=== PATIENT | female | born 1935 | race Caucasian/White ===

== ENCOUNTER → 2017-05-02 | Outpatient (CLI) | payer OTHER ==
[~2017-05-02] MED LIST: ASPCH81X PO; ATEN-175 PO; CALCTAB5 PO; FSMD/70 PO; LISI40TA PO; SIMV10TA2 PO
--- NOTE | 2017-05-03 07:41 | MAMMOGRAPHY REPORT ---
BILATERAL DIGITAL SCREENING MAMMOGRAM WITH CAD: 05/02/2017 CLINICAL HISTORY: Routine screening. Patient has no complaints. TECHNIQUE: Bilateral CC and MLO views were obtained. Current study was also evaluated with a Compute r Aided Detection (CAD) system. COMPARISON: Comparison is made to exams dated: 04/28/2016 mammogram, 04/25/2015 mammogram, 04/24/2014 ma mmogram, 04/18/2013 mammogram, 04/13/2012 mammogram, and 04/08/2011 mammogram - [facility]. BREAST COMPOSITION: There are scattered areas of fibroglandular density in both breasts. FINDINGS: There are minimal vascular calcifications in the breasts. No suspicious mass, architectura l distortion or cluster of microcalcifications is seen. IMPRESSION: ACR BI-RADS CATEGORY 1: NEGATIVE There is no mammographic evidence of malignancy. A 1 year screening mammogram is recommended. The pa tient will receive written notification of the results. Approximately 10% of breast cancers are not detected with mammography. A negative mammographic report should not delay biopsy if a clinically suggestive mass is present. Jenelle Hebert M.D. ay/:05/02/2017 16:10:36 Tool And Die Designer: Erma ARIAS(Maia)(Andrew)(BD), letter sent: Normal 1/2 BI-RADS Code: ACR BI-RADS Category 1: Negative
== END | disposition home or self-care (01) ==
LOC: C.MAMM 07:30
PROVIDERS: ATTEND Family Medicine
DX: Z12.31 Encounter for screening mammogram for malignant neoplasm of breast (principal)

== ENCOUNTER → 2018-05-04 | Outpatient (CLI) | payer OTHER ==
--- NOTE | 2018-05-04 16:06 | MAMMOGRAPHY REPORT ---
BILATERAL DIGITAL SCREENING MAMMOGRAM TOMOSYNTHESIS WITH CAD: 05/04/2018 CLINICAL HISTORY: Routine screening. Patient has no complaints. TECHNIQUE: The study was acquired using full field digital technology and interpreted from soft copy. Breast tomosynthesis in addition to standard 2D mammography was performed. Current study was also ev aluated with a Computer Aided Detection (CAD) system. COMPARISON: Comparison is made to exams dated: 05/02/2017 mammogram, 04/28/2016 mammogram, 04/25/2015 m ammogram, 04/24/2014 mammogram, 04/18/2013 mammogram, and 04/08/2011 mammogram - [facility]. BREAST COMPOSITION: There are scattered areas of fibroglandular density in both breasts. FINDINGS: No suspicious masses, calcifications, or areas of architectural distortion are noted in either breast . There has been no significant interval change compared to prior exams. A linear scar marker denote s a scar on the left upper outer breast. IMPRESSION: There is no mammographic evidence of malignancy. A 1 year screening mammogram is recommended.( 019) The patient will receive written notification of the results. Some breast cancers are not detected with mammography. A negative mammographic report should not ricci y biopsy if a clinically suggestive mass is present. Geni Carrion M.D. ah/:05/04/2018 07:43:50 Residential Sales Representative: Anna Marie Skinner, [facility] letter sent: Normal 1/2 BI-RADS Code: ACR BI-RADS Category 2: Benign
== END | disposition home or self-care (01) ==
LOC: C.MAMM 07:25
PROVIDERS: ATTEND Family Medicine
DX: Z12.31 Encounter for screening mammogram for malignant neoplasm of breast (principal)

== ENCOUNTER 2024-07-10 23:04 | Inpatient (IN) ==
--- NOTE | 2024-07-10 23:38 | Emergency Department Note ---
Impression & Plan Chest pain, Hypertension, Elevated troponin, Anemia ED Provider Note ED Provider Note NAME: DERRICK ANGEL AGE:88 SEX: Female : 1935 ARRIVES VIA: Private vehicle INFORMANT: Patient ED PROVIDER(s): Bianca Vo DO CHIEF COMPLAINT: Chest pain HPI: This is an 88-year-old female who presents emergency department due to concern for intermittent episodes of chest pain over the last 2 weeks. Patient states she also noticed some mild intermittent reflux symptoms and was taking Prilosec daily as well as intermittent Tums. She states occasionally it seemed to help but other times it did not. She states the chest pressure does not always seem to occur at that time she has reflux low. States chest pressure is central and otherwise nonradiating. No change with position or exertion. She denies any accompanying dizziness, nausea or vomiting, or abdominal pain. She states intermittently it does feel slightly harder to breathe. Patient states she does take medication for high blood pressure. She also takes low-dose aspirin daily. PAST MEDICAL HISTORY:See Below PAST SURGICAL HISTORY:See Below FAMILY HISTORY:See Below SOCIAL HISTORY:See Below HOME MEDICATIONS:See Below ALLERGIES:See Below VITALS:See Below PHYSICAL EXAMINATION: GENERAL: alert, well appearing, well nourished, no distress, non-toxic EYE EXAM: normal conjunctiva, PERRL and EOM's grossly intact OROPHARYNX: no exudate, no erythema, lips, buccal mucosa, and tongue normal and mucous membranes are moist NECK: supple, no nuchal rigidity, no adenopathy, non-tender LUNGS: Clear to auscultation. Normal chest wall mechanics, no w/r/r HEART: no murmurs, S1 normal and S2 normal, mild discomfort with palpation over the sternum centrally ABDOMEN: abdomen soft, non-tender, normo-active bowel sounds, no masses, no rebound or guarding. SKIN: no rashes, petechiae, orbruising UPPER EXTREMITIES: upper extremities are grossly normal. FROM, nml pulses b/l. LOWER EXTREMITIES: No pitting edema. FROM, nml pulses b/l. NEURO EXAM: Normal sensorium, cranial nerves II-XII grossly intact, normal speech, no facial droop,nogross weakness of arms, no gross weakness of legs. Gross sensation intact. No ataxia. Vital Signs: reviewed and remarkable Differential Diagnosis: acute coronary syndrome, pericarditis, pulmonary embolus, aortic dissection, pneumonia, pneumothorax, musculoskeletal pain, shingles, GERD, GI bleed, as well as others were considered MEDICAL DECISION MAKING: This is a well-appearing 88-year-old female who presents due to intermittent chest pain over the last 2 weeks. She was afebrile and hemodynamically stable although noted to have significant hypertension. Patient's blood pressure did improve without additional intervention I suspect some of it is related to her concern for her condition and being in the emergency department. Labs drawn and sent, IV established, EKG and CXR performed and interpreted at bedside, and patient placed on telemetry. Patient noted to have an elevated troponin. BNP was added as was nasal swab for bio fire. No recent URI symptoms, no hypoxia or increased work of breathing. Patient initially given Pepcid for her intermittent chest discomfort due to her suspicion for GERD and recent accompanying eructation. She was then given Maalox additionally. Due to concern for symptoms, no prior cardiac evaluation, elevated troponin despite reassuring EKG, case discussed with the hospitalist team for additional evaluation and management. Patient was noted to have mild anemia compared to prior however blood work was from 2 years ago in our EMR. Consultation(s): 0219: Discussed with Dr. Brody, [facility] hospitalist team, for additional evaluation and management. ER Treatment Provided: See below 0140: Patient updated on results so far. Diagnostics Interpreted By Me: -ECG: Normal sinus at 80 with first-degree AV block, normal axis, normal intervals, no acute ST/T wave changes -Cardiac Monitoring: An order was placed for continuous cardiac monitoring. The monitor shows a rate of 88 with normal sinus rhythm. -Laboratory studies: As stated above and show below. -Imaging studies: cxr: A single view study of the chest was reviewed and was negative for cardiomegaly, effusion, pulmonary edema, or wide mediastinum. Increased interstitial markings noted RLL. Triage Nursing Note Reviewed Prior/Outside Records Reviewed Past Med/Surg History Problem List (Updated 07/11/24 @ 03:40 by Bianca Vo DO) Anemia (Acute) Elevated troponin (Acute) Chest pain (Acute) Encounter for pre-operative examination Hypertension (Acute) HTN (hypertension) (Chronic) Hypertension (Acute) Encounter for pre-operative examination Medical History History of COVID-19 06/2020 [facility]; reports only symptom was fatigue; resolved HLD (hyperlipidemia) HTN (hypertension) Hypothyroidism Osteoarthritis Surgical History History of appendectomy History of cataract surgery left History of colonoscopy History of lumbar surgery History of lumpectomy of left breast benign History of tooth extraction History of total abdominal hysterectomy and bilateral salpingo-oophorectomy Family History Other No family history of adverse response to anesthesia Social History Smoking Status: Never smoker Cigarettes Per Day: 1970; Second Hand Exposure: No; Do You Dip or Chew Tobacco: No; Hx Alcohol Use: Yes Alcohol type: wine Hx Substance Use: No Preferred Language: Slovak Communication Ability: Effective Finger Waver Required: No Beliefs That Will Affect Care: None Current Living Situation: Spouse Feels Safe at Home: Yes Assistive Devices: Glasses Allergies Allergies Allergy/AdvReac Type Severity Reaction Status Date / Time No Known Allergies Allergy Unverified 07/11/24 01:02 Home Meds Home Medications Medication Instructions Recorded Confirmed amlodipine 5 mg tablet 5 mg PO QPM 01/05/21 07/11/24 aspirin 81 mg tablet,delayed 81 mg PO QPM 01/05/21 07/11/24 release cholecalciferol (vitamin D3) 25 50 mcg PO QPM 01/05/21 07/11/24 mcg (1,000 unit) capsule (Vitamin D3) levothyroxine 50 mcg tablet 50 mcg PO QAM 01/05/21 07/11/24 lisinopril 40 mg tablet 40 mg PO QAM 01/05/21 07/11/24 simvastatin 10 mg tablet 10 mg PO HS 01/05/21 07/11/24 ascorbic acid (vitamin C) 500 mg 500 mg PO QPM 07/11/24 07/11/24 tablet (Vitamin C) atenolol 50 mg tablet 50 mg PO QAM 07/11/24 07/11/24 cyanocobalamin (vitamin B-12) 1,000 mcg PO QPM 07/11/24 07/11/24 1,000 mcg tablet (Vitamin B-12) Results & Data (ED) Vital Signs Vital Signs - 24 hr 07/10/24 23:06 07/10/24 23:20 07/10/24 23:31 Temperature 36.8 C Temperature Source Temporal Artery Scan Pulse Rate 95 H 85 Respiratory Rate 18 Respiratory Effort / Characteristics Non-Labored Spontaneous Respiratory Depth Normal Respiratory Pattern Regular Blood Pressure 223/97 H Blood Pressure Mean 139 Pulse Oximetry 93 98 Oxygen Delivery Method Room Air Room Air Sepsis Recent Fever Within 48 Hours No Sepsis New/Unexplained Change in Mental Status N/A Sepsis Action Taken by Nursing No Action Required 07/10/24 23:39 07/11/24 00:13 07/11/24 00:31 Temperature Temperature Source Pulse Rate 73 67 64 Respiratory Rate 16 16 18 Respiratory Effort / Characteristics Respiratory Depth Respiratory Pattern Blood Pressure 188/111 H 159/63 H 169/59 H Blood Pressure Mean 136 95 81 Pulse Oximetry 95 95 96 Oxygen Delivery Method Room Air Sepsis Recent Fever Within 48 Hours Sepsis New/Unexplained Change in Mental Status Sepsis Action Taken by Nursing 07/11/24 01:30 07/11/24 02:04 07/11/24 03:00 Temperature Temperature Source Pulse Rate 74 81 75 Respiratory Rate 18 16 24 Respiratory Effort / Characteristics Respiratory Depth Respiratory Pattern Blood Pressure 181/66 H 143/81 H 152/71 H Blood Pressure Mean 81 101 124 Pulse Oximetry 96 92 95 Oxygen Delivery Method Room Air Sepsis Recent Fever Within 48 Hours Sepsis New/Unexplained Change in Mental Status Sepsis Action Taken by Nursing 07/11/24 03:15 Temperature Temperature Source Pulse Rate 76 Respiratory Rate 20 Respiratory Effort / Characteristics Respiratory Depth Respiratory Pattern Blood Pressure 170/77 H Blood Pressure Mean 96 Pulse Oximetry 96 Oxygen Delivery Method Sepsis Recent Fever Within 48 Hours Sepsis New/Unexplained Change in Mental Status Sepsis Action Taken by Nursing Laboratory Data 07/10/24 23:26 07/10/24 23:26 Lab Results 07/10/24 07/11/24 Range/Units 23:26 00:56 WBC 4.00 L (4.8-10.8) K/ul RBC 3.68 L (4.20-5.40) M/uL Hgb 10.6 L (12.0-16.0) g/dl Hct 32.8 L (37.0-47.0) % MCV 89.1 (80.0-100.0) fL MCH 28.8 (25.0-34.0) pg MCHC 32.3 (32.0-36.0) g/dL RDW Std Deviation 55.7 H (36.4-46.3) fL RDW Coeff of Cesar 17.7 H (11.5-14.5) % Plt Count 119 L (130-400) K/uL Immature Gran % (Auto) 0.5 % Neut % (Auto) 32.7 % Lymph % (Auto) 54.3 % [place] % (Auto) 12.5 % Eos % (Auto) 0.0 % Baso % (Auto) 0.0 % Neut # (Auto) 1.31 L (1.40-6.50) K/uL Lymph # (Auto) 2.17 (1.20-3.40) K/uL Treg[place] # (Auto) 0.50 (0.11-0.59) K/uL Eos # (Auto) 0.00 (0.00-0.50) K/uL Baso # (Auto) 0.00 (0.00-0.20) K/uL Immature Gran # (Auto) 0.02 (0.01-0.20) K/uL PT 10.6 (9.0-12.0) Seconds INR 1.0 (0.9-1.1) D-Dimer 730 H* (0-500) ug/L FEU Sodium 139 (136-145) mmol/L Potassium 3.8 (3.5-5.1) mmol/L Chloride 108 H (98-107) mmol/L Carbon Dioxide 22 (21-32) mmol/L Anion Gap 9 (3-11) BUN 28 H (6-23) mg/dl Creatinine 1.26 H (0.6-1.2) mg/dl Est Cr Clr Drug Dosing 26.3 ml/min Est GFR ( Amer) 44.1 ml/min Est GFR (Non-Af Amer) 38.0 ml/min BUN/Creatinine Ratio 22.2 H (10-20) Glucose 118 H (70-99(Fasting)) mg/dl Calcium 9.5 (8.6-10.3) mg/dl Magnesium 2.1 (1.7-2.4) mg/dl Total Bilirubin 0.7 (0.2-1.0) mg/dl AST 15 (13-39) U/L ALT 11 (7-52) U/L Alkaline Phosphatase 46 (34-104) U/L Troponin I High Sens 90.5 H* (0-14) pg/ml B-Natriuretic Peptide 201 H (0-100) pg/ml Total Protein 7.4 (6.0-8.3) gm/dl Albumin 4.5 (3.4-5.0) gm/dl Globulin 2.9 (2.5-4.0) gm/dl Albumin/Globulin Ratio 1.6 (0.9-2) Lipase 38 (11-82) U/L TSH 2.361 (0.300-4.500) uIu/ml Adenovirus (PCR) Not Detected (NotDetected) B. pertussis DNA (PCR) Not Detected (NotDetected) B.parapertussis DNA PCR Not Detected (NotDetected) C. pneumoniae DNA (PCR) Not Detected (NotDetected) Coronavirus OC43 (PCR) Not Detected (NotDetected) Coronavirus HKU1 (PCR) Not Detected (NotDetected) Coronavirus 229E (PCR) Not Detected (NotDetected) SARS-CoV-2 (PCR) Not Detected (NotDetected) Coronavirus NL63 (PCR) Not Detected (NotDetected) Human Metapneumovir PCR Not Detected (NotDetected) Influenza Type A (PCR) Not Detected (NotDetected) Influenza Type B (PCR) Not Detected (NotDetected) M. pneumoniae (PCR) Not Detected (NotDetected) Parainfluenza 1 (PCR) Not Detected (NotDetected) Parainfluenza 2 (PCR) Not Detected (NotDetected) Parainfluenza 3 (PCR) Not Detected (NotDetected) Parainfluenza 4 (PCR) Not Detected (NotDetected) RSV (PCR) Not Detected (NotDetected) Entero/Rhino (PCR) Not Detected (NotDetected) Administered Medications Sodium Chloride (Nss) 1,000 mls @ 60 mls/hr IV .[id number] ONE Stop: 07/11/24 19:03 Last Admin: 07/11/24 02:47 Dose: 60 mls/hr Documented By: GERALDINE Nitroglycerin (Nitroglycerin Sl 0.4 Mg/Tab Tab) 0.4 mg SL Q5M PRN PRN Reason: Chest Pain Stop: 08/10/24 02:31 Last Admin: 07/11/24 02:47 Dose: 0.4 mg Documented By: GERALDINE Discontinued Medications Al Hydrox/Mg Hydrox/Simethicone (Aluminum/Magnesium Susp 30 Ml Udc) 15 ml PO NOW STA Stop: 07/11/24 01:42 Last Admin: 07/11/24 01:48 Dose: 15 ml Documented By: GERALDINE Aspirin (Aspirin 325 Mg Ectab) 325 mg PO NOW STA Stop: 07/11/24 02:33 Last Admin: 07/11/24 03:08 Dose: 325 mg Documented By: MICHELE Sodium Chloride (Nss) 1,000 mls @ 125 mls/hr IV .Q8H [facility] Stop: 08/09/24 23:44 Last Infusion: 07/11/24 02:29 Dose: Infused Documented By: Admin: 07/10/24 23:46 Dose: 125 mls/hr Documented By: GERALDINE Famotidine (Pepcid 20mg Iv Push) 20 mg in 5 mls @ 2.5 mls/min IV NOW STA Stop: 07/10/24 23:36 Last Admin: 07/10/24 23:45 Dose: 2.5 mls/min Documented By: GERALDINE Nitroglycerin (Nitroglycerin Sl 0.4 Mg/Tab Tab) Confirm Administered Dose 0.4 mg .ROUTE .STK-MED ONE Stop: 07/11/24 02:44 Last Admin: 07/11/24 02:47 Dose: Not Given Documented By: GERALDINE Discharge Plan Visit Data Chief Complaint: Shortness of Breath/Dyspnea Stated Complaint: SOB, CHEST [PAIN ED Provider: Bianca Vo Discharge Problem: Chest pain, Hypertension, Elevated troponin, Anemia Forms Stand Alone Forms: My [facility] [place] [employer] Prescriptions Prescriptions: No Action simvastatin 10 mg Tablet 10 mg PO HS amlodipine 5 mg Tablet 5 mg PO QPM aspirin 81 mg Tablet,Delayed Release (Dr/Ec) 81 mg PO QPM levothyroxine 50 mcg Tablet 50 mcg PO QAM lisinopril 40 mg Tablet 40 mg PO QAM cholecalciferol (vitamin D3) [Vitamin D3] 25 mcg (1,000 unit) Capsule 50 mcg PO QPM cyanocobalamin (vitamin B-12) [Vitamin B-12] 1,000 mcg Tablet 1,000 mcg PO QPM ascorbic acid (vitamin C) [Vitamin C] 500 mg Tablet 500 mg PO QPM atenolol 50 mg tablet 50 mg PO QAM Referrals Referrals: Rafat Josue MD [Primary Care Provider] -
[2024-07-10] MEDS: FAMOTIDINE 20MG IV PUSH 20 MG/5 ML SYR IV STA (23:45)
[2024-07-10] MEDS: SODIUM CHLORIDE 0.9% 1,000 ML IV SCH (23:46)
[2024-07-11 00:24] LABS: Albumin Globulin Ratio 1.6 (0.9-2); Albumin Level 4.5 gm/dl (3.4-5.0); BUN Creatinine Ratio 22.2 (10-20); Bilirubin,Total 0.7 mg/dl (0.2-1.0); Calcium 9.5 mg/dl (8.6-10.3); Creatinine Clr Calc Pharmacy 26.3 ml/min; Est GFR (African American) 44.1 ml/min; Globulin 2.9 gm/dl (2.5-4.0); Magnesium 2.1 mg/dl (1.7-2.4); Potassium 3.8 mmol/L (3.5-5.1); Total Protein 7.4 gm/dl (6.0-8.3)
[2024-07-11 00:34] LABS: Troponin I High Sensitivity 90.5 pg/ml (0-14)
[2024-07-11 00:39] LABS: Thyroid Stimulating Hormone 2.361 uIu/ml (0.300-4.500)
[2024-07-11 00:45] LABS: Prothrombin Time 10.6 Seconds (9.0-12.0)
[2024-07-11 01:28] LABS: D Dimer 730 ug/L FEU (0-500)
[2024-07-11 01:39] LABS: Hematocrit (blood only) 32.8 % (37.0-47.0); Hemoglobin 10.6 g/dl (12.0-16.0); Mean Corpuscular Hemoglobin 28.8 pg (25.0-34.0); Mean Corpuscular Hgb Conc 32.3 g/dL (32.0-36.0); Mean Corpuscular Volume 89.1 fL (80.0-100.0); Platelet Count 119 K/uL (130-400); RDW Coefficient of Variation 17.7 % (11.5-14.5); RDW Standard Deviation 55.7 fL (36.4-46.3); Red Blood Count 3.68 M/uL (4.20-5.40)
[2024-07-11] MEDS: ALUMINUM/MAGNESIUM SUSP 30 ML UDC PO STA (01:48)
[2024-07-11 02:25] LABS: Adenovirus PCR Not Detected (NotDetected); Bordetella parapertussis PCR Not Detected (NotDetected); Bordetella pertussis PCR Not Detected (NotDetected); Chlamydia pneumoniae PCR Not Detected (NotDetected); Coronavirus 229E PCR Not Detected (NotDetected); Coronavirus CoV-2 (COVID19)PCR Not Detected (NotDetected); Coronavirus HKU1 PCR Not Detected (NotDetected); Coronavirus NL63 PCR Not Detected (NotDetected); Coronavirus OC43PCR Not Detected (NotDetected); Human Metapneumovirus PCR Not Detected (NotDetected); Influenza A PCR Not Detected (NotDetected); Influenza B PCR Not Detected (NotDetected); Mycoplasma pneumoniae PCR Not Detected (NotDetected); Parainfluenza Virus 1 PCR Not Detected (NotDetected); Parainfluenza Virus 2 PCR Not Detected (NotDetected); Parainfluenza Virus 3 PCR Not Detected (NotDetected); Parainfluenza Virus 4 PCR Not Detected (NotDetected); Respiratory Syncytial VirusPCR Not Detected (NotDetected); Rhinovirus/Enterovirus PCR Not Detected (NotDetected)
[2024-07-11 02:29] LABS: Immature Granulocytes # (auto) 0.02 K/uL (0.01-0.20); Immature Granulocytes % (auto) 0.5 %; Lymphocytes # (auto) 2.17 K/uL (1.20-3.40); Lymphocytes % (auto) 54.3 %; Monocytes % (auto) 12.5 %; Neutrophils # (auto) 1.31 K/uL (1.40-6.50); Neutrophils % (auto) 32.7 %
[2024-07-11] MEDS: SODIUM CHLORIDE 0.9% 1,000 ML IV ONE (02:47)
[2024-07-11] MEDS: NITROGLYCERIN SL 0.4 MG/TAB TAB SL PRN (02:47)
[2024-07-11] MEDS: NITROGLYCERIN SL 0.4 MG/TAB TAB ONE (02:47)
--- NOTE | 2024-07-11 03:00 | History & Physical Report ---
Date of Service July 11, 2024 Assessment & Plan (1) Hypertensive crisis: Plan: Hypertensive crisis NSTEMI CAD/CVA as per records valvular heart disease (mild MR/TR, TTE 2021) hyperlipidemia, on statin Rx Left upper lobe lung nodule, possible malignancy, risky biopsy due to location as per recent [facility] pulmonology note, serial CT monitoring recommended for now hypothyroidism, euthyroid as of today's TSH CRI, at baseline Pancytopenia (anemia and thrombocytopenia noted on recent outpatient blood work from April 2024 Hyperglycemia ro DM past tobacco abuse Admit to PCU Titrate home BP meds Follow troponin Aspirin, beta-ashish, statin Rx, IV heparin for NSTEMI TTE, Cardiology consult (Dr. Roberson on [facility] as per patient request) Re: NSTEMI, hypertensive crisis N.p.o. in anticipation of ischemic workup Anemia workup, peripheral blood smear for pancytopenia Check hemoglobin A1c DVT prophylaxis. Heparin Full code Patient requests for daughter to be given update regarding care. Ms. Trudi Cooper, contact #[phone]. Total critical care time was 45 minutes. Text document was generated using [employer] voice recognition software. It may contain grammatical or spelling errors. Kindly contact undersigned for clarification of any documentation item in question. History of Present Illness Chief Complaint: Chest pain Primary Care Provider: Rafat Josue MD History obtained from patient and records. Medical history significant for CAD/CVA as per records, valvular heart disease (mild MR/TR, TTE 2021), hypertension, hyperlipidemia, lung nodule, GERD, hypothyroidism, CRI (baseline creatinine 1.3), chronic anemia (baseline hemoglobin 10-1), past tobacco abuse. 2 weeks history of intermittent substernal heaviness associated with palpitations occurring both at rest and during exertion. Incomplete response to antacid Rx at home. Some SOB, no cough symptoms. Patient denies headache symptoms. Does not check blood pressure at home. Compliant with home medications. Denies frequent OTC NSAID intake or dietary discretion. Some stress from family asking patient to consider relocation after demise few months ago. Outpatient cardiology referral requested by patient's family from PCP. Patient brought to ER for worsening symptoms. Initial SBP 220s. Chest pain relieved by nitroglycerin administered at the ER. 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 Allergies Allergy/AdvReac Type Severity Reaction Status Date / Time No Known Allergies Allergy Unverified 07/11/24 01:02 Home Medications Medication Instructions Recorded Confirmed Type amlodipine 5 mg tablet 5 mg PO QPM 01/05/21 07/11/24 History aspirin 81 mg tablet,delayed 81 mg PO QPM 01/05/21 07/11/24 History release cholecalciferol (vitamin D3) 25 50 mcg PO QPM 01/05/21 07/11/24 History mcg (1,000 unit) capsule (Vitamin D3) levothyroxine 50 mcg tablet 50 mcg PO QAM 01/05/21 07/11/24 History lisinopril 40 mg tablet 40 mg PO QAM 01/05/21 07/11/24 History simvastatin 10 mg tablet 10 mg PO HS 01/05/21 07/11/24 History ascorbic acid (vitamin C) 500 mg 500 mg PO QPM 07/11/24 07/11/24 History tablet (Vitamin C) atenolol 50 mg tablet 50 mg PO QAM 07/11/24 07/11/24 History cyanocobalamin (vitamin B-12) 1,000 mcg PO QPM 07/11/24 07/11/24 History 1,000 mcg tablet (Vitamin B-12) Past Med/Surg History Problem List (Updated 07/11/24 @ 03:50 by Skyler Aguilera MD) Hypertensive crisis Anemia (Acute) Elevated troponin (Acute) Chest pain (Acute) Encounter for pre-operative examination Hypertension (Acute) HTN (hypertension) (Chronic) Hypertension (Acute) Encounter for pre-operative examination Medical History History of COVID-19 06/2020 [facility]; reports only symptom was fatigue; resolved HLD (hyperlipidemia) HTN (hypertension) Hypothyroidism Osteoarthritis Surgical History History of appendectomy History of cataract surgery left History of colonoscopy History of lumbar surgery History of lumpectomy of left breast benign History of tooth extraction History of total abdominal hysterectomy and bilateral salpingo-oophorectomy Family History Other No family history of adverse response to anesthesia Social History Smoking Status: Never smoker Cigarettes Per Day: 1970; Second Hand Exposure: No; Do You Dip or Chew Tobacco: No; Hx Alcohol Use: Yes Alcohol type: wine Hx Substance Use: No Preferred Language: Telugu Communication Ability: Effective Exercise Science Instructor Required: No Beliefs That Will Affect Care: None Current Living Situation: Spouse Feels Safe at Home: Yes Assistive Devices: Glasses Review of Systems Review of Systems: As per HPI, all other systems reviewed and negative Physical Exam Physical Exam: GENERAL: Comfortable, pleasant, slightly anxious, no respiratory distress SKIN: Pallor, warm HEENT: Bespectacled, pale palpebral conjunctivae, no ptosis, moist buccal mucosa NECK : Supple, no tenderness CHEST : CTA, no tenderness HEART : RRR, no obvious murmurs ABDOMEN: Some distention, nontender EXTREMITIES : No LE swelling/tenderness, no other conspicuous deformities noted NEUROLOGIC : Coherent, no facial asymmetry, no other gross focality Results & Data Results & Data Vital Signs (Past 12 Hours) Vital Signs Temp Pulse Resp BP Pulse Ox O2 Del Method 07/11/24 02:04 81 16 143/81 H 92 Room Air 07/11/24 01:30 74 18 181/66 H 96 07/11/24 00:31 64 18 169/59 H 96 07/11/24 00:13 67 16 159/63 H 95 07/10/24 23:39 73 16 188/111 H 95 Room Air 07/10/24 23:31 85 07/10/24 23:20 98 Room Air 07/10/24 23:06 36.8 C 95 H 18 223/97 H 93 Room Air Laboratory Results Laboratory Results WBC 4.00 K/ul (4.8-10.8) L 07/10/24 23:26 RBC 3.68 M/uL (4.20-5.40) L 07/10/24 23:26 Hgb 10.6 g/dl (12.0-16.0) L 07/10/24 23:26 Hct 32.8 % (37.0-47.0) L 07/10/24 23:26 MCV 89.1 fL (80.0-100.0) 07/10/24 23: MCH 28.8 pg (25.0-34.0) 07/10/24 23: MCHC 32.3 g/dL (32.0-36.0) 07/10/24: RDW Std Deviation 55.7 fL (36.4-46.3) H 07/10/24: RDW Coeff of Cesar 17.7 % (11.5-14.5) H 07/10/24: Plt Count 119 K/uL (130-400) L 07/10/24 23: Immature Gran % (Auto) 0.5 % 07/10/24 23: Neut % (Auto) 32.7 % 07/10/24 23: Lymph % (Auto) 54.3 % 07/10/24 23: Brewster % (Auto) 12.5 % 07/10/24: Eos % (Auto) 0.0 % 07/10/24: Baso % (Auto) 0.0 % 07/10/24: Neut # (Auto) 1.31 K/uL (1.40-6.50) L 07/10/24 23: Lymph # (Auto) 2.17 K/uL (1.20-3.40) 07/10/24: Brewster # (Auto) 0.50 K/uL (0.11-0.59) 07/10/24: Eos # (Auto) 0.00 K/uL (0.00-0.50) 07/10/24 23: Baso # (Auto) 0.00 K/uL (0.00-0.20) 07/10/24 23: Immature Gran # (Auto) 0.02 K/uL (0.01-0.20) 07/10/24: PT 10.6 Seconds (9.0-12.0) 07/10/24: INR 1.0 (0.9-1.1) 07/10/24: D-Dimer 730 ug/L FEU (0-500) H* 07/10/24 23: Sodium 139 mmol/L (136-145) 07/10/24: Potassium 3.8 mmol/L (3.5-5.1) 07/10/24 23:26 Chloride 108 mmol/L (98-107) H 07/10/24 23:26 Carbon Dioxide 22 mmol/L (21-32) 07/10/24 23:26 Anion Gap 9 (3-11) 07/10/24 23:26 BUN 28 mg/dl (6-23) H 07/10/24 23:26 Creatinine 1.26 mg/dl (0.6-1.2) H 07/10/24 23:26 Est Cr Clr Drug Dosing 26.3 ml/min 07/10/24 23:26 Est GFR ( Amer) 44.1 ml/min 07/10/24 23: Est GFR (Non-Af Amer) 38.0 ml/min 07/10/24 23: BUN/Creatinine Ratio 22.2 (10-20) H 07/10/24 23:26 Glucose 118 mg/dl (70-99(Fasting)) H 07/10/24 23: Calcium 9.5 mg/dl (8.6-10.3) 07/10/24 23: Magnesium 2.1 mg/dl (1.7-2.4) 07/10/24 23: Total Bilirubin 0.7 mg/dl (0.2-1.0) 07/10/24 23: AST 15 U/L (13-39) 07/10/24 23: ALT 11 U/L (7-52) 07/10/24 23: Alkaline Phosphatase 46 U/L (34-104) 07/10/24 23: Troponin I High Sens 90.5 pg/ml (0-14) H* 07/10/24 23: Total Protein 7.4 gm/dl (6.0-8.3) 07/10/24 23: Albumin 4.5 gm/dl (3.4-5.0) 07/10/24 23: Globulin 2.9 gm/dl (2.5-4.0) 07/10/24 23: Albumin/Globulin Ratio 1.6 (0.9-2) 07/10/24 23: Lipase 38 U/L (11-82) 07/10/24 23:26 TSH 2.361 uIu/ml (0.300-4.500) 07/10/24 23:26 Adenovirus (PCR) Not Detected (NotDetected) 07/11/24 00:56 B. pertussis DNA (PCR) Not Detected (NotDetected) 07/11/24 00:56 B.parapertussis DNA PCR Not Detected (NotDetected) 07/11/24 00:56 C. pneumoniae DNA (PCR) Not Detected (NotDetected) 07/11/24 00:56 Coronavirus OC43 (PCR) Not Detected (NotDetected) 07/11/24 00:56 Coronavirus HKU1 (PCR) Not Detected (NotDetected) 07/11/24 00:56 Coronavirus 229E (PCR) Not Detected (NotDetected) 07/11/24 00:56 SARS-CoV-2 (PCR) Not Detected (NotDetected) 07/11/24 00:56 Coronavirus NL63 (PCR) Not Detected (NotDetected) 07/11/24 00:56 Human Metapneumovir PCR Not Detected (NotDetected) 07/11/24 00:56 Influenza Type A (PCR) Not Detected (NotDetected) 07/11/24 00:56 Influenza Type B (PCR) Not Detected (NotDetected) 07/11/24 00:56 M. pneumoniae (PCR) Not Detected (NotDetected) 07/11/24 00:56 Parainfluenza 1 (PCR) Not Detected (NotDetected) 07/11/24 00:56 Parainfluenza 2 (PCR) Not Detected (NotDetected) 07/11/24 00:56 Parainfluenza 3 (PCR) Not Detected (NotDetected) 07/11/24 00:56 Parainfluenza 4 (PCR) Not Detected (NotDetected) 07/11/24 00:56 RSV (PCR) Not Detected (NotDetected) 07/11/24 00:56 Entero/Rhino (PCR) Not Detected (NotDetected) 07/11/24 00:56 Diagnostic Findings Chest x-ray as per my interpretation atelectasis, cardiomegaly EKG as per my interpretation : Rate 80, NSR, normal axis, 1 AVB, no ischemia
[2024-07-11] MEDS ORDERED: LORazepam 0.5 MG TAB PO PRN (03:08)
[2024-07-11] MEDS ORDERED: PROMETHAZINE 6.25 MG/50.25 ML BAG IV PRN (03:08)
[2024-07-11] MEDS ORDERED: oxyCODONE HCL IR 5 MG TAB (IMMEDIATE RELEASE) PO PRN (03:08)
[2024-07-11] MEDS: ASPIRIN 325 MG ECTAB PO STA (03:08)
[2024-07-11] MEDS ORDERED: HYDROmorphone INJ 0.5 MG/0.5 ML SYR IV PRN (03:08)
[2024-07-11 03:36] LABS: Basophils # (auto) 0.01 K/uL (0.00-0.20); Basophils % (auto) 0.3 %; Hematocrit (blood only) 30.5 % (37.0-47.0); Hemoglobin 9.8 g/dl (12.0-16.0); Immature Granulocytes # (auto) 0.02 K/uL (0.01-0.20); Immature Granulocytes % (auto) 0.5 %; Lymphocytes # (auto) 1.91 K/uL (1.20-3.40); Lymphocytes % (auto) 48.6 %; Mean Corpuscular Hemoglobin 28.6 pg (25.0-34.0); Mean Corpuscular Hgb Conc 32.1 g/dL (32.0-36.0); Mean Corpuscular Volume 88.9 fL (80.0-100.0); Mean Platelet Volume 11.8 fL (9.4-12.4); Monocytes # (auto) 0.39 K/uL (0.11-0.59); Monocytes % (auto) 9.9 %; Neutrophils % (auto) 40.7 %; Platelet Count 106 K/uL (130-400); RDW Coefficient of Variation 17.6 % (11.5-14.5); RDW Standard Deviation 55.7 fL (36.4-46.3); Red Blood Count 3.43 M/uL (4.20-5.40); Reticulocyte % 2.43 % (0.50-2.00); White Blood Count 3.93 K/ul (4.8-10.8)
[2024-07-11 03:54] LABS: BUN Creatinine Ratio 20.8 (10-20); Calcium 9.1 mg/dl (8.6-10.3); Chol HDL Ratio 3.5 (0-5); Creatinine Clr Calc Pharmacy 27.6 ml/min; Est GFR (African American) 46.7 ml/min; Est GFR (Non-African American) 40.3 ml/min; Potassium 4.1 mmol/L (3.5-5.1)
[2024-07-11 04:01] LABS: Troponin I High Sensitivity 678.9 pg/ml (0-14)
[2024-07-11] MEDS: METOPROLOL SUCC 25MG EXT REL TAB PO STA (04:08)
[2024-07-11] MEDS: HEPARIN SODIUM/DEXTROSE 25,000 UNITS/500 ML BAG IV SCH (04:44)
[2024-07-11] MEDS: Heparin IV Adult Wt-Based Low-Dose *NO* INITIAL Bolus Protocol IV SCH (05:47)
[2024-07-11] MEDS: LEVOTHYROXINE SODIUM 50 MCG TABLET PO SCH (06:15)
[2024-07-11 06:26] LABS: Folate (Folic Acid),Ser orPlas 14.4 ng/ml (>5.38)
[2024-07-11 07:32] LABS: Estimated Average Glucose 126 mg/dl
--- NOTE | 2024-07-11 07:47 | XRay Report ---
SINGLE VIEW CHEST CLINICAL HISTORY: Atypical chest pain FINDINGS: An AP, portable, upright chest radiograph is compared to study dated 06/23/2014 and correlate d with chest CT dated 07/09/2022. The heart is enlarged noting atherosclerotic calcification of the th oracic aorta. Emphysema and chronic interstitial thickening is similar to previous. Scarring/atelecta sis is noted at both lung bases. No airspace consolidation or large pleural effusion is identified. A 1.5 cm indeterminate nodular opacity projects over the left apex. No pneumothorax is seen. The skele tiana structures are osteopenic. The bony thorax is grossly intact. IMPRESSION: 1. Cardiomegaly and emphysema with no acute cardiopulmonary abnormality identified. 2. A 1.5 cm indeterminate nodular opacity projects over the left apex. Correlation with a chest CT is recommended for reassessment an exclude underlying pulmonary lesion. ACT 112: Positive. There are findings on this exam that require communication between the performing entity and the patient following Patient Test Result Information Act ([place] Act 112) guidelines. Electronically signed by: Byron Ascencio M.D. 07/11/2024 7:45 AM
--- NOTE | 2024-07-11 08:39 | Cardiology Consultation ---
Date of Consultation July 11, 2024 Assessment & Plan (1) Elevated troponin: (2) Chest pain: (3) NSTEMI (non-ST elevated myocardial infarction): (4) Uncontrolled hypertension: (5) Dyslipidemia, goal LDL below 70: (6) Atherosclerosis of coronary artery: (7) Lung nodule seen on imaging study: (8) Chronic kidney disease: Plan 88 year old female admitted with waxing and waning chest pressure associated with dyspnea and eructation. - EKG with anterolateral ST-T abnormality. - High sensitivity troponin elevated. - Echo with mild reduction in systolic function along with a moderate sized apical wall motion abnormality. - Patient unstable, with ongoing intermittent upper chest pressure/heaviness partially relieved with sublingual nitroglycerin, NSTEMI. Additional sublingual nitroglycerin now 1/2" nitro paste to the chest wall Continue IV heparin Continue ASA Continue beta-ashish with metoprolol succinate Discontinue simvastatin Start atorvastatin 40 mg/day Continue GINA inhibition with Lisinopril. NPO for cardiac catheterization this AM Supervising Physician Co-Signing Physician Notes I have personally performed a history and physical examination on the patient. I have reviewed the advance practitioner's documentation, and I agree with, and take responsibility for the plan of care. 88-year-old female seen and examined at the bedside in the emergency department. Currently describing 7/10 chest discomfort and heaviness. Mild improvement with sublingual nitroglycerin. IV heparin infusing. Repeat ECG with anterior T wave abnormality suggestive of ischemia. Echocardiogram with apical wall motion abnormality and mildly reduced LV function. Findings suggest acute coronary syndrome, NSTEMI. Recommend urgent cardiac catheterization due to ongoing symptoms. Case discussed with tube room cashier. Patient will proceed to the cardiac catheterization lab. Further recommendations pending result of coronary angiography. I spent a total of 40 minutes on the date of service in preparation, delivery, and documentation of the care provided to this patient, excluding any time spent in the performance of separately billed services. Mk Rudd DO, [facility] History of Present Illness Reason for Consultation: GINA, Hypertensive crisis Requesting Physician: Dr. Aguilera Attending Physician: Dr. Mcfadden History of Present Illness Mrs. Shiloh Ryan is a very pleasant 88-year-old female who began to experience nonradiating upper chest pressure approximately 2 weeks ago. Pressure/heaviness associated with shortness of breath and "lots of burping." Approximately 1 week ago patient purchased a box of Prilosec and has been taking it daily in the morning with possible improvement until last night. She notes taking Tums without benefit and having her [id number] drive her to the ER last night for further evaluation. Blood pressure was as high as 223/97 in the ER. EKG with anterolateral STT wave abnormality. High-sensitivity troponin elevated at 90.5 -> 678.9 -> 1687.6 pg/mL. Resting echocardiography obtained on July 11, 2024 revealed mild reduction in LV systolic function, EF 40 to 45%, with a moderate size apical wall motion abnormality. Mild mitral and tricuspid regurgitation observed. Estimated pulmonary artery systolic pressure elevated at 46 mmHg. Creatinine 1.2. Patient has received aspirin, chronic beta- ashish therapy, statin and IV heparin was initiated on admission. At the time of my evaluation patient was experiencing recurrent upper chest pressure/heaviness. EKG obtained with findings similar to EKG on presentation, anterolateral ST-T wave abnormality. Sublingual nitroglycerin administered with improvement but not resolution. Additional sublingual nitroglycerin to be administered along with Nitropaste Past Medical and Surgical History Hypertension Dyslipidemia Coronary artery calcification Left upper lobe pulmonary nodule concerning for adenocarcinoma Hypothyroidism Chronic anemia Chronic kidney disease. GERD Breast biopsy Carpal tunnel Appendectomy Lumbar laminectomy Total hysterectomy Cataract extraction Family History: Father was killed in a gas explosion at the age of 42. Mother had CAD, passing at the age of 72 with an ME. Patient has 3 siblings, 3 younger brothers. 1 with metastatic esophageal cancer. The 2 other brothers both had coronary artery disease status post surgical intervention (details unknown) Social History: Former smoker having quit in the year 1969 after smoking up to 1 pack/day x 12 years. No significant alcohol consumption. No illegal/illicit drug use. , Landon, January 25, 2024. 2 children both in [place]. Lives alone. Allergies Allergy/AdvReac Type Severity Reaction Status Date / Time No Known Allergies Allergy Unverified 07/11/24 01:02 Home Medications Medication Instructions Recorded Confirmed Type amlodipine 5 mg tablet 5 mg PO QPM 01/05/21 07/11/24 History aspirin 81 mg tablet,delayed 81 mg PO QPM 01/05/21 07/11/24 History release cholecalciferol (vitamin D3) 25 50 mcg PO QPM 01/05/21 07/11/24 History mcg (1,000 unit) capsule (Vitamin D3) levothyroxine 50 mcg tablet 50 mcg PO QAM 01/05/21 07/11/24 History lisinopril 40 mg tablet 40 mg PO QAM 01/05/21 07/11/24 History simvastatin 10 mg tablet 10 mg PO HS 01/05/21 07/11/24 History ascorbic acid (vitamin C) 500 mg 500 mg PO QPM 07/11/24 07/11/24 History tablet (Vitamin C) atenolol 50 mg tablet 50 mg PO QAM 07/11/24 07/11/24 History cyanocobalamin (vitamin B-12) 1,000 mcg PO QPM 07/11/24 07/11/24 History 1,000 mcg tablet (Vitamin B-12) Patient History Medical History History of COVID-19 06/2020 [facility]; reports only symptom was fatigue; resolved Osteoarthritis Hypothyroidism HLD (hyperlipidemia) HTN (hypertension) Surgical History History of cataract surgery left History of lumpectomy of left breast benign History of tooth extraction History of total abdominal hysterectomy and bilateral salpingo-oophorectomy History of lumbar surgery History of colonoscopy History of appendectomy Family History Other No family history of adverse response to anesthesia Social History Smoking Status: Former smoker Cigarettes Per Day: 1970; Second Hand Exposure: No; Do You Dip or Chew Tobacco: No; Hx Alcohol Use: No Hx Substance Use: No Preferred Language: Irish Communication Ability: Effective Rn Cardiac Cath Required: Voice Beliefs That Will Affect Care: None Current Living Situation: Spouse Feels Safe at Home: Yes Assistive Devices: Glasses Review of Systems Review of Systems: Complete Review of Systems: Constitutional: No fevers, chills, or night sweats. HEENT: Status post cataract extraction. No macular degeneration. No glaucoma. No amaurosis fugax. 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 No history of COPD, asthma, or sleep apnea. No history of PE. Cardiac: Denies prior cardiac history. GI/Abd: GERD. No melena or hematochezia. Chronic kidney disease. No liver problems. No history of pancreatic issues. Vascular: Prior imaging with severe coronary artery calcifications and significant aortic atherosclerosis Hematologic: Anemia. Denies abnormal bleeding. Musculoskeletal: Chronic back pain. Arthritis. Leg cramps. Skin: No rash. Neurologic: Prior imaging with CVA. No history of seizure disorder. Female : Hysterectomy. Endocrine: Hypothyroidism. Denies history of diabetes mellitus. Complete Review of Systems is as stated above, negative, or noncontributory Physical Exam Physical Exam: General: A&Ox3. Somewhat uncomfortable. HENT: Normocephalic. Atraumatic. Eyes: PER. Conjunctiva pink, sclera clear. Neck: Carotid bruits. No JVD. No HJR. Heart: Regular at 86 bpm with occasional ectopy. No significant murmur. No rub. Lungs: Clear to auscultation. Abdomen: +BS. Soft. Nontender. No masses or organomegaly. Extremities: No clubbing, cyanosis, or edema. Limited neurological examination is without focal deficits. Pulses: radial=2/4, posterior tibial=2/4. Results & Data Vital Signs (Past 12 Hours) Vital Signs Temp Pulse Pulse Resp BP BP Pulse Ox 07/11/24 06:00 67 16 158/76 H 95 07/11/24 05:00 67 16 152/63 H 95 07/11/24 04:04 68 07/11/24 04:03 07/11/24 03:15 76 20 170/77 H 96 07/11/24 03:00 75 24 152/71 H 95 07/11/24 02:04 81 16 143/81 H 92 07/11/24 01:30 74 18 181/66 H 96 07/11/24 00:31 64 18 169/59 H 96 07/11/24 00:13 67 16 159/63 H 95 07/10/24 23:39 73 16 188/111 H 95 07/10/24 23:31 85 07/10/24 23:20 98 07/10/24 23:06 36.8 C 95 H 18 223/97 H 93 Pulse Ox O2 Del Method O2 Del Method 07/11/24 06:00 Room Air 07/11/24 05:00 Room Air 07/11/24 04:04 07/11/24 04:03 95 Room Air 07/11/24 03:15 07/11/24 03:00 07/11/24 02:04 Room Air 07/11/24 01:30 07/11/24 00:31 07/11/24 00:13 07/10/24 23:39 Room Air 07/10/24 23:31 07/10/24 23:20 Room Air 07/10/24 23:06 Room Air Laboratory Results Cardiac Enzymes 07/10/24 07/11/24 07/11/24 Range/Units 23:26 03:17 08:05 AST 15 (13-39) U/L Troponin I High Sens 90.5 H* 678.9 H* D 1687.6 H* D (0-14) pg/ml B-Natriuretic Peptide 201 H (0-100) pg/ml Coagulation 07/10/24 Range/Units 23:26 PT 10.6 (9.0-12.0) Seconds B-Natriuretic Peptide 201 H (0-100) pg/ml Lipids 07/11/24 Range/Units 03:17 Triglycerides 80 (0-150) mg/dl Cholesterol 107 (0-200) mg/dl HDL Cholesterol 31 mg/dl Cholesterol/HDL Ratio 3.5 (0-5) CBC 07/10/24 07/11/24 Range/Units 23:26 03:17 WBC 4.00 L 3.93 L (4.8-10.8) K/ul RBC 3.68 L 3.43 L (4.20-5.40) M/uL Hgb 10.6 L 9.8 L (12.0-16.0) g/dl Hct 32.8 L 30.5 L (37.0-47.0) % Plt Count 119 L 106 L (130-400) K/uL Neut # (Auto) 1.31 L 1.60 (1.40-6.50) K/uL Lymph # (Auto) 2.17 1.91 (1.20-3.40) K/uL Mason # (Auto) 0.50 0.39 (0.11-0.59) K/uL Eos # (Auto) 0.00 0.00 (0.00-0.50) K/uL Baso # (Auto) 0.00 0.01 (0.00-0.20) K/uL Comprehensive Metabolic Panel 07/10/24 07/11/24 Range/Units 23:26 03:17 Sodium 139 139 (136-145) mmol/L Potassium 3.8 4.1 (3.5-5.1) mmol/L Chloride 108 H 109 H (98-107) mmol/L Carbon Dioxide 22 22 (21-32) mmol/L BUN 28 H 25 H (6-23) mg/dl Creatinine 1.26 H 1.20 (0.6-1.2) mg/dl Glucose 118 H 112 H (70-99(Fasting)) mg/dl Calcium 9.5 9.1 (8.6-10.3) mg/dl AST 15 (13-39) U/L ALT 11 (7-52) U/L Alkaline Phosphatase 46 (34-104) U/L Total Protein 7.4 (6.0-8.3) gm/dl Albumin 4.5 (3.4-5.0) gm/dl Intake and Output 07/10/24 07/11/24 07/11/24 22:59 06:59 14:59 Intake Total 500 / 500 Output Total 0 / 0 Balance 500 / 500 Intake: IV 500 / 500 Sodium Chloride 0.9% 1,000 ml @ 500 / 500 125 mls/hr IV .Q8H [facility] Rx#: [id number] Output: Urine 0 / 0 Other: Weight 63 kg Diagnostic Findings Telemetry: Sinus throughout with occasional ventricular ectopy
[2024-07-11] MEDS: NITROGLYCERIN 2% OINTMENT 30GM TUBE EXT SCH (09:36)
[2024-07-11] MEDS: NITROGLYCERIN 2% OINTMENT 30GM TUBE EXT ONE (09:40)
--- NOTE | 2024-07-11 10:09 | Pre Anesthesia Assessment ---
Date of Service July 11, 2024 Pre Sedation Assessment Vital Signs Temp Pulse Pulse Resp BP BP Pulse Ox 07/11/24 09:56 75 18 175/77 H 93 07/11/24 09:29 79 22 183/94 H 95 07/11/24 09:19 91 H 26 H 177/86 H 90 07/11/24 06:00 67 16 158/76 H 95 07/11/24 05:00 67 16 152/63 H 95 07/11/24 04:04 68 07/11/24 04:03 07/11/24 03:15 76 20 170/77 H 96 07/11/24 03:00 75 24 152/71 H 95 07/11/24 02:04 81 16 143/81 H 92 07/11/24 01:30 74 18 181/66 H 96 07/11/24 00:31 64 18 169/59 H 96 07/11/24 00:13 67 16 159/63 H 95 07/10/24 23:39 73 16 188/111 H 95 07/10/24 23:31 85 07/10/24 23:20 98 07/10/24 23:06 98.2 F 95 H 18 223/97 H 93 Pulse Ox O2 Del Method O2 Del Method O2 Flow Rate 07/11/24 09:56 Nasal Cannula 2 07/11/24 09:29 Nasal Cannula 2 07/11/24 09:19 Room Air 07/11/24 06:00 Room Air 07/11/24 05:00 Room Air 07/11/24 04:04 07/11/24 04:03 95 Room Air 07/11/24 03:15 07/11/24 03:00 07/11/24 02:04 Room Air 07/11/24 01:30 07/11/24 00:31 07/11/24 00:13 07/10/24 23:39 Room Air 07/10/24 23:31 07/10/24 23:20 Room Air 07/10/24 23:06 Room Air Cardiovascular + regular rate Respiratory + respiratory effort normal Pre-Sedation Airway Assessment Smoking Status: Former smoker Hx Sleep Apnea: No Hx Difficult Intubation: No Short, Thick Neck: No Thyromental Distance: > or= 3.5 Finger Breadths Oral Cavity: + Dental Abnormalities Mallampati Class: III ASA: ASA3 NPO Status Date of Last Intake of Fluids: 07/11/24 Time of Last Intake of Fluids: 03:00 Date of Last Intake of Solid Food: 07/10/24 Time of Last Intake of Solid Foods: 18:00 Procedure Planning Contraindications for Sedation: none Current Medications Reviewed: Yes Notes The planned sedation has been discussed with the patient. Informed Consent was obtained. I have identified the patient, determined the appropriateness of sedation and have assessed the patient immediately prior to the procedure. All medicine(s) and interventions are by my order.
[2024-07-11] MEDS: MIDAZOLAM HCL 1 MG/ML 2ML VIAL ONE (10:49)
[2024-07-11] MEDS: fentaNYL citrate PF 100 MCG/2 ML VIAL ONE (10:49)
[2024-07-11] MEDS: HEPARIN (PORCINE) 1000 UNIT/ML 10 ML (CATH LAB USE ONLY) ONE (10:49)
[2024-07-11] MEDS: NITROGLYCERIN/D5W 100MCG/ML 20ML SYR ONE (10:50)
[2024-07-11] MEDS: CLOPIDOGREL BISULFATE 300 MG TAB ONE (10:50)
[2024-07-11] MEDS: IODIXANOL (VISIPAQUE) 320 MG/ML 100ML IV ONE (10:50)
[2024-07-11] MEDS: niCARdipine HCL INJ 2.5 MG/ML 10 ML AMP ONE (10:50)
--- NOTE | 2024-07-11 10:51 | Post Anesthesia Assessment ---
Date of Service July 11, 2024 Post Sedation Assessment Vital Signs Temp Pulse Pulse Resp BP BP Pulse Ox 07/11/24 09:56 75 18 175/77 H 93 07/11/24 09:29 79 22 183/94 H 95 07/11/24 09:19 91 H 26 H 177/86 H 90 07/11/24 06:00 67 16 158/76 H 95 07/11/24 05:00 67 16 152/63 H 95 07/11/24 04:04 68 07/11/24 04:03 07/11/24 03:15 76 20 170/77 H 96 07/11/24 03:00 75 24 152/71 H 95 07/11/24 02:04 81 16 143/81 H 92 07/11/24 01:30 74 18 181/66 H 96 07/11/24 00:31 64 18 169/59 H 96 07/11/24 00:13 67 16 159/63 H 95 07/10/24 23:39 73 16 188/111 H 95 07/10/24 23:31 85 07/10/24 23:20 98 07/10/24 23:06 98.2 F 95 H 18 223/97 H 93 Pulse Ox O2 Del Method O2 Del Method O2 Flow Rate 07/11/24 09:56 Nasal Cannula 2 07/11/24 09:29 Nasal Cannula 2 07/11/24 09:19 Room Air 07/11/24 06:00 Room Air 07/11/24 05:00 Room Air 07/11/24 04:04 07/11/24 04:03 95 Room Air 07/11/24 03:15 07/11/24 03:00 07/11/24 02:04 Room Air 07/11/24 01:30 07/11/24 00:31 07/11/24 00:13 07/10/24 23:39 Room Air 07/10/24 23:31 07/10/24 23:20 Room Air 07/10/24 23:06 Room Air Recovery Score Activity: Moves 4 extremities Respiration: Deep Breath/Cough Circulation: +/-20% PreAnes Value Consciousness: Fully Awake Oxygen Saturation: O2 needed for >90% Discharge Sedation Level of Care: Fast Track Phase II Post Sedation Plan On clinical assessment, the patient appears to have tolerated the sedation without complications. Patient is recovering as anticipated. Patient will continue to be monitored by nursing and may be discharged when sedation discharge criteria are met per below protocol. Upon Completions of procedure up to 15 minutes continue every 5 minute vital signs and the P.A.R. score; then discharge to a Phase I or Fast Track to Phase II per the following guidelines: * Discharge Patient to appropriate Phase II area if PAR is 8 or greater or return to pre- procedure baseline. The post - procedure orders will be as directed. * If PAR score is less than 8 or not return to pre-procedure baseline then patient will follow Phase I monitoring till PAR is reached for Phase II. The Phase I may be done in procedure room or may call to secure a Phase I area. * If naloxone or flumazenil are used for reversal, hold in Phase I for continued monitoring from when last reversal dose was given for a minimum of 60 minutes or longer pending the nurse and/or physician discretion of patient condition before discharge to Phase II. Please call the Sedation Physician to re-evaluate and complete post-note for discharge to Phase II area. Do NOT discharge from procedure sedation or Phase 1 until post- sedation evaluation note is complete by procedure /sedation MD Sedation Discharge Instructions to be given to the patient at discharge to home.
--- NOTE | 2024-07-11 11:01 | Cardiac Catheterization ---
[facility] Data: T[employer] Cardiac Status Clinical evaluation leading to the procedure CAD Presenation: Non STEMI Diagnostic Physicians Name: Yaw Castillo MD Closure Device Recommendations: PCI without planned CABG Cardiac Cath Procedure Full Procedure Date July 11, 2024 Pre-Procedure Diagnosis Pre-Procedure Diagnosis: Non STEMI AUC Score AUC Score: 8 Post-Procedure Diagnosis Post-Procedure Diagnosis: Severe CAD, Successful PCI and Normal Intracardiac Pressures Procedure(s) Performed Procedure(s) Performed: Coronary Angiography, Left Heart Cath and Drug Eluting Stent [employer] Director Yaw Castillo MD Assistant Cook(s) [place] Estimated Blood Loss Estimated Blood Loss: 15 Medication(s) Medication(s): Clopidogrel, Fentanyl, Heparin, Lidocaine 1%, Nicardipine, Nitroglycerin and Versed Summary of Findings Indication: NSTEMI Access: 6 Fr right radial artery Catheters: [place], EBU 3.5 guide Findings: LM -normal caliber, calcified, luminal irregularities. LAD -medium caliber, calcified, acute 98% proximal stenosis, 50% mid segment disease after takeoff of small D2. Distal vessel without significant disease and PETE IIIII flow around apex. Circumflex -medium caliber, calcified, 30% ostial/proximal disease, 50% distal disease prior to takeoff of OM 2. Medium left PLB with 30% proximal disease RCA -dominant, medium caliber, heavily calcified, 30% proximal, diffuse 40-50% mid segment disease, distal luminal irregularities. Small PDA 25% proximal dise ase. Faint right to left collaterals. LVEDP -13 -- PCI -- Antithrombotic therapy: Heparin, clopidogrel Procedure: Left main cannulated with EBU 3.5 guide Pre-procedure flow PETE 23 Hvac Estimator 50 wire passed across lesion into distal vessel Proximal LAD lesion predilated with 2.0 compliant balloon Dilated lesion stented with 2.75 x 15 mm Darin drug-eluting stent Stent post-dilated with 3.0 noncompliant balloon IC vasodilators administered for spasm Post procedure PETE 3 flow, stent well expanded with minimal residual stenosis and no apparent cardiac complications. Arterial Closure: TR band Summary: 1. Multivessel coronary artery disease -Acute 98% proximal LAD. 50% mid LAD 50% distal circumflex 40-50% diffuse mid RCA 2. Normal intracardiac filling pressure 3. Successful PCI of proximal LAD with single drug-eluting stent (2.75 x 15 mm Darin; postdilated with 3.0 NC). Recommendations: To PCU for continued monitoring Loaded with clopidogrel 600 mg in Tester Sound Continue dual-antiplatelet therapy for at least 1 year Continue statin, and ASCVD risk factor modification Consult cardiac Rehab Hemodynamics Rest Ao:: 126/55/82 Final Ao: 93/46/63 LV: 111/13 Recommendations Recommendations: PCI without planned CABG Specimens Specimens: None Radiation Exposure (mGy) 1576 Contrast (mls) 75 Anesthesia Moderate 4528-4484 Procedural Complication(s) None Disposition PCU I attest to the content of the Intraoperative Record and any orders documented therein. Any exceptions are noted below. [facility] Card Cath Procedure Codes Cardiac Catheterization Procedure 1: Cardiovascular Cath Procedures: 85154 Coronaries and LHC (+/-LV) Moderate Sedation Procedure 1: Sedation/Anesthesia: 58564 Mod Sedation by the same physician;Init15 Min Child Age 5 & Up Procedure 2: Sedation/Anesthesia: 66499 Mod Sedation by the same physician; Ea [id number] Minutes Stenting Procedure 1: Cardiovascular Stent Procedures: 39104 Perc transcatheter placement of intracoronary stent(s), with ang PG Care Time/CCT Total # of Minutes Spent Total Time Spent with Patient: Total time spent is greater than 50% in coordination of care (as documented) at patient's floor/unit and/or counseling patient:
--- OUTSIDE RECORDS SUMMARY | 2024-07-11 12:44 | External Medical Summary | Summary of Care ---
Author Name Unknown Organization [facility] Address [address] [place] [address] Phone [phone] Care Team Providers Care Director Bioinformatics Name Role Phone Rafat Josue MD Primary Care Provider [phone] Reason for Referral * Evaluate & Treat - Unlimited Visits (Within 10 days (routine)) - Authorized Specialty Diagnoses / Procedures Referred By Contact Referred To Contact Pulmonary Diseases / Cardiothoracic Surgery Diagnoses Lung nodule Jacqueline Young CRNP [address] [place] [address] Referral ID Status Reason Start Date Expiration Date Visits Requested Visits Authorized [id number] Authorized Specialty Services Required 06/26/2024 [id number] Question Answer Referral Priority Within 10 days (routine) Where should this appointment be scheduled? [facility] Reason for Visit * Evaluate & Treat - Unlimited Visits (Within 10 days (routine)) - Authorized Specialty Diagnoses / Procedures Referred By Contac t Referred To Contact Pulmonary Diseases / Pulmonary Diagnoses Former smoker Multiple lung nodules Chelsie Alas CRNP [address] [place] [address] Lupe Bob MD [address] [place] [address] Referral ID Status Reason Start Date Expiration Date Visits Requested Visits Authorized [id number] Authorized Specialty Services Required 05/29/2024 [id number] Encounter Details Date Type Department Care Team (Late st Contact Info) Description 06/26/2024 9:00 AM EDT [facility] [address] [place] [address] Jacqueline Young CRNP [address] [place] [address] Lung nodule* Allergies No known active allergiesdocumented as of this encounter (statuses as of 06/26/2024) Medications Medication Sig Dispensed Refills Start Date End Date Status CALCIUM 500 +D 500-400 MG-UNIT PO TABS one pill twice a day 60 Tab 5 08/24/2011 Active ASPIRIN EC 81 MG PO TBEC Take one pill daily 100 Tab 5 08/24/2011 Active Cholecalciferol (VITAMIN D) 1000 UNITS Tablet Take 1 Tablet by mouth in the morning. Active traMADol HCl 50 MG Oral Tablet (Ultram)Indicatio ns:Acute right-sided thoracic back pain Take by mouth 1 Tablet every 6 hours as needed for Pain, Severe. 30 Tablet 07/16/2022 Active Levothyroxine Sodium 50 MCG Oral Tablet (Levoxyl)Indicati ons:Hypothyroidis m TAKE 1 TABLET BY MOUTH DAILY AT LEAST 30 MINUTES PRIOR TO FIRST MEAL OF THE DAY OR OTHER MEDICATIONS. 90 Tablet 3 06/28/2023 07/14/2024 Active Nirmatrelvir&Santos navir 150/100 10 x 150 MG & 10 x 100MG Oral Tablet Therapy Pack (Paxlovid (150/100))Indicat ions:COVID-19 virus infection Take 1 pink tablet of Nirmatrelvir and 1 white tablet of Ritonavir two times a day by mouth. While on course of paxlovid and for 3 days after completing course, do not take simvastatin 20 Tablet 09/12/2023 Active Simvastatin 10 MG Oral Tablet (Zocor)Indication s:Dyslipidemia, goal LDL below 130 TAKE ONE TABLET BY MOUTH EVERY DAY AT BEDTIME 90 Tablet 1 2023 Active Lisinopril 40 MG Oral Tablet TAKE ONE TABLET BY MOUTH EVERY DAY IN THE MORNING 90 Tablet 1 02/14/2024 02/13/2025 Active amLODIPine Besylate 5 MG Oral Tablet (Norvasc)Indicati ons:HTN, goal below 140/90 TAKE ONE TABLET BY MOUTH EVERY DAY IN THE MORNING 90 Tablet 1 02/14/2024 02/13/2025 Active Atenolol 50 MG Oral Tablet (Tenormin)Indicat ions:HTN, goal below 140/90 Take 1 Tablet by mouth in the morning. 100 Tablet 04/18/2024 04/18/2025 Active documented as of this encounter (statuses as of 06/26/2024) Active Problems Problem Noted Date Diagnosed Date Former smoker 01/17/2024 Atherosclerosis of aorta 04/26/2023 Hypertensive kidney disease with stage 3b chronic kidney disease 04/26/2023 Atherosclerosis of coronary artery of [place] heart without angina pectoris 04/26/2023 Thyroid nodule 04/26/2023 Chronic kidney disease, stage 3b 11/24/2020 Overview: Per CKD protocol Vitamin D deficiency 02/14/2018 History of lacunar cerebrovascular accident 10/2016 Hypothyroidism 07/29/2014 Age-related osteoporosis wit hout current pathological fracture 08/24/2011 Dyslipidemia, goal LDL below 130 08/20/2010 HTN, goal below 140/90 Overview: Per HTN Taxonomy. documented as of this encounter (statuses as of 06/26/2024) Resolved Problems Problem Noted Date Diagnosed Date Resolved Date Benign hypertension with chr onic kidney disease, stage III 02/12/2019 10/30/2020 HTN, goal below 150/90 08/18/201808/21 Lacunar infarction 06/25/2014 7 HTN, goal below 140/90 08/24/201108/18 HTN, goal below 130/80 11/12/200908/24 Overview: Per HTN Taxonomy. Kidney disease, chronic, sta ge III (GFR 30-59 ml/min) 11/17/2007 02/28/2019 Overview: Based on labs from 11/10/06 ADVANCE DIRECTIVE INFORMATION 10/19/2005 02/14/2018 Overview: Yes, Patient instructed to provide copy of advance directive for provider to review and to be scanned into Electronic Medical Record FINGER INJURY, RIGHT 5TH 10/05/200511/2012 CONTUSION, RIGHT 5TH FINGER 10/05/2005 09/17/2013 Need for prophylactic hormon e replacement therapy (postmenopausal) 02/27/2004 Esophageal reflux 02/14/2018 documented as of this encounter (statuses as of 06/26/2024) Immunizations Name Administration Dates Next Due COVID-19 mRNA, LNP-s, No Pre serve, 2-Dose Series (fl3ur) 07/25/2021,12/27/2020,11/29/2020 COVID-19, LNP-s, No Preserve , Binh-sucrose, Ages 12+ (Pfizer) 03/05/2022 COVID-19, MRNA-LNP, 23-24, P F, 30 MCG/0.3 mL, 12 YRS AND ABOVE, IM (PFIZER-Comirnat) 06/15/2024,09/26/2023 Pneumococcal Conjugate Vacc, 13 Valent (Prevnar) 05/10/2016 Pneumococcal Polysaccharide PPV23 (Pneumovax) 11/10/2006 RSV Vac., Recomb, Adjuvant, PF,0.5 Ml (Arexvy) 09/26/2023 Season Influenza, Quad, PF, Adjuvanted, 65+ Yrs, IM (FLUAD) 06/15/2024,06/03/2020 Seasonal Influenza, MDCK, Tr ivalent, PF, (Flucelvax) 06/21/2019 Seasonal Influenza, PF, 6 M & above, IM , (FluLaval or Fluzone) 06/30/2018 Seasonal Influenza, QUAD, wi th Preserv, 6 mons & Above, 0.5 mL, IM 07/16/2021 Seasonal Influenza, Quadriva lent Hd (Fluzone Hd) 08/05/2023 Seasonal Influenza, Quadriva lent Hd, 65+ Yrs 07/01/2022 Seasonal Influenza, Quadriva lent, No Preserve, IM 07/01/2017,08/17/2016,07/21/2015 Seasonal Influenza, Trivalen t, (IIV3), with Preserv, (Fluzone) 06/25/2014,07/17/2013,07/27/2012,07/27,07/28/2010,07/17/2009,07/19/2008 ,08/25/2007,07/29/2006 TDAP (age 10 and older)(Boostrix) 03/14/2013 Varicella Zoster Vaccine (Adult) 02/28/2008 Zoster Vaccine Recombinant (Shingrix) 11/21/2018 ,04/16/2018 documented as of this encounter Social History Tobacco Use Types Packs/Day Years Used Date Smoking Tobacco: Former Cigarettes 1 20 0 [birth year]/17/1949 - 10/17/1969 Passive Smoke Exposure: Past Smokeless Tobacco: Never Comments:QUIT 1969 Alcohol Use Standard Drinks/Week Comments Yes 0 (1 standard drink = 0.6 oz pure alcohol) As of 12.03.2006, the last noted alcohol intake was 6 ounces. WINE PHQ-2 Answer Date Recorded PHQ-2 Score 0 07/03/2020 Hunger Vital Sign Answer Date Recorded Worried About Running Out of Food in the Last Ye ar Never true 07/03/2020 Ran Out of Food in the Last Year Never true 07/03/2020 Sex and Gender Information Value Date Recorded Sex Assigned at Female 02/16/2019 8:10 AM EDT Gender Identity Female 02/16/2019 8:10 AM EDT Sexual Orientation Straight 02/16/2019 7: 53 AM EDT Job Start Date Occupation Industry Not on file Not on file Not on file documented as of this encounter Progress Notes * Jacqueline Young CRNP - 06/26/2024 9:00 AM EDT Initial Pulmonary Medicine Visit Telemedicine REFERRING PHYSICIAN: TURNER Yang REASON FOR REFERRAL: lung nodule Patient location: HOME. I was in a hospital or clinic location. After connecting through televideo,patient was verified with two unique identifiers. Patient (or authorized legal pharmacy sales representative) was then informed that this was a Telemedicine visit and being conducted confidentially over secure lines. Methods to assure confidentiality were taken. Patient acknowledged consent and understanding of pr ivacy and security of the Telemedicine visit. The patient agreed to participate. HPI: Shiloh Ryan is a 88 year old female who presents today for chief complaint of lung nodule. Pastmedical history significant for former smoker, DLD, hypothyroidism, HTN, CKD 3, osteoporosis, CVA. Pt denies any symptoms r/t lung nodule, only complaint today is fatigue as she has been aging, and sleep disturbance which she reports she has had most of her life (wakes up frequently at night) Respiratory Symptoms Shortness of breath: AVILES, has not been worsening MMRC Dyspnea Scale = 1 (I get short of breath when hurrying on level ground or walking up a slight hill) Cough: occasional Sputum: denies Hemoptysis: denies Wheeze: denies Sinus symptoms / Seasonal allergies: denies Reflux: yes, has some Nocturnal symptoms: denies Denies night sweats, wt loss. Respiratory medications: N/A SOCIAL HISTORY: Social History Tobacco Use Smoking status: Former Current packs/day: 0.00 Average packs/day: 1 pack/day for 20.0 years (20.0 ttl pk-yrs) Types: Cigarettes Start date: 10/17/1949 Quit date: 10/17/1969 Years since quittin.7 Passive exposure: Past Smokeless tobacco: Never Tobacco comments: QUIT 1969 Substance Use Topics Alcohol use: Yes Alcohol/week: 0.0 standard drinks of alcohol Comment: As of 12.03.2006, the last noted alcohol intake was 6 ounces. WINE Drug use: No ROS: Review of Systems Constitutional: Negative. HENT: Negative. Respiratory: Negative. Gastrointestinal: Negative. Musculoskeletal: Negative. Skin: Negative. Psychiatric/Behavioral: Positive for sleep disturbance. Past Medical History: Past Medical History: Diagnosis Date Allergic conjunctivitis, Other Esophageal reflux HTN, goal below 140/90 Past Surgical History: Past Surgical History: Procedure Laterality Date BIOPSY OF BREAST, OPEN 1970 Breast Biopsy, Benign Disease CARPAL TUNNEL SURGERY Left 01/11/2017 left NEUROPLASTY MEDIAN NERVE AT CARPAL TUNNEL performed by Yaw Campbell MD at [facility] COLONOSCOPY 02/17 incomplete, needed barium enema REMOVAL OF RUPTURED APPENDIX 12/18/00 Appendectomy, Rupt Appendx REMOVE LUMBAR SPINE LAMINA, 3+ SEGS [facility] Lumbar Disk Excision TOTAL HYSTERECTOMY 1977 VICK (Total Abdominal Hysterectomy) Allergies: Review of patient's allergies indicates: No Known Allergies Current Medications: Current Outpatient Medications Medication Sig Dispense Refill CALCIUM 500 +D 500-400 MG-UNIT PO TABS one pill twice a day 60 Tab 5 ASPIRIN EC 81 MG PO TBEC Take one pill daily 100 Tab 5 Cholecalciferol (VITAMIN D) 1000 UNITS Tablet Take 1 Tablet by mouth in the morning. traMADol HCl 50 MG Oral Tablet (Ultram) Take by mouth 1 Tablet every 6 hours as needed for Pain, Severe. 30 Tablet 0 Levothyroxine Sodium 50 MCG Oral Tablet (Levoxyl) TAKE 1 TABLET BY MOUTH DAILY AT LEAST 30 MINUTES PRIOR TO FIRST MEAL OF THE DAY OR OTHER MEDICATIONS. 90 Tablet 3 Nirmatrelvir&Ritonavir 150/100 10 x 150 MG & 10 x 100MG Oral Tablet Therapy Pack (Paxlovid (150/100)) Take 1 pink tablet of Nirmatrelvir and 1 white tablet of Ritonavir two times a day by mouth. While on course of paxlovid and for 3 days after completing course, do not take simvastatin 20 Tablet 0 Simvastatin 10 MG Oral Tablet (Zocor) TAKE ONE TABLET BY MOUTH EVERY DAY AT BEDTIME 90 Tablet 1 Lisinopril 40 MG Oral Tablet TAKE ONE TABLET BY MOUTH EVERY DAY IN THE MORNING 90 Tablet 1 amLODIPine Besylate 5 MG Oral Tablet (Norvasc) TAKE ONE TABLET BY MOUTH EVERY DAY IN THE MORNING 90Tablet 1 Atenolol 50 MG Oral Tablet (Tenormin) Take 1 Tablet by mouth in the morning. 100 Tablet 0 No current facility-administered medications for this visit. Family History Problem Relation Name Age of Onset Heart Disorder Mother DEC AGE 72/ Stroke Mother Hypertension Mother Heart Disorder Grandmother (Maternal) SEP 80'S Heart Disorder Grandfather (Maternal) Heart Disorder Brother CABG Heart Disorder Brother CABG Hypertension Brother Heart Disorder Brother [facility] ByPass surgery Heart Disorder Brother [facility]Pass surgery Brother had esophageal cancer. Labs: Latest Reference Range & Units 05/10/24 08:33 CBC Rpt ! WBC 4.00 - 10.80 K/uL 3.54 (L) RBC 3.85 - 5.15 M/uL 3.67 HGB 12.0 - 15.3 g/dL 10.9 (L) HCT 36.0 - 45.2 % 33.9 (L) MCV 81.5 - 97.5 fL 92.4 MCH 27.0 - 34.0 pg 29.7 MCHC 32.0 - 36.0 g/dL 32.2 RDW 11.5 - 15.5 % 18.0 PLT 140 - 400 K/uL 125 (L) MPV 6.6 - 11.1 fL 12.9 !: Data is abnormal (L): Data is abnormally low Rpt: View report in Results Review for more information Imaging: CT Scan: 05/23/24 IMPRESSION 1. Continued interval increase in size of a spiculated nodule within the left upper lobe now measuring up to 1.6 cm, previously 1.2 cm when measured in a similar fashion. Further evaluation with PET CT or tissue sampling to be considered. 2. Ground-glass nodule within the left upper lobe measures up to 1.1 cm, stable from prior examination. Attention on follow-up imaging. PET 06/05/24: IMPRESSION: 1. Indeterminate 1.6 x 1.0 cm metabolic activity spiculated left apical branching ground-glass attenuation pulmonary nodule. Attention on [address] chest. 2. No FDG PET/CT evidence for regional lymph new or distant metastasis. 3. Acute/subacute sacral insufficiency fracture. CXR: N/a ECHO: 08/13/22 Interpretation Summary The examination is adequate to evaluate the referral indication. The qualitative LV ejection fraction is 55-59% (normal). The LV wall thickness is borderline increased (concentric). The left ventricular cavity size is normal. The left ventricular wall motion is normal. The aortic valve has three leaflets. Mild aortic valve sclerosis is present. Aortic stenosis is absent. Mild mitral regurgitation is present. Mild tricuspid regurgitation is present. There is mild atherosclerotic plaque seen in the aortic arch. PFTs: N/a Physical Exam: Gen: no distress, cooperative, comfortable appearing HEENT: no clear facial rashes or appreciable periorbital swelling Lung: no increased work of breathing Neuro: conversant, no focal deficits Psych: mood/affect normal ASSESSMENT AND PLAN: Lung nodule (Primary) - LUNG CANCER CLINIC REFERRAL OP Reviewed with Dr Alves, because of location of TEO nodule, biopsy would be very risky/ potentially would not yield results. Recommend Lung cancer clinic referral for evaluation/ recommendations continued CT monitoring vs empiric radiation. Pt also asked that I call and speak with her daughter Trudi- which I did, all questions answered. Encouraged patient to call with any further questions or concerns. All of the above was discussed with the patient. All questions answered to apparent satisfaction. I have advised the patient to call our office in case of any worsening or new symptoms. I spent a total of 40-54 minutes (exact time 45 mins) on the date of service in preparation, delivery, and documentation of the care provided to Shiloh Ryan excluding any time spent in the performance of separately billed services. Jacqueline TOMPKINS Pulmonary Medicine [facility] 06/26/2024. documented in this encounter Plan of Treatment Upcoming Encounters Date Type Department Care Team (Late st Contact Info) Description 10/01/2024 1:30 PM EST Office Visit Dermatology [facility] [place] [address] [facility] [place] [address] Richard Saucedo MD [address] [facility] [place] [address] 11/30/2024 9:00 AM EST Office Visit [facility] [address] [place] [phone] Rafat Josue MD [address] [place] [address] Scheduled Referrals Name Type Priority Associated Diagnoses Orde r Schedule LUNG CANCER CLINIC REFERRAL OP Referral Within 10 days (routine) Lung nodule Ordered: 06/26/2024 Health Maintenance Due Date Last Done Comments Adult Wellness Visit 09/05/2021 09/05/2020 Depression Screening 09/05/2021 09/05/2020 DTap/Tdap Vaccines (2 - Td or Tdap) 03/14/2023 03/14/2013, 10/04/2002, 09/16/1992 COVID-19 Vaccine ( season) 2024 06/15/2024, 09/26/2023, 03/05/2022, Additional history exists Albumin/Creatinine Ratio 05/10/2025 05/10/2024, 03/18 CKD HGB USE SMARTSET 87164 05/10/202505/10, 04/14/2023, 11/03/2020, Additional history exists CKD PHOS USE SMARTSET 47616 05/10/202504/17, 04/14/2023, 11/03/2020, Additional history exists TSH 05/10/2025 05/10/2024, 03/18, 08/04/2021, Additional history exists DXA Scan 06/08/2026 06/08/2024, 02/2019, 05/11/2017, Additional history exists Pneumococcal Vaccine: 65+ Years Completed 05/10/2016, 11/10/2006, 11/09/1999 Zoster Vaccines Completed 11/21/2018, 10/2017, 02/28/2008 VITAMIN D LEVEL ONCE IN A LIFETIME-USE SMARTSET# [id number] Completed 04/14/2023, 08/04/2021, 11/03/2020, Additional history exists Influenza Vaccine (FLU shot) Completed , 08/05/2023, 07/01/2022, Additional history exists HPV (Gardasil) Vaccine Aged Out No lo nger eligible based on patient's age to complete this topic Hepatitis B Vaccine Aged Out No longe r eligible based on patient's age to complete this topic MENINGOCOCCAL (MENACTRA/MENVEO) Aged Out No longer eligible based on patient's age to complete this topic documented as of this encounter Medical Devices Not on filedocumented as of this encounter Visit Diagnoses Diagnosis Lung nodule- Primary Solitary pulmonary nodule documented in this encounter Advance Directives Documents on File Type Date Recorded Patient Chief Safety Officer Expl anation Advance Directives and Living Will 09/26/2015 LIVING WILL LIVING W ILL Power of Wing Coverer 09/26/2015 POWER OF A TTORNEY POWER OF PLASTICS ENGINEER Care Teams Director Bioinformatics Relationship Specialty Start Date End Date Rafat Josue MD [address] [place] [address] PCP - General 12/31/02 documented as of this encounter
--- OUTSIDE RECORDS SUMMARY | 2024-07-11 12:45 | External Medical Summary | Summary of Care ---
Author Name Unknown Organization [facility] Address [address] [place] [address] Phone [phone] Care Team Providers Care Printing Services Coordinator Name Role Phone Rafat Josue MD Primary Care Provider [phone]- [phone] Encounter Details Date Type Department Care Team (Late st Contact Info) Description 06/21/[address] [facility] [address] [place] [address] Rafat Josue MD [address] [place], [place] [phone] Allergies No known active allergiesdocumented as of this encounter (statuses as of 06/21/2024) Medications Medication Sig Dispensed Refills Start Date [...] as of this encounter (statuses as of 06/21/2024) Active Problems Problem Noted Date Diagnosed Date Former smoker 01/17/2024 Atherosclerosis of aorta 04/26/2023 Hypertensive kidney disease with stage 3b chronic kidney disease 04/26/2023 Atherosclerosis of coronary artery of [place] heart without angina pectoris 04/26/2023 Thyroid nodule 04/26/2023 Chronic kidney disease, stage 3b 11/24/2020 Overview: Per CKD protocol Vitamin D deficiency 02/14/2018 History of lacunar cerebrovascular accident 10/2016 Hypothyroidism 07/29/2014 Age-related osteoporosis wit hout current pathological fracture 08/24/2011 Dyslipidemia, goal LDL below 130 08/20/2010 HTN, goal below 140/90 Overview: Per HTN Taxonomy. documented as of this encounter (statuses as of 06/21/2024) Resolved Problems Problem Noted Date Diagnosed Date [...] as of this encounter (statuses as of 06/21/2024) Immunizations Name Administration Dates Next Due COVID-19 mRNA, LNP-s, No Pre serve, 2-Dose Series ([place]) 07/25/2021,12/27/2020,11/29/2020 COVID-19, LNP-s, No Preserve , Binh-sucrose, Ages 12+ (Pfizer) 03/05/2022 COVID-19, MRNA-LNP, 23-24, P F, 30 MCG/0.3 mL, 12 YRS AND ABOVE, IM (PFIZER-Comirnaty) 06/15/2024,09/26/2023 Pneumococcal Conjugate Vacc, 13 Valent (Prevnar) [...] = 0.6 oz pure alcohol) As of 2.17.2006, the last noted alcohol intake was 6 [...] on file documented as of this encounter Plan of Treatment Upcoming Encounters Date Type Department Care Team (Late st Contact Info) Description 06/26/2024 9:00 AM EDT Telemedicine Pulmonary Medicine[address] [address] Jacqueline Young CRNP [address] [place] [address] 10/01/2024 1:30 PM EST [facility] [address] [place] [address] Richard Saucedo MD [address] [place] [address] 11/30/2024 9:00 AM EST Office Visit [facility] [address] [place] [address] Rafat Josue MD [address] [place] [address] Health Maintenance Due Date Last Done Comments Adult Wellness Visit 09/05/2021 09/05/2020 Depression Screening 09/05/2021 09/05/2020 DTap/Tdap Vaccines (2 - Td or Tdap) 03/14/2023 03/14/2013, 10/04/2002, 09/16/1992 Albumin/Creatinine Ratio 05/10/2025 05/10/2024, 03/18 CKD HGB USE SMARTSET 31412 05/10/202505/10, 04/14/2023, 11/03/2020, Additional history exists CKD PHOS USE SMARTSET 41695 05/10/202504/17, 04/14/2023, 11/03/2020, Additional history exists TSH 05/10/2025 05/10/2024, 03/18, 08/04/2021, Additional history exists DXA Scan 06/08/2026 06/08/2024, 02/2019, 05/11/2017, Additional history exists Pneumococcal Vaccine: 65+ Years Completed 05/10/2016, 11/10/2006, 11/09/1999 Zoster Vaccines Completed 11/21/2018, 10/2017, 02/28/2008 VITAMIN D LEVEL ONCE IN A LIFETIME-USE SMARTSET# [id number] Completed 04/14/2023, 08/04/2021, 11/03/2020, Additional history exists COVID-19 Vaccine Completed 06/15/2024, 08/2023, 03/05/2022, Additional history exists Influenza Vaccine (FLU shot) [...] Not on filedocumented as of this encounter Procedures Procedure Name Priority Date/Time Associated Diagnosis Comments MAMMOGRAM SCREENING BILATERAL Routine 06/20/2024 documented in this encounter Results * MAMMOGRAM SCREENING BILATERAL (06/20/2024) Anatomical Region Laterality Modality Breast Bilateral Other 06/20/2024 Rafat Josue MD RAD MAMMOGRAPHY documented in this encounter Advance Directives Documents on File Type Date Recorded 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
[2024-07-11] MEDS: ACETAMINOPHEN 325 MG TAB PO PRN (13:58)
[2024-07-11] MEDS: ASPIRIN 81 MG ECTAB PO SCH ×2 (14:04→20:02)
[2024-07-11] MEDS: amLODIPine BESYLATE 5 MG TAB PO SCH (14:04)
[2024-07-11] MEDS: ATORVASTATIN 40 MG TAB PO SCH (14:05)
[2024-07-11] MEDS: lisinopril 40 MG TAB PO SCH (14:05)
[2024-07-11] MEDS: SODIUM CHLORIDE 0.9% 1,000 ML IV SCH (14:06)
[2024-07-11] MEDS: ACETAMINOPHEN 325 MG TAB ONE (14:07)
[2024-07-11 14:14] LABS: ANTI-Xa, UFH(UnfractionatedHep 1.09 IU/ml (0.3-0.7)
[2024-07-11] MEDS ORDERED: PNEUMOCOCCAL VACCINE (PCV20) 20-VAL CONJ-DIP CRM/PF 0.5 ML SYR IM ONE (14:45)
[2024-07-11] MEDS: ONDANSETRON INJ 2 MG/ML 2 ML VIAL IV PRN (15:37)
[2024-07-11] MEDS: METOPROLOL SUCC 50MG EXT REL TAB PO STA (16:01)
--- NOTE | 2024-07-11 16:28 | Communication Note ---
Date of Service: July 11, 2024 Patient seen and examined post cath Reports minimal chest pressure. Reports significant improvement since procedure Denied any SOB, cough Denied other complaints at this time Trop trended up from 90 to 1687 EKG showed anterior T wave abnormality S/p cardiac cath which showed acute 98% proximal LAD stenosis s/p PCI Continue ASA and plavix Continue atorvastatin started inpt Home atenolol had been switched to metoprolol succinate Updated daughters who are at bedside Will follow up card recs Other plans in H/P this AM
[2024-07-11] MEDS ORDERED: SIMVASTATIN 10 MG TAB PO SCH (21:00)
[2024-07-12 04:52] LABS: BUN Creatinine Ratio 14.4 (10-20); Calcium 8.9 mg/dl (8.6-10.3); Creatinine Clr Calc Pharmacy 25.1 ml/min; Est GFR (African American) 41.6 ml/min; Est GFR (Non-African American) 35.9 ml/min; Potassium 4.3 mmol/L (3.5-5.1)
[2024-07-12 05:35] LABS: Hematocrit (blood only) 29.7 % (37.0-47.0); Hemoglobin 9.5 g/dl (12.0-16.0); Mean Corpuscular Hemoglobin 28.6 pg (25.0-34.0); Mean Corpuscular Volume 89.5 fL (80.0-100.0); Platelet Count 107 K/uL (130-400); RDW Coefficient of Variation 17.8 % (11.5-14.5); RDW Standard Deviation 56.7 fL (36.4-46.3); Red Blood Count 3.32 M/uL (4.20-5.40); White Blood Count 4.04 K/ul (4.8-10.8)
--- NOTE | 2024-07-12 06:06 | Electrocardiogram Report ---
Test Reason : Blood Pressure : */* mmHG Vent. Rate : 80 BPM Atrial Rate : 80 BPM P-R Int : 224 ms QRS Dur : 92 ms QT Int : 368 ms P-R-T Axes : 59 18 87 degrees QTcB Int : 424 ms Sinus rhythm with 1st degree A-V block Nonspecific ST abnormality When compared with ECG of 23-Jun-2014 00:46, PA interval has increased Inverted T waves have replaced nonspecific T wave abnormality in Lateral leads Confirmed by José Willams ([id number]) on 07/12/2024 6:05:52 AM Referred By: REFERRED SELF Confirmed By: José Willams
--- NOTE | 2024-07-12 06:06 | Electrocardiogram Report ---
Test Reason : Blood Pressure : */* mmHG Vent. Rate : 79 BPM Atrial Rate : 79 BPM P-R Int : 214 ms QRS Dur : 86 ms QT Int : 384 ms P-R-T Axes : 68 29 118 degrees QTcB Int : 440 ms Sinus rhythm with 1st degree A-V block T wave abnormality, consider lateral ischemia Abnormal ECG When compared with ECG of 10-Jul-2024 23:16, T wave inversion more evident in Lateral leads Confirmed by José Willams ([id number]) on 07/12/2024 6:06:17 AM Referred By: REFERRED SELF Confirmed By: José Willams
--- NOTE | 2024-07-12 06:07 | Electrocardiogram Report ---
Test Reason : Blood Pressure : */* mmHG Vent. Rate : 63 BPM Atrial Rate : 63 BPM P-R Int : 218 ms QRS Dur : 78 ms QT Int : 512 ms P-R-T Axes : 33 36 217 degrees QTcB Int : 523 ms Sinus rhythm with 1st degree A-V block Marked T wave abnormality, consider anterior ischemia T wave abnormality, consider inferior ischemia Prolonged QT Abnormal ECG When compared with ECG of 11-Jul-2024 09:11, T wave inversion more evident in Anterior leads Confirmed by José Willams ([id number]) on 07/12/2024 6:07:12 AM Referred By: REFERRED SELF Confirmed By: José Willams
[2024-07-12] MEDS: CLOPIDOGREL BISULFATE 75 MG TAB PO SCH (08:14)
[2024-07-12] MEDS: METOPROLOL SUCC 50MG EXT REL TAB PO SCH (08:14)
[2024-07-12] MEDS ORDERED: METOPROLOL SUCC 25MG EXT REL TAB PO SCH (09:00)
--- NOTE | 2024-07-12 09:47 | Cardiology Progress Note ---
Date of Service July 12, 2024 Assessment & Plan (1) NSTEMI (non-ST elevated myocardial infarction): (2) 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: (3) Uncontrolled hypertension: (4) Dyslipidemia, goal LDL below 70: (5) Atherosclerosis of coronary artery: (6) Lung nodule seen on imaging study: (7) Chronic kidney disease: Plan NSTEMI July 11, 2024 diagnostic cardiac catheterization with multivessel coronary artery disease including an acute 98% proximal LAD stenosis, 50% mid LAD stenosis, 50% distal circumflex stenosis, and a 40 to 50% diffuse mid RCA stenosis. Normal intracardiac filling pressures. Status post PCI of the proximal LAD with a single drug-eluting stent. Resting echocardiography revealing mildly reduced LV systolic function, EF 40- 45%, with moderate size apical wall motion abnormality, mild MR and TR, estimate pulmonary pressure 46 mmHg. Dual antiplatelet therapy with aspirin and clopidogrel for at least 1 year. Atenolol changed to metoprolol succinate this admission, guideline directed medical therapy. Continue lisinopril, considering Entresto as an outpatient pending cost, follow- up LVEF via resting echocardiography Simvastatin 10 mg/day change to atorvastatin 40 mg/day this admission. Continue amlodipine Add Pantoprazole Refer for Cardiac Rehabilitation Outpatient cardiology follow-up Admission and Anticipated Discharge Date Admission Date: July 11, 2024 Supervising Physician Co-Signing Physician Notes I have personally performed a history and physical examination on the patient. I have reviewed the advance practitioner's documentation, and I agree with, and take responsibility for the plan of care. 88-year-old female Presenting with NSTEMI 07/11/2024. Echocardiogram demonstrating apical wall motion abnormality and mild LV systolic dysfunction. No evidence of acute decompensated heart failure. Taken urgently to the cardiac catheterization lab which revealed severe, 98% proximal LAD stenosis. Drug- eluting stent implanted without complication. Residual, moderate diffuse coronary disease noted including 50% mid LAD, 50% mid circumflex, and 40 to 50% mid RCA stenosis managed medically. Patient feeling better today without recurrent anginal symptoms. No dysrhythmia on telemetry. Discussed importance of continuing dual antiplatelet therapy for minimum of 1 year post myocardial infarction/PCI. Continue other goal-directed medical therapy including Entresto, and Toprol-XL. Continue high intensity statin therapy. Repeat resting 2D transthoracic echocardiogram in 3 months for reassessment of apical wall motion and LV systolic function. I spent a total of 40 minutes on the date of service in preparation, delivery, and documentation of the care provided to this patient, excluding any time spent in the performance of separately billed services. Mk Rudd DO, [facility] Subjective Patient seen and examined. Chart, medications, telemetry reviewed. No further chest pressure/heaviness. Still burping. No shortness of breath, orthopnea, PND, palpitations, headaches, dizziness, or unilateral complaints. Telemetry: Sinus in the upper 60s to 90s Review of Systems Review of Systems: Complete Review of Systems: Constitutional: No fevers, chills, or night sweats. HEENT: Status post cataract extraction. No macular degeneration. No glaucoma. No amaurosis fugax. 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 No history of COPD, asthma, or sleep apnea. No history of PE. Cardiac: Denies prior cardiac history. GI/Abd: GERD. No melena or hematochezia. Chronic kidney disease. No liver problems. No history of pancreatic issues. Vascular: Prior imaging with severe coronary artery calcifications and significant aortic atherosclerosis Hematologic: Anemia. Denies abnormal bleeding. Musculoskeletal: Chronic back pain. Arthritis. Leg cramps. Skin: No rash. Neurologic: Prior imaging with CVA. No history of seizure disorder. Female : Hysterectomy. Endocrine: Hypothyroidism. Denies history of diabetes mellitus. Complete Review of Systems is as stated above, negative, or noncontributory Physical Exam Physical Exam: General: A&Ox3. HENT: Normocephalic. Atraumatic. Eyes: PER. Conjunctiva pink, sclera clear. Neck: Carotid bruits. No JVD. No HJR. Heart: Regular at 80 bpm with occasional ectopy. No significant murmur. No rub. Lungs: Clear to auscultation. Abdomen: +BS. Soft. Nontender. No masses or organomegaly. Extremities: Right radial artery access site looks good around dressing. No clubbing, cyanosis, or edema. Limited neurological examination is without focal deficits. Pulses: radial=2/4, posterior tibial=2/4. Results & Data Vital Signs (Past 12 Hours) Vital Signs Temp Pulse Pulse Resp BP BP Pulse Ox 07/12/24 08:00 36.9 C 84 16 132/53 L 98 07/12/24 06:00 82 16 92 07/12/24 03:12 75 21 95 07/12/24 03:00 149/59 H 07/12/24 00:00 81 07/11/24 23:18 69 24 93 07/11/24 23:00 144/57 H O2 Del Method 07/12/24 08:00 Room Air 07/12/24 06:00 07/12/24 03:12 07/12/24 03:00 07/12/24 00:00 07/11/24 23:18 07/11/24 23:00 Laboratory Results CBC 07/12/24 Range/Units 03:59 WBC 4.04 L (4.8-10.8) K/ul RBC 3.32 L (4.20-5.40) M/uL Hgb 9.5 L (12.0-16.0) g/dl Hct 29.7 L (37.0-47.0) % Plt Count 107 L (130-400) K/uL Comprehensive Metabolic Panel 07/12/24 Range/Units 03:59 Sodium 139 (136-145) mmol/L Potassium 4.3 (3.5-5.1) mmol/L Chloride 109 H (98-107) mmol/L Carbon Dioxide 25 (21-32) mmol/L BUN 19 (6-23) mg/dl Creatinine 1.32 H (0.6-1.2) mg/dl Glucose 96 (70-99(Fasting)) mg/dl Calcium 8.9 (8.6-10.3) mg/dl Intake and Output 07/11/24 07/12/24 07/12/24 22:59 06:59 14:59 Intake Total 1173.333 / 2090.150 200 / 2090.150 Balance 1173.333 / 2090.150 200 / 2090.150 Intake: IV 873.333 / 1590.150 Sodium Chloride 0.9% 1,000 ml @ 873.333 / 873.333 100 mls/hr IV .Q10H JACOB Rx#: [id number] Oral 300 / 500 200 / 500 Other: # Unmeasured Voids 2 Weight 63.1 kg Weight Measurement Method Built in [facility] (5) Atherosclerosis of coronary artery Coronary Disease-Associated Artery/Lesion type: [place] artery [place] vs. transplanted heart: [place] heart Associated angina: with refractory angina Qualified Code(s): I25.112 - Atherosclerotic heart disease of [place] coronary artery with refractory angina pectoris
[2024-07-12] MEDS: PANTOprazole 40 MG TAB PO SCH (10:28)
[2024-07-12] MEDS: METOPROLOL SUCC 25MG EXT REL TAB PO ONE (10:28)
[2024-07-12 12:19] VITALS: BP 153/56; PULSE 69; RESP 18; TEMP 98.1; O2SAT 97
--- NOTE | 2024-07-12 12:31 | Discharge Summary ---
Date of Service July 12, 2024 Admission HPI Per Admitting Provider History obtained from patient and records. Medical history significant for CAD/CVA as per records, valvular heart disease (mild MR/TR, TTE 2021), hypertension, hyperlipidemia, lung nodule, GERD, hypothyroidism, CRI (baseline creatinine 1.3), chronic anemia (baseline hemoglobin 10-1), past tobacco abuse. 2 weeks history of intermittent substernal heaviness associated with palpitations occurring both at rest and during exertion. Incomplete response to antacid Rx at home. Some SOB, no cough symptoms. Patient denies headache symptoms. Does not check blood pressure at home. Compliant with home medications. Denies frequent OTC NSAID intake or dietary discretion. Some stress from family asking patient to consider relocation after demise few months ago. Outpatient cardiology referral requested by patient's family from PCP. Patient brought to ER for worsening symptoms. Initial SBP 220s. Chest pain relieved by nitroglycerin administered at the ER. 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 Admission Exam Per Admitting Provider GENERAL: Comfortable, pleasant, slightly anxious, no respiratory distress SKIN: Pallor, warm HEENT: Bespectacled, pale palpebral conjunctivae, no ptosis, moist buccal mucosa NECK : Supple, no tenderness CHEST : CTA, no tenderness HEART : RRR, no obvious murmurs ABDOMEN: Some distention, nontender EXTREMITIES : No LE swelling/tenderness, no other conspicuous deformities noted NEUROLOGIC : Coherent, no facial asymmetry, no other gross focality Principal Diagnosis Non ST elevated myocardial infarction Status post stent placement Uncontrolled hypertension Discharge Exam Constitutional + well hydrated; no acute distress Eyes PERRL, conjunctivae normal, anicteric sclerae ENMT external ear and nose normal, oropharynx normal Respiratory normal respiratory effort, lungs clear to auscultation Cardiovascular Rate/Rhythm: regular rate and regular rhythm Gastrointestinal (Abdomen) normal bowel sounds, soft, nontender, no hepatosplenomegaly Musculoskeletal No pedal edema Neurologic PERRL, EOMI, accommodation nl, no face palsy, no dysarthria Psychiatric A+Ox3, euthymic affect Discharge Data Allergies Allergy/AdvReac Type Severity Reaction Status Date / Time No Known Allergies Allergy Unverified 07/11/24 01:02 Consultations 07/11/24 02:19 ED Decision to Admit Stat 07/11/24 04:03 Consult Cardiology Routine Procedures Performed Operation Date: 07/11/24 09:30 Actual Procedures p Cineradiography w/Routine Exam - Yaw Castillo MD p Cath, Left with Cors and Vent - Yaw Castillo MD s Drug Eluting Stent SGl Vessel - Yaw Castillo MD Ordered Studies 07/11/24 09:47 CL Cath Imgs for PACS use only Routine Hospital Course (1) NSTEMI (non-ST elevated myocardial infarction): (2) 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: (3) Uncontrolled hypertension: Plan NSTEMI Patient presented with chest pain intermittent over the past week and worsened Trop trended up from 90 to 1687 EKG showed anterior T wave abnormality TTE showed mildly reduced LVSF EF 40-45%, mod sized apical wall motion abnormality with akinesis of segments, mild MR, mild TR, Pul systolic pr of 46mmHg S/p cardiac cath which showed acute 98% proximal LAD stenosis s/p PCI on 07/11/24 Patient started on ASA and plavix for atleast 1 year Simvastatin changed to atorvastatin Atenolol changed to metoprolol succinate Continue lisinopril Chest pain resolved post cath Patient needs to follow up with PCP and Cardiology Total Time Total Time Spent Total Time Spent (In Minutes): 35 Total Time Includes: Examination of the Patient, Discharge Planning, Medication Reconciliation and Communication With Other Providers Discharge Plan Discharge Items Patient Disposition: Home - Self-Care Reason For Visit: Chest pain, Elevated blood pressure Discharge Diagnosis: Non ST elevated myocardial infarction Status post stent placement Uncontrolled hypertension Activity: Resume your previous activity Non-emergency contact: Primary Care Provider and Documentation Lead Call non-emergency contact if: you have any medication questions Follow-up/Referrals: Thomas Burleson [[employer]ician [employer] Community Relations Coordinator] - (The Cardiology office will contact you for a follow up appointment.) Rafat Josue MD [Primary Care Provider] - (Date & Time 07/17/2024 11:00 AM Provider Rafta Josue MD [facility] ) Diet: Heart Healthy and Low Sodium (2gm) Addtl Attending Provider Instructions: Mrs Short You came to the hospital complaining of chest pain and you were managed for the above listed diagnoses. You had a cardiac catheterization and stent was placed in one of the blood vessels of your heart. The following medication changes were made to your medicines: - Start taking clopidogrel (plavix). You are going to continue this with the aspirin 81mg for atleast one year - Stop taking simvastatin. This was changed to Atorvastatin - Stop taking Atenolol. This was changed to metoprolol succinate - You were started on protonix. Please ensure follow up with your Primary Doctor and Cardiology It was a pleasure taking care of you. Pending Studies at Discharge: No Stand-Alone Forms: My [facility] [email or web address], Smoking Cessation Medications and DC Order Prescriptions: New atorvastatin 40 mg Tablet 40 mg PO QAM Qty: 30 0RF metoprolol succinate 50 mg Tablet Extended Release 24 Hr 50 mg PO QAM Qty: 30 0RF clopidogrel 75 mg Tablet 75 mg PO QAM Qty: 30 0RF pantoprazole 40 mg Tablet,Delayed Release (Dr/Ec) 40 mg PO QAM Qty: 30 0RF Continued amlodipine 5 mg Tablet 5 mg PO QPM aspirin 81 mg Tablet,Delayed Release (Dr/Ec) 81 mg PO QPM levothyroxine 50 mcg Tablet 50 mcg PO QAM lisinopril 40 mg Tablet 40 mg PO QAM cholecalciferol (vitamin D3) [Vitamin D3] 25 mcg (1,000 unit) Capsule 50 mcg PO QPM cyanocobalamin (vitamin B-12) [Vitamin B-12] 1,000 mcg Tablet 1,000 mcg PO QPM ascorbic acid (vitamin C) [Vitamin C] 500 mg Tablet 500 mg PO QPM Discontinued simvastatin 10 mg Tablet 10 mg PO HS atenolol 50 mg tablet 50 mg PO QAM Discharge Orders: Discharge Order (Routine); Ordered 07/12/24 Ordered By: Mandi Mcfadden Admission Data Admit Date/Time: 07/11/24 03:07 Attending Provider: Mandi Mcfadden I. Admit Provider: Skyler Aguilera Primary Care Provider: Rafat Josue Other Providers: Skyler Aguilera; Ean Roberson Other Interventions: Discharge Summary Assessment (RN) Last Done: 07/12/24 12:40
--- NOTE | 2024-07-13 23:11 | Electrocardiogram Report ---
Test Reason : Blood Pressure : */* mmHG Vent. Rate : 78 BPM Atrial Rate : 78 BPM P-R Int : 216 ms QRS Dur : 86 ms QT Int : 430 ms P-R-T Axes : 63 25 204 degrees QTcB Int : 490 ms Sinus rhythm with 1st degree A-V block T wave abnormality, consider anterior ischemia Prolonged QT Abnormal ECG When compared with ECG of 11-Jul-2024 02:41, T wave inversion now evident in Anterior leads Confirmed by José Willams ([id number]) on 07/13/2024 11:11:16 PM Referred By: REFERRED SELF Confirmed By: José Willams
== END 2024-07-12 13:39 | disposition home or self-care (01) | DRG 322 ==
LOC: ED 23:04 → EDINP 07-11 03:07 → 1E 07-11 12:29

== ENCOUNTER 2025-01-16 18:38 | Inpatient (IN) ==
[2025-01-16] MEDS: SODIUM CHLORIDE 0.9% 500 ML IV ONE (19:35)
[2025-01-16] MEDS: ONDANSETRON INJ 2 MG/ML 2 ML VIAL IV STA (19:36)
[2025-01-16 19:44] LABS: Alanine Aminotransferase 13 U/L (7-52); Albumin Globulin Ratio 1.5 (0.9-2); Albumin Level 4.4 gm/dl (3.4-5.0); Alkaline Phosphatase 69 U/L (34-104); Anion Gap 9 (3-11); Aspartate Aminotransferase 18 U/L (13-39); BUN Creatinine Ratio 17.1 (10-20); Bilirubin,Total 1.4 mg/dl (0.2-1.0); Blood Urea Nitrogen 42 mg/dl (6-23); Calcium 9.3 mg/dl (8.6-10.3); Carbon Dioxide 21 mmol/L (21-32); Chloride 105 mmol/L (98-107); Glucose 154 mg/dl (70-99(Fasting)); Lipase 18 U/L (11-82); Magnesium 2.3 mg/dl (1.7-2.4); Potassium 4.3 mmol/L (3.5-5.1); Sodium 135 mmol/L (136-145); Total Protein 7.4 gm/dl (6.0-8.3)
[2025-01-16 19:49] LABS: Anisocytosis Present; Basophils # (auto) 0.01 K/uL (0.00-0.20); Basophils % (auto) 0.2 %; Hematocrit (blood only) 29.7 % (37.0-47.0); Hemoglobin 9.3 g/dl (12.0-16.0); Immature Granulocytes # (auto) 0.02 K/uL (0.01-0.20); Immature Granulocytes % (auto) 0.5 %; Lymphocytes # (auto) 1.84 K/uL (1.20-3.40); Lymphocytes % (auto) 45.7 %; Mean Corpuscular Hemoglobin 28.5 pg (25.0-34.0); Mean Corpuscular Hgb Conc 31.3 g/dL (32.0-36.0); Mean Corpuscular Volume 91.1 fL (80.0-100.0); Monocytes # (auto) 0.63 K/uL (0.11-0.59); Monocytes % (auto) 15.6 %; Neutrophils # (auto) 1.53 K/uL (1.40-6.50); Nucleated RBC # (auto) 0.13 K/uL (0.00-0.12); Nucleated RBC % (auto) 3.2 %; Platelet Count 114 K/uL (130-400); Polychromasia 1+; RDW Coefficient of Variation 19.9 % (11.5-14.5); RDW Standard Deviation 63.7 fL (36.4-46.3); Red Blood Count 3.26 M/uL (4.20-5.40); Schistocytes 1+; Troponin I High Sensitivity 8.5 pg/ml (0-14); White Blood Count 4.03 K/ul (4.8-10.8)
[2025-01-16 19:57] LABS: Partial Thromboplastin Ratio 0.9; Partial Thromboplastin Time 23 Seconds (21-31); Prothrombin Time 11.3 Seconds (9.0-12.0)
[2025-01-16 20:07] LABS: Appearance Urine Clear (Clear); Bilirubin Urine Negative (Negative); Blood Urine Negative (Negative); Color Urine Dark Yellow; Glucose Urine UA Negative (Negative); Ketones Urine Trace (Negative); Leukocyte Esterase Urine Trace (Negative); Nitrite Urine Negative (Negative); Protein Urine Trace (Negative); Specific Gravity Urine 1.016 (1.000-1.030); Urobilinogen Urine Negative (Negative); WBC Urine Automated 0-5 /hpf (0-5)
[2025-01-16 20:16] LABS: Bacteria Urine Automated 2+ (None Seen); Epithelial Cell Urine Auto >20 /hpf (0-2)
[2025-01-16 21:09] LABS: Adenovirus F 40/41 PCR Not Detected (NotDetected); Astrovirus PCR Not Detected (NotDetected); Campylobacter PCR Not Detected (NotDetected); Cryptosporidium PCR Not Detected (NotDetected); Cyclospora cayetanensis PCR Not Detected (NotDetected); Entamoeba histolytica PCR Not Detected (NotDetected); Enteroaggregative E.coli(EAEC) Not Detected (NotDetected); Enteropathogenic E.coli (EPEC) Not Detected (NotDetected); Enterotoxigenic E.coli (ETEC) Not Detected (NotDetected); Giardia lamblia PCR Not Detected (NotDetected); Norovirus GI/GII PCR Not Detected (NotDetected); Plesiomonas shigelloides PCR Not Detected (NotDetected); Salmonella PCR Not Detected (NotDetected); Sapovirus PCR Not Detected (NotDetected); Shiga-like Toxin E.coli (STEC) Not Detected (NotDetected); Shigella/Enteroinvasive E.coli Not Detected (NotDetected); Vibrio cholerae PCR Not Detected (NotDetected); Vibrio species PCR Not Detected (NotDetected); Yersinia enterocolitica PCR Not Detected (NotDetected)
--- NOTE | 2025-01-16 21:12 | CT Scan Report ---
Exam(s): CT ABDOMEN + PELVIS Without Contrast EXAM: CT Abdomen and Pelvis Without Intravenous Contrast CLINICAL HISTORY: Reason for exam: abd pain nvd. TECHNIQUE: Axial computed tomography images of the abdomen and pelvis without intravenous contrast. CTDI is 12.78 mGy and DLP is 554.33 mGy-cm. Automated exposure control was utilized for the study. A dose lowering technique was utilized adhering to the principles of ALARA. COMPARISON: CT abdomen/pelvis: 07/09/2022 FINDINGS: Lung bases: Perihilar very mild interstitial thickening/subtle patchy groundglass opacities. No mass. No consolidation. Calcified atherosclerosis of the coronary arteries and aorta. ABDOMEN: Lack of IV contrast limits evaluation of Liver: Unremarkable. Gallbladder and bile ducts: A distended gallbladder with multiple small rounded intraluminal calcified gallstones.. No ductal dilation. Pancreas: Diffusely atrophic pancreas. No ductal dilation. Spleen: Unremarkable. No splenomegaly. Adrenals: Thickening of the left adrenal gland.. No mass. Kidneys and ureters: Unremarkable. No obstructing stones. No hydronephrosis. Stomach and bowel: Unremarkable stomach. Fluid-filled borderline distended segments of small bowel. Liquid stool/gas in the colon. Sigmoid diverticulosis. Perisigmoid fat stranding, likely chronic reactive although cannot exclude a diverticulitis (series 2 image 66). No mucosal thickening. PELVIS: Appendix: No findings to suggest acute appendicitis. Bladder: An empty bladder. Reproductive: Prior hysterectomy. ABDOMEN and PELVIS: Intraperitoneal space: Unremarkable. No free air. No significant fluid collection. Bones/joints: No acute fracture. No dislocation. Soft tissues: Unremarkable. Vasculature: Diffuse densely calcified atherosclerosis of the aortoiliac vasculature and branch vessels. No abdominal aortic aneurysm. Lymph nodes: Several up to 1.5 cm size lymph nodes are seen predominantly in the root of the small bowel mesentery. . IMPRESSION: A distended gallbladder with multiple small calcified gallstones/cholelithiasis. Fluid/gas-filled borderline distended small bowel segments/segmental adynamic ileus. Liquid stool in the colon, suggestive of diarrheal process. Sigmoid diverticulosis. Perisigmoid fat stranding, likely chronic reactive although cannot exclude a diverticulitis. Several up to 1.5 cm mesenteric lymph nodes/lymphadenopathy, uncertain etiology. . Electronically signed by: Alyssa Vazquez MD, IDAR 01/16/25 21:11 PM
[2025-01-16] MEDS: SODIUM CHLORIDE 0.9% 1,000 ML IV STA (21:34)
[2025-01-16] MEDS: SODIUM CHLORIDE 0.9% 1,000 ML IV SCH (21:35)
[2025-01-16 21:44] LABS: Cdiff Toxin B Gene (2yr or >) Positive Cdiff Gene (Neg)
[2025-01-16 21:46] LABS: Rotavirus A PCR DETECTED (NotDetected)
[2025-01-16 21:47] LABS: Cdiff Antigen Negative; Cdiff Toxin A+B Negative Cdiff Toxin (Negative)
[2025-01-16] MEDS ORDERED: LOPERAMIDE HCL 2 MG CAP PO PRN (22:18)
--- NOTE | 2025-01-16 22:46 | History & Physical Report ---
Date of Service January 16, 2025 Assessment & Plan (1) Hypotension: Plan: Transient hypotension ARF on CKD Secondary to rotavirus illness chronic diastolic heart failure, patient on the dry side hx CAD status post stent/CVA as per records PVD, [place] [facility] [place] end of the month valvular heart disease (mild MR/TR, trace AR) hyperlipidemia, on statin Rx lung nodule possible bronchogenic carcinoma ongoing radiation therapy, hypothyroidism, euthyroid as of recent outpatient TSH chronic pancytopenia Hyperglycemia likely prediabetes, hemoglobin A1c of 6 from last year past tobacco abuse. OBS Admit to med/tele Monitor creatinine response to IVF Appropriate to hold BP meds given hypotension Supportive management for viral diarrheal illness DVT prophylaxis. Bharat; SCDs contraindicated with history LE PAD awaiting treatment re: thrombocytopenia Full code Patient daughter requesting for updates regarding care. Ms. Aisha Wu, contact #[phone]. Text document was generated using Nimbula voice recognition software. It may contain grammatical or spelling errors. Kindly contact undersigned for clarification of any documentation item in question. History of Present Illness Chief Complaint: Dizziness, lightheadedness Primary Care Provider: Rafat Josue MD History obtained from patient, family, and records. Medical history significant for chronic diastolic heart failure (EF 55%, TTE 2024), CAD status post stent/CVA as per records, PVD, valvular heart disease (mild MR/TR, trace AR), hypertension, hyperlipidemia, lung nodule possible bronchogenic carcinoma ongoing radiation therapy, GERD, hypothyroidism, CRI (baseline creatinine 1.4), chronic pancytopenia (baseline hemoglobin 10-11), past tobacco abuse. Last confinement June 2024 for NSTEMI status post PCI/LAD stent placement. 2 days history of nausea, vomiting, watery diarrhea symptoms. No abdominal pain. Poor appetite. Patient feeling weak. Denies headache. Some lightheadedness. Denies chest pain, SOB. Not sure about sick contacts as patient had [place] family visit over the weekend. No recent antibiotics or out-of-town travel. SBP 90s upon arrival at the ER. 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 Allergies Allergy/AdvReac Type Severity Reaction Status Date / Time Nitrate Analogues AdvReac Mild Headache Verified 01/17/25 05:00 Home Medications Medication Instructions Recorded Confirmed Type amlodipine 5 mg tablet 5 mg PO QPM 01/05/21 01/16/25 History aspirin 81 mg tablet,delayed 81 mg PO QPM 01/05/21 01/16/25 History release cholecalciferol (vitamin D3) 25 50 mcg PO QPM 01/05/21 01/16/25 History mcg (1,000 unit) capsule (Vitamin D3) levothyroxine 50 mcg tablet 50 mcg PO QAM 01/05/21 01/16/25 History cyanocobalamin (vitamin B-12) 1,000 mcg PO QPM 07/11/24 01/16/25 History 1,000 mcg tablet (Vitamin B-12) atorvastatin 40 mg tablet 40 mg PO QAM #30 tabs 07/12/24 01/16/25 Rx clopidogrel 75 mg tablet 75 mg PO QAM #30 tabs 07/12/24 01/16/25 Rx metoprolol succinate 50 mg 50 mg PO QAM #30 tabs 07/12/24 01/16/25 Rx tablet,extended release 24 hr pantoprazole 40 mg tablet,delayed 40 mg PO QAM #30 tabs 07/12/24 01/16/25 Rx release ascorbic acid (vitamin C) 500 mg 1 g PO QPM 01/09/25 01/16/25 History tablet (Vitamin C) calcium 600 mg (as carbonate)-vit 2 tab PO DAILY 01/09/25 01/16/25 History D3 10 mcg (400 unit) chewable tablet (Calcium 600 with Vitamin D3) hydrochlorothiazide 12.5 mg capsule 12.5 mg PO DAILY 01/09/25 01/16/25 History isosorbide mononitrate 60 mg 30 mg PO DAILY 01/09/25 01/16/25 History tablet,extended release 24 hr losartan 100 mg tablet 100 mg PO DAILY 01/09/25 01/16/25 History Past Med/Surg History Problem List (Updated 01/17/25 @ 03:39 by Skyler Aguilera MD) Hypotension Enteritis due to Rotavirus (Acute) JANNA (acute kidney injury) (Acute) 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 Chronic kidney disease Lung nodule seen on imaging study (Chronic) Atherosclerosis of coronary artery Dyslipidemia, goal LDL below 70 Uncontrolled hypertension NSTEMI (non-ST elevated myocardial infarction) Hypertensive crisis Anemia (Acute) Elevated troponin (Acute) Chest pain (Acute) Hypertension (Acute) Medical History Trigger finger, acquired On right hand - repaired Dyslipidemia Osteoporosis Chronic kidney disease Pancytopenia History of COVID-19 06/2020 [facility]; reports only symptom was fatigue; resolved Osteoarthritis Hypothyroidism HLD (hyperlipidemia) HTN (hypertension) Surgical History History of carpal tunnel surgery Bilateral History of heart artery stent History of cataract surgery Bilateral History of lumpectomy of left breast benign;Open left breast biopsy History of tooth extraction History of total abdominal hysterectomy and bilateral salpingo-oophorectomy History of lumbar surgery History of colonoscopy History of appendectomy Family History Mother , 72yo CHF (congestive heart failure) TIA (transient ischemic attack) Hypertension Father , 42yo [address] accident Brother Esophageal cancer Brain cancer Brother Heart disease "Heart surgery" Hypertension Brother Heart disease "Heart surgery" Hypertension Daughter Factor 5 Leiden mutation, heterozygous Daughter TIA (transient ischemic attack) Factor 5 Leiden mutation, heterozygous Other No family history of adverse response to anesthesia Social History Smoking Status: Former smoker Tobacco Type: Cigarettes Cigarettes Per Day: 1970; Second Hand Exposure: No; Do You Dip or Chew Tobacco: No; Hx Alcohol Use: Yes Alcohol type: hard liquor Hx Substance Use: No Preferred Language: Luxembourgish Communication Ability: Effective Visual Impairment: No Limitations Hearing Ability: Normal 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 Beliefs That Will Affect Care: None marital status: / Current Living Situation: Alone current occupation: Retired How many Children do You have: 2 Other Information That Helps Us Care for You: No Feels Safe at Home: Yes Safety Concerns: Feels Safe At This Time Diet: regular caffeine: Yes (4-5 cups/day) during the past year weight has: remained stable Assistive Devices: Glasses Review of Systems Review of Systems: As per HPI, all other systems reviewed and negative Physical Exam Physical Exam: GENERAL: Comfortable, pleasant, slightly anxious, no respiratory distress SKIN: Pallor, warm HEENT: Bespectacled, pale palpebral conjunctivae, no ptosis, moist buccal mucosa NECK : Supple, no tenderness CHEST : CTA, no tenderness HEART : RRR, no obvious murmurs ABDOMEN: Some distention, nontender EXTREMITIES : No LE swelling/tenderness, no other conspicuous deformities noted NEUROLOGIC : Coherent, no facial asymmetry, no other gross focality Results & Data Results & Data Vital Signs (Past 12 Hours) Vital Signs Temp Pulse Pulse Resp BP BP Pulse Ox 01/16/25 21:30 77 21 111/46 L 93 01/16/25 21:00 84 20 91/42 L 93 01/16/25 19:26 92 H 23 98/41 L 94 01/16/25 19:19 93 H 01/16/25 18:59 36.5 C 99 H 16 96/62 L 94 O2 Del Method 01/16/25 21:30 Room Air 01/16/25 21:00 01/16/25 19:26 Room Air 01/16/25 19:19 01/16/25 18:59 Room Air Laboratory Results Laboratory Results WBC 4.03 K/ul (4.8-10.8) L 01/16/25 19:06 RBC 3.26 M/uL (4.20-5.40) L 01/16/25 19:06 Hgb 9.3 g/dl (12.0-16.0) L 01/16/25 19:06 Hct 29.7 % (37.0-47.0) L 01/16/25 19:06 MCV 91.1 fL (80.0-100.0) 01/16/25 19:06 MCH 28.5 pg (25.0-34.0) 01/16/25 19:06 MCHC 31.3 g/dL (32.0-36.0) L 01/16/25 19:06 RDW Std Deviation 63.7 fL (36.4-46.3) H 01/16/25 19:06 RDW Coeff of Cesar 19.9 % (11.5-14.5) H 01/16/25 19:06 Plt Count 114 K/uL (130-400) L 01/16/25 19:06 Immature Gran % (Auto) 0.5 % 01/16/25 19:06 Neut % (Auto) 38.0 % 01/16/25 19:06 Lymph % (Auto) 45.7 % 01/16/25 19:06 Sauk % (Auto) 15.6 % 01/16/25 19:06 Eos % (Auto) 0.0 % 01/16/25 19:06 Baso % (Auto) 0.2 % 01/16/25 19:06 Neut # (Auto) 1.53 K/uL (1.40-6.50) 01/16/25 19:06 Lymph # (Auto) 1.84 K/uL (1.20-3.40) 01/16/25 19:06 Sauk # (Auto) 0.63 K/uL (0.11-0.59) H 01/16/25 19:06 Eos # (Auto) 0.00 K/uL (0.00-0.50) 01/16/25 19:06 Baso # (Auto) 0.01 K/uL (0.00-0.20) 01/16/25 19:06 Immature Gran # (Auto) 0.02 K/uL (0.01-0.20) 01/16/25 19:06 Absolute Nucleated RBC 0.13 K/uL (0.00-0.12) H 01/16/25 19:06 Nucleated RBC % (auto) 3.2 % 01/16/25 19:06 Polychromasia 1+ 01/16/25 19:06 Anisocytosis Present 01/16/25 19:06 Schistocytes 1+ 01/16/25 19:06 PT 11.3 Seconds (9.0-12.0) 01/16/25 19:06 INR 1.0 (0.9-1.1) 01/16/25 19:06 APTT 23 Seconds (21-31) 01/16/25 19:06 PTT Ratio 0.9 01/16/25 19:06 Sodium 135 mmol/L (136-145) L 01/16/25 19:06 Potassium 4.3 mmol/L (3.5-5.1) 01/16/25 19:06 Chloride 105 mmol/L (98-107) 01/16/25 19:06 Carbon Dioxide 21 mmol/L (21-32) 01/16/25 19:06 Anion Gap 9 (3-11) 01/16/25 19:06 BUN 42 mg/dl (6-23) H 01/16/25 19:06 Creatinine 2.45 mg/dl (0.6-1.2) H 01/16/25 19:06 Est Cr Clr Drug Dosing Not Reportable 01/16/25 19:06 eGFR 18.37 01/16/25 19:06 BUN/Creatinine Ratio 17.1 (10-20) 01/16/25 19:06 Glucose 154 mg/dl (70-99(Fasting)) H 01/16/25 19:06 Calcium 9.3 mg/dl (8.6-10.3) 01/16/25 19:06 Magnesium 2.3 mg/dl (1.7-2.4) 01/16/25 19:06 Total Bilirubin 1.4 mg/dl (0.2-1.0) H 01/16/25 19:06 AST 18 U/L (13-39) 01/16/25 19:06 ALT 13 U/L (7-52) 01/16/25 19:06 Alkaline Phosphatase 69 U/L (34-104) 01/16/25 19:06 Troponin I High Sens 8.5 pg/ml (0-14) 01/16/25 19:06 Total Protein 7.4 gm/dl (6.0-8.3) 01/16/25 19:06 Albumin 4.4 gm/dl (3.4-5.0) 01/16/25 19:06 Globulin 3.0 gm/dl (2.5-4.0) 01/16/25 19:06 Albumin/Globulin Ratio 1.5 (0.9-2) 01/16/25 19:06 Lipase 18 U/L (11-82) 01/16/25 19:06 Urine Color Dark Yellow 01/16/25 19:39 Urine Appearance Clear (Clear) 01/16/25 19:39 Urine pH 5.0 (4.5-7.5) 01/16/25 19:39 Ur Specific [place] 1.016 (1.000-1.030) 01/16/25 19:39 Urine Protein Trace (Negative) H 01/16/25 19:39 Urine Glucose (UA) Negative (Negative) 01/16/25 19:39 Urine Ketones Trace (Negative) H 01/16/25 19:39 Urine Blood Negative (Negative) 01/16/25 19:39 Urine Nitrite Negative (Negative) 01/16/25 19:39 Urine Bilirubin Negative (Negative) 01/16/25 19:39 Urine Urobilinogen Negative (Negative) 01/16/25 19:39 Ur Leukocyte Esterase Trace (Negative) H 01/16/25 19:39 Urine WBC (Auto) 0-5 /hpf (0-5) 01/16/25 19:39 Urine RBC (Auto) 3-5 /hpf (0-2) H 01/16/25 19:39 U Hyaline Cast (Auto) 11-20 /lpf (0-2) H 01/16/25 19:39 U Epithel Cells (Auto) >20 /hpf (0-2) H 01/16/25 19:39 Urine Bacteria (Auto) 2+ (None Seen) H 01/16/25 19:39 Stl C. cayetanensis PCR Not Detected (NotDetected) 01/16/25 19:39 Stool Rotavirus A PCR DETECTED (NotDetected) A* 01/16/25 19:39 Stl Adenov F 40/41 PCR Not Detected (NotDetected) 01/16/25 19:39 Stool Astrovirus (PCR) Not Detected (NotDetected) 01/16/25 19:39 Stool Campylobacter PCR Not Detected (NotDetected) 01/16/25 19:39 Stl C. diff Tox B Gene Positive Cdiff Gene (Neg) H 01/16/25 19:39 Stl C.difficile Tox A&B Negative Cdiff Toxin (Negative) 01/16/25 19:39 Stool Cryptosporidium PCR Not Detected (NotDetected) 01/16/25 19:39 Stl E.coli Shiga Tox PCR Not Detected (NotDetected) 01/16/25 19:39 Stl Enterotoxigenic E PCR Not Detected (NotDetected) 01/16/25 19:39 Stool EPEC (PCR) Not Detected (NotDetected) 01/16/25 19:39 Stool EAEC (PCR) Not Detected (NotDetected) 01/16/25 19:39 Stl E. histolytica PCR Not Detected (NotDetected) 01/16/25 19:39 Stool Giardia Lamblia PCR Not Detected (NotDetected) 01/16/25 19:39 Stool Salmonella PCR Not Detected (NotDetected) 01/16/25 19:39 Stool Sapovirus (PCR) Not Detected (NotDetected) 01/16/25 19:39 Stl P. shigelloides PCR Not Detected (NotDetected) 01/16/25 19:39 Stl Shigella/EIEC PCR Not Detected (NotDetected) 01/16/25 19:39 St Y.enterocolitica PCR Not Detected (NotDetected) 01/16/25 19:39 Stool Vibrio (PCR) Not Detected (NotDetected) 01/16/25 19:39 Stl Vibrio cholerae PCR Not Detected (NotDetected) 01/16/25 19:39 Stl Norovirus GI/GII PCR Not Detected (NotDetected) 01/16/25 19:39 Impressions Abdomen/Pelvis CT 01/16/25 19:19 Exam(s): CT ABDOMEN + PELVIS Without Contrast EXAM: CT Abdomen and Pelvis Without Intravenous Contrast CLINICAL HISTORY: Reason for exam: abd pain nvd. TECHNIQUE: Axial computed tomography images of the abdomen and pelvis without intravenous contrast. CTDI is 12.78 mGy and DLP is 554.33 mGy-cm. Automated exposure control was utilized for the study. A dose lowering technique was utilized adhering to the principles of ALARA. COMPARISON: CT abdomen/pelvis: 07/09/2022 FINDINGS: Lung bases: Perihilar very mild interstitial thickening/subtle patchy groundglass opacities. No mass. No consolidation. Calcified atherosclerosis of the coronary arteries and aorta. ABDOMEN: Lack of IV contrast limits evaluation of Liver: Unremarkable. Gallbladder and bile ducts: A distended gallbladder with multiple small rounded intraluminal calcified gallstones.. No ductal dilation. Pancreas: Diffusely atrophic pancreas. No ductal dilation. Spleen: Unremarkable. No splenomegaly. Adrenals: Thickening of the left adrenal gland.. No mass. Kidneys and ureters: Unremarkable. No obstructing stones. No hydronephrosis. Stomach and bowel: Unremarkable stomach. Fluid-filled borderline distended segments of small bowel. Liquid stool/gas in the colon. Sigmoid diverticulosis. Perisigmoid fat stranding, likely chronic reactive although cannot exclude a diverticulitis (series 2 image 66). No mucosal thickening. PELVIS: Appendix: No findings to suggest acute appendicitis. Bladder: An empty bladder. Reproductive: Prior hysterectomy. ABDOMEN and PELVIS: Intraperitoneal space: Unremarkable. No free air. No significant fluid collection. Bones/joints: No acute fracture. No dislocation. Soft tissues: Unremarkable. Vasculature: Diffuse densely calcified atherosclerosis of the aortoiliac vasculature and branch vessels. No abdominal aortic aneurysm. Lymph nodes: Several up to 1.5 cm size lymph nodes are seen predominantly in the root of the small bowel mesentery. . IMPRESSION: A distended gallbladder with multiple small calcified gallstones/cholelithiasis. Fluid/gas-filled borderline distended small bowel segments/segmental adynamic ileus. Liquid stool in the colon, suggestive of diarrheal process. Sigmoid diverticulosis. Perisigmoid fat stranding, likely chronic reactive although cannot exclude a diverticulitis. Several up to 1.5 cm mesenteric lymph nodes/lymphadenopathy, uncertain etiology. . Electronically signed by: Alyssa Vazquez MD, IDAR 01/16/25 21:11 PM
[2025-01-16] MEDS ORDERED: PROMETHAZINE 6.25 MG/50.25 ML BAG IV PRN (22:50)
[2025-01-16] MEDS ORDERED: ACETAMINOPHEN 325 MG TAB PO PRN (22:50)
--- NOTE | 2025-01-16 23:40 | Emergency Department Note ---
History of Present Illness General Chief complaint: Vomiting Stated complaint: VOMITING X3, DIZZY, DIARRHEA, WEAK, DEHYDRATED Time Seen by Provider: 01/16/25 19:18 History of Present Illness Provider Complaint: + nausea, + vomiting and + diarrhea Onset (ago): day(s) 3 Description of Vomiting: no bilious, no blood-streaked, no bloody or no coffee grounds Description of Diarrhea: no mucousy, no tarry, no blood-streaked or no bloody (bright red) Associated Abdominal Pain: No Severity: moderate Maximum Pain Intensity: 6 Quality: + cramping Relieved By: + none Exacerbated By: + bowel movement and + vomiting Context: + sick contacts; no foreign travel, no recent antibiotic use, no alcohol abuse, no trauma, no anticoagulant use, no NSAID use or no marijuana use Associated symptoms: no myalgias, no cough, no fever/chills, no rash or no palpitation Home Medications Medication Instructions Recorded Confirmed Type amlodipine 5 mg tablet 5 mg PO QPM 01/05/21 01/16/25 History aspirin 81 mg tablet,delayed 81 mg PO QPM 01/05/21 01/16/25 History release cholecalciferol (vitamin D3) 25 50 mcg PO QPM 01/05/21 01/16/25 History mcg (1,000 unit) capsule (Vitamin D3) levothyroxine 50 mcg tablet 50 mcg PO QAM 01/05/21 01/16/25 History cyanocobalamin (vitamin B-12) 1,000 mcg PO QPM 07/11/24 01/16/25 History 1,000 mcg tablet (Vitamin B-12) atorvastatin 40 mg tablet 40 mg PO QAM #30 tabs 07/12/24 01/16/25 Rx clopidogrel 75 mg tablet 75 mg PO QAM #30 tabs 07/12/24 01/16/25 Rx metoprolol succinate 50 mg 50 mg PO QAM #30 tabs 07/12/24 01/16/25 Rx tablet,extended release 24 hr pantoprazole 40 mg tablet,delayed 40 mg PO QAM #30 tabs 07/12/24 01/16/25 Rx release ascorbic acid (vitamin C) 500 mg 1 g PO QPM 01/09/25 01/16/25 History tablet (Vitamin C) calcium 600 mg (as carbonate)-vit 2 tab PO DAILY 01/09/25 01/16/25 History D3 10 mcg (400 unit) chewable tablet (Calcium 600 with Vitamin D3) hydrochlorothiazide 12.5 mg capsule 12.5 mg PO DAILY 01/09/25 01/16/25 History isosorbide mononitrate 60 mg 30 mg PO DAILY 01/09/25 01/16/25 History tablet,extended release 24 hr losartan 100 mg tablet 100 mg PO DAILY 01/09/25 01/16/25 History Allergies Allergy/AdvReac Type Severity Reaction Status Date / Time No Known Allergies Allergy Verified 01/16/25 21:00 Past Med/Surg History Problem List (Updated 01/16/25 @ 23:40 by Vince Rodriguez MD) Enteritis due to Rotavirus (Acute) JANNA (acute kidney injury) (Acute) 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 Chronic kidney disease Lung nodule seen on imaging study (Chronic) Atherosclerosis of coronary artery Dyslipidemia, goal LDL below 70 Uncontrolled hypertension NSTEMI (non-ST elevated myocardial infarction) Hypertensive crisis Anemia (Acute) Elevated troponin (Acute) Chest pain (Acute) Hypertension (Acute) Medical History Trigger finger, acquired On right hand - repaired Dyslipidemia Osteoporosis Chronic kidney disease Pancytopenia History of COVID-19 06/2020 [facility]; reports only symptom was fatigue; resolved Osteoarthritis Hypothyroidism HLD (hyperlipidemia) HTN (hypertension) Surgical History History of carpal tunnel surgery Bilateral History of heart artery stent History of cataract surgery Bilateral History of lumpectomy of left breast benign;Open left breast biopsy History of tooth extraction History of total abdominal hysterectomy and bilateral salpingo-oophorectomy History of lumbar surgery History of colonoscopy History of appendectomy Family History Mother , 72yo CHF (congestive heart failure) TIA (transient ischemic attack) Hypertension Father , 42yo [address] accident Brother Esophageal cancer Brain cancer Brother Heart disease "Heart surgery" Hypertension Brother Heart disease "Heart surgery" Hypertension Daughter Factor 5 Leiden mutation, heterozygous Daughter TIA (transient ischemic attack) Factor 5 Leiden mutation, heterozygous Other No family history of adverse response to anesthesia Social History Smoking Status: Former smoker Tobacco Type: Cigarettes Cigarettes Per Day: 1970; Second Hand Exposure: No; Do You Dip or Chew Tobacco: No; Hx Alcohol Use: Yes Alcohol type: wine Hx Substance Use: No Preferred Language: Maltese Communication Ability: Effective Visual Impairment: No Limitations Hearing Ability: Normal Chief Environmental Commitment Officer Required: Voice Beliefs That Will Affect Care: None marital status: / Current Living Situation: Alone current occupation: Retired How many Children do You have: 2 Feels Safe at Home: Yes Diet: regular caffeine: Yes (4-5 cups/day) during the past year weight has: remained stable Assistive Devices: None Physical Exam 2 Vital Signs: Vital Signs - 24 hr 01/16/25 18:59 01/16/25 19:19 01/16/25 19:26 Temperature 36.5 C Temperature Source Skin Pulse Rate 99 H 93 H Pulse Rate [Apical ] 92 H Pulse Rhythm [Apic al] Regular Pulse Strength [Ap ical] Normal Respiratory Rate 16 23 Respiratory Effort / Characteristics Non-Labored Sponta neous Non-Labored Respiratory Depth Normal Normal Respiratory Patter n Regular Regular Blood Pressure 96/62 L Blood Pressure [Ri ght Arm] 98/41 L Blood Pressure Laquita n 73 Blood Pressure Laquita n [Right Arm] 60 Blood Pressure Pos ition [Right Arm] Lying Pulse Oximetry 94 94 Oxygen Delivery Me thod Room Air Room Air Sepsis Recent Feve r Within 48 Hours No Sepsis New/Unexpla ined Change in Men tiana Status N/A Sepsis Action Take n by Nursing No Action Required 01/16/25 21:00 01/16/25 21:30 01/16/25 23:20 Temperature Temperature Source Pulse Rate 78 Pulse Rate [Apical ] 84 77 Pulse Rhythm [Apic al] Pulse Strength [Ap ical] Respiratory Rate 20 21 Respiratory Effort / Characteristics Respiratory Depth Respiratory Patter n Blood Pressure Blood Pressure [Ri ght Arm] 91/42 L 111/46 L Blood Pressure Laquita n Blood Pressure Laquita n [Right Arm] 58 67 Blood Pressure Pos ition [Right Arm] Lying Lying Pulse Oximetry 93 93 Oxygen Delivery Me thod Room Air Sepsis Recent Feve r Within 48 Hours Sepsis New/Unexpla ined Change in Men tiana Status Sepsis Action Take n by Nursing Physical Exam: Physical Exam GENERAL: oriented to person, place, and time. appears well-developed and well- nourished. HENT: Exam performed. - Head: Normocephalic and atraumatic. EYES: Conjunctivae and EOM are normal. Right eye exhibits no discharge. Left eye exhibits no discharge. No scleral icterus. NECK: Normal range of motion. Neck supple. No JVD present. CV: Normal rate, regular rhythm, normal heart sounds and intact distal pulses. There is no peripheral edema. Palpable radial pulses bue. PULM/CHEST: Effort normal and breath sounds normal. No respiratory distress. No stridor. no wheezes. no rales. ABD: The abdomen is soft. There is no tenderness. NEURO: Motor and sensation grossly intact. SKIN: Skin is warm and dry. He is not diaphoretic. PSYCH: normal mood and affect. Behavior is normal. Judgment and thought content normal. Course Course 1917: The patient was evaluated in room C12. A complete history and physical exam was performed Cardiac monitoring: An order was placed for continuous cardiac monitoring. The monitor shows a rate of 80 with sinus rhythm interpreted by [facility] 2120: Vital signs stable. Labs show white blood cell count 4.03 hemoglobin 9.3 platelet count 114. Creatinine 2.45 baseline is around 1.2. Bilirubin 1.4 LFTs otherwise unremarkable. Urinalysis is contaminated sample. Imaging shows a distended gallbladder with multiple small gallstones there were fluid gas-filled borderline distended small bowel segments suggestive of an adynamic ileus and diarrheal process. There is sigmoid diverticulosis with perisigmoid fat stranding which is likely chronic although diverticulitis cannot be ruled out by radiologist who read the scan. Stool cultures pending. Will hold off on antibiotics as thought the patient's symptoms most likely due to her diarrheal illness. Discussed this with the [facility] hospitalist team Dr. Alvarado and he agrees and states he will evaluate the patient. 2202: Patient is positive for rotavirus. Hospitalist was notified will continue to hold antibiotics at this time. Administered Medications Sodium Chloride (Nss) 1,000 mls @ 100 mls/hr IV .Q10H STA Stop: 01/17/25 07:22 Last Admin: 01/16/25 21:34 Dose: 100 mls/hr Documented By: [facility] Discontinued Medications Sodium Chloride (Nss) 500 mls @ 999 mls/hr IV .Q31M ONE Stop: 01/16/25 19:49 Last Infusion: 01/16/25 21:33 Dose: Infused Documented By: Admin: 01/16/25 19:35 Dose: 999 mls/hr Documented By: NISHANT Sodium Chloride (Nss) 1,000 mls @ 125 mls/hr IV .Q8H JACOB Stop: 01/17/25 21:14 Last Admin: 01/16/25 21:35 Dose: Not Given Documented By: NISHANT Ondansetron HCl (Ondansetron Inj 2 Mg/Ml 2 Ml Vial) 4 mg IV NOW STA Stop: 01/16/25 19:20 Last Admin: 01/16/25 19:36 Dose: 4 mg Documented By: NISHANT Medical Decision Making Laboratory Data Attestation: I reviewed the patient's lab results. 01/16/25 19:06 01/16/25 19:06 Lab Results 01/16/25 01/16/25 Range/Units 19:06 19:39 WBC 4.03 L (4.8-10.8) K/ul RBC 3.26 L (4.20-5.40) M/uL Hgb 9.3 L (12.0-16.0) g/dl Hct 29.7 L (37.0-47.0) % MCV 91.1 (80.0-100.0) fL MCH 28.5 (25.0-34.0) pg MCHC 31.3 L (32.0-36.0) g/dL RDW Std Deviation 63.7 H (36.4-46.3) fL RDW Coeff of Cesar 19.9 H (11.5-14.5) % Plt Count 114 L (130-400) K/uL Immature Gran % (Auto) 0.5 % Neut % (Auto) 38.0 % Lymph % (Auto) 45.7 % [place] % (Auto) 15.6 % Eos % (Auto) 0.0 % Baso % (Auto) 0.2 % Neut # (Auto) 1.53 (1.40-6.50) K/uL Lymph # (Auto) 1.84 (1.20-3.40) K/uL [place] # (Auto) 0.63 H (0.11-0.59) K/uL Eos # (Auto) 0.00 (0.00-0.50) K/uL Baso # (Auto) 0.01 (0.00-0.20) K/uL Immature Gran # (Auto) 0.02 (0.01-0.20) K/uL Absolute Nucleated RBC 0.13 H (0.00-0.12) K/uL Nucleated RBC % (auto) 3.2 % Polychromasia 1+ Anisocytosis Present Schistocytes 1+ PT 11.3 (9.0-12.0) Seconds INR 1.0 (0.9-1.1) APTT 23 (21-31) Seconds PTT Ratio 0.9 Sodium 135 L (136-145) mmol/L Potassium 4.3 (3.5-5.1) mmol/L Chloride 105 (98-107) mmol/L Carbon Dioxide 21 (21-32) mmol/L Anion Gap 9 (3-11) BUN 42 H (6-23) mg/dl Creatinine 2.45 H (0.6-1.2) mg/dl Est Cr Clr Drug Dosing Not Reportable eGFR 18.37 BUN/Creatinine Ratio 17.1 (10-20) Glucose 154 H (70-99(Fasting)) mg/dl Calcium 9.3 (8.6-10.3) mg/dl Magnesium 2.3 (1.7-2.4) mg/dl Total Bilirubin 1.4 H (0.2-1.0) mg/dl AST 18 (13-39) U/L ALT 13 (7-52) U/L Alkaline Phosphatase 69 (34-104) U/L Troponin I High Sens 8.5 (0-14) pg/ml Total Protein 7.4 (6.0-8.3) gm/dl Albumin 4.4 (3.4-5.0) gm/dl Globulin 3.0 (2.5-4.0) gm/dl Albumin/Globulin Ratio 1.5 (0.9-2) Lipase 18 (11-82) U/L Urine Color Dark Yellow Urine Appearance Clear (Clear) Urine pH 5.0 (4.5-7.5) Ur Specific [place] 1.016 (1.000-1.030) Urine Protein Trace H (Negative) Urine Glucose (UA) Negative (Negative) Urine Ketones Trace H (Negative) Urine Blood Negative (Negative) Urine Nitrite Negative (Negative) Urine Bilirubin Negative (Negative) Urine Urobilinogen Negative (Negative) Ur Leukocyte Esterase Trace H (Negative) Urine WBC (Auto) 0-5 (0-5) /hpf Urine RBC (Auto) 3-5 H (0-2) /hpf U Hyaline Cast (Auto) 11-20 H (0-2) /lpf U Epithel Cells (Auto) >20 H (0-2) /hpf Urine Bacteria (Auto) 2+ H (None Seen) Stl C. cayetanensis PCR Not Detected (NotDetected) Stool Rotavirus A PCR DETECTED A* (NotDetected) Stl Adenov F 40/41 PCR Not Detected (NotDetected) Stool Astrovirus (PCR) Not Detected (NotDetected) Stool Campylobacter PCR Not Detected (NotDetected) Stl C. diff Tox B Gene Positive Cdiff Gene H (Neg) Stl C.difficile Tox A&B Negative Cdiff Toxin (Negative) Stool Cryptosporidium PCR Not Detected (NotDetected) Stl E.coli Shiga Tox PCR Not Detected (NotDetected) Stl Enterotoxigenic E PCR Not Detected (NotDetected) Stool EPEC (PCR) Not Detected (NotDetected) Stool EAEC (PCR) Not Detected (NotDetected) Stl E. histolytica PCR Not Detected (NotDetected) Stool Giardia Lamblia PCR Not Detected (NotDetected) Stool Salmonella PCR Not Detected (NotDetected) Stool Sapovirus (PCR) Not Detected (NotDetected) Stl P. shigelloides PCR Not Detected (NotDetected) Stl Shigella/EIEC PCR Not Detected (NotDetected) St Y.enterocolitica PCR Not Detected (NotDetected) Stool Vibrio (PCR) Not Detected (NotDetected) Stl Vibrio cholerae PCR Not Detected (NotDetected) Stl Norovirus GI/GII PCR Not Detected (NotDetected) Imaging Data Radiologist's Impression: Abdomen/Pelvis CT 01/16/25 19:19 Exam(s): CT ABDOMEN + PELVIS Without Contrast EXAM: CT Abdomen and Pelvis Without Intravenous Contrast CLINICAL HISTORY: Reason for exam: abd pain nvd. TECHNIQUE: Axial computed tomography images of the abdomen and pelvis without intravenous contrast. CTDI is 12.78 mGy and DLP is 554.33 mGy-cm. Automated exposure control was utilized for the study. A dose lowering technique was utilized adhering to the principles of ALARA. COMPARISON: CT abdomen/pelvis: 07/09/2022 FINDINGS: Lung bases: Perihilar very mild interstitial thickening/subtle patchy groundglass opacities. No mass. No consolidation. Calcified atherosclerosis of the coronary arteries and aorta. ABDOMEN: Lack of IV contrast limits evaluation of Liver: Unremarkable. Gallbladder and bile ducts: A distended gallbladder with multiple small rounded intraluminal calcified gallstones.. No ductal dilation. Pancreas: Diffusely atrophic pancreas. No ductal dilation. Spleen: Unremarkable. No splenomegaly. Adrenals: Thickening of the left adrenal gland.. No mass. Kidneys and ureters: Unremarkable. No obstructing stones. No hydronephrosis. Stomach and bowel: Unremarkable stomach. Fluid-filled borderline distended segments of small bowel. Liquid stool/gas in the colon. Sigmoid diverticulosis. Perisigmoid fat stranding, likely chronic reactive although cannot exclude a diverticulitis (series 2 image 66). No mucosal thickening. PELVIS: Appendix: No findings to suggest acute appendicitis. Bladder: An empty bladder. Reproductive: Prior hysterectomy. ABDOMEN and PELVIS: Intraperitoneal space: Unremarkable. No free air. No significant fluid collection. Bones/joints: No acute fracture. No dislocation. Soft tissues: Unremarkable. Vasculature: Diffuse densely calcified atherosclerosis of the aortoiliac vasculature and branch vessels. No abdominal aortic aneurysm. Lymph nodes: Several up to 1.5 cm size lymph nodes are seen predominantly in the root of the small bowel mesentery. . IMPRESSION: A distended gallbladder with multiple small calcified gallstones/cholelithiasis. Fluid/gas-filled borderline distended small bowel segments/segmental adynamic ileus. Liquid stool in the colon, suggestive of diarrheal process. Sigmoid diverticulosis. Perisigmoid fat stranding, likely chronic reactive although cannot exclude a diverticulitis. Several up to 1.5 cm mesenteric lymph nodes/lymphadenopathy, uncertain etiology. . Electronically signed by: Alyssa Vazquez MD, DABR 01/16/25 21:11 PM [facility] Narrative 1918: The patient was evaluated in room C12. A complete history and physical exam was performed Cardiac monitoring: An order was placed for continuous cardiac monitoring. The monitor shows a rate of 80 with sinus rhythm interpreted by [facility] 2120: Vital signs stable. Labs show white blood cell count 4.03 hemoglobin 9.3 platelet count 114. Creatinine 2.45 baseline is around 1.2. Bilirubin 1.4 LFTs otherwise unremarkable. Urinalysis is contaminated sample. Imaging shows a distended gallbladder with multiple small gallstones there were fluid gas-filled borderline distended small bowel segments suggestive of an adynamic ileus and diarrheal process. There is sigmoid diverticulosis with perisigmoid fat stranding which is likely chronic although diverticulitis cannot be ruled out by radiologist who read the scan. Stool cultures pending. Will hold off on antibiotics as thought the patient's symptoms most likely due to her diarrheal illness. Discussed this with the [facility] hospitalist team Dr. Alvarado and he agrees and states he will evaluate the patient. 2202: Patient is positive for rotavirus. Hospitalist was notified will continue to hold antibiotics at this time. Impression & Plan JANNA (acute kidney injury), Enteritis due to Rotavirus Discharge Plan Visit Data Chief Complaint: Vomiting Stated Complaint: VOMITING X3, DIZZY, DIARRHEA, WEAK, DEHYDRATED ED Provider: Vince Rodriguez Discharge Problem: JANNA (acute kidney injury), Enteritis due to Rotavirus Patient Disposition: Admitted As Inpatient Forms Stand Alone Forms: [facility] Prescriptions Prescriptions: No Action Calcium 600 with Vitamin D3 600 mg-10 mcg (400 unit) tablet,chewable 2 tab PO DAILY hydrochlorothiazide 12.5 mg capsule 12.5 mg PO DAILY losartan 100 mg tablet 100 mg PO DAILY isosorbide mononitrate 60 mg tablet extended release 24 hr 30 mg PO DAILY amlodipine 5 mg Tablet 5 mg PO QPM aspirin 81 mg Tablet,Delayed Release (Dr/Ec) 81 mg PO QPM levothyroxine 50 mcg Tablet 50 mcg PO QAM cholecalciferol (vitamin D3) [Vitamin D3] 25 mcg (1,000 unit) Capsule 50 mcg PO QPM cyanocobalamin (vitamin B-12) [Vitamin B-12] 1,000 mcg Tablet 1,000 mcg PO QPM atorvastatin 40 mg Tablet 40 mg PO QAM Qty: 30 0RF metoprolol succinate 50 mg Tablet Extended Release 24 Hr 50 mg PO QAM Qty: 30 0RF clopidogrel 75 mg Tablet 75 mg PO QAM Qty: 30 0RF pantoprazole 40 mg Tablet,Delayed Release (Dr/Ec) 40 mg PO QAM Qty: 30 0RF ascorbic acid (vitamin C) [Vitamin C] 500 mg tablet 1 g PO QPM Referrals Referrals: Rafat Josue MD [Primary Care Provider] -
[2025-01-17] MEDS: SODIUM CHLORIDE 0.9% 1,000 ML IV STA (02:16)
[2025-01-17] MEDS: LEVOTHYROXINE SODIUM 50 MCG TABLET PO SCH (06:11)
[2025-01-17 06:41] LABS: BUN Creatinine Ratio 18.3 (10-20); Calcium 8.2 mg/dl (8.6-10.3); Creatinine Clr Calc Pharmacy 11.7 ml/min; Potassium 4.3 mmol/L (3.5-5.1)
[2025-01-17 07:09] LABS: Hematocrit (blood only) 23.4 % (37.0-47.0); Hemoglobin 7.4 g/dl (12.0-16.0); Mean Corpuscular Hemoglobin 28.7 pg (25.0-34.0); Mean Corpuscular Hgb Conc 31.6 g/dL (32.0-36.0); Mean Corpuscular Volume 90.7 fL (80.0-100.0); Nucleated RBC # (auto) 0.02 K/uL (0.00-0.12); Nucleated RBC % (auto) 0.9 %; Platelet Count 89 K/uL (130-400); RDW Coefficient of Variation 19.9 % (11.5-14.5); RDW Standard Deviation 63.4 fL (36.4-46.3); Red Blood Count 2.58 M/uL (4.20-5.40); White Blood Count 2.35 K/ul (4.8-10.8)
[2025-01-17 07:25] LABS: ALC (manual) 1.08 K/uL (1.2-3.4); ANC (manual) 1.08 K/uL (1.4-6.5); Basophils # (manual) 0.02 K/uL (0-0.2); Basophils % (manual) 1 %; Eosinophils # (manual) 0.02 K/uL (0-0.50); Eosinophils % (manual) 1 %; Lymphocytes # (manual) 1.08 K/uL (1.2-3.4); Lymphocytes % (manual) 46 %; Monocytes # (manual) 0.12 K/uL (0.11-0.59); Monocytes % (manual) 5 %; Myelocytes # (manual) 0.02 K/uL (0-0); Myelocytes % (manual) 1 %; Neutrophils # (manual) 1.08 K/uL (1.40-6.50); Neutrophils % (manual) 46 %
--- OUTSIDE RECORDS SUMMARY | 2025-01-17 07:28 | External Medical Summary | Summary of Care ---
Author Name Unknown Organization [facility] Address [address] [place] [address] Phone [phone] Care Team Providers Care Signal Intelligence/Electronic Warfare Name Role Phone Rafat Josue MD Primary Care Provider [phone]- [phone] Reason for Visit * Reason Onset Date Comments Forms Request 01/14/2025 Encounter Details Date Type Department Care Team (Late st Contact Info) Description 01/14/2025 Telephone [facility] [address] [place] [address] Rafat Josue MD [address] [facility] [place] [address] Forms Request Allergies No known active allergiesdocumented as of this encounter (statuses as of 01/15/2025) Medications CALCIUM 500 +D 500-400 MG-UNIT PO TABS Take 1 Tablet by mouth in the morning and 1 Tablet before bedtime. 60 Tab 5 08/24/2011 Active ASPIRIN EC 81 MG PO TBEC Take 1 Tablet by mouth in the morning. 100 Tab 5 08/24/2011 Active Vitamin D 50 MCG (2000 UT) Oral Capsule Take 1 Capsule by mouth in the morning. Active Vitamin B-12 1000 MCG Oral Tablet (Cyanocobalamin) Take 1 Tablet by mouth in the morning. Active Atorvastatin Calcium 40 MG Oral Tablet (Lipitor) Take 1 Tablet by mouth in the morning. 90 Tablet 3 12/03/2024 6:41 AM EST 08/08/2024 Active Clopidogrel Bisulfate 75 MG Oral Tablet (pLAVix) Take 1 Tablet by mouth in the morning. 90 Tablet 3 11/26/2024 6:38 PM EST 08/08/2024 Active Levothyroxine Sodium 50 MCG Oral Tablet (Levoxyl) Take 1 Tablet by mouth daily first thing in the morning. 90 Tablet 3 11/13/2024 10:00 AM EST 08/08/2024 Active Metoprolol Succinate ER 50 MG Oral Tablet Extended Release 24 Hour (toPROL XL) Take 1 Tablet by mouth in the morning. 90 Tablet 3 12/03/2024 6:41 AM EST 08/08/2024 Active Pantoprazole Sodium 40 MG Oral Tablet Delayed Release (Protonix) Take 1 Tablet by mouth in the morning. 90 Tablet 3 11/26/2024 6:38 PM EST 08/08/2024 Active Vitamin C 1000 MG Oral Tablet Take 1 Tablet by mouth in the morning. Active amLODIPine Besylate 5 MG Oral Tablet (Norvasc)Indicat ions:HTN, goal below 140/90 Take 1 Tablet by mouth 2 times a day. 200 Tablet 3 12/13/2024 5:24 PM EST 08/23/2024 Active hydroCHLOROthiaz marvel 12.5 MG Oral Capsule Take 1 Capsule by mouth in the morning. 31 Capsule 5 08/23/2024 Active Isosorbide Mononitrate ER 60 MG Oral Tablet Extended Release 24 Hour (Imdur)Indicatio ns:HTN, goal below 140/90 Take 1 Tablet by mouth in the morning. 100 Tablet 3 12/13/2024 5:24 PM EST 09/04/2024 Active Losartan Potassium 100 MG Oral Tablet (Cozaar)Indicati ons:HTN, goal below 140/90 Take 1 tablet by mouth once daily 90 Tablet 3 10/05/2024 Active documented as of this encounter (statuses as of 01/15/2025) Active Problems Problem Noted Date Diagnosed Date PVD (peripheral vascular disease) with claudicat ion 12/26/2024 Varicose veins of bilateral lower extremities with other complications 10/24/2024 Other pancytopenia 10/04/2024 History of ME (myocardial infarction) 08/06/2024 Former smoker 01/17/2024 Atherosclerosis of aorta 04/26/2023 Hypertensive kidney disease with stage 3b chronic kidney disease 04/26/2023 Atherosclerosis of coronary artery of [place] heart without angina pectoris 04/26/2023 Thyroid nodule 04/26/2023 Nodule of upper lobe of left lung 07/09/2022 Chronic kidney disease, stage 3b 11/24/2020 Overview: Per CKD protocol Vitamin D deficiency 02/14/2018 History of lacunar cerebrovascular accident 10/2016 Hypothyroidism 07/29/2014 Age-related osteoporosis wit hout current pathological fracture 08/24/2011 Dyslipidemia, goal LDL below 130 08/20/2010 HTN, goal below 140/90 Overview (11/12/2009): Per HTN Taxonomy. documented as of this encounter (statuses as of 01/15/2025) Resolved Problems Problem Noted Date Diagnosed Date Resolved Date Benign hypertension with chr onic kidney disease, stage III 02/12/2019 10/30/2020 HTN, goal below 150/90 08/18/201808/21 Lacunar infarction 06/25/2014 7 HTN, goal below 140/90 08/24/201108/18 HTN, goal below 130/80 11/12/200908/24 Overview (11/12/2009): Per HTN Taxonomy. Kidney disease, chronic, sta ge III (GFR 30-59 ml/min) 11/17/2007 02/28/2019 Overview (11/17/2007): Based on labs from 11/10/06 ADVANCE DIRECTIVE INFORMATION 10/19/2005 02/14/2018 Overview (10/19/2005): Yes, Patient instructed to provide copy of advance directive for provider to review and to be scanned into Electronic Medical Record FINGER INJURY, RIGHT 5TH 10/05/200511/2012 CONTUSION, RIGHT 5TH FINGER 10/05/2005 09/17/2013 Need for prophylactic hormon e replacement therapy (postmenopausal) 02/27/2004 Esophageal reflux 02/14/2018 documented as of this encounter (statuses as of 01/15/2025) Immunizations Name Administration Dates Next Due COVID-19 mRNA, LNP-s, No Pre serve, 2-Dose Series (Adreal) 07/25/2021,12/27/2020,11/29/2020 COVID-19, LNP-s, No Preserve , Binh-sucrose, Ages 12+ (Pfizer) 03/05/2022 COVID-19, MRNA-LNP, PF, 30 M CG/0.3 mL, 12 YRS AND ABOVE, IM (PFIZER-Comirnat) 06/15/2024,09/26/2023 Pneumococcal Conjugate Vacc, 13 Valent (Prevnar) 05/10/2016 Pneumococcal Polysaccharide PPV23 (Pneumovax) 11/10/2006 RSV Vac., Recomb, Adjuvant, PF,0.5 Ml (Arexvy) 09/26/2023 Season Influenza, Quad, PF, Adjuvanted, 65+ Yrs, IM (FLUAD) 06/15/2024,06/03/2020 Seasonal Influenza Vac., MDV , IM, 0.5 mL (Fluzone) 06/25/2014,07/17/2013,07/27/2012,07/27,07/28/2010,07/17/2009,07/19/2008 ,08/25/2007,07/29/2006 Seasonal Influenza, MDCK, Tr ivalent, PF, (Flucelvax) 06/21/2019 Seasonal Influenza, PF, 6 M & above, IM , (FluLaval or Fluzone) 06/30/2018 Seasonal Influenza, QUAD, wi th Preserv, 6 mons & Above, 0.5 mL, IM 07/16/2021 Seasonal Influenza, Quadriva lent Hd (Fluzone Hd) 08/05/2023 Seasonal Influenza, Quadriva lent Hd, 65+ Yrs 07/01/2022 Seasonal Influenza, Quadriva lent, No Preserve, IM 07/01/2017,08/17/2016,07/21/2015 Seasonal Influenza, Trivalen t, Adjuvanted, 65+ YRS, PF, (Fluad) 06/15/2024 TDAP (age 10 and older)(Boostrix) 03/14/2013 Varicella [...] standard drink = 0.6 oz pure alcohol) 07/13/2024 - Reports hgaving a glass of wine or a mixed drink monthly. PHQ-2 Answer Date Recorded PHQ Adult Total Score 0 07/13/2024 Hunger Vital Sign Answer Date Recorded Within the past 12 months, y ou worried that your food would run out before you got the money to buy more. Never true 07/13/20 24 Within the past 12 months, t he food you bought just didn't last and you didn't have money to get more. Never true 07/13/2024 Childcare Answer Date Recorded Do you feel overwhelmed with taking care of a child, family member or friend? No 07/13/2024 Does your family need help f inding childcare? (Household - for ages 0-17 years) Not on file 07/13/2024 Clothing Answer Date Recorded Have you been unable to get clothing when it was really needed? No 07/13/2024 Is your family able to get c lothes or diapers when needed? (Household - for ages 0-17 years) Not on file 07/13/2024 Personal Safety Answer Date Recorded Do you feel unsafe or have concerns for your saf ety? No 07/13/2024 Do you have concerns for you r family's safety? (Household - for ages 0-17 years) Not on file 07/13/2024 Utilities Answer Date Recorded Do you have trouble paying y our heating, water, or electric bill? No 07/13/2024 Is your family able to pay t he heat, water, or electric bill? (Household - for ages 0-17 years) Not on file 07/13/2024 Does your family have access to good internet? (Household - for ages 0-17 years) Not on file 07/13/2024 Employment Status Answer Date Recorded Are you unemployed or without regular income? No 07/13/2024 Does the household have a re gular source of income? (Household - for ages 0-17 years) Not on file 07/13/2024 Social Connections Answer Date Recorded How often do you feel lonely or isolated from th ose around you? Never 07/13/2024 Financial Resource Strain Answer Date R ecorded Do you have any trouble payi ng for your medications, or do you think you might in the future? No 07/13/2024 Does your family have troubl e paying for medicine? (Household - for ages 0-17 years) Not on file 07/13/2024 Transportation Needs Answer Date Record ed Do you have trouble getting a ride to medical visits or work? (Adult - for ages 18 years and over) Not on file 07/13/2024 Does your family have a hard time getting a ride to doctors visits? (Household - for ages 0-17 years) Not on file 07/13/2024 Has lack of transportation k ept you from medical appointments, meetings, work, or from getting things needed for daily living? Check all that apply. No 07/13/2024 Do you (or your family) have trouble finding or paying for a ride (transportation)? (Household - for ages 0-17 years) Not on file 07/13/2024 Housing Stability Answer Date Recorded Do you currently live in a s helter or have no steady place to sleep at night? No 07/13/2024 Do you think you are at risk of becoming homeless? (Adult - for ages 18 years and over) Not on file 07/13/2024 Does your family worry about paying for your home or becoming homeless? (Household - for ages 0-17 years) Not on file 0 07/13/2024 Are you homeless or worried that you might be in the future? No 07/13/2024 Are you (or your family) dayna eless or worried that you might be in the future? (Household - for ages 0-17 years) Not on file Food Insecurity Answer Date Recorded Do you need food for this week? No 07/13/2024 Are you able to get enough f ood for your family? (Household - for ages 0-17 years) Not on file 07/13/2024 Does your family need food t his week? (Household - for ages 0-17 years) Not on file 07/13/2024 Do you always have enough fo od for your family? (Household - for ages 0-17 years) Not on file 07/13/2024 Food Insecurity Answer Date Recorded Within the past 12 months, y ou worried that your food would run out before you got the money to buy more. Never true 07/13/20 24 Within the past 12 months, t he food you bought just didn't last and you didn't have money to get more. Never true 07/13/2024 Do you need food for this week? No 07/13/2024 Comments No Sex and Gender Information Value Date Recorded Sex Assigned at Female 02/16/2019 8:10 AM EDT Legal Sex Female 5:02 AM EST Gender Identity Female 02/16/2019 8:10 AM EDT Sexual Orientation Straight 02/16/2019 7: 53 AM EDT Occupation Industry Job Start Date Job End Date RETIRED Not on file Not on file Not on file documented as of this encounter Miscellaneous Notes * Telephone Encounter - Carolyn Aleman OSA - 01/14/2025 3:42 PM EDT Pt's daughter, Aisha, is calling requesting a form to be completed. Pt will be moving closer [place] to be closer to her kids. They are trying to get her into a Independent Living facility. They need a form to be completed before they can process the application. Form completion is needed no later 02/01. Patient was last seen 11/12/24. Her daughter will fax the form to office, direct fax number given. If there any questions about theform, please reach out to Aisha at [phone] documented in this encounter Plan of Treatment Upcoming Encounters Date Type Department Care Team (Latest Contact Info) Description 5 1:00 PM EDT Appointment Radiology, [facility] [address] [facility] [place] [address] 7:15 AM EDT Hospital Encounter [facility], OPERATING ROOM C, [place] FARIAS [address] [place] [place] [address] Scott Lee MD [address] [place] [place] [address] 5 7:15 AM EDT - 5 10:51 AM EDT Surgery [place] [facility], OPERATING ROOM [facility] [place] [address] [place] [place] [address] Scott Lee MD [address] [place] [address] COMMON FEMORAL ENDARTERECTOMY 5 10:10 AM EDT Office Visit Vascular Surgery, [facility] [address] [place] [address] Scott Lee MD [address] [facility] [place] [address] 5 1:00 PM EDT Imaging Vascular Lab, [address] [place] [address] 5 2:00 PM EDT Imaging Vascular Lab, [address] [place] [address] 5 3:00 PM EDT Imaging Vascular Lab, [address] [place] [address] 5 11:30 AM EDT Office Visit Vascular Surgery, [facility] [address] [place] [address] Scott Lee MD [address] [facility] [place] [address] 5 8:00 AM EDT Hospital Encounter [facility], Endoscopy Suite, [facility] 1, [address] [place] [id number] Noa Vail MD [address] [place] [address] 5 8:00 AM EDT - 5 8:30 AM EDT Surgery [facility], Endoscopy Suite, [facility] 1, [address] [place] [address] Noa Vail MD [address] [place] [address] ESOPHAGOGASTRODUODENOSCOPY (EGD), FLEXIBLE, TRANSORAL, DIAGNOSTIC 5 8:00 AM EDT Office Visit [facility] [address] [place] [phone] Rafat Josue MD [address] [place] [address] 5 10:30 AM EDT Office Visit Cardiology, [facility] [address] [place] [address] Thomas Burleson PA-C [address] [place] [address] Scheduled Procedures Name Priority Associated Diagnoses Date/Ti me COMMON FEMORAL ENDARTERECTOMY PVD (peripheral vascular disease) with claudication (HCC) 02/07/2025 7:15 AM EDT ILIAC ARTERY REVASC W/ STENT+ANGIOPLASTY PVD (peripheral vascular disease) with claudication (HCC) 02/07/2025 7:15 AM EDT ESOPHAGOGASTRODUODENOSCOPY ( EGD), FLEXIBLE, TRANSORAL, DIAGNOSTIC Iron deficiency anemia, unspecified iron deficiency anemia type Sigmoid stricture (HCC) 04/25/2025 8:00 AM EDT Health Maintenance Due Date Last Done Comments Adult Wellness Visit 09/05/2021 09/05/2020 *BISPHONATE OR OTHER ACCEPTABLE MEDICATION NEEDED FOR OSTEOPOROSIS (REFER TO SMARTSET #1146) 09/16/2024 COVID-19 Vaccine ( season) 2024 06/15/2024, 09/26/2023, 08/10/2022, Additional history exists *NEPHROLOGY REFERRAL DUE TO RESISTANT HTN 12/29/2024 Albumin/Creatinine Ratio 05/10/2025 05/10/2024, 03/18 CKD PHOS USE SMARTSET 66863 05/10/202504/17, 04/14/2023, 11/03/2020, Additional history exists Depression Screening 07/13/2025 07/13/2024 TSH 08/27/2025 08/27/2024, 04/17, 04/14/2023, Additional history exists CKD HGB USE SMARTSET 50394 11/20/202511/20, 08/27/2024, 05/10/2024, Additional history exists DXA Scan 06/08/2026 06/08/2024, 05/18, 05/21/2019, Additional history exists DTap/Tdap Vaccines Discontinued 03/14/2013, 1 12/05/2001, 09/16/1992 Pneumococcal Vaccine: 50+ Years Completed 05/10/2016, 11/10/2006, 11/09/1999 Zoster Vaccines Completed 11/21/2018, 04/16, 04/16/2018, Additional history exists VITAMIN D LEVEL ONCE IN A LIFETIME-USE SMARTSET# 36357 Completed 04/14/2023, 08/04/2021, 11/03/2020, Additional history exists Influenza Vaccine (FLU shot) Completed 06/15/2024, 06/15/2024, 08/05/2023, Additional history exists HPV (Gardasil) Vaccine Aged Out No lo nger eligible based on patient's age to complete this topic Hepatitis B Vaccine Aged Out No longe r eligible based on patient's age to complete this topic MENINGOCOCCAL (MENACTRA/MENVEO) Aged Out No longer eligible based on patient's age to complete this topic Meningitis B Vaccine (Bexsero/Trumemba) Aged Out No longer eligible based on patient's age to complete this topic documented as of this encounter Medical Devices Not on filedocumented as of this encounter Advance Directives Documents on File Type Date Recorded Patient Foundry Hand Expl anation Advance Directives and Living Will 09/26/2015 LIVING WILL LIVING W ILL Power of Process Chemist 09/26/2015 POWER OF A TTORNEY POWER OF DUST COLLECTOR Care Teams Signal Intelligence/Electronic Warfare Relationship Specialty Start Date End Date Rafat Josue MD [address] [place] [address] PCP - General 12/31/02 documented as of this encounter
--- OUTSIDE RECORDS SUMMARY | 2025-01-17 07:29 | External Medical Summary | Summary of Care ---
Author Name Unknown Organization [facility] Address [address] [place] [address] Phone [phone] Care Team Providers Care Dianetic Counselor Name Role Phone Rafat Josue MD Primary Care Provider [phone]- [phone] Reason for Visit * Reason Onset Date Comments Information 01/10/2025 Ct virtual colon ography Encounter Details Date Type Department Care Team (Late st Contact Info) Description 01/10/2025 Telephone Rad[facility] [place] [address] [address] [facility] [address] Marie Guillaume, RT (R) Information (Ct virtual colonography) Allergies No known active allergiesdocumented as of this encounter (statuses as of 01/10/2025) Medications CALCIUM 500 +D 500-400 MG-UNIT PO [...] as of this encounter (statuses as of 01/10/2025) Active Problems Problem Noted Date Diagnosed Date PVD (peripheral vascular disease) with claudicat ion 12/26/2024 Varicose veins of bilateral lower extremities with other complications 10/24/2024 Other pancytopenia 10/04/2024 History of [place] (myocardial infarction) 08/06/2024 Former smoker 01/17/2024 Atherosclerosis of aorta 04/26/2023 Hypertensive kidney disease with stage 3b chronic kidney disease 04/26/2023 Atherosclerosis of coronary artery of [place] heart without angina pectoris 04/26/2023 Thyroid nodule [...] as of this encounter (statuses as of 01/10/2025) Resolved Problems Problem Noted Date Diagnosed Date [...] as of this encounter (statuses as of 01/10/2025) Immunizations Name Administration Dates Next Due COVID-19 mRNA, LNP-s, No Pre serve, 2-Dose Series (appEatIT) 07/25/2021,12/27/2020,11/29/2020 COVID-19, LNP-s, No Preserve , Binh-sucrose, Ages 12+ (Pfizer) 03/05/2022 COVID-19, MRNA-LNP, PF, 30 M CG/0.3 mL, 12 YRS AND ABOVE, IM ([facility]) 06/15/2024,09/26/2023 Pneumococcal Conjugate Vacc, 13 Valent (Prevnar) [...] encounter Miscellaneous Notes * Telephone Encounter - Marie Guillaume RT (R) - 01/10/2025 3:07 PM EDT Spoke with patient & gave instructions for her CT virtual colonography appt on 01/30/25. Prep for CT put at [facility] pharmacy in a brown paper bag. Pt aware of all the above. Thank you, Marie/MELISSA [facility] documented in this encounter Plan of Treatment Upcoming Encounters Date Type Department Care Team (Latest Contact Info) Description 5 1:00 PM EDT Appointment Radiology, [address] [address] [place] [address] 5 7:15 AM EDT Hospital Encounter OR [facility], OPERATING ROOM [facility] [address] [place] [address] Scott Lee MD [address] [place], [place] [id number] 5 7:15 AM EDT - 5 10:51 AM EDT Surgery OR [facility], OPERATING ROOM [facility], [facility] [address] [facility] [place] [address] Scott Lee MD [address] [facility] [place] [address] COMMON FEMORAL ENDARTERECTOMY 5 10:10 AM EDT Office Visit Vascular Surgery, [facility] [address] [place] [address] Scott Lee MD [address] [place] [address] 5 1:00 PM EDT Imaging Vascular Lab, [address] [place] [address] 5 2:00 PM EDT Imaging Vascular Lab, [address] [place] [address] 5 3:00 PM EDT Imaging Vascular Lab, [address], [place] [address] [place] [address] 5 11:30 AM EDT Office Visit Vascular Surgery, [facility] [address] [place] [address] Scott Lee MD [address] [facility] [place] [address] 5 8:00 AM EDT Hospital Encounter ENDO [facility], Endoscopy Suite, [facility] 1, [address] [facility], [place] [phone] Noa Vail MD [address] [facility] [place] [address] 5 8:00 AM EDT - 5 8:30 AM EDT Surgery ENDO [facility], Endoscopy Suite, [facility] 1, [address] [place] [address] Noa Vail MD [address] [place] [address] ESOPHAGOGASTRODUODENOSCOPY (EGD), FLEXIBLE, TRANSORAL, DIAGNOSTIC 5 8:00 AM EDT Office Visit [facility] [address] [place] [address] Rafat Josue MD [address] [place] [address] 5 10:30 AM EDT Office Visit Cardiology, [facility] [address] [place] [address] Thomas Burleson PA-C [address] [place] [address] Scheduled Procedures Name Priority Associated Diagnoses Date/Ti [...] 05/10/2025 05/10/2024, 03/18 CKD PHOS USE SMARTSET 22469 05/10/202504/17, 04/14/2023, 11/03/2020, Additional history exists Depression Screening 07/13/2025 07/13/2024 TSH 08/27/2025 08/27/2024, 04/17, 04/14/2023, Additional history exists CKD HGB USE SMARTSET 67505 11/20/202511/20, 08/27/2024, 05/10/2024, Additional history exists DXA Scan 06/08/2026 06/08/2024, 05/18, 05/21/2019, Additional history exists DTap/Tdap Vaccines Discontinued 03/14/2013, 1 12/05/2001, 09/16/1992 Pneumococcal Vaccine: 50+ Years Completed 05/10/2016, 11/10/2006, 11/09/1999 Zoster Vaccines Completed 11/21/2018, 04/16, 04/16/2018, Additional history exists VITAMIN D LEVEL ONCE IN A LIFETIME-USE SMARTSET# [id number] Completed 04/14/2023, 08/04/2021, 11/03/2020, Additional history exists [...] Documents on File Type Date Recorded Patient Stave Block Splitter Expl anation Advance Directives and Living Will 09/26/2015 LIVING WILL LIVING W ILL Power of Assembler Musical Equipment 09/26/2015 POWER OF A TTORNEY POWER OF IRRIGATION EQUIPMENT MECHANIC Care Teams Dianetic Counselor Relationship Specialty Start Date End Date Rafat Josue MD [address] [place] [address] PCP - General 12/31/02 documented as of this encounter
--- OUTSIDE RECORDS SUMMARY | 2025-01-17 07:29 | External Medical Summary | Summary of Care ---
Author Name Unknown Organization [facility] Address [address] [place] [address] Phone [phone] Care Team Providers Care Crate Liner Name Role Phone Rafat Josue MD Primary Care Provider [phone] Reason for Referral * Evaluate & Treat - Unlimited Visits (Within 10 days (routine)) - Authorized Specialty Diagnoses / Procedures Referred By Minnie armstrong Referred To Contact Radiation Oncology Diagnoses Lung nodule Jacqueline Young CRNP [address] [place] [address] Phone: tel: fax: Referral ID Status Reason Start Date Expiration Date Visits Requested Visits Authorized [id number] Authorized Specialty Services Required 12/13/[phone] Question Answer Referral Priority Within 10 days (routine) Where should this appointment be scheduled? [facility] Comments Pt with slow growing sub solid TEO nodule. Reviewed with Lung Cancer Committee 06/28/24- at that time offered Rad/Onc vs surveillance, pt elected ongoing surveillance. 6M CT 12/04/24 showed continued slow growth of about 3mm compared to 05/2024. Pt would now like to meet with Rad/Onc. Reason for Visit * Reason Onset Date Comments Test Results 12/10/2024 Encounter Details Date Type Department Care Team (Late st Contact Info) Description 12/10/2024 Telephone Pulmonary Medicine, [place] [address] [place] [address] Jacqueline Young CRNP [address] [place] [address] Test Results Allergies No known active allergiesdocumented as of this encounter (statuses as of 12/20/2024) Medications CALCIUM 500 +D 500-400 MG-UNIT PO TABS Take 1 Tablet by mouth in the morning and 1 Tablet before bedtime. 60 Tab 5 1 Active ASPIRIN EC 81 MG PO TBEC Take 1 Tablet by mouth in the morning. 100 Tab 5 1 Active Vitamin D 50 MCG (2000 UT) Oral Capsule Take 1 Capsule by mouth in the morning. Active Vitamin B-12 1000 MCG Oral Tablet (Cyanocobalamin) Take 1 Tablet by mouth in the morning. Active Atorvastatin Calcium 40 MG Oral Tablet (Lipitor) Take 1 Tablet by mouth in the morning. 90 Tablet 3 12/03/2024 6:41 AM EST 4 Active Clopidogrel Bisulfate 75 MG Oral Tablet (pLAVix) Take 1 Tablet by mouth in the morning. 90 Tablet 3 11/26/2024 6:38 PM EST 4 Active Levothyroxine Sodium 50 MCG Oral Tablet (Levoxyl) Take 1 Tablet by mouth daily first thing in the morning. 90 Tablet 3 11/13/2024 10:00 AM EST 4 Active Metoprolol Succinate ER 50 MG Oral Tablet Extended Release 24 Hour (toPROL XL) Take 1 Tablet by mouth in the morning. 90 Tablet 3 12/03/2024 6:41 AM EST 4 Active Pantoprazole Sodium 40 MG Oral Tablet Delayed Release (Protonix) Take 1 Tablet by mouth in the morning. 90 Tablet 3 11/26/2024 6:38 PM EST 4 Active Vitamin C 1000 MG Oral Tablet Take 1 Tablet by mouth in the morning. Active amLODIPine Besylate 5 MG Oral Tablet (Norvasc)Indicat ions:HTN, goal below 140/90 Take 1 Tablet by mouth 2 times a day. 200 Tablet 3 12/13/2024 5:24 PM EST 4 Active hydroCHLOROthiaz marvel 12.5 MG Oral Capsule Take 1 Capsule by mouth in the morning. 31 Capsule 5 4 Active Isosorbide Mononitrate ER 60 MG Oral Tablet Extended Release 24 Hour (Imdur)Indicatio ns:HTN, goal below 140/90 Take 1 Tablet by mouth in the morning. 100 Tablet 3 12/13/2024 5:24 PM EST 4 Active Losartan Potassium 100 MG Oral Tablet (Cozaar)Indicati ons:HTN, goal below 140/90 Take 1 tablet by mouth once daily 90 Tablet 3 4 Active Mupirocin 2 % External Ointment (Bactroban) Apply to affected areas 2-3x daily until healed 22 g 1 4 12/19/19 25 Discontinu ed(End of Procedure) documented as of this encounter (statuses as of 12/20/2024) Active Problems Problem Noted Date Diagnosed Date Varicose veins of bilateral lower extremities with other complications 10/24/2024 Other pancytopenia 10/04/2024 History of UT (myocardial infarction) 08/06/2024 Former smoker 01/17/2024 Atherosclerosis of aorta 04/26/2023 Hypertensive kidney disease with stage 3b chronic kidney disease 04/26/2023 Atherosclerosis of coronary artery of [place] heart without angina pectoris 04/26/2023 Thyroid nodule [...] as of this encounter (statuses as of 12/20/2024) Resolved Problems Problem Noted Date Diagnosed Date [...] as of this encounter (statuses as of 12/20/2024) Immunizations Name Administration Dates Next Due COVID-19 mRNA, LNP-s, No Pre serve, 2-Dose Series (Maker's Row) 07/25/2021,12/27/2020,11/29/2020 COVID-19, LNP-s, No Preserve , Binh-sucrose, Ages 12+ (Pfizer) 03/05/2022 COVID-19, MRNA-LNP, PF, 30 M CG/0.3 mL, 12 YRS AND ABOVE, IM (PFIZER-Comirnaty) 06/15/2024,09/26/2023 Diptheria/Tetanus (Adult) 09/16/1992 Pneumococcal Conjugate Vacc, 13 Valent (Prevnar) 05/10/2016 Pneumococcal Polysaccharide PPV23 (Pneumovax) 11/10/2006,11/09/1999 RSV Vac., Recomb, Adjuvant, PF,0.5 Ml (Arexvy) 09/26/2023 Season Influenza, Quad, PF, Adjuvanted, 65+ Yrs, IM (FLUAD) 06/15/2024,06/03/2020 Seasonal Influenza Vac., MDV , IM, 0.5 mL (Fluzone) 06/25/2014,07/17/2013,07/27/2012,07/27,07/28/2010,07/17/2009,07/19/2008 ,08/25/2007,07/29/2006,07/30/2003,08/17,08/23/2000,08/18/1999 Seasonal Influenza Virus Vac cine, Unspecified Formulation 07/27/2005,07/17/1998 Seasonal Influenza, MDCK, Tr ivalent, PF, (Flucelvax) [...] t, Adjuvanted, 65+ YRS, PF, (Fluad) 06/15/2024 TD - Tetanus/Diptheria (ADULT) 10/04/2002 TDAP (age 10 and older)(Boostrix) 03/14/2013 Varicella [...] 07/13/2024 Does the household have a re lar source of income? (Household - for ages [...] encounter Miscellaneous Notes * Telephone Encounter - Disha Salcedo OSA - 12/20/2024 2:57 PM EST Pt aware that the referral was sent and we received confirmation * Telephone Encounter - Elizabeth Reyes OSA - 12/19/2024 3:28 PM EST Patient's daughter, Aisha, calling to say that patient will not be able to drive to [place] to be seen by radiation Oncology. Patent asks that the referral be faxed to [facility]. Aisha asks for a callto [phone] when the referral is faxed * Telephone Encounter - Jacqueline Young CRNP - 12/13/2024 10:19 AM EST Tc received from pt's daughter, pt [place] also on the line, we all reviewed CT scan, noted growth in TEO nodule. Reviewed option for Radiation Oncology referral vs ongoing surveillance. Pt opted for Radiation Oncology appointment. Referral placed. * Telephone Encounter - Jacqueline Young CRNP - 12/11/2024 12:58 PM EST TC to [place] to review CT scan. She would like her daughters to call me also to discuss, will await discussion with them. * Telephone Encounter - Shahnaz Pickering OSA - 12/11/2024 12:10 PM EST Pt called in to return the call made to her by Jacqueline Young. Reached out to Hector via [place] Text to make her aware of the pt waiting on hold, Hector stated she will call the pt back. Relayed Hector's message to pt. Pt understood and awaits your call. Pt is best reached at the number below: [phone] Please review and advise * Telephone Encounter - Jacqueline Young CRNP - 12/10/2024 9:08 AM EST Pt previously discussed in lung cancer clinic- recommended either to continue with surveillance CT scans or offered radiation oncology appointment to discuss empiric radiation. At that time (Jun 2024) she had elected to continue surveillance. TC to [place] to review CT scan from 12/04/24- "A spiculated sub solid left upper lobe pulmonary nodulemeasures 19 x 12 x 21 millimeters previously 16 x 9 x 17 millimeters when measured in similar fashion, 9-57, 5-119 and remains concerning for neoplasm " No answer, VM left. documented in this encounter Plan of Treatment Upcoming Encounters Date Type Department Care Team (Late st Contact Info) Description 12/26/2024 10:50 AM EDT Office Visit Vascular Surgery, [facility] [address] [facility] [place] [address] Scott Lee MD [address] [place] [address] 12/26/2024 12:30 PM EDT Office Visit Gastroenterology, [facility] [address] [place] [address] Merlin Terrazas CRNP [address] [place] [address] 05/16/2025 8:00 AM EDT [facility] Visit [facility] [place] [facility] [address] [place] [id number] Rafat Josue MD [address] [place] [address] 05/27/2025 10:30 AM EDT Office Visit Cardiology, [facility] [address] [place] [address] Thomas Burleson PA-C [address] [place] [address] Scheduled Referrals Name Type Priority Associated Diagnoses Orde r Schedule RADIATION/ONCOLOGY REFERRAL OP Referral Within 10 days (routine) Lung nodule Ordered: 12/13/2024 Health Maintenance Due Date Last Done Comments Adult Wellness Visit 09/05/2021 09/05/2020 *BISPHONATE OR OTHER ACCEPTABLE MEDICATION NEEDED FOR OSTEOPOROSIS (REFER TO SMARTSET #1146) 09/16/2024 *NEPHROLOGY REFERRAL DUE TO RESISTANT HTN 11/15/2024 COVID-19 Vaccine ( season) 2024 06/15/2024, 09/26/2023, 08/10/2022, Additional history exists Albumin/Creatinine Ratio 05/10/2025 05/10/2024, 03/18 CKD PHOS USE SMARTSET 71719 05/10/202504/17, 04/14/2023, 11/03/2020, Additional history exists Depression Screening 07/13/2025 07/13/2024 TSH 08/27/2025 08/27/2024, 04/17, 04/14/2023, Additional history exists CKD HGB USE SMARTSET 58562 11/20/202511/20, 08/27/2024, 05/10/2024, Additional history exists DXA Scan 06/08/2026 06/08/2024, 05/18, 05/21/2019, Additional history exists DTap/Tdap Vaccines Discontinued 03/14/2013, 1 12/05/2001, 09/16/1992 Pneumococcal Vaccine: 50+ Years Completed 05/10/2016, 11/10/2006, 11/09/1999 Zoster Vaccines Completed 11/21/2018, 04/16, 04/16/2018, Additional history exists VITAMIN D LEVEL ONCE IN A LIFETIME-USE SMARTSET# [id number] Completed 04/14/2023, 08/04/2021, 11/03/2020, Additional history exists [...] Documents on File Type Date Recorded Patient Veneer Taper Expl anation Advance Directives and Living Will 09/26/2015 LIVING WILL LIVING W ILL Power of Kiln Drawer 09/26/2015 POWER OF A TTORNEY POWER OF GOVERNMENT CLERK Care Teams Crate Liner Relationship Specialty Start Date End Date Rafat Josue MD [address] [place] [address] PCP - General 12/31/02 documented as of this encounter
--- OUTSIDE RECORDS SUMMARY | 2025-01-17 07:29 | External Medical Summary | Summary of Care ---
Author Name Unknown Organization [facility] Address [address] [place] [address] Phone [phone] Care Team Providers Care Family And Consumer Science Professor Name Role Phone Rafat Josue MD Primary Care Provider [phone] Reason for Visit * Reason Comments Follow Up Encounter Details Date Type Department Care Team (Late st Contact Info) Description 12/26/2024 10:50 AM EDT Office Visit Vascular Surgery, [facility] [address] [place] [address] Scott Lee MD [address] [place] [address] PVD (peripheral vascular disease) with claudication (HCC)* Allergies No known active allergiesdocumented as of this encounter (statuses as of 12/26/2024) Medications CALCIUM 500 +D 500-400 MG-UNIT PO [...] as of this encounter (statuses as of 12/26/2024) Active Problems Problem Noted Date Diagnosed Date PVD (peripheral vascular disease) with claudicat ion 12/26/2024 Varicose veins of bilateral lower extremities with other complications 10/24/2024 Other pancytopenia 10/04/2024 History of OR (myocardial infarction) 08/06/2024 Former smoker 01/17/2024 Atherosclerosis of aorta 04/26/2023 Hypertensive kidney disease with stage 3b chronic kidney disease 04/26/2023 Atherosclerosis of coronary artery of makah heart without angina pectoris 04/26/2023 Thyroid nodule [...] as of this encounter (statuses as of 12/26/2024) Resolved Problems Problem Noted Date Diagnosed Date [...] as of this encounter (statuses as of 12/26/2024) Immunizations Name Administration Dates Next Due COVID-19 mRNA, LNP-s, No Pre serve, 2-Dose Series ([employer]) 07/25/2021,12/27/2020,11/29/2020 COVID-19, LNP-s, No Preserve , Binh-sucrose, [...] Passive Smoke Exposure: Past Smokeless Tobacco: Never Tobacco Cessation:Counseling Given: No Comments:QUIT 1969 Alcohol Use Standard Drinks/Week Comments [...] on file documented as of this encounter Last Filed Vital Signs Vital Sign Reading Time Taken Comments Blood Pressure 142/58 12/26/2024 11:12 AM EDT Pulse 74 12/26/2024 11:12 AM EDT Temperature - - Respiratory Rate - - Oxygen Saturation - - Inhaled Oxygen Concentration - - Weight 62.6 kg (138 lb) 12/26/2024 11:12 AM EDT Height - - Body Mass Index 26.07 11/12/2024 2:30 PM EST documented in this encounter Progress Notes * Jose Bear PA-C - 12/26/2024 10:50 AM EDT Images from the original note were not included. Date of Service: 12/26/2024 11:16 AM Shiloh Ryan is a 89 year old female. Patient being seen in consultation at the request of Rafat Josue MD Chief Complaint: Return pt, following CTA w/ runoff Also followed for carotid and subclavian arterial stenosis CTA w/ runoff was done due to slow to heal left tibial biopsy, done 10/01/24 Patient has left thigh claudication, of variable distances, but thigh hurts every time she walks No rest pain. No new ulcers feet/toes Presents w/ her daughter, Constance HPI: Patient is a reformed smoker w/ HTN, GERD, CKD III, Pancytopenia, Varicose veins BLE, S/P lacunar stroke CAROTID DISEASE: Patient denies recent TIA, recent stroke, and recent amaurosis fugax. 09/04/24 Carotid duplex exam at [facility] identified the right internal carotid with 50-69% and theleft internal carotid with 50-69% stenosis. RENAL ARTERY STENOSIS: Patient reports HTN with BP reading today of in there typical range. Recent creatinine of 1.3. Current antihypertensives include Amlodipine, HCTZ, Imdur, Losartan Potassium, Metoprolol Succinate MESENTERIC ARTERIAL DISEASE: Patient denies post-prandial abdominal pain. Patient denies fear of food. Patient denies weight loss, unexplained Patient denies diarrhea, chronic FAMILY HISTORY: Family history is noncontributory. Current Outpatient Medications Medication Sig Dispense Refill CALCIUM 500 +D 500-400 MG-UNIT PO TABS Take 1 Tablet by mouth in the morning and 1 Tablet before bedtime. 60 Tab 5 ASPIRIN EC 81 MG PO TBEC Take 1 Tablet by mouth in the morning. 100 Tab 5 Vitamin D 50 MCG (2000 UT) Oral Capsule Take 1 Capsule by mouth in the morning. Vitamin B-12 1000 MCG Oral Tablet (Cyanocobalamin) Take 1 Tablet by mouth in the morning. Atorvastatin Calcium 40 MG Oral Tablet (Lipitor) Take 1 Tablet by mouth in the morning. 90 Tablet 3 Clopidogrel Bisulfate 75 MG Oral Tablet (pLAVix) Take 1 Tablet by mouth in the morning. 90 Tablet 3 Levothyroxine Sodium 50 MCG Oral Tablet (Levoxyl) Take 1 Tablet by mouth daily first thing in the morning. 90 Tablet 3 Metoprolol Succinate ER 50 MG Oral Tablet Extended Release 24 Hour (toPROL XL) Take 1 Tablet by mouth in the morning. 90 Tablet 3 Pantoprazole Sodium 40 MG Oral Tablet Delayed Release (Protonix) Take 1 Tablet by mouth in the morning. 90 Tablet 3 Vitamin C 1000 MG Oral Tablet Take 1 Tablet by mouth in the morning. amLODIPine Besylate 5 MG Oral Tablet (Norvasc) Take 1 Tablet by mouth 2 times a day. 200 Tablet 3 hydroCHLOROthiazide 12.5 MG Oral Capsule Take 1 Capsule by mouth in the morning. 31 Capsule 5 Isosorbide Mononitrate ER 60 MG Oral Tablet Extended Release 24 Hour (Imdur) Take 1 Tablet by mouthin the morning. 100 Tablet 3 Losartan Potassium 100 MG Oral Tablet (Cozaar) Take 1 tablet by mouth once daily 90 Tablet 3 No current facility-administered medications for this visit. Review of patient's allergies indicates: No Known Allergies Patient Active Problem List Diagnosis HTN, goal below 140/90 Dyslipidemia, goal LDL below 130 Age-related osteoporosis without current pathological fracture Hypothyroidism History of lacunar cerebrovascular accident Vitamin D deficiency Chronic kidney disease, stage 3b Atherosclerosis of aorta (HCC) Hypertensive kidney disease with stage 3b chronic kidney disease (HCC) Atherosclerosis of coronary artery of makah heart without angina pectoris Thyroid nodule Former smoker Nodule of upper lobe of left lung History of OR (myocardial infarction) Other pancytopenia (HCC) Varicose veins of bilateral lower extremities with other complications Past Medical History: Diagnosis Date Allergic conjunctivitis, Other Esophageal reflux HTN, goal below 140/90 Past Surgical History: Procedure Laterality Date BIOPSY OF BREAST, OPEN 1970 Breast Biopsy, Benign Disease CARPAL TUNNEL SURGERY Left 01/11/2017 left NEUROPLASTY MEDIAN NERVE AT CARPAL TUNNEL performed by Yaw Campbell MD at [facility] COLONOSCOPY 02/17 incomplete, needed barium enema REMOVAL OF RUPTURED APPENDIX 12/18/00 Appendectomy, Rupt Appendx REMOVE LUMBAR SPINE LAMINA, 3+ SEGS [facility] Lumbar Disk Excision TOTAL HYSTERECTOMY 1977 VICK (Total Abdominal Hysterectomy) Family History Problem Relation Name Age of Onset Heart Disorder Mother DEC AGE 72/ Stroke Mother Hypertension Mother Heart Disorder Grandmother (Maternal) Sep Heart Disorder Grandfather (Maternal) Heart Disorder Brother CABG Heart Disorder Brother CABG Hypertension Brother Heart Disorder Brother [facility] ByPass surgery Heart Disorder Brother [facility] ByPass surgery Social History Socioeconomic History Marital status: Spouse name: CHASIDY Number of children: 2 Years of education: Not on file Highest education level: Not on file Occupational History Occupation: RETIRED Tobacco Use Smoking status: Former Current packs/day: 0.00 Average packs/day: 1 pack/day for 20.0 years (20.0 ttl pk-yrs) Types: Cigarettes Start date: 10/17/1949 Quit date: 10/17/1969 Years since quittin.2 Passive exposure: Past Smokeless tobacco: Never Tobacco comments: QUIT 1970 Vaping Use Vaping status: Never Used Substance and Sexual Activity Alcohol use: Yes Comment: 07/13/2024 - Reports hgaving a glass of wine or a mixed drink monthly. Drug use: No Sexual activity: Yes Partners: Male Comment: Other Topics Concern Service No Blood Transfusions No Caffeine Concern No Occupational Exposure No Hobby Hazards No Sleep Concern No Stress Concern No Comment: NOT DEPRESSED, NOT AFRAID, FUN-YES Weight Concern No Special Diet No Back Care No Exercise Yes Comment: WALKS 3X WEEK X 30 MIN 3X @ 60 MIN Bike Helmet Not Asked Seat Belt Yes Self-Exams Yes Social History Narrative Not on file Social Needs Financial Resource Strain: Low Risk (07/13/2024) Financial Resource Strain Do you have any trouble paying for your medications, or do you think you might in the future? (Adult - for ages 18 years and over): No Does your family have trouble paying for medicine? (Household - for ages 0-17 years): Not on file Food Insecurity: No Food Insecurity (07/13/2024) Food Insecurity Worried About Running Out of Food in the Last Year: Never true Ran Out of Food in the Last Year: Never true Do you need food for this week? (Adult - for ages 18 years and over): No Transportation Needs: No Transportation Needs (07/13/2024) Transportation Needs Do you have trouble getting a ride to medical visits or work? (Adult - for ages 18 years and over):Not on file Does your family have a hard time getting a ride to doctors’ visits? (Household - for ages 0-17 years): Not on file Has lack of transportation kept you from medical appointments, meetings, work, or from getting things needed for daily living? Check all that apply. (Adult - for ages 18 years and over): No Do you (or your family) have trouble finding or paying for a ride (transportation)? (Household - for ages 0-17 years): Not on file Social Connections: Socially Integrated (07/13/2024) Social Connections How often do you feel lonely or isolated from those around you? (Adult - for ages 18 years and over): Never Housing Stability: Low Risk (07/13/2024) Housing Stability Do you currently live in a chcf or have no steady place to sleep at night? (Adult - for ages 18 years and over): No Do you think you are at risk of becoming homeless? (Adult - for ages 18 years and over): Not on file Does your family worry about paying for your home or becoming homeless? (Household - for ages 0-17 years): Not on file Are you homeless or worried that you might be in the future? (Adult - for ages 18 years and over): No Are you (or your family) homeless or worried that you might be in the future? (Household - for ages0-17 years): Not on file COMPLETE REVIEW OF SYSTEMS: Cardiovascular: Negative for chest pain, shortness of breath, palpitations, angina or OR Neurological: Positive for remote stroke. No recent stroke, TIA, or amaurosis fugax VITAL SIGNS: BP 142/58 (BP Site: Left Arm, BP Position: Sitting, BP Cuff Size: Regular) | Pulse 74 | Wt 62.6 kg (138 lb) | BMI 26.07 kg/m² | BSA 1.64 m² GENERAL MULTI-SYSTEM PHYSICAL EXAM: GENERAL: Normal grooming habits, no acute distress, and appears stated age. NECK: No masses and Normal Thyroid. RESPIRATORY: respiratory effort normal and breath sounds normal. CARDIOVASCULAR: no heart murmurs, no edema. Slow to heal wound seen on the R eisenberg from biopsy, scabstill present GASTROINTESTINAL: no tenderness, protuberant, and abdominal aorta not palpable. SKIN: no ulcers, no rash, no induration, capillary refill normal, and no dependent rubor. PSYCHIATRIC: orientation to time, place and person normal and recent and remote memory normal. EYES: conjunctivae normal, eye lids normal, pupils normal, and irises normal. NEUROLOGIC: Cranial nerves intact, Motor function intact, and Sensory exam intact PULSE SCALE: Carotid Right:----Bruit: No Left:----Bruit: No Radial Right: 2 Left: 2 Femoral Right: 3 Left: 2 Popliteal Right: 0 Left: 2 Dorsalis Pedis Right: 0 Left: 2 Posterior Tibial Right: 0 Left: 0 PULSE SCALE: 4=Aneurysmal; 3=Normal; 2=Diminished; 1=Barely Palpable; 0=Absent DIAGNOSTIC STUDIES: 12/04/24 CTA with runoff: 1. Severe stenosis about the origin of the right common iliac artery. 2. Severe stenosis about the right common femoral artery. Multifocal severe stenoses about the right SFA and above the knee popliteal artery. 3. Two vessel runoff to the right ankle via the PT and peroneal artery. 4. Multifocal severe stenoses about the left SFA. 5. Two vessel runoff to the left ankle via the PT and peroneal artery. 6. Diffuse pancreatic atrophy and diffuse pancreatic ductal dilatation measuring up to 0.4 cm. Recommend further evaluation with MRI/MRCP. (On 12/06/24, I attempted to call Ms. Ryan to review results with no answer. Forwarded on above incidental finding to PCP, Rafat Josue MD, for review and further work up if deemed indicated.) The above diagnostic images were directly visualized and independently interpreted by me on 12/06/24& 12/26/24 with results as above 09/04/24 Carotid Duplex: DOUG 244/47, LICA 198/40, Innom 196, RSCA 240, LSCA 266, ante verts. R armSBP 188, L arm SBP 190 06/05/24 PET Scan: Calcified ostial calcified plaque of celiac, SMA, both renal arteries, RCIA, and RCFA 05/23/[address] Chest: Significant ostial calcified plaque of celiac, SMA, and both renal arteries 07/09/22 CT Chest w/ IV: Significant ostial calcified plaque of celiac (with post stenotic dilatation) & SMA Cardiac Studies: 12/20/24 TTE Interpretation Summary (as per Dr. Early): The left ventricular cavity size is normal. The LV wall thickness is mildly increased (concentric). The left ventricular wall motion is normal. The qualitative LV ejection fraction is 55-59% (normal). The left ventricular diastolic function is mildly abnormal (grade I). The left atrium is mildly enlarged (35-41 ml/m^2). Mild aortic valve sclerosis is present. There is trace aortic insufficiency Mild mitral regurgitation is present. Mild tricuspid regurgitation is present. 2023 [facility] Notes: LABS: Lab Results Component Value Date/Time CREATININE - [facility] 1.4 (H) 11/28/2024 08:08 AM CREATININE - [facility] 1.3 (H) 08/27/2024 09:11 AM CREATININE - [facility] 1.3 (H) 05/10/2024 08:33 AM CREATININE - [facility] 1.2 (H) 11/03/2020 08:45 AM CREATININE - [facility] 1.4 (H) 08/08/2019 08:19 AM CREATININE - [facility] 1.2 (H) 08/21/2018 07:31 AM CREATININE, RANDOM URINE - [facility] 101 05/10/2024 08:33 AM CREATININE, RANDOM URINE - [facility] 133 04/14/2023 09:38 AM CREATININE, RANDOM URINE - [facility] 127 02/14/2018 08:11 AM Lab Results Component Value Date/Time LDL CHOLESTEROL (CALCULATED) - [facility] 46 11/20/2024 01:37 PM LDL CHOLESTEROL (CALCULATED) - [facility] 77 11/03/2020 08:45 AM LDL CHOLESTEROL (DIRECT MEASURE) - [facility] NOT APPLICABLE 11/03/2020 08:45 AM LDL CHOLESTEROL (DIRECT MEASURE) - [facility] 95 02/14/2018 08:11 AM Hemoglobin Results: Lab Results Component Value Date/Time HGB 9.7 (L) 11/20/2024 01:37 PM HGB 9.9 (L) 08/27/2024 09:11 AM HGB 10.9 (L) 05/10/2024 08:33 AM HGB 11.0 (L) 11/03/2020 08:45 AM HGB 11.1 (L) 08/08/2019 08:19 AM HGB 11.0 (L) 08/21/2018 07:31 AM Lab Results Component Value Date/Time HEMOGLOBIN A1C - [facility] 5.7 09/25/1998 08:10 AM The above clinical labs were reviewed by me on 12/26/24 IMPRESSIONS: Significant PVD. Recent CTA w/ runoff revealed severe stenosis about the origin of the right commoniliac artery, severe stenosis about the right common femoral artery, multifocal severe stenoses about the right SFA and above the knee popliteal artery, two vessel runoff to the right ankle via the PT and peroneal artery, multifocal severe stenoses about the left SFA, and two vessel runoff to the left ankle via the PT and peroneal artery. Asymptomatic 50-69% B/L Carotid Stenosis Asymptomatic >70% B/L SCA stenosis, equal UE BP readings in vascular lab Antegrade verts Remote lacunar stroke, unrelated to her carotid disease HTN, on medical therapy, 5 meds (Amlodipine, HCTZ, Imdur, Losartan Potassium, Metoprolol Succinate). 05/23/[address] Chest revealed significant ostial calcified plaque of both renal arteries CKD III, baseline creat 1.3 with GFRs in 40s 2021 & 2023 CTs also revealed significant ostial calcified plaque of celiac & SMA Patient lacks signs/symptoms of mesenteric ischemia CTA w/ runoff had incidental finding of diffuse pancreatic atrophy and diffuse pancreatic ductal dilatation measuring up to 0.4 cm. I had previously messaged PCP about recommendation of obtaining MRI/MRCP & this was D/W pt today CAD, H/O NSTEMI, S/P GARLAND to LAD, all in Jun 2024. Followed by [facility] Prior HFrEF, LVEF 40-45% 2023 (TTe & Cardiac Cath @ [facility]). 12/20/24 updated TTe revealed recovered nl LVEF HTN. Dyslipidemia, on statin. Reformed smoker. Lung Nodule. Hypothyroidism. Chronic Anemia. PLAN: The patient was counseled regarding the pathophysiology and natural history of peripheral vascular disease, as well as the interventional and noninterventional therapeutic options. With last visit (11/21/24), pt was found to have a slow healing biopsy wound on the R eisenberg & she reported IC in the RLE that has worsened over the last few years. Patient to undergo right fem endarterectomy and placement of right iliac stent Patient saw [facility] in F/U on 12/18/24, no contraindications for surgery, TTe done 12/20, see above for updated report OR DATE: 02/07/25 RTC 02/13/25 for wound check/Prevena removal RTC 02/27/25 w/ PIPE, RLE Art Duplex, and Abd aortic duplex 1 wk prior The patient was counseled regarding the pathophysiology and natural history of carotid disease, as well as the symptoms of CVA/TIA/amaurosis fugax. Patient is asymptomatic from her carotid disease Recommend medical management and routine surveillance She is also asymptomatic from her subclavian arterial stenosis. UE BP readings are equal. No arm ischemia with ADLs Continue medical management & surveillance The patient was counseled regarding the pathophysiology and natural history of renal and mesentericvascular disease, as well as the interventional and noninterventional therapeutic options. 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 Would consider further diagnostic imaging in the future should she experience a clinic change. Continue ASA 81 mg & Plavix 75 mg both daily for platelet inhibition/atherosclerosis/PAD Continue Lipitor 40 mg for dyslipidemia/hyperlipidemia & pleiotropic benefits of statins The patient was seen and examined with Dom Lee MD. Jose Bear PA-C I have reviewed the advanced practitioner's documentation on the date of service referenced in note, and I agree with, and take responsibility for the plan of care. Mrs. Ryan returns with CTA w/ runoff showing severe R CHICHI and R WASH HELPER stenosis. The biopsy wound is healing without infection. She reports R Hip/thigh/buttocks pain with minimal ambulation. I think she could benefit from R CFEA and R CHICHI stent. Plan to proceed on January. The patient was counseled at length regarding the nature of acute limb ischemia and the risks, benefits and alternatives of this surgery. They also understand that a combination of open surgery (including extremity fasciotomies) and endovascular techniques (including thrombectomy and catheter directed thrombolysis) could be utilized. I have discussed with the patient that they are at very high risk for the following anticipated complications due to the patient's co-morbidities including , stroke, wound infection/dehiscence/breakdown, heart attack, respiratory complications, nerve injury, kidney failure requiring dialysis, b leeding requiring transfusions, intracranial bleeding, hemorrhage/thrombosis/aneurysm formation at the site of catheter insertion, urinary tract infection, need for multiple re-operations, graft failu re/thrombosis requiring re-operation, chronic edema or amputation. I have also explained to the patient that other risks of the procedure include, but are not limitedto, radiation injury, allergic reaction to the contrast, stroke, transfusion reaction, infection, nerve damage, or . The patient has had a thorough medical evaluation and management of symptoms as outlined above. Theplan is to proceed initially with angiography and then immediate intervention based upon the results of the angiogram. I plan on proceeding with an endovascular procedure, if possible, as the only other alternative would be an invasive open surgical procedure (which the patient understands may still be required). If the lesion(s) are amenable to an endovascular approach, angioplasty will be performed first for appropriate lesions. Stenting will be performed for lesions known to have a poor result from angioplasty alone and those lesions that demonstrate a poor result post angioplasty. The patient understands the seriousness of the situation and informed consent was obtained to proceed with the surgery. Scott Lee MD Vascular Surgeon Department of Vascular Surgery [facility] documented in this encounter Nursing Notes * Blanca Prince CMA - 12/26/2024 11:14 AM EDT Reviewed the option of transferring scripts to [facility] pharmacy with patient and / or family. Blanca Prince CMA documented in this encounter Plan of Treatment Upcoming Encounters Date Type Department Care Team (Late st Contact Info) Description 02/13/2025 10:10 AM EDT Office Visit Vascular Surgery, [facility] [address] [place] [id number] Scott Lee MD [address] [place] [address] 02/19/2025 1:00 PM EDT Imaging Vascular Lab, [facility] [address] [facility], [place] [address] [place] [address] 02/19/2025 2:00 PM EDT Imaging Vascular Lab, [address], [place] [address] [place] [address] 02/19/2025 3:00 PM EDT Imaging Vascular Lab, [address], [place] [address] [place] [address] 02/27/2025 11:30 AM EDT Office Visit Vascular Surgery, [facility] [address] [place] [address] Scott Lee MD [address] [place] [address] 05/16/2025 8:00 AM EDT Office Visit [facility] [address] [facility] [place] [id number] Rafat Josue MD [address] [place] [address] 05/27/2025 10:30 AM EDT Office Visit Cardiology, [facility] [address] [place] [address] Thomas Burleson PA-C [address] [place] [address] Scheduled Orders Name Type Priority Associated Diagnoses Orde r Schedule VASC ANKLE BRACHIAL INDICES WITHOUT PPG (PAD) Medical Imaging Routine PVD (peripheral vascular disease) with claudication (HCC) Ordered: 12/26/2024 [facility] [place] [facility] LE Medical Imaging Routine PVD (peripheral vascular disease) with claudication (HCC) Ordered: 12/26/2024 [facility] AORTIC DUPLEX EVAL-COMPLETE Medical Imaging Routine PVD (peripheral vascular disease) with claudication (HCC) Ordered: 12/26/2024 Health Maintenance Due Date Last Done Comments Adult Wellness Visit 09/05/2021 09/05/2020 *BISPHONATE OR OTHER ACCEPTABLE MEDICATION NEEDED FOR OSTEOPOROSIS (REFER TO SMARTSET #1146) 09/16/2024 COVID-19 Vaccine ( season) 2024 06/15/2024, 09/26/2023, 08/10/2022, Additional history exists Albumin/Creatinine Ratio 05/10/2025 05/10/2024, 03/18 CKD PHOS USE SMARTSET 37249 05/10/202504/17, 04/14/2023, 11/03/2020, Additional history exists Depression Screening 07/13/2025 07/13/2024 TSH 08/27/2025 08/27/2024, 04/17, 04/14/2023, Additional history exists CKD HGB USE SMARTSET 08312 11/20/202511/20, 08/27/2024, 05/10/2024, Additional history exists DXA Scan 06/08/2026 06/08/2024, 05/18, 05/21/2019, Additional history exists DTap/Tdap Vaccines Discontinued 03/14/2013, 1 12/05/2001, 09/16/1992 Pneumococcal Vaccine: 50+ Years Completed 05/10/2016, 11/10/2006, 11/09/1999 Zoster Vaccines Completed 11/21/2018, 04/16, 04/16/2018, Additional history exists VITAMIN D LEVEL ONCE IN A LIFETIME-USE SMARTSET# [id number] Completed 04/14/2023, 08/04/2021, 11/03/2020, Additional history exists [...] as of this encounter Visit Diagnoses Diagnosis PVD (peripheral vascular disease) with claudication (HCC)- Primary Peripheral vascular disease, unspecified documented in this encounter Advance Directives Documents on File Type Date Recorded Patient Hospital Clerk Expl anation Advance Directives and Living Will 09/26/2015 LIVING WILL LIVING W ILL Power of Hospital Plan Administrator 09/26/2015 POWER OF A TTORNEY POWER OF PROFESSIONAL ADVISOR Care Teams Family And Consumer Science Professor Relationship Specialty Start Date End Date Rafat Josue MD [address] [address] PCP - General 12/31/02 documented as of this encounter"
--- OUTSIDE RECORDS SUMMARY | 2025-01-17 07:29 | External Medical Summary | Summary of Care ---
Author Name Unknown Organization [facility] Address [address] [place] [address] Phone [phone] Care Team Providers Care Citrus Fruit Colorer Name Role Phone Rafat Josue MD Primary Care Provider +1- [phone] Reason for Visit * Reason Onset Date Comments Forms Request 01/14/2025 Encounter Details Date Type Department Care Team (Late st Contact Info) Description 01/14/2025 Telephone [facility] [address] [place] [address] Rafat Josue MD [address] [facility] [place] [address] Forms Request Allergies No known active [...] complications 10/24/2024 Other pancytopenia 10/04/2024 History of [place] (myocardial infarction) 08/06/2024 Former smoker 01/17/2024 Atherosclerosis of aorta 04/26/2023 Hypertensive kidney disease with stage 3b chronic kidney disease 04/26/2023 Atherosclerosis of coronary artery of [place] heart without angina pectoris 04/26/2023 Thyroid [...] mRNA, LNP-s, No Pre serve, 2-Dose Series ([employer]) 07/25/2021,12/27/2020,11/29/2020 COVID-19, LNP-s, No Preserve , Binh-sucrose, [...] be completed. Pt will be moving closer [place] to be closer to her kids. They [...] theform, please reach out to Aisha at [phone] documented in this encounter Plan of Treatment Upcoming Encounters Date Type Department Care Team (Latest Contact Info) Description 5 1:00 PM EDT Appointment Radiology, [facility] [address] [facility] [place] [address] 7:15 AM EDT Hospital Encounter OR [facility], OPERATING ROOM C, [place]AM[place] FARIAS [address] [address] Scott Lee MD [address] [facility] [place] [address] 5 7:15 AM EDT - 5 10:51 AM EDT Surgery [place] [facility] OPERATING ROOM [facility] FARIAS [address] [facility] [place] [address] Scott Lee MD [address] [place] [address] COMMON FEMORAL ENDARTERECTOMY 5 10:10 AM EDT Office Visit Vascular Surgery, [facility] [address] [place] [address] Scott Lee MD [address] [facility] [place] [address] 5 1:00 PM EDT Imaging Vascular Lab, [address] [place] [address] 5 2:00 PM EDT Imaging Vascular Lab, [address] [place] [address] 5 3:00 PM EDT Imaging Vascular Lab, [address] [place] [address] 5 11:30 AM EDT Office Visit Vascular Surgery, [facility] [address] [place] [address] Scott Lee MD [address] [facility] [place] [address] 5 8:00 AM EDT Hospital Encounter [place] [facility] Endoscopy Suite, HFAM 1, [address] [id number] Noa Vail MD [address] [place] [address] 5 8:00 AM EDT - 5 8:30 AM EDT Surgery [place] [facility] Endoscopy Suite, HFAM 1, [address] [place] [address] Noa Vail MD [address] [place] [address] ESOPHAGOGASTRODUODENOSCOPY (EGD), FLEXIBLE, TRANSORAL, DIAGNOSTIC 5 8:00 AM EDT Office Visit [facility] [address] [place] [phone] Rafat Josue MD [address] [place] [address] 5 10:30 AM EDT Office Visit Cardiology, [facility] [address] [place] [address] Thomas Burleson PA-C [address] [place] [address] Scheduled Procedures Name Priority Associated Diagnoses Date/Ti [...] 05/10/2025 05/10/2024, 03/18 CKD PHOS USE SMARTSET 51614 05/10/202504/17, 04/14/2023, 11/03/2020, Additional history exists Depression Screening 07/13/2025 07/13/2024 TSH 08/27/2025 08/27/2024, 04/17, 04/14/2023, Additional history exists CKD HGB USE SMARTSET 21130 11/20/202511/20, 08/27/2024, 05/10/2024, Additional history exists DXA Scan 06/08/2026 06/08/2024, 05/18, 05/21/2019, Additional history exists DTap/Tdap Vaccines Discontinued 03/14/2013, 1 12/05/2001, 09/16/1992 Pneumococcal Vaccine: 50+ Years Completed 05/10/2016, 11/10/2006, 11/09/1999 Zoster Vaccines Completed 11/21/2018, 04/16, 04/16/2018, Additional history exists VITAMIN D LEVEL ONCE IN A LIFETIME-USE SMARTSET# 91334 Completed 04/14/2023, 08/04/2021, 11/03/2020, Additional history exists [...] Documents on File Type Date Recorded Patient Cash Posting Representative Expl anation Advance Directives and Living Will 09/26/2015 LIVING WILL LIVING W ILL Power of Charge Master Specialist 09/26/2015 POWER OF A TTORNEY POWER OF PHOTOENGRAVER Care Teams Citrus Fruit Colorer Relationship Specialty Start Date End Date Rafat Josue MD [address] [address] PCP - General 12/31/02 documented as of this encounter
--- OUTSIDE RECORDS SUMMARY | 2025-01-17 07:29 | External Medical Summary | Summary of Care ---
Author Name Unknown Organization [facility] Address [address] [place] [address] Phone [phone] Care Team Providers Care Clinical Account Liaison Name Role Phone Rafat Josue MD Primary Care Provider +1- [phone] Encounter Details Date Type Department Care Team (Late st Contact Info) Description 01/09/2025 Orders Only Gastroenterology, [facility] 132 [facility] [place] [address] Merlin Terrazas CRNP 132 [facility] [place] [address] Allergies No known active allergiesdocumented as of this encounter (statuses as of 01/09/2025) Medications CALCIUM 500 +D 500-400 MG-UNIT PO [...] as of this encounter (statuses as of 01/09/2025) Active Problems Problem Noted Date Diagnosed Date PVD (peripheral vascular disease) with claudicat ion 12/26/2024 Varicose veins of bilateral lower extremities with other complications 10/24/2024 Other pancytopenia 10/04/2024 History of [place] (myocardial infarction) 08/06/2024 Former smoker 01/17/2024 Atherosclerosis of aorta 04/26/2023 Hypertensive kidney disease with stage 3b chronic kidney disease 04/26/2023 Atherosclerosis of coronary artery of elem heart without angina pectoris 04/26/2023 Thyroid nodule [...] as of this encounter (statuses as of 01/09/2025) Resolved Problems Problem Noted Date Diagnosed Date [...] as of this encounter (statuses as of 01/09/2025) Immunizations Name Administration Dates Next Due COVID-19 mRNA, LNP-s, No Pre serve, 2-Dose Series ([employer]) 07/25/2021,12/27/2020,11/29/2020 COVID-19, LNP-s, No Preserve , Binh-sucrose, Ages 12+ ([employer]izer) 03/05/2022 COVID-19, MRNA-LNP, PF, 30 M CG/0.3 mL, 12 YRS AND ABOVE, IM ([employer]) 06/15/2024,09/26/2023 Pneumococcal Conjugate Vacc, 13 Valent (Prevnar) [...] Department Care Team (Latest Contact Info) Description 02/07/2025 7:15 AM EDT Hospital Encounter OR [facility], OPERATING ROOM [facility], [place] [address] [facility] [place] [phone] Scott Lee MD [address] [place], [place] [phone] 02/07/2025 7:15 AM EDT - 02/07/2025 10:51 AM EDT Surgery OR [facility], [facility] [address] [facility] [place] [facility] [address] Scott Lee MD [address] [place], [place] [phone] COMMON FEMORAL ENDARTERECTOMY 02/13/2025 10:10 AM EDT Office Visit Vascular Surgery, [facility] [address] [place] [phone] Scott Lee MD [address] [facility] [place], [place] [phone] 02/19/2025 1:00 PM EDT Imaging Vascular Lab, [address], [place] [address] [place] [address] 02/19/2025 2:00 PM EDT Imaging Vascular Lab, [address], [place] [address] [place] [address] 02/19/2025 3:00 PM EDT Imaging Vascular Lab, [address] [place] [phone] 02/27/2025 11:30 AM EDT Office Visit Vascular Surgery, [facility] [address] [place] [address] Scott Lee MD [address] [place] [address] 04/25/2025 8:00 AM EDT Hospital Encounter ENDO [facility], Endoscopy Suite, HFAM 1, [address] [place] [address] Noa Vail MD [address] [place] [address] 04/25/2025 8:00 AM EDT - 04/25/2025 8:30 AM EDT Surgery [facility], Endoscopy Suite, HFAM 1, [address] [place] [address] Noa Vail MD [address] [place] [address] ESOPHAGOGASTRODUODENOSCOPY (EGD), FLEXIBLE, TRANSORAL, DIAGNOSTIC 05/16/2025 8:00 AM EDT Office Visit [facility] [address] [address] Rafat Josue MD [address] [address] 05/27/2025 10:30 AM EDT Office Visit Cardiology, [facility] [address] [place] [address] Thomas Burleson PA-C [address] [place] [address] Scheduled Procedures Name Priority Associated Diagnoses Date/Ti me COMMON FEMORAL ENDARTERECTOMY PVD (peripheral vascular disease) with claudication (HCC) 02/07/2025 7:15 AM EDT ILIAC ARTERY REVASC W/ STENT+ANGIOPLASTY PVD (peripheral vascular disease) with claudication ([facility]) 02/07/2025 7:15 AM EDT ESOPHAGOGASTRODUODENOSCOPY ( EGD), FLEXIBLE, TRANSORAL, DIAGNOSTIC Iron deficiency anemia, unspecified iron deficiency anemia type Sigmoid stricture ([facility]) 04/25/2025 8:00 AM EDT Health Maintenance Due Date Last Done Comments Adult Wellness Visit 09/05/2021 09/05/2020 *BISPHONATE OR OTHER ACCEPTABLE MEDICATION NEEDED FOR OSTEOPOROSIS (REFER TO SMARTSET #1146) 09/16/2024 COVID-19 Vaccine ( season) 2024 06/15/2024, 09/26/2023, 08/10/2022, Additional history exists *NEPHROLOGY REFERRAL DUE TO RESISTANT HTN 12/29/2024 Albumin/Creatinine Ratio 05/10/2025 05/10/2024, 03/18 CKD PHOS USE SMARTSET 15954 05/10/202504/17, 04/14/2023, 11/03/2020, Additional history exists Depression Screening 07/13/2025 07/13/2024 TSH 08/27/2025 08/27/2024, 04/17, 04/14/2023, Additional history exists CKD HGB USE SMARTSET 08333 11/20/202511/20, 08/27/2024, 05/10/2024, Additional history exists DXA Scan 06/08/2026 06/08/2024, 05/18, 05/21/2019, Additional history exists DTap/Tdap Vaccines Discontinued 03/14/2013, 1 12/05/2001, 09/16/1992 Pneumococcal Vaccine: 50+ Years Completed 05/10/2016, 11/10/2006, 11/09/1999 Zoster Vaccines Completed 11/21/2018, 04/16, 04/16/2018, Additional history exists VITAMIN D LEVEL ONCE IN A LIFETIME-USE SMARTSET# 48160 Completed 04/14/2023, 08/04/2021, 11/03/2020, Additional history exists [...] Procedure Name Priority Date/Time Associated Diagnosis Comments COLONOSCOPY, OUTSIDE PROCEDURE Routine 03/04/2004 documented in this encounter Results * COLONOSCOPY, OUTSIDE PROCEDURE (03/04/2004) 03/04/2004 us History Per Patient GASTRO LOWER Final Result OUTSIDE LAB (SEE SCANNED REPORT) documented in this encounter Advance Directives Documents on File Type Date Recorded Patient Tank Shop Supervisor Expl anation Advance Directives and Living Will 09/26/2015 LIVING WILL LIVING W ILL Power of Interior Systems Carpenter 09/26/2015 POWER OF A TTORNEY POWER OF OVER SHORT AND DAMAGE CLERK Care Teams Clinical Account Liaison Relationship Specialty Start Date End Date Rafat Josue MD [address] [address] PCP - General 12/31/02 documented as of this encounter
--- OUTSIDE RECORDS SUMMARY | 2025-01-17 07:29 | External Medical Summary | Summary of Care ---
Author Name Unknown Organization [facility] Address [address] [place] [address] Phone [phone] Care Team Providers Care Label Designer Name Role Phone Rafat Josue MD Primary Care Provider +1- [phone] Reason for Visit * Reason Onset Date Comments Appointment 12/26/2024 Egd/anderson Encounter Details Date Type Department Care Team (Late st Contact Info) Description 12/26/2024 Telephone Gastroenterology, [place] [address] [place] [address] Lesley, Guadalupe No Resource [address] [place] [address] Appointment (Egd/anderson/) Allergies No known active allergiesdocumented as of this encounter (statuses as of 12/27/2024) Medications CALCIUM 500 +D 500-400 MG-UNIT PO TABS Take 1 Tablet by mouth in the morning and 1 Tablet before bedtime. 60 Tab 5 08/24/2011 Active ASPIRIN EC 81 MG PO TBEC Take 1 Tablet by mouth in the morning. 100 Tab 5 08/24/2011 Active Vitamin D 50 MCG (1999) Oral Capsule Take 1 Capsule by mouth [...] as of this encounter (statuses as of 12/27/2024) Active Problems Problem Noted Date Diagnosed Date PVD (peripheral vascular disease) with claudicat ion 12/26/2024 Varicose veins of bilateral lower extremities with other complications 10/24/2024 Other pancytopenia 10/04/2024 History of [place] (myocardial infarction) 08/06/2024 Former smoker 01/17/2024 Atherosclerosis of aorta 04/26/2023 Hypertensive kidney disease with stage 3b chronic kidney disease 04/26/2023 Atherosclerosis of coronary artery of [place] heart without angina pectoris 04/26/2023 Thyroid nodule [...] as of this encounter (statuses as of 12/27/2024) Resolved Problems Problem Noted Date Diagnosed Date [...] as of this encounter (statuses as of 12/27/2024) Immunizations Name Administration Dates Next Due COVID-19 mRNA, LNP-s, No Pre serve, 2-Dose Series ([employer]) 07/25/2021,12/27/2020,11/29/2020 COVID-19, LNP-s, No Preserve , Binh-sucrose, [...] encounter Miscellaneous Notes * Telephone Encounter - Mackenzie Bateman OSA - 12/27/2024 1:14 PM EDT Scheduled * Telephone Encounter - Aisha Domingo OSA - 12/26/2024 12:58 PM EDT Order EGD, FLEXIBLE, DIAGNOSTIC [[id number]] (Order [id number]) Order Information Date and Time Department Ordering/Authorizing 09/11/2024 3:37 PM [facility] Merlin Terrazas CRNP Order Providers Authorizing Provider Encounter Provider ([id number]) Merlin Terrazas CRNP ([id number]) Merlin Terrazas CRNP Supervision Information Encounter Supervising Provider Type of Supervision ([id number]) Jewel Govea MD General Collection Information Priority and Order Details Priority Class Routine Off Site Quantity Ordering Quantity 1 Modify/Reorder Info Order # Order Date Order Time [id number] 09/11/2024 1:30 PM Order Questions Question Answer Procedure Location: [place] Facility: ENDO [facility] Comments EGD for anemia, FOBT (+); needs to be scheduled for January (unable to hold Plavix until then). Future Order Information Expected Expires 01/15/2025 10/11/2025 Associated Diagnoses Iron deficiency anemia, unspecified iron deficiency anemia type [D50.9] - Primary Sigmoid stricture (HCC) [K56.699] Visit Disposition Dispositions Return if symptoms worsen or fail to improve. Status of Other Orders View Status of Other Orders Encounter View Encounter Reprint Requisition EGD, FLEXIBLE, DIAGNOSTIC (Order #[id number]) on 09/11/24 Tracking Links Cosign Tracking Order Transmittal Tracking documented in this encounter Plan of Treatment Upcoming Encounters Date Type Department Care Team (Latest Contact Info) Description 02/07/2025 7:15 AM EDT Hospital Encounter OR [facility], OPERATING ROOM [facility] [place], [facility] [address] [place] [address] Scott Lee MD [address] [place] [address] 02/07/2025 7:15 AM EDT - 02/07/2025 10:51 AM EDT Surgery OR [facility], OPERATING ROOM [facility], [address] [address] [place] [address] Scott Lee MD [address] [place] [address] COMMON FEMORAL ENDARTERECTOMY 02/13/2025 10:10 AM EDT Office Visit Vascular Surgery, [facility] [address] [place] [address] Scott Lee MD [address] [facility] [place] [address] 02/19/2025 1:00 PM EDT Imaging Vascular Lab, [facility] 2nd Floor, [place] [address] [place] [address] 02/19/2025 2:00 PM EDT Imaging Vascular Lab, [facility] 2nd [facility], [place] [address], [place] [address] 02/19/2025 3:00 PM EDT Imaging Vascular Lab, [facility] 2nd [facility], [place] [address] [place] [address] 02/27/2025 11:30 AM EDT Office Visit Vascular Surgery, [facility] [address], [place] [address] Scott Lee MD [address] [place] [address] 04/25/2025 8:00 AM EDT Hospital Encounter ENDO [facility], Endoscopy Suite, HFAM 1, [address] [place] [address] Noa Vail MD [address] [place] [address] 04/25/2025 8:00 AM EDT - 04/25/2025 8:30 AM EDT Surgery [facility], Endoscopy Suite, HFAM 1, [address] [place] [address] Noa Vail MD [address] [place] [address] ESOPHAGOGASTRODUODENOSCOPY (EGD), FLEXIBLE, TRANSORAL, DIAGNOSTIC 05/16/2025 8:00 AM EDT Office Visit [facility] [place] [address] [phone] Rafat Josue MD [address] [facility] [place] [address] 05/27/2025 10:30 AM EDT Office Visit Cardiology, [facility] [address] [place] [address] Thomas Burleson PA-C [address] [place] [address] Scheduled Procedures Name Priority Associated Diagnoses Date/Ti me COMMON FEMORAL ENDARTERECTOMY PVD (peripheral vascular disease) with claudication (HCC) 02/07/2025 7:15 AM EDT ILIAC ARTERY REVASC W/ STENT+ANGIOPLASTY PVD (peripheral vascular disease) with claudication (HCC) 02/07/2025 7:15 AM EDT ESOPHAGOGASTRODUODENOSCOPY ( EGD), FLEXIBLE, TRANSORAL, DIAGNOSTIC Iron deficiency anemia, unspecified iron deficiency anemia type Sigmoid stricture ([facility]) 04/25/2025 8:00 AM EDT Health Maintenance Due Date Last Done Comments Adult Wellness Visit 09/05/2021 09/05/2020 *BISPHONATE OR OTHER ACCEPTABLE MEDICATION NEEDED FOR OSTEOPOROSIS (REFER TO SMARTSET #1146) 09/16/2024 COVID-19 Vaccine ( season) 2024 06/15/2024, 09/26/2023, 08/10/2022, Additional history exists Albumin/Creatinine Ratio 05/10/2025 05/10/2024, 03/18 CKD PHOS USE SMARTSET 03587 05/10/202504/17, 04/14/2023, 11/03/2020, Additional history exists Depression Screening 07/13/2025 07/13/2024 TSH 08/27/2025 08/27/2024, 04/17, 04/14/2023, Additional history exists CKD HGB USE SMARTSET 17819 11/20/202511/20, 08/27/2024, 05/10/2024, Additional history exists DXA Scan 06/08/2026 06/08/2024, 05/18, 05/21/2019, Additional history exists DTap/Tdap Vaccines Discontinued 03/14/2013, 1 12/05/2001, 09/16/1992 Pneumococcal Vaccine: 50+ Years Completed 05/10/2016, 11/10/2006, 11/09/1999 Zoster Vaccines Completed 11/21/2018, 04/16, 04/16/2018, Additional history exists VITAMIN D LEVEL ONCE IN A LIFETIME-USE SMARTSET# 17553 Completed 04/14/2023, 08/04/2021, 11/03/2020, Additional history exists [...] Documents on File Type Date Recorded Patient Acting Section Chief Expl anation Advance Directives and Living Will 09/26/2015 LIVING WILL LIVING W ILL Power of Head Screen Worker 09/26/2015 POWER OF A TTORNEY POWER OF HOME LIGHTING ADVISER Care Teams Label Designer Relationship Specialty Start Date End Date Rafat Josue MD [address] [address] PCP - General 12/31/02 documented as of this encounter
--- OUTSIDE RECORDS SUMMARY | 2025-01-17 07:29 | External Medical Summary | Summary of Care ---
Author Name Unknown Organization [facility] Address [address] [place] [address] Phone [phone] Care Team Providers Care Alpaca Farmer Name Role Phone Katherine Gallardo MD Primary Care Provider [phone]- [phone] Reason for Visit * Reason Comments Follow Up Pt reports that she has no energy. Encounter Details Date Type Department Care Team (Late st Contact Info) Description 12/26/2024 12:30 PM EDT Office Visit Gastroenterology, [facility] [address] [facility] [place] [address] Merlin Terrazas CRNP [address] [facility] [place] [address] Iron deficiency anemia, unspecified iron deficiency anemia type*; Fecal occult blood test positive Allergies No known active allergiesdocumented as of [...] complications 10/24/2024 Other pancytopenia 10/04/2024 History of [place] (myocardial infarction) 08/06/2024 Former smoker 01/17/2024 Atherosclerosis of aorta 04/26/2023 Hypertensive kidney disease with stage 3b chronic kidney disease 04/26/2023 Atherosclerosis of coronary artery of [place] heart without angina pectoris 04/26/2023 Thyroid nodule [...] mRNA, LNP-s, No Pre serve, 2-Dose Series (Kiromic) 07/25/2021,12/27/2020,11/29/2020 COVID-19, LNP-s, No Preserve , Binh-sucrose, Ages 12+ (Pfizer) 03/05/2022 COVID-19, MRNA-LNP, PF, 30 M CG/0.3 mL, 12 YRS AND ABOVE, IM ([facility]ZER-[facility]) 06/15/2024,09/26/2023 Pneumococcal Conjugate Vacc, 13 Valent (Prevnar) [...] money to buy more. Never true 07/13/20 Within the past 12 months, t he [...] Time Taken Comments Blood Pressure 142/58 12/26/2024 12:36 PM EDT Pulse 78 12/26/2024 12:36 PM EDT Temperature - - Respiratory Rate - - Oxygen Saturation - - Inhaled Oxygen Concentration - - Weight 62.6 kg (138 lb) 12/26/2024 12:36 PM EDT Height - - Body Mass Index 26.07 11/12/2024 2:30 PM EST documented in this encounter Progress Notes * Merlin Terrazas CRNP - 12/26/2024 11:52 AM EDT Consult requested by REF: KATHERINE GALLARDO [address] [place] [address] (office) [phone] (fax) CC: Recheck Fecal occult blood (+), iron deficiency anemia HPI: Ms. Shiloh Ryan is an 89 year old female pt of Katherine Gallardo MD with a hx of HTN, GERD, CAD/SD w stent, Jun 2024 on Plavix. Who was seen in August for above mentioned issues. EGD, vertual CT colonoscopy and Celiac Serology ordered, but not yet scheduled because we are awaiting 6 months after stenting to be able to hold Plavix. Since then, she has had a vascular consult and plans are in place for right fem endarterectomy and placement of right iliac stent February 07. Her daughter Constance Cooper is with her today and is helping to coordinate her mother's care. Diagnostic Testing: Most recent colonoscopy was in [address] Hinton. He was unable to advance the scope beyond the sigmoid due to a tight stricture there. Pt was told not to get another colonoscopy.See scanned documents: February 2004. Labs Nov 2024: HB 9.23 Aug 2024: tTg (-), Hb 9.9, Hct 31.5, MCV 93.5, ferritin sl low at 26, iron TIBC normal, FOBT (+), Cr 1.3, eGFR 41 Review of labs shows that Hb has been slowly drifting down since 2018. ALLERGIES: Review of patient's allergies indicates: No Known Allergies PMH/PSH/Soc Hx reviewed, significant for: Past Medical History: Diagnosis Date Allergic conjunctivitis, Other Esophageal reflux HTN, goal below 140/90 Past Surgical History: Procedure Laterality Date BIOPSY OF BREAST, OPEN 1970 Breast Biopsy, Benign Disease CARPAL TUNNEL SURGERY Left 01/11/2017 left NEUROPLASTY MEDIAN NERVE AT CARPAL TUNNEL performed by Yaw Campbell MD at [facility] COLONOSCOPY 02/17 incomplete, needed barium enema REMOVAL OF RUPTURED APPENDIX 12/18/00 Appendectomy, Rupt Appendx REMOVE LUMBAR SPINE LAMINA, 3+ SEGS [facility] Lumbar Disk Excision TOTAL HYSTERECTOMY 1977 VICK (Total Abdominal Hysterectomy) Social History Socioeconomic History Marital status: Spouse name: CHASIDY Number of children: 2 Occupational History Occupation: RETIRED Tobacco Use Smoking status: Former Current packs/day: 0.00 Average packs/day: 1 pack/day for 20.0 years (20.0 ttl pk-yrs) Types: Cigarettes Start date: 10/17/1949 Quit date: 10/17/1969 Years since quittin.2 Passive exposure: Past Smokeless tobacco: Never Tobacco comments: QUIT 1969 Vaping Use Vaping status: Never Used Substance [...] X 30 MIN 3X @ 60 MIN Seat Belt Yes Self-Exams Yes Social Needs Financial Resource Strain: Low Risk (07/13/2024) Financial Resource Strain Do you have any trouble paying for your medications, or do you think you might in the future? (Adult - for ages 18 years and over): No Food Insecurity: No Food Insecurity (07/13/2024) Food Insecurity Worried About Running Out of Food in the Last Year: Never true Ran Out of Food in the Last Year: Never true Do you need food for this week? (Adult - for ages 18 years and over): No Transportation Needs: No Transportation Needs (07/13/2024) Transportation Needs Has lack of transportation kept you from medical appointments, meetings, work, or from getting things needed for daily living? Check all that apply. (Adult - for ages 18 years and over): No Social Connections: Socially Integrated (07/13/2024) Social Connections How often do you feel lonely or isolated from those around you? (Adult - for ages 18 years and over): Never Housing Stability: Low Risk (07/13/2024) Housing Stability Do you currently live in a jail or have no steady place to sleep at night? (Adult - for ages 18 years and over): No Are you homeless or worried that you might be in the future? (Adult - for ages 18 years and over): No Family history reviewed and significant for: Family History Problem Relation Name Age of Onset Heart Disorder Mother DEC AGE 72/ Stroke Mother Hypertension Mother Heart Disorder Grandmother (Maternal) SepS Heart Disorder Grandfather (Maternal) Heart Disorder Brother CABG Heart Disorder Brother CABG Hypertension Brother Heart Disorder Brother [facility] ByPass surgery Heart Disorder Brother [facility] ByPass surgery Current Outpatient Medications Medication Sig Dispense Refill Losartan Potassium 100 MG Oral Tablet (Cozaar) Take 1 tablet by mouth once daily 90 Tablet 3 Isosorbide Mononitrate ER 60 MG Oral Tablet Extended Release 24 Hour (Imdur) Take 1 Tablet by mouthin the morning. 100 Tablet 3 amLODIPine Besylate 5 MG Oral Tablet (Norvasc) Take 1 Tablet by mouth 2 times a day. 200 Tablet 3 hydroCHLOROthiazide 12.5 MG Oral Capsule Take 1 Capsule by mouth in the morning. 31 Capsule 5 Vitamin C 1000 MG Oral Tablet Take [...] in the morning. 90 Tablet 3 Vitamin B-12 1000 MCG Oral Tablet (Cyanocobalamin) Take 1 Tablet by mouth in the morning. Vitamin D 50 MCG (2000 UT) Oral Capsule Take 1 Capsule by mouth in the morning. ASPIRIN EC 81 MG PO TBEC Take 1 Tablet by mouth in the morning. 100 Tab 5 CALCIUM 500 +D 500-400 MG-UNIT PO TABS Take 1 Tablet by mouth in the morning and 1 Tablet before bedtime. 60 Tab 5 No current facility-administered medications for this visit. EXAM: BP 142/58 | Pulse 78 | Wt 62.6 kg (138 lb) | BMI 26.07 kg/m² | BSA 1.64 m² GENERAL: 89 year old female well developed and well nourished in no acute distress SKIN: no rashes, ulcers, or spider angiomata HEENT: normocephalic, sclera clear, pharynx normal NECK: supple, no lymphadenopathy, no masses or thyroid enlargement LUNGS: clear to auscultation anterior and posterior HEART: regular rate & rhythm, no murmurs and no gallops ABDOMEN: normo-active bowel sounds, soft, non-tender, non-distended no masses, no hepatosplenomegaly, no rebound or guarding, no bruits EXTREMITIES: no palmar erythema, no edema, no skin discoloration, no clubbing, no cyanosis NEURO: no lateralizing findings, Sensory/Motor grossly normal IMPRESSION/RECOMMENDATIONS: 89 year old female with Iron deficiency anemia, unspecified iron deficiency anemia type (Primary) Fecal occult blood test positive EGD and virtual CT colonoscopy were ordered in August. I asked our schedulers to arrange for prior to the Vascular Surgery on February 07 were about [address] colonoscopy has to be done in [place]. Our schedulers sent both tests to the project scheduler in [place] to try to arrangefor after January 03 and prior to February 07. I sent a message to Rigoberto esparza filled MR Burleson asking about stopping Plavix for endoscopy. Specifically, if we are unable to get this arranged between January 03 which is 6 months after her non-STEMI with cardiac stenting and prior to February 07, would there be another weight after the vascular procedure on February 07 before anticoagulants could be held again. Return to GI on an as needed basis. Call if any blood in BMs/Black BMs. I spent a total of 30 minutes on the date of service in review of patient's record, and previously obtained information in person and appropriate medical visit, discussion and education of plan, withpatient and/or caregiver, placing orders for tests/referral/procedures as medically necessary and documentation of pertinent clinical information in patient's medical records for their visit today. Thank you for the opportunity to be involved in the care of this patient. TURNER Bermudez documented in this encounter Nursing Notes * Ellie Padron LPN - 12/26/2024 12:35 PM EDT Chief Complaint Patient presents with Follow Up Pt reports that she has no energy. documented in this encounter Plan of Treatment Upcoming Encounters Date Type Department Care Team (Late st Contact Info) Description 02/13/2025 10:10 AM EDT Office Visit Vascular Surgery, [facility] [address] [place] [address] Scott Lee MD [address] [place] [address] 02/19/2025 1:00 PM EDT Imaging Vascular Lab, [address], [place] [address] [place] [phone] 02/19/2025 2:00 PM EDT Imaging Vascular Lab, [address], [place] [address] [place] [address] 02/19/2025 3:00 PM EDT Imaging Vascular Lab, [address], [place] [address] [place] [address] 02/27/2025 11:30 AM EDT Office Visit Vascular Surgery, [facility] [address] [place] [phone] Scott Lee MD [address] [place] [address] 05/16/2025 8:00 AM EDT Office Visit Family Practice, [facility] [address] [facility] [place] [phone] Katherine Gallardo MD [facility] [place] [address] 05/27/2025 10:30 AM EDT Office Visit Cardiology, [facility] [address] [place] [address] Thomas Burleson PA-C [address] [place] [address] Health Maintenance Due Date Last Done Comments Adult Wellness Visit 09/05/2021 09/05/2020 *BISPHONATE OR OTHER ACCEPTABLE MEDICATION NEEDED FOR OSTEOPOROSIS (REFER TO SMARTSET #1146) 09/16/2024 COVID-19 Vaccine ( season) 2024 06/15/2024, 09/26/2023, 08/10/2022, Additional history exists Albumin/Creatinine Ratio 05/10/2025 05/10/2024, 03/18 CKD PHOS USE SMARTSET 63568 05/10/202504/17, 04/14/2023, 11/03/2020, Additional history exists Depression Screening 07/13/2025 07/13/2024 TSH 08/27/2025 08/27/2024, 04/17, 04/14/2023, Additional history exists CKD HGB USE SMARTSET 73854 11/20/202511/20, 08/27/2024, 05/10/2024, Additional history exists DXA Scan 06/08/2026 06/08/2024, 05/18, 05/21/2019, Additional history exists DTap/Tdap Vaccines Discontinued 03/14/2013, 1 12/05/2001, 09/16/1992 Pneumococcal Vaccine: 50+ Years Completed 05/10/2016, 11/10/2006, 11/09/1999 Zoster Vaccines Completed 11/21/2018, 04/16, 04/16/2018, Additional history exists VITAMIN D LEVEL ONCE IN A LIFETIME-USE SMARTSET# 44307 Completed 04/14/2023, 08/04/2021, 11/03/2020, Additional history exists [...] as of this encounter Visit Diagnoses Diagnosis Iron deficiency anemia, unspecified iron deficiency anemia type- Primary Fecal occult blood test positive Nonspecific abnormal finding in stool contents documented in this encounter Advance Directives Documents on File Type Date Recorded Patient Storeperson Expl anation Advance Directives and Living Will 09/26/2015 LIVING WILL LIVING W ILL Power of Computer Art Instructor 09/26/2015 POWER OF A TTORNEY POWER OF PROFESSOR OF ASTRONOMY Care Teams Alpaca Farmer Relationship Specialty Start Date End Date Katherine Gallardo MD [address] [place] [address] PCP - General 12/31/02 documented as of this encounter"
--- OUTSIDE RECORDS SUMMARY | 2025-01-17 07:29 | External Medical Summary | Summary of Care ---
Author Name Unknown Organization [facility] Address [address] [place] [address] Phone [phone] Care Team Providers Care Video Camera Operator Name Role Phone Rafat Josue MD Primary Care Provider [phone]- [phone] Reason for Visit * Reason Onset Date Comments Test Results 12/21/2024 Encounter Details Date Type Department Care Team (Late st Contact Info) Description 12/21/2024 Telephone Cardiology, [facility] [address] [place] [address] Thomas Burleson PA-C [address] [place] [phone] Test Results Allergies No known active allergiesdocumented as of this encounter (statuses as of 12/21/2024) Medications CALCIUM 500 +D 500-400 MG-UNIT PO TABS Take 1 Tablet by mouth in the morning and 1 Tablet before bedtime. 60 Tab 5 08/24/2011 Active ASPIRIN EC 81 MG PO TBEC Take 1 Tablet by mouth in the morning. 100 Tab 5 08/24/2011 Active Vitamin D 50 MCG (1999 UT) Oral Capsule Take 1 Capsule by [...] as of this encounter (statuses as of 12/21/2024) Active Problems Problem Noted Date Diagnosed Date Varicose veins of bilateral lower extremities with other complications 10/24/2024 Other pancytopenia 10/04/2024 History of [place] (myocardial infarction) 08/06/2024 Former smoker 01/17/2024 Atherosclerosis of aorta 04/26/2023 Hypertensive kidney disease with stage 3b chronic kidney disease 04/26/2023 Atherosclerosis of coronary artery of [place] heart without angina pectoris 04/26/2023 Thyroid nodule [...] as of this encounter (statuses as of 12/21/2024) Resolved Problems Problem Noted Date Diagnosed Date [...] as of this encounter (statuses as of 12/21/2024) Immunizations Name Administration Dates Next Due COVID-19 mRNA, LNP-s, No Pre serve, 2-Dose Series (Kigo) 07/25/2021,12/27/2020,11/29/2020 COVID-19, LNP-s, No Preserve , Binh-sucrose, Ages 12+ (Pfizer) 03/05/2022 COVID-19, MRNA-LNP, PF, 30 M CG/0.3 mL, 12 YRS AND ABOVE, IM ([facility]) 06/15/2024,09/26/2023 Pneumococcal Conjugate Vacc, 13 Valent (Prevnar) [...] encounter Miscellaneous Notes * Telephone Encounter - Xiomara Portillo LPN - 12/21/2024 8:05 AM EST Rachael message sent * Telephone Encounter - Xiomara Portillo LPN - 12/21/2024 8:03 AM EST ----- Message from Thomas Burleson sent at 12/20/2024 4:48 PM EST ----- December 20, 2024 TTE Interpretation Summary (as per Dr. Early): [...] is present. Mild tricuspid regurgitation is present. Compared to prior study of August 13, 2022, there is no significant change. OK documented in this encounter Plan of Treatment Upcoming Encounters Date Type Department Care Team (Late st Contact Info) Description 12/26/2024 10:50 AM EDT Office Visit Vascular Surgery, [facility] [address] [place] [address] Scott Lee MD [address] [place] [address] 12/26/2024 12:30 PM EDT Office Visit Gastroenterology, [facility] [address] [place] [address] Merlin Terrazas CRNP [address] [place] [address] 05/16/2025 8:00 AM EDT [facility] [phone] Rafat Josue MD [address] [place] [address] 05/27/2025 10:30 AM EDT Office Visit Cardiology, [facility] [address] [place] [address] Thomas Burleson, PA-C [address] [facility] [place] [address] Health Maintenance Due Date Last Done Comments Adult Wellness Visit 09/05/2021 09/05/2020 *BISPHONATE OR OTHER ACCEPTABLE MEDICATION NEEDED FOR OSTEOPOROSIS (REFER TO SMARTSET #1146) 09/16/2024 COVID-19 Vaccine ( season) 2024 06/15/2024, 09/26/2023, 08/10/2022, Additional history exists Albumin/Creatinine Ratio 05/10/2025 05/10/2024, 03/18 CKD PHOS USE SMARTSET 64504 05/10/202504/17, 04/14/2023, 11/03/2020, Additional history exists Depression Screening 07/13/2025 07/13/2024 TSH 08/27/2025 08/27/2024, 04/17, 04/14/2023, Additional history exists CKD HGB USE SMARTSET 78291 11/20/202511/20, 08/27/2024, 05/10/2024, Additional history exists DXA Scan 06/08/2026 06/08/2024, 05/18, 05/21/2019, Additional history exists DTap/Tdap Vaccines Discontinued 03/14/2013, 1 12/05/2001, 09/16/1992 Pneumococcal Vaccine: 50+ Years Completed 05/10/2016, 11/10/2006, 11/09/1999 Zoster Vaccines Completed 11/21/2018, 04/16, 04/16/2018, Additional history exists VITAMIN D LEVEL ONCE IN A LIFETIME-USE SMARTSET# 16637 Completed 04/14/2023, 08/04/2021, 11/03/2020, Additional history exists [...] Documents on File Type Date Recorded Patient Cosmetic Assembler Expl anation Advance Directives and Living Will 09/26/2015 LIVING WILL LIVING W ILL Power of Nuclear Plant Technical Advisor 09/26/2015 POWER OF A TTORNEY POWER OF LINE CONSTRUCTION SUPERVISOR Care Teams Video Camera Operator Relationship Specialty Start Date End Date Rafat Josue MD [address] [place] [address] PCP - General 12/31/02 documented as of this encounter
--- OUTSIDE RECORDS SUMMARY | 2025-01-17 07:29 | External Medical Summary | Summary of Care ---
Author Name Unknown Organization [facility] Address [address] [place] [address] Phone [phone] Care Team Providers Care Java Software Developer Name Role Phone Rafat Josue MD Primary Care Provider [phone]- [phone] Reason for Visit * Reason Onset Date Comments Imaging Records Request 12/28/2024 Encounter Details Date Type Department Care Team (Late st Contact Info) Description 12/28/2024 Telephone Radiology Film File [address] [place] [address] Support, Imaging Radiology [address] [place] [address] Imaging Records Request Allergies No known active allergiesdocumented as of this encounter (statuses as of 12/28/2024) Medications CALCIUM 500 +D 500-400 MG-UNIT PO [...] as of this encounter (statuses as of 12/28/2024) Active Problems Problem Noted Date Diagnosed Date PVD (peripheral vascular disease) with claudicat ion 12/26/2024 Varicose veins of bilateral lower extremities with other complications 10/24/2024 Other pancytopenia 10/04/2024 History of [place] (myocardial infarction) 08/06/2024 Former smoker 01/17/2024 Atherosclerosis of aorta 04/26/2023 Hypertensive kidney disease with stage 3b chronic kidney disease 04/26/2023 Atherosclerosis of coronary artery of [place] heart without angina pectoris 04/26/2023 Thyroid nodule [...] as of this encounter (statuses as of 12/28/2024) Resolved Problems Problem Noted Date Diagnosed Date [...] as of this encounter (statuses as of 12/28/2024) Immunizations Name Administration Dates Next Due COVID-19 mRNA, LNP-s, No Pre serve, 2-Dose Series ([employer]) 07/25/2021,12/27/2020,11/29/2020 COVID-19, LNP-s, No Preserve , Binh-sucrose, [...] encounter Miscellaneous Notes * Telephone Encounter - Kaylynn Hill, System Support - 12/28/2024 4:37 PM EDT [facility] requesting CT chest 12/04/24, 11/15/23, 05/23/24. PET CT 06/05/24 images be pushed through[place]NTwylah. [place] Authorization to Release on file. Images pushed to [facility] PACS external connection. documented in this encounter Plan of Treatment Upcoming Encounters Date Type Department Care Team (Latest Contact Info) Description 02/07/2025 7:15 AM EDT Hospital Encounter [facility], OPERATING ROOM [facility], [place] [address] [place] [address] Scott Lee MD [address] [facility] [place] [id number] 02/07/2025 7:15 AM EDT - 02/07/2025 10:51 AM EDT Surgery [facility] [address] [facility] [place] [address] Scott Lee MD [address] [place] [address] COMMON FEMORAL ENDARTERECTOMY 02/13/2025 10:10 AM EDT Office Visit Vascular Surgery, [facility] [address] [place] [phone] Scott Lee MD [address] [place] [address] 02/19/2025 1:00 PM EDT Imaging Vascular Lab, [address], [place] [address] [place] [phone] 02/19/2025 2:00 PM EDT Imaging Vascular Lab, [address], [place] [address] [place] [phone] 02/19/2025 3:00 PM EDT Imaging Vascular Lab, [address], [place] [address] [place] [phone] 02/27/2025 11:30 AM EDT Office Visit Vascular Surgery, [facility] [address] [place] [phone] Scott Lee MD [address] [place] [address] 04/25/2025 8:00 AM EDT Hospital Encounter ENDO [facility], Endoscopy Suite, [facility], [address] [facility] [place] [place] [id number] Noa Vail MD [address] [facility] [place] [id number] 04/25/2025 8:00 AM EDT - 04/25/2025 8:30 AM EDT Surgery ENDO [facility], Endoscopy Suite, [facility], [address] [facility] [place], [place] [id number] Noa Vail MD [address] [place] [address] ESOPHAGOGASTRODUODENOSCOPY (EGD), FLEXIBLE, TRANSORAL, DIAGNOSTIC 05/16/2025 8:00 AM EDT Office Visit [facility] [address] [place] [address] Rafat Josue MD [address] [facility] [place] [address] 05/27/2025 10:30 AM EDT Office Visit Cardiology, [facility] [place] [address] Thomas Burleson PA-C [facility] [place] [address] Scheduled Procedures Name Priority Associated Diagnoses Date/Ti [...] 05/10/2025 05/10/2024, 03/18 CKD PHOS USE SMARTSET 20284 05/10/202504/17, 04/14/2023, 11/03/2020, Additional history exists Depression Screening 07/13/2025 07/13/2024 TSH 08/27/2025 08/27/2024, 04/17, 04/14/2023, Additional history exists CKD HGB USE SMARTSET 86030 11/20/202511/20, 08/27/2024, 05/10/2024, Additional history exists DXA Scan 06/08/2026 06/08/2024, 05/18, 05/21/2019, Additional history exists DTap/Tdap Vaccines Discontinued 03/14/2013, 1 12/05/2001, 09/16/1992 Pneumococcal Vaccine: 50+ Years Completed 05/10/2016, 11/10/2006, 11/09/1999 Zoster Vaccines Completed 11/21/2018, 04/16, 04/16/2018, Additional history exists VITAMIN D LEVEL ONCE IN A LIFETIME-USE SMARTSET# 15666 Completed 04/14/2023, 08/04/2021, 11/03/2020, Additional history exists [...] Documents on File Type Date Recorded Patient Tin Plater Expl anation Advance Directives and Living Will 09/26/2015 LIVING WILL LIVING W ILL Power of Refrigerator Tester 09/26/2015 POWER OF A TTORNEY POWER OF DENTAL MOLD MAKER Care Teams Java Software Developer Relationship Specialty Start Date End Date Rafat Josue MD [address] [place] [address] PCP - General 12/31/02 documented as of this encounter
--- OUTSIDE RECORDS SUMMARY | 2025-01-17 07:29 | External Medical Summary | Summary of Care ---
Author Name Unknown Organization [facility] Address [address] [place] [address] Phone [phone] Care Team Providers Care Child Support Investigator Name Role Phone Rafat Josue MD Primary Care Provider [phone]- [phone] Reason for Visit * Reason Comments Follow Up Encounter Details Date Type Department Care Team (Late st Contact Info) Description 12/26/2024 10:50 AM EDT Office Visit Vascular Surgery, [facility] [address] [place] [address] Scott Lee MD [address] [place] [address] PVD (peripheral vascular disease) with [...] disease 04/26/2023 Atherosclerosis of coronary artery of [place] heart without angina pectoris 04/26/2023 Thyroid nodule [...] mRNA, LNP-s, No Pre serve, 2-Dose Series (Contur) 07/25/2021,12/27/2020,11/29/2020 COVID-19, LNP-s, No Preserve , Binh-sucrose, Ages 12+ (Pfizer) 03/05/2022 COVID-19, MRNA-LNP, PF, 30 M CG/0.3 mL, 12 YRS AND ABOVE, IM (PFIZER-Comiratrium health) 06/15/2024,09/26/2023 Diptheria/Tetanus (Adult) 09/16/1992 Pneumococcal Conjugate Vacc, [...] documented in this encounter Progress Notes * Azul Bear PA-C - 12/26/2024 10:50 AM EDT [...] amaurosis fugax. 09/04/24 Carotid duplex exam at [facility] identified the right internal carotid with 50-69% [...] disease (HCC) Atherosclerosis of coronary artery of [place] heart without angina pectoris Thyroid nodule Former smoker Nodule of upper lobe of left lung History of [place] (myocardial infarction) Other pancytopenia (HCC) Varicose veins of bilateral lower extremities with other complications Past Medical History: Diagnosis Date Allergic conjunctivitis, Other Esophageal reflux HTN, goal below 140/90 Past Surgical History: Procedure Laterality Date BIOPSY OF BREAST, OPEN 1970 Breast Biopsy, Benign Disease CARPAL TUNNEL SURGERY Left 01/11/2017 left NEUROPLASTY MEDIAN NERVE AT CARPAL TUNNEL performed by Yaw Campbell MD at OR [facility] COLONOSCOPY 02/17 incomplete, needed barium enema REMOVAL OF RUPTURED APPENDIX 12/18/00 Appendectomy, Rupt Appendx REMOVE LUMBAR SPINE LAMINA, 3+ SEGS [facility] Lumbar Disk Excision TOTAL HYSTERECTOMY 1977 VICK (Total Abdominal Hysterectomy) Family History Problem Relation Name Age of Onset Heart Disorder Mother DEC AGE 72/ Stroke Mother Hypertension Mother Heart Disorder Grandmother (Maternal) Sep Heart Disorder Grandfather (Maternal) Heart Disorder Brother CABG Heart Disorder Brother CABG Hypertension Brother Heart Disorder Brother [facility] ByPass surgery Heart Disorder Brother [facility] ByPass surgery Social History Socioeconomic History Marital [...] Stability Do you currently live in a correction or have no steady place to sleep [...] pain, shortness of breath, palpitations, angina or ME Neurological: Positive for remote stroke. No recent [...] (On 12/06/24, I attempted to call Ms. Shelby to review results with no answer. Forwarded [...] present. Mild tricuspid regurgitation is present. 2023 [facility] Notes: LABS: Lab Results Component Value Date/Time [...] Component Value Date/Time LDL CHOLESTEROL (CALCULATED) - [facility] 46 11/20/2024 01:37 PM LDL CHOLESTEROL (CALCULATED) - [facility] 77 11/03/2020 08:45 AM LDL CHOLESTEROL (DIRECT MEASURE) - [facility] NOT APPLICABLE 11/03/2020 08:45 AM LDL CHOLESTEROL (DIRECT MEASURE) - [facility] 95 02/14/2018 08:11 AM Hemoglobin Results: Lab Results Component Value Date/Time HGB 9.7 (L) 11/20/2024 01:37 PM HGB 9.9 (L) 08/27/2024 09:11 AM HGB 10.9 (L) 05/10/2024 08:33 AM HGB 11.0 (L) 11/03/2020 08:45 AM HGB 11.1 (L) 08/08/2019 08:19 AM HGB 11.0 (L) 08/21/2018 07:31 AM Lab Results Component Value Date/Time HEMOGLOBIN A1C - GINI 5.7 09/25/1998 08:10 AM The above clinical [...] LAD, all in Jun 2024. Followed by s Cards Prior HFrEF, LVEF 40-45% 2023 (TTe & Cardiac Cath @ [facility]). 12/20/24 updated TTe revealed recovered nl LVEF [...] placement of right iliac stent Patient saw [facility] in [place]/U on 12/18/24, no [...] seen and examined with Dom Lee MD. Azul Bear PA-C I have reviewed the advanced practitioner's documentation on the date of service referenced in note, and I agree with, and take responsibility for the plan of care. Mrs. 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 The biopsy wound is healing without [...] MD Vascular Surgeon Department of Vascular Surgery [facility] documented in this encounter Nursing Notes * Blanca Prince CMA - 12/26/2024 11:14 AM EDT Reviewed the option of transferring scripts to [facility] pharmacy with patient and / or family. Blanca Prince CMA documented in this encounter Miscellaneous Notes * Addendum Note - Azul Bear PA-C - 12/27/2024 8:47 AM EDTAddended by: AZUL BEAR on: 12/27/2024 08:47 AM Modules accepted: Orders documented in this encounter Plan of Treatment Upcoming Encounters Date Type Department Care Team (Late st Contact Info) Description 02/07/2025 Hospital Encounter [facility] [address] [place] [address] Scott Lee MD [address] [place] [address] 02/13/2025 10:10 AM EDT Office Visit Vascular Surgery, [facility] [address] [place] [phone] Scott Lee MD [address] [place] [address] 02/19/2025 1:00 PM EDT Imaging Vascular Lab, [facility] 2nd [facility] [address] [place] [address] 02/19/2025 2:00 PM EDT Imaging Vascular Lab, [address] [place] [address] 02/19/2025 3:00 PM EDT Imaging Vascular Lab, [address] [place] [address] 02/27/2025 11:30 AM EDT Office Visit Vascular Surgery, [facility] [address] [place] [phone] Scott Lee MD [address] [place] [address] 05/16/2025 8:00 AM EDT Office Visit Family [facility] [address] [facility] [place] [phone] Rafat Josue MD [address] [facility] [place] [address] 05/27/2025 10:30 AM EDT Office Visit Cardiology, [facility] [address] [place] [address] Thomas Burleson PA-C [address] [place] [address] Scheduled Orders Name Type Priority Associated Diagnoses Orde r Schedule [facility] ANKLE BRACHIAL INDICES WITHOUT PPG (PAD) Medical Imaging Routine PVD (peripheral vascular disease) with claudication (HCC) Ordered: 12/26/2024 [facility] TUSCARORA ART DUP LTD LE Medical Imaging Routine PVD (peripheral vascular disease) with claudication (HCC) Ordered: 12/26/2024 [facility] AORTIC DUPLEX EVAL-COMPLETE Medical Imaging Routine PVD (peripheral vascular disease) with claudication (HCC) Ordered: 12/26/2024 Scheduled Procedures Name Priority Associated Diagnoses Date/Ti me COMMON FEMORAL ENDARTERECTOMY PVD (peripheral vascular disease) with claudication (HCC) ILIAC ARTERY REVASC W/ STENT+ANGIOPLASTY PVD (peripheral vascular disease) with claudication (HCC) Health Maintenance Due Date Last Done Comments Adult Wellness Visit 09/05/2021 09/05/2020 *BISPHONATE OR OTHER ACCEPTABLE MEDICATION NEEDED FOR OSTEOPOROSIS (REFER TO SMARTSET #1146) 09/16/2024 COVID-19 Vaccine ( season) 2024 06/15/2024, 09/26/2023, 08/10/2022, Additional history exists Albumin/Creatinine Ratio 05/10/2025 05/10/2024, 03/18 CKD PHOS USE SMARTSET 93073 05/10/202504/17, 04/14/2023, 11/03/2020, Additional history exists Depression Screening 07/13/2025 07/13/2024 TSH 08/27/2025 08/27/2024, 04/17, 04/14/2023, Additional history exists CKD HGB USE SMARTSET 05190 11/20/202511/20, 08/27/2024, 05/10/2024, Additional history exists DXA Scan 06/08/2026 06/08/2024, 05/18, 05/21/2019, Additional history exists DTap/Tdap Vaccines Discontinued 03/14/2013, 1 12/05/2001, 09/16/1992 Pneumococcal Vaccine: 50+ Years Completed 05/10/2016, 11/10/2006, 11/09/1999 Zoster Vaccines Completed 11/21/2018, 04/16, 04/16/2018, Additional history exists VITAMIN D LEVEL ONCE IN A LIFETIME-USE SMARTSET# 53634 Completed 04/14/2023, 08/04/2021, 11/03/2020, Additional history exists [...] claudication (HCC)- Primary Peripheral vascular disease, unspecified PVD (peripheral vascular disease) with claudication (HCC)- Primary Peripheral vascular disease, unspecified PVD (peripheral vascular disease) with claudication (HCC) Peripheral vascular disease, unspecified documented in this encounter Advance Directives Documents on File Type Date Recorded Patient Bank [employer] 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
--- OUTSIDE RECORDS SUMMARY | 2025-01-17 07:30 | External Medical Summary | Summary of Care ---
Author Name Unknown Organization [facility] Address [address] [place] [address] Phone [phone] Care Team Providers Care Assistant Professor Name Role Phone Rafat Josue MD Primary Care Provider [phone]- [phone] Reason for Visit * Reason Comments Outpatient Testing Encounter Details Date Type Department Care Team (Late st Contact Info) Description 11/28/2024 8:10 AM EST Laboratory Laboratory, [facility] [address] [place] [phone] [facility] [address] [place] [address] Atherosclerosis of aorta (HCC) Allergies No known active allergiesdocumented as of this encounter (statuses as of 11/28/2024) Medications CALCIUM 500 +D 500-400 MG-UNIT PO TABS Take 2 Tablets by mouth daily. 60 Tab 5 1 Active ASPIRIN EC 81 MG PO TBEC Take 1 Tablet by mouth in the morning. 100 Tab 5 1 Active Vitamin D 50 MCG (1999 UT) Oral Capsule Take 2,000 Units by mouth in the morning. Active Vitamin B-12 1000 MCG Oral Tablet (Cyanocobalamin) Take 1 Tablet by mouth in the morning. Active Atorvastatin Calcium 40 MG Oral Tablet (Lipitor) Take 1 Tablet by mouth in the morning. 90 Tablet 3 08/31/2024 11:53 AM EST 4 Active Clopidogrel Bisulfate 75 [...] mouth in the morning. 90 Tablet 3 08/31/2024 11:53 AM EST 4 Active Pantoprazole Sodium 40 [...] 2 times a day. 200 Tablet 3 08/24/2024 10:41 AM EST 4 Active hydroCHLOROthiaz marvel 12.5 MG Oral Capsule Take 1 Capsule by mouth in the morning. 31 Capsule 5 4 Active Isosorbide Mononitrate ER 60 MG Oral Tablet Extended Release 24 Hour (Imdur)Indicatio ns:HTN, goal below 140/90 Take 1 Tablet by mouth in the morning. 100 Tablet 3 09/05/2024 1:24 PM EST 4 Active Losartan Potassium 100 MG Oral Tablet (Cozaar)Indicati ons:HTN, goal below 140/90 Take 1 tablet by mouth once daily 90 Tablet 3 4 Active Mupirocin 2 % External Ointment (Bactroban) Apply to affected areas 2-3x daily until healed 22 g 1 4 Active Additional Information Patient not taking.Reported on 11/21/2024 documented as of this encounter (statuses as of 11/28/2024) Active Problems Problem Noted Date Diagnosed Date Varicose veins of bilateral lower extremities with other complications 10/24/2024 Other pancytopenia 10/04/2024 History of [place] (myocardial infarction) 08/06/2024 Former smoker 01/17/2024 Atherosclerosis of aorta 04/26/2023 Hypertensive kidney disease with stage 3b chronic kidney disease 04/26/2023 Atherosclerosis of coronary artery of [place] heart without angina pectoris 04/26/2023 Thyroid nodule [...] as of this encounter (statuses as of 11/28/2024) Resolved Problems Problem Noted Date Diagnosed Date [...] as of this encounter (statuses as of 11/28/2024) Immunizations Name Administration Dates Next Due COVID-19 mRNA, LNP-s, No Pre serve, 2-Dose Series (charity: water) 07/25/2021,12/27/2020,11/29/2020 COVID-19, LNP-s, No Preserve , Binh-sucrose, [...] Care Team (Late st Contact Info) Description 12/03/2024 12:00 PM EST Imaging Vascular Lab, [facility] 2nd [facility] [place] [address] [place] [address] 12/04/2024 1:00 PM EST Imaging Radiology [facility] 1st [facility] [place] [address] [place] [address] 12/04/2024 1:15 PM EST Imaging Radiology [facility] 1st [facility] [place] [address] [place] [address] 12/18/2024 10:30 AM EST Office Visit Cardiology, [facility] [address] [place] [address] Thomas Burleson PA-C [address] [place] [address] 12/26/2024 10:50 AM EDT Office Visit Vascular Surgery, [facility] [address] [place] [address] Scott Lee MD [address] [place] [address] 12/26/2024 12:30 PM EDT Office Visit Gastroenterology, [facility] [address] [place] [address] Merlin Terrazas CRNP [address] [place] [place] [address] 05/16/2025 8:00 AM EDT Office Visit [facility] [address] [facility] [place] [phone] Rafat Josue MD [address] [place] [address] Pending Results Name Type Priority Associated Diagnoses Date /Time CREATININE Lab Routine Atherosclerosis of aorta (HCC) 11/28/2024 8:08 AM EST Health Maintenance Due Date Last Done Comments Adult Wellness Visit 09/05/2021 09/05/2020 *BISPHONATE OR OTHER ACCEPTABLE MEDICATION NEEDED FOR OSTEOPOROSIS (REFER TO SMARTSET #1146) 09/16/2024 *NEPHROLOGY REFERRAL DUE TO RESISTANT HTN 11/15/2024 Albumin/Creatinine Ratio 05/10/2025 05/10/2024, 03/18 CKD PHOS USE SMARTSET 16359 05/10/202504/17, 04/14/2023, 11/03/2020, Additional history exists Depression Screening 07/13/2025 07/13/2024 TSH 08/27/2025 08/27/2024, 04/17, 04/14/2023, Additional history exists CKD HGB USE SMARTSET 87358 11/20/202511/20, 08/27/2024, 05/10/2024, Additional history exists DXA Scan 06/08/2026 06/08/2024, 05/18, 05/21/2019, Additional history exists DTap/Tdap Vaccines Discontinued 03/14/2013, 1 12/05/2001, 09/16/1992 Pneumococcal Vaccine: 50+ Years Completed 05/10/2016, 11/10/2006, 11/09/1999 Zoster Vaccines Completed 11/21/2018, 04/16, 04/16/2018, Additional history exists VITAMIN D LEVEL ONCE IN A LIFETIME-USE SMARTSET# 31203 Completed 04/14/2023, 08/04/2021, 11/03/2020, Additional history exists COVID-19 Vaccine Completed 06/15/2024, 08/2023, 08/10/2022, Additional history exists Influenza Vaccine (FLU shot) [...] as of this encounter Visit Diagnoses Diagnosis Atherosclerosis of aorta (HCC) Atherosclerosis of aorta documented in this encounter Advance Directives Documents on File Type Date Recorded Patient Manager Mall Expl anation Advance Directives and Living Will 09/26/2015 LIVING WILL LIVING W ILL Power of Gallery Host 09/26/2015 POWER OF A TTORNEY POWER OF LICENSED APPRAISER Care Teams Assistant Professor Relationship Specialty Start Date End Date Rafat Josue MD [address] [place] [address] PCP - General 12/31/02 documented as of this encounter
--- OUTSIDE RECORDS SUMMARY | 2025-01-17 07:30 | External Medical Summary | Summary of Care ---
Author Name Unknown Organization [facility] Address [address] [place] [address] Phone [phone] Care Team Providers Care Batch Tank Controller Name Role Phone Rafat Josue MD Primary Care Provider [phone]- [phone] Reason for Visit * Reason Onset Date Comments Test Results 12/05/2024 Unexpected or In determinate Result Encounter Details Date Type Department Care Team (Late st Contact Info) Description 12/05/2024 Telephone Vascular Surgery, [facility] [address] [place] [address] Rigoberto Arias CRNP [address] [place] [address] Test Results (Unexpected or Indeterminate ... Allergies No known active allergiesdocumented as of this encounter (statuses as of 12/05/2024) Medications CALCIUM 500 +D 500-400 MG-UNIT PO TABS Take 2 Tablets by mouth daily. 60 Tab 5 1 Active ASPIRIN EC 81 MG PO TBEC Take 1 Tablet by mouth in the morning. 100 Tab 5 1 Active Vitamin D 50 MCG (2000 UT) Oral Capsule Take 2,000 Units by [...] as of this encounter (statuses as of 12/05/2024) Active Problems Problem Noted Date Diagnosed Date Varicose veins of bilateral lower extremities with other complications 10/24/2024 Other pancytopenia 10/04/2024 History of [place] (myocardial infarction) 08/06/2024 Former smoker 01/17/2024 Atherosclerosis of aorta 04/26/2023 Hypertensive kidney disease with stage 3b chronic kidney disease 04/26/2023 Atherosclerosis of coronary artery of [place] heart without angina pectoris 04/26/2023 Thyroid nodule [...] as of this encounter (statuses as of 12/05/2024) Resolved Problems Problem Noted Date Diagnosed Date [...] as of this encounter (statuses as of 12/05/2024) Immunizations Name Administration Dates Next Due COVID-19 mRNA, LNP-s, No Pre serve, 2-Dose Series ([employer]) 07/25/2021,12/27/2020,11/29/2020 COVID-19, LNP-s, No Preserve , Binh-sucrose, [...] encounter Miscellaneous Notes * Telephone Encounter - Werner Mahmood OSA - 12/05/2024 1:44 PM EST Hello- The radiologist discovered an unexpected or indeterminate finding on Shiloh Ryan ([id number]) and asks that you review the following report. Study Type: CTA ABD AORTA/FEM RUNOFF W CONTRAST 12/04/2024 IMPRESSION 1. Severe stenosis about the origin of [...] 0.4 cm. Recommend further evaluation with MRI/MRCP. Please respond to this encounter to acknowledge receipt of this message and take responsibility to ensure this report is reviewed. Thank you, Werner F Bodman, LUNA Client Service Rep [facility] [place] documented in this encounter Plan of Treatment Upcoming Encounters Date Type Department Care Team (Late st Contact Info) Description 12/18/2024 10:30 AM EST Office Visit Cardiology, [facility] [place] [address] Thomas Burleson PA-C [address] [place] [address] 12/26/2024 10:50 AM EDT Office Visit Vascular Surgery, [facility] [address] [facility] [place] [address] Scott Lee MD [address] [place] [address] 12/26/2024 12:30 PM EDT Office Visit Gastroenterology, [facility] [address] [facility] [place] [address] Merlin Terrazas CRNP [address] [facility] [place] [address] 05/16/2025 8:00 AM EDT Office Visit [facility] [address] [facility] [place] [phone] Rafat Josue MD [address] [facility] [place] [address] Health Maintenance Due Date Last Done Comments Adult Wellness Visit 09/05/2021 09/05/2020 *BISPHONATE OR OTHER ACCEPTABLE MEDICATION NEEDED FOR OSTEOPOROSIS (REFER TO SMARTSET #1146) 09/16/2024 *NEPHROLOGY REFERRAL DUE TO RESISTANT HTN 11/15/2024 COVID-19 Vaccine ( season) 2024 06/15/2024, 09/26/2023, 08/10/2022, Additional history exists Albumin/Creatinine Ratio 05/10/2025 05/10/2024, 03/18 CKD PHOS USE SMARTSET 00801 05/10/202504/17, 04/14/2023, 11/03/2020, Additional history exists Depression Screening 07/13/2025 07/13/2024 TSH 08/27/2025 08/27/2024, 04/17, 04/14/2023, Additional history exists CKD HGB USE SMARTSET 15571 11/20/202511/20, 08/27/2024, 05/10/2024, Additional history exists DXA Scan 06/08/2026 06/08/2024, 05/18, 05/21/2019, Additional history exists DTap/Tdap Vaccines Discontinued 03/14/2013, 1 12/05/2001, 09/16/1992 Pneumococcal Vaccine: 50+ Years Completed 05/10/2016, 11/10/2006, 11/09/1999 Zoster Vaccines Completed 11/21/2018, 04/16, 04/16/2018, Additional history exists VITAMIN D LEVEL ONCE IN A LIFETIME-USE SMARTSET# 81972 Completed 04/14/2023, 08/04/2021, 11/03/2020, Additional history exists [...] Documents on File Type Date Recorded Patient Store Consultant Expl anation Advance Directives and Living Will 09/26/2015 LIVING WILL LIVING W ILL Power of Collateral Analyst 09/26/2015 POWER OF A TTORNEY POWER OF ASSET MANAGEMENT LEAD Care Teams Batch Tank Controller Relationship Specialty Start Date End Date Oesterling, Rafat R, MD [address] [place] [address] PCP - General 12/31/02 documented as of this encounter
--- OUTSIDE RECORDS SUMMARY | 2025-01-17 07:30 | External Medical Summary | Summary of Care ---
Author Name Unknown Organization [facility] Address [address] [place] [address] Phone [phone] Care Team Providers Care Precision Agriculture Technician Name Role Phone Rafat Josue MD Primary Care Provider [phone]- [phone] Reason for Referral * Precert (Diagnostic Medical) (Within 10 days (routine)) - Authorized Specialty Diagnoses / Procedures Referred By Minnie t Referred To Contact Cardiac Studies Diagnoses Preoperative cardiovascular examination Procedures ECHO, COMPLETE (2D), TRANS-THORACIC Thomas Burleson PA-C [address] [place] [address] Phone: tel: fax: Referral ID Status Reason Start Date Expiration Date V isits Requested Visits Authorized [id number] Authorized Precert 12/19/2024 999 999 Reason for Visit * Reason Comments Follow Up Encounter Details Date Type Department Care Team (Latest Contact Info) Description 12/18/2024 10:30 AM EST Office Visit Cardiology, [facility] [address] [place] [address] Thomas Burleson PA-C [address] [place] [address] ASCVD (arteriosclerotic cardiovascular disease)*; Preoperative cardiovascular examination; HTN, goal below 140/90; Dyslipidemia, goal LDL below 70; NSTEMI (non-ST elevation myocardial infarction) (HCC); Unequal blood pressure in upper extremities Allergies No known active allergiesdocumented as of this encounter (statuses as of 12/19/2024) Medications CALCIUM 500 +D 500-400 MG-UNIT PO [...] as of this encounter (statuses as of 12/19/2024) Active Problems Problem Noted Date Diagnosed Date Varicose veins of bilateral lower extremities with other complications 10/24/2024 Other pancytopenia 10/04/2024 History of [place] (myocardial infarction) 08/06/2024 Former smoker 01/17/2024 Atherosclerosis of aorta 04/26/2023 Hypertensive kidney disease with stage 3b chronic kidney disease 04/26/2023 Atherosclerosis of coronary artery of [place] heart without angina pectoris 04/26/2023 Thyroid nodule [...] as of this encounter (statuses as of 12/19/2024) Resolved Problems Problem Noted Date Diagnosed Date [...] as of this encounter (statuses as of 12/19/2024) Immunizations Name Administration Dates Next Due COVID-19 mRNA, LNP-s, No Pre serve, 2-Dose Series ([employer]) 07/25/2021,12/27/2020,11/29/2020 COVID-19, LNP-s, No Preserve , Binh-sucrose, [...] Past Smokeless Tobacco: Never Tobacco Cessation:Counseling Given: Not Answered Comments:QUIT 1969 Alcohol Use Standard Drinks/Week Comments [...] Sign Reading Time Taken Comments Blood Pressure 134/54 12/18/2024 10:33 AM EST Pulse 68 12/18/2024 10:25 AM EST Temperature - - Respiratory Rate 14 12/18/2024 10:25 AM EST Oxygen Saturation - - Inhaled Oxygen Concentration - - Weight 63 kg (139 lb) 12/18/2024 10:25 AM EST Height - - Body Mass Index 26.26 11/12/2024 2:30 PM EST documented in this encounter Progress Notes * Thomas Burleson PA-C - 12/18/2024 10:30 AM EST History of Present Illness: Shiloh Ryan is a 89-year-old female who was scheduled today for routine three-month follow-up. Patient admitted to [facility] July 11, 2024, presenting with chest pain, unstable angina, NSTEMI. Blood pressure significantly elevated on presentation. EKG with T-wave inversions in the anterolateral precordial leads. High sensitivity troponin was elevated. Resting echocardiography revealing mildly reduced LV systolic function, EF 40-45%, with moderate size apical wall motion abnormality, mild MR and TR, estimate pulmonary pressure 46 mmHg. July 11, 2024 diagnosticcardiac catheterization with multivessel coronary artery disease including an acute 98% proximal LAD stenosis, 50% mid LAD stenosis, 50% distal circumflex stenosis, and a 40 to 50% diffuse mid RCA stenosis. Normal intracardiac filling pressures noted. Patient status post PCI of the proximal LAD with a single drug-eluting stent. Last seen in this office by Dr. Roberson in August 2024. Message received from Vascular Surgery yesterday. Vascular follow-up scheduled on December 26, 2024. Patient likely in need of right femoral endarterectomy and right iliac stenting. Preoperative Cardiology clearance requested. Patient with significant, limiting, right lower extremity claudication. Scheduled to be seen by GI in December 26, 2024 due to positive FOBT testing when undergoing evaluation for anemia Following with the [facility] program regarding pulmonary nodule Looking to move to [place] this summer No chest pain, palpitations, or unusual shortness of breath. No fluid retention. No dizziness, nearsyncope, or syncope. No arm claudication. No unilateral complaints to suggest TIA/CVA. No amaurosisfugax. No melena, hematochezia, or hematuria. Problem List: Multivessel coronary artery disease. Patient status post PCI of the proximal LAD with a single drug-eluting stent in June 2024 Ischemic cardiomyopathy, LVEF 45% via prior echocardiogram in June 2024 Hypertension Dyslipidemia. LDL cholesterol goal less than 70 mg/dL Reformed smoker Peripheral vascular disease followed by [facility] Vascular Surgery - 50 to 69% bilateral internal carotid artery stenosis, greater than 70% bilateral subclavian artery stenosis, remote lacunar infarct unrelated to carotid disease, imaging with significant ostial calcified plaque of both renal arteries and significant ostial calcified plaque of celiac and superior mesenteric artery, severe stenosis about the origin of the right common iliac artery, severe stenosis about the right common femoral artery, multifocal severe stenoses about the right SFA and above the knee popliteal artery, multifocal severe stenoses about the left SFA. Stage 3 chronic kidney disease Anemia Lung nodule Hypothyroidism GERD Diffuse pancreatic atrophy and diffuse pancreatic ductal dilatation measuring up to 0.4 cm. Patient Active Problem List Diagnosis HTN, goal below 140/90 Dyslipidemia, goal LDL below 130 Age-related osteoporosis without current pathological fracture Hypothyroidism History of lacunar cerebrovascular accident Vitamin D deficiency Chronic kidney disease, stage 3b Atherosclerosis of aorta (HCC) Hypertensive kidney disease with stage 3b chronic kidney disease (HCC) Atherosclerosis of coronary artery of [place] heart without angina pectoris Thyroid nodule Former smoker Nodule of upper lobe of left lung History of [place] (myocardial infarction) Other pancytopenia (HCC) Varicose veins of bilateral lower extremities with other complications Past Medical History: Diagnosis Date Allergic conjunctivitis, Other Esophageal reflux HTN, goal below 140/90 Past Surgical History: Procedure Laterality Date BIOPSY OF BREAST, OPEN 1970 Breast Biopsy, Benign Disease CARPAL TUNNEL SURGERY Left 01/11/2017 left NEUROPLASTY MEDIAN NERVE AT CARPAL TUNNEL performed by Yaw Campbell MD at OR [facility] COLONOSCOPY 02/17 incomplete, needed barium enema REMOVAL OF RUPTURED APPENDIX 12/18/00 Appendectomy, Rupt Appendx REMOVE LUMBAR SPINE LAMINA, 3+ SEGS [facility] Lumbar Disk Excision TOTAL HYSTERECTOMY 1977 VICK (Total Abdominal Hysterectomy) Family History Problem Relation Name Age of Onset Heart Disorder Mother DEC AGE 72/ Stroke Mother Hypertension Mother Heart Disorder Grandmother (Maternal) Sep Heart Disorder Grandfather (Maternal) Heart Disorder Brother CABG Heart Disorder Brother CABG Hypertension Brother Heart Disorder Brother [facility] ByPass surgery Heart Disorder Brother [facility] ByPass surgery Social History Socioeconomic History [...] Stability Do you currently live in a [place] health care facility or have no steady place to sleep [...] - for ages0-17 years): Not on file Complete Review of Systems is as stated above, negative, or noncontributory. Review of patient's allergies indicates: No Known Allergies Current Outpatient Medications Medication Sig Dispense Refill CALCIUM 500 +D 500-400 MG-UNIT PO TABS Take 2 Tablets by mouth daily. 60 Tab 5 ASPIRIN EC 81 MG PO TBEC Take 1 Tablet by mouth in the morning. 100 Tab 5 Vitamin D 50 MCG (2000 UT) Oral Capsule Take 2,000 Units by mouth in the morning. Vitamin B-12 [...] by mouth once daily 90 Tablet 3 Mupirocin 2 % External Ointment (Bactroban) Apply to affected areas 2-3x daily until healed (Patient not taking: Reported on 11/21/2024) 22 g 1 No current facility-administered medications for this visit. OBJECTIVE/PHYSICAL EXAMINATION: BP 134/54 (BP Site: Right Arm, BP Position: Sitting, BP Cuff Size: Regular) | Pulse 68 | Resp 14 | Wt 63 kg (139 lb) | BMI 26.26 kg/m² | BSA 1.65 m² General: Alert and oriented x3. No acute distress. Pleasant. Comfortable. Cooperative. Eyes: PER. Conjunctiva pink, sclera clear. HENT: Normocephalic. Atraumatic. Neck: Bilateral carotid bruits. No JVD. Heart: RRR. Grade II/ systolic murmur. No diastolic murmur. Lungs: Clear to auscultation. No wheeze. No rales. No rhonchi Abdomen: +BS. Soft. Nontender. No masses. No organomegaly. Extremities: Healing wound on the right mid to distal eisenberg. No cellulitis. No lower extremity peripheral edema. Posterior tibial and dorsalis pedis pulses were nonpalpable on the right. Posterior tibial pulse was 2/4 on the left. Radial pulses were both 2/4 Limited neurological examination: No focal deficit. Data: Summary of cardiac catheterization performed 07/11/24 at [facility] by Dr Castillo: Procedure performed via the right radial artery Findings: LM -normal caliber, calcified, luminal irregularities. LAD -medium caliber, calcified, acute 98% proximal stenosis, 50% mid segment disease after takeoff of small D2. Distal vessel without significant disease and PETE II-III flow around apex. Circumflex -medium caliber, calcified, 30% ostial/proximal disease, 50% distal disease prior to takeoff of OM 2. Medium left PLB with 30% proximal disease RCA -dominant, medium caliber, heavily calcified, 30% proximal, diffuse 40-50% mid segment disease,distal luminal irregularities. Small PDA 25% proximal disease. Faint right to left collaterals. LVEDP -13 -- PCI -- Antithrombotic therapy: Heparin, clopidogrel Procedure: Left main cannulated with EBU 3.5 guide Pre-procedure flow PETE 2-3 Instantizer Operator 50 wire passed across lesion into distal vessel Proximal LAD lesion predilated with 2.0 compliant balloon Dilated lesion stented with 2.75 x 15 mm Darin drug-eluting stent Stent post-dilated with 3.0 noncompliant balloon IC vasodilators administered for spasm Post procedure PETE 3 flow, stent well expanded with minimal residual stenosis and no apparent cardiac complications. Arterial Closure: TR band Summary: 1. Multivessel coronary artery disease -Acute 98% proximal LAD. 50% mid LAD - 50% distal circumflex - 40-50% diffuse mid RCA 2. Normal intracardiac filling pressure 3. Successful PCI of proximal LAD with single drug-eluting stent (2.75 x 15 mm Darin; postdilated with 3.0 NC). Loaded with clopidogrel 600 mg in University Manager. Continue dual-antiplatelet therapy for at least 1 year July 11, 2024 TTE ([facility]): Left ventricular systolic function is mildly reduced. Left ventricular ejection fraction 40 to 45%. Moderate size apical wall motion abnormality with akinesis of the segments. Mild mitral and tricuspid regurgitation. Estimated systolic pulmonary pressure 46 mmHg. ASSESSMENT AND RECOMMENDATIONS/PLAN: Asymptomatic multivessel coronary artery disease, ischemic cardiomyopathy Compensated volume status Hypertension, controlled Dyslipidemia. LDL cholesterol 46 mg/dL on November 20, 2023 Reformed smoker, with diffuse vascular disease, probable upcoming right lower extremity intervention as detailed above. Stage 3 chronic kidney disease Anemia Lung nodule, [facility] RECOMMENDATIONS/PLAN: Refer for resting echocardiography to assess systolic function and current valvular status No overt cardiac contraindications to vascular intervention (life limiting symptoms, at least moderate risk). Continue current cardiac medications as presently prescribed, without interruption. Follow-up with the results of the resting echocardiogram, routinely in 6 months if still local, or as needed Thomas Burleson PA-C Department of Cardiology I spent a total of 30-39 minutes (exact time 38 mins) on the date of service in preparation, delivery, and documentation of the care provided to Shiolh Ryan excluding any time spent in the performance of separately billed services. This visit involved medical care services related to at least one serious condition or complex condition requiring ongoing care. This chart was completed in part utilizing [employer] Speech Voice Recognition Software. Grammatical errors, random word insertions, prounoun errors, and incomplete sentences are an occasional consequence of this system due to software limitations, ambient noise, and hardware issues. Any formal questions or concerns about the content, text, or information contained within the body of this dictation should be directly addressed to the provider for clarification. documented in this encounter Nursing Notes * Jenelle Franklin CMA - 12/18/2024 10:28 AM EST Examination Room: 2 Name: Shiloh Ryan Date of : (1935). Reason for Visit: 3M f/u Interim Hospitalization(s): none Problems/Concerns: Denies cardiac concerns. Appt with Dr. Lee on 12/20/24. Chest Pain/SOB: denies [facility] Discussed: No [facility] is a way you can talk to your provider online through e-mail. Would you like to sign up? I can activate it for you? ALREADY ACTIVE Patient was instructed to not get up on the exam table until directed and assisted by their provider; patient is to remain seated in the chair/ wheelchair/ exam table for fall prevention and safety reasons. Patient is aware to have assistance to step down off exam table with personnel. Patient voiced full comprehension of instructions. documented in this encounter Plan of Treatment Upcoming Encounters Date Type Department Care Team (Late st Contact Info) Description 12/20/2024 11:00 AM EST Cardiac Studies Cardiac Studies, [facility] [address] [facility] [place] [address] 12/25/2024 10:00 AM EDT Office Visit Radiation Oncology, [facility] [address] [place] [address] Oscar Nava MD [address] [place] [id number] 12/26/2024 10:50 AM EDT Office Visit Vascular Surgery, [facility] [address] [facility] [place] [address] Scott Lee MD [address] [place] [address] 12/26/2024 12:30 PM EDT Office Visit Gastroenterology, [facility] [address] [facility] [place] [address] Merlin Terrazas CRNP [address] [facility] [place] [address] 05/16/2025 8:00 AM EDT Office Visit [facility] [address] [place] [phone] Rafat Josue MD [address] [facility] [place] [address] 05/27/2025 10:30 AM EDT Office Visit Cardiology, [facility] [address] [facility] [place] [address] Thomas Burleson, PA-C [address] [place] [address] Scheduled Orders Name Type Priority Associated Diagnoses Orde r Schedule ECHO, COMPLETE (2D), TRANS-THORACIC Echocardiology Routine Preoperative cardiovascular examination Expected: 12/19/2024, Expires: 01/18/2027 Health Maintenance Due Date Last Done Comments Adult Wellness Visit 09/05/2021 09/05/2020 *BISPHONATE OR OTHER ACCEPTABLE MEDICATION NEEDED FOR OSTEOPOROSIS (REFER TO SMARTSET #1146) 09/16/2024 *NEPHROLOGY REFERRAL DUE TO RESISTANT HTN 11/15/2024 COVID-19 Vaccine ( season) 2024 06/15/2024, 09/26/2023, 08/10/2022, Additional history exists Albumin/Creatinine Ratio 05/10/2025 05/10/2024, 03/18 CKD PHOS USE SMARTSET 13699 05/10/202504/17, 04/14/2023, 11/03/2020, Additional history exists Depression Screening 07/13/2025 07/13/2024 TSH 08/27/2025 08/27/2024, 04/17, 04/14/2023, Additional history exists CKD HGB USE SMARTSET 89873 11/20/202511/20, 08/27/2024, 05/10/2024, Additional history exists DXA Scan 06/08/2026 06/08/2024, 05/18, 05/21/2019, Additional history exists DTap/Tdap Vaccines Discontinued 03/14/2013, 1 12/05/2001, 09/16/1992 Pneumococcal Vaccine: 50+ Years Completed 05/10/2016, 11/10/2006, 11/09/1999 Zoster Vaccines Completed 11/21/2018, 04/16, 04/16/2018, Additional history exists VITAMIN D LEVEL ONCE IN A LIFETIME-USE SMARTSET# [id number] Completed 04/14/2023, 08/04/2021, 11/03/2020, Additional history exists [...] as of this encounter Visit Diagnoses Diagnosis ASCVD (arteriosclerotic cardiovascular disease)- Primary Unspecified cardiovascular disease Preoperative cardiovascular examination Pre-operative cardiovascular examination HTN, goal below 140/90 Unspecified essential hypertension Dyslipidemia, goal LDL below 70 Other and unspecified hyperlipidemia NSTEMI (non-ST elevation myocardial infarction) (HCC) Acute myocardial infarction, subendocardial infarction, episode of care unspecified Unequal blood pressure in upper extremities documented in this encounter Advance Directives Documents on File Type Date Recorded Patient Base Filler Operator Expl anation Advance Directives and Living Will 09/26/2015 LIVING WILL LIVING W ILL Power of Brand Representative 09/26/2015 POWER OF A TTORNEY POWER OF MAIL DELIVERY SUPERVISOR Care Teams Precision Agriculture Technician Relationship Specialty Start Date End Date Rafat Josue MD [address] [place] [address] PCP - General 12/31/02 documented as of this encounter"
--- OUTSIDE RECORDS SUMMARY | 2025-01-17 07:30 | External Medical Summary | Summary of Care ---
Author Name Unknown Organization [facility] Address [address] [place] [address] Phone [phone] Care Team Providers Care Test Desk Operator Name Role Phone Rafat Josue MD Primary Care Provider [phone]- [phone] Reason for Referral * Evaluate & Treat - Unlimited Visits (Within 10 days (routine)) - Authorized Specialty Diagnoses / Procedures Referred By Minnie armstrong Referred To Contact Radiation Oncology Diagnoses Lung nodule Jacqueline Young CRNP [address] [place] [address] Phone: tel: fax: Referral ID Status Reason Start Date Expiration Date Visits Requested Visits Authorized [id number] Authorized Specialty Services Required 12/13/2024 999 999 [...] Contact Info) Description 12/10/2024 Telephone Pulmonary Medicine, [place] [address] [place] [address] Jacqueline Young CRNP [address] [place] [address] Test Results Allergies No known active allergiesdocumented as of this encounter (statuses as of 12/14/2024) Medications CALCIUM 500 +D 500-400 MG-UNIT PO [...] as of this encounter (statuses as of 12/14/2024) Active Problems Problem Noted Date Diagnosed Date Varicose veins of bilateral lower extremities with other complications 10/24/2024 Other pancytopenia 10/04/2024 History of [place] (myocardial infarction) 08/06/2024 Former smoker 01/17/2024 Atherosclerosis of aorta 04/26/2023 Hypertensive kidney disease with stage 3b chronic kidney disease 04/26/2023 Atherosclerosis of coronary artery of [place] heart without angina pectoris 04/26/2023 Thyroid nodule [...] as of this encounter (statuses as of 12/14/2024) Resolved Problems Problem Noted Date Diagnosed Date [...] as of this encounter (statuses as of 12/14/2024) Immunizations Name Administration Dates Next Due COVID-19 mRNA, LNP-s, No Pre serve, 2-Dose Series ([employer]) 07/25/2021,12/27/2020,11/29/2020 COVID-19, LNP-s, No Preserve , Binh-sucrose, [...] encounter Miscellaneous Notes * Telephone Encounter - Jacqueline Young CRNP [...] Jacqueline Young. Reached out to Hector via [place] Text to make her aware of the pt waiting on hold, Hector stated she will call the pt back. Relayed Hector's message to pt. Pt understood and awaits your call. Pt is best reached at the number below: [phone] Please review and advise * Telephone Encounter [...] 12/18/2024 10:30 AM EST Office Visit Cardiology, [facility] [address] [facility] [place] [address] Thomas Burleson PA-C [facility] [place] [address] 12/26/2024 10:50 AM EDT Office Visit Vascular Surgery, [facility] [address] [facility] [place] [address] Scott Lee MD [address] [place] [address] 12/26/2024 12:30 PM EDT Office Visit Gastroenterology, [facility] [address] [facility] [place] [address] Merlin Terrazas CRNP [address] [facility] [place] [address] 05/16/2025 8:00 AM EDT Office Visit [facility] [address] [facility] [place] [phone] Rafat Josue MD [address] [place] [address] Scheduled Referrals Name Type Priority Associated Diagnoses [...] 05/10/2025 05/10/2024, 03/18 CKD PHOS USE SMARTSET 44470 05/10/202504/17, 04/14/2023, 11/03/2020, Additional history exists Depression Screening 07/13/2025 07/13/2024 TSH 08/27/2025 08/27/2024, 04/17, 04/14/2023, Additional history exists CKD HGB USE SMARTSET 00415 11/20/202511/20, 08/27/2024, 05/10/2024, Additional history exists DXA Scan 06/08/2026 06/08/2024, 05/18, 05/21/2019, Additional history exists DTap/Tdap Vaccines Discontinued 03/14/2013, 1 12/05/2001, 09/16/1992 Pneumococcal Vaccine: 50+ Years Completed 05/10/2016, 11/10/2006, 11/09/1999 Zoster Vaccines Completed 11/21/2018, 04/16, 04/16/2018, Additional history exists VITAMIN D LEVEL ONCE IN A LIFETIME-USE SMARTSET# [id number] Completed 04/14/2023, 08/04/2021, 11/03/2020, Additional history exists [...] Documents on File Type Date Recorded Patient Events Manager Expl anation Advance Directives and Living Will 09/26/2015 LIVING WILL LIVING W ILL Power of Sql Server Dba 09/26/2015 POWER OF A TTORNEY POWER OF FINANCIAL ANALYST Care Teams Test Desk Operator Relationship Specialty Start Date End Date Rafat Josue MD [address] [place] [address] PCP - General 12/31/02 documented as of this encounter
--- OUTSIDE RECORDS SUMMARY | 2025-01-17 07:30 | External Medical Summary ---
Author Name Unknown Address Unknown Organization K01:[facility] - [address] [place] [address] Laboratory Report Ordering Provider Test Date Status CHAPIS HENOA 11/28/2024 08:08:37 Final Observation Date Value Abnormality Reference (Units ) Status Creatinine 11/28/2024 08:08:37 1.4 Above high normal 0.5-1.0 (mg/dL) Final Glomerular filtration rate/1.73 sq M.predicted [Volume Rate/Area] in Serum, Plasma or Blood by Creatinine-based formula (CKD-EPI) 11/28/2024 08:08:37 38 Below low normal >=60 (mL/min) Final eGFR is calculated based on the CKD-EPI 2020 equation. Performing Location [facility] - [address] [place] [address]
--- OUTSIDE RECORDS SUMMARY | 2025-01-17 07:30 | External Medical Summary | Summary of Care ---
Author Name Unknown Organization [facility] Address [address] [place] [address] Phone [phone] Care Team Providers Care Lumber Stacker Operator Name Role Phone Rafat Josue MD Primary Care Provider [phone] Reason for Referral * Evaluate & Treat - Unlimited Visits (Within 10 days (routine)) - Authorized Specialty Diagnoses / Procedures Referred By Minnie armstrong Referred To Contact Radiation Oncology Diagnoses Lung nodule Jacqueline Young CRNP [address] [place] [address] Phone: tel: fax: Referral ID Status Reason Start Date Expiration Date Visits Requested Visits Authorized [id number] Authorized Specialty Services Required 12/13/[phone] [...] Contact Info) Description 12/10/2024 Telephone Pulmonary Medicine, [place] [address] [place] [address] Jacqueline Young CRNP [address] [place] [address] Test Results Allergies No known active allergiesdocumented [...] complications 10/24/2024 Other pancytopenia 10/04/2024 History of ID (myocardial infarction) 08/06/2024 Former smoker 01/17/2024 Atherosclerosis of aorta 04/26/2023 Hypertensive kidney disease with stage 3b chronic kidney disease 04/26/2023 Atherosclerosis of coronary artery of [place] heart without angina pectoris 04/26/2023 Thyroid nodule [...] mRNA, LNP-s, No Pre serve, 2-Dose Series (Mobifusion) 07/25/2021,12/27/2020,11/29/2020 COVID-19, LNP-s, No Preserve , Binh-sucrose, [...] encounter Miscellaneous Notes * Telephone Encounter - Elizabeth Reyes OSA - 12/19/2024 3:28 PM EST Patient's daughter, Aisha, calling to say that patient will not be able to drive to [place] to be seen by radiation Oncology. Patent asks that the referral be faxed to [facility]. Aisha asks for a callto [phone] when the referral is faxed * Telephone [...] Jacqueline Young. Reached out to Hector via [place] Text to make her aware of the pt waiting on hold, Hector stated she will call the pt back. Relayed Hector's message to pt. Pt understood and awaits your call. Pt is best reached at the number below: [phone] Please review and advise * Telephone Encounter [...] 11:00 AM EST Cardiac Studies Cardiac Studies, [facility] [address] [facility] [place] [address] 12/26/2024 10:50 AM EDT Office Visit Vascular Surgery, [facility] [address] [facility] [place] [address] Scott Lee MD [address] [facility] [address] 12/26/2024 12:30 PM EDT Office Visit Gastroenterology, [facility] [address] [facility] [place] [address] Merlin Terrazas CRNP [address] [place] [address] 05/16/2025 8:00 AM EDT Office Visit [facility] [place] [id number] Rafat Josue MD [address] [place] [address] 05/27/2025 10:30 AM EDT Office Visit Cardiology, [facility] [address] [place] [address] Thomas Burleson PA-C [address] [place] [address] Scheduled Referrals Name Type Priority Associated Diagnoses [...] 05/10/2025 05/10/2024, 03/18 CKD PHOS USE SMARTSET 32480 05/10/202504/17, 04/14/2023, 11/03/2020, Additional history exists Depression Screening 07/13/2025 07/13/2024 TSH 08/27/2025 08/27/2024, 04/17, 04/14/2023, Additional history exists CKD HGB USE SMARTSET [id number] 11/20/202511/20, 08/27/2024, 05/10/2024, Additional history exists DXA Scan 06/08/2026 06/08/2024, 05/18, 05/21/2019, Additional history exists DTap/Tdap Vaccines Discontinued 03/14/2013, 1 12/05/2001, 09/16/1992 Pneumococcal Vaccine: 50+ Years Completed 05/10/2016, 11/10/2006, 11/09/1999 Zoster Vaccines Completed 11/21/2018, 04/16, 04/16/2018, Additional history exists VITAMIN D LEVEL ONCE IN A LIFETIME-USE SMARTSET# [id number] Completed 04/14/2023, 08/04/2021, 11/03/2020, Additional history exists [...] Documents on File Type Date Recorded Patient Global Risk Management Director Expl anation Advance Directives and Living Will 09/26/2015 LIVING WILL LIVING W ILL Power of French Binding Folder 09/26/2015 POWER OF A TTORNEY POWER OF MEDICAL LAB TECHNOLOGIST Care Teams Lumber Stacker Operator Relationship Specialty Start Date End Date Rafat Josue MD [address] [place] [address] PCP - General 12/31/02 documented as of this encounter
--- OUTSIDE RECORDS SUMMARY | 2025-01-17 07:30 | External Medical Summary | Summary of Care ---
Author Name Unknown Organization [facility] Address [address] [place] [address] Phone [phone] Care Team Providers Care [employer] Special Agent Name Role Phone Rafat Josue MD Primary Care Provider [phone] Reason for Referral * Precert (Within 10 days (routine)) - Authorized Specialty Diagnoses / Procedures Referred By Contac t Referred To Contact Radiology Diagnoses Atherosclerosis of aorta (HCC) Procedures CTA ABD AORTA/FEM RUNOFF W CONTRAST Rigoberto Arias CRNP [address] [place] [address] Phone: tel: fax: Referral ID Status Reason Start Date Expiration Date V isits Requested Visits Authorized [id number] Authorized 11/21/[phone] Reason for Visit * Reason Comments NEW PATIENT * Evaluate & Treat - Unlimited Visits (Within 30 days (routine)) - Authorized Specialty Diagnoses / Procedures Referred By Contact Referred To Contact Vascular Surgery / Cardiovascular Surgery Diagnoses Unequal blood pressure in upper extremities Subclavian arterial stenosis (HCC) Ean Roberson, DO [address] [place] [address] Phone: tel: fax: Referral ID Status Reason Start Date Expiration Date Visits Requested Visits Authorized [id number] Authorized Specialty Services Required 4 [phone] Encounter Details Date Type Department Care Team (Latest Contact Info) Description 11/21/2024 11:10 AM EST Office Visit V[facility] [address] [facility] [place] [address] Scott Lee MD [address] [facility] [place] [address] Atherosclerosis of aorta (HCC)* Allergies No known active allergiesdocumented as of this encounter (statuses as of 12/06/2024) Medications CALCIUM 500 +D 500-400 MG-UNIT PO [...] 90 Tablet 3 11/26/2024 6:38 PM EST 10/23/202 4 Active Vitamin C 1000 MG Oral [...] as of this encounter (statuses as of 12/06/2024) Active Problems Problem Noted Date Diagnosed Date Varicose veins of bilateral lower extremities with other complications 10/24/2024 Other pancytopenia 10/04/2024 History of DE (myocardial infarction) 08/06/2024 Former smoker 01/17/2024 Atherosclerosis of aorta 04/26/2023 Hypertensive kidney disease with stage 3b chronic kidney disease 04/26/2023 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 04/26/2023 Thyroid nodule [...] as of this encounter (statuses as of 12/06/2024) Resolved Problems Problem Noted Date Diagnosed Date [...] as of this encounter (statuses as of 12/06/2024) Immunizations Name Administration Dates Next Due COVID-19 mRNA, LNP-s, No Pre serve, 2-Dose Series (Everplans) 07/25/2021,12/27/2020,11/29/2020 COVID-19, LNP-s, No Preserve , Binh-sucrose, [...] Sign Reading Time Taken Comments Blood Pressure 158/62 11/21/2024 11:51 AM EST Pulse 84 11/21/2024 11:48 AM EST Temperature - - Respiratory Rate - - Oxygen Saturation - - Inhaled Oxygen Concentration - - Weight 63.2 kg (139 lb 4.8 oz) 11/21/2024 11:48 AM EST Height - - Body Mass Index 26.32 11/12/2024 2:30 PM EST documented in this encounter Progress Notes * Jose Bear PA-C - 11/21/2024 11:10 AM EST 12/06/2024 ADDENDUM: 12/04/2024 CTA with runoff: 1. Severe stenosis about [...] 0.4 cm. Recommend further evaluation with MRI/MRCP. Attempted to call Ms. Ryan to review results with no answer. Forwarded on above incidental finding to PCP, Rafat Josue MD, for review and further work up if deemed indicated. Will really finding to patient at next clinic visit on 12/26/2024. Date of Service: 11/21/2024 12:17 PM Shiloh Ryan is a 89 year old female. Patient being seen in consultation at the request of Rafat Josue MD Chief Complaint: New pt, carotid and subclavian arterial stenosis HPI: Patient is a reformed smoker w/ HTN, GERD, CKD III, Pancytopenia, Varicose veins BLE, S/P lacunar stroke CAROTID DISEASE: Patient denies recent TIA, recent stroke, and recent amaurosis fugax. 09/04/2024 Carotid duplex exam at [facility] identified the right internal carotid with 50-69% and the left internal carotid with 50-69%stenosis. 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 Thyroid nodule Former smoker Nodule of upper lobe of left lung History of DE (myocardial infarction) Other pancytopenia (HCC) Varicose veins of bilateral lower extremities with other complications Past Medical History: Diagnosis Date Allergic conjunctivitis, Other Esophageal reflux HTN, goal below 140/90 Past Surgical History: Procedure Laterality Date BIOPSY OF BREAST, OPEN 1970 Breast Biopsy, Benign Disease CARPAL TUNNEL SURGERY Left 01/11/2017 left NEUROPLASTY MEDIAN NERVE AT CARPAL TUNNEL performed by Yaw Campbell MD at [facility] COLONOSCOPY 02/17 incomplete, needed barium enema REMOVAL OF RUPTURED APPENDIX 12/18/00 Appendectomy, Rupt Appendx REMOVE LUMBAR SPINE LAMINA, 3+ SEGS [facility] Lumbar Disk Excision TOTAL HYSTERECTOMY 1977 VICK (Total Abdominal Hysterectomy) Family History Problem Relation Name Age of Onset Heart Disorder Mother SEP AGE 72/ Stroke Mother Hypertension Mother Heart Disorder Grandmother (Maternal) Sep Heart Disorder Grandfather (Maternal) Heart Disorder Brother CABG Heart Disorder Brother CABG Hypertension Brother Heart Disorder Brother [facility] ByPass surgery Heart Disorder Brother [facility] ByPass surgery Social History Socioeconomic History Marital status: Spouse name: CHASIDY Number of children: 2 Years of education: Not on file Highest education level: Not on file Occupational History Occupation: RETIRED Tobacco Use Smoking status: Former Current packs/day: 0.00 Average packs/day: 1 pack/day for 20.0 years (20.0 ttl pk-yrs) Types: Cigarettes Start date: 10/17/1949 Quit date: 10/17/1969 Years since quittin.1 Passive exposure: Past Smokeless tobacco: Never Tobacco [...] Insecurity: No Food Insecurity (07/13/2024) Food Insecurity Do you need food for this week? (Adult - for ages 18 years and over): No Are you able to get enough food for your family? (Household - for ages 0-17 years): Not on file Does your family need food this week? (Household - for ages 0-17 years): Not on file Do you always have enough food for your family? (Household - for ages 0-17 years): Not on file Transportation Needs: No Transportation Needs (07/13/2024) Transportation [...] Stability Do you currently live in a long term or have no steady place to sleep [...] pain, shortness of breath, palpitations, angina or DE Neurological: Positive for remote stroke. No recent stroke, TIA, or amaurosis fugax All other systems negative except for those noted above and in the history of present illness (HPI). GENERAL MULTI-SYSTEM PHYSICAL EXAM: VITAL SIGNS: There were no vitals taken for this visit. GENERAL MULTI-SYSTEM PHYSICAL EXAM:GENERAL: Normal grooming habits, no acute distress, and appears stated age. NECK: No masses and Normal Thyroid. RESPIRATORY: respiratory effort normal and breath sounds normal. CARDIOVASCULAR: no heart murmurs, no edema, Varicosities present non healing wound seen on the R eisenberg from biopsy. GASTROINTESTINAL: no tenderness, protuberant, and abdominal aorta [...] 3=Normal; 2=Diminished; 1=Barely Palpable; 0=Absent DIAGNOSTIC STUDIES: 09/04/24 Carotid Duplex: DOUG 244/47, LICA 198/40, Innom 196, RSCA 240, LSCA 266, ante verts. R armSBP 188, L arm SBP 190 05/23/[address] Chest: Significant ostial calcified plaque of celiac, SMA, and both renal arteries 07/09/22 CT Chest w/ IV: Significant ostial calcified plaque of celiac (with post stenotic dilatation) & SMA. The above vascular lab and CT scan images were directly visualized and independently interpreted byme on 11/21/2024 with results as above. LABS: Lab Results Component Value Date/Time CREATININE - [facility] 1.3 (H) 08/27/2024 09:11 AM CREATININE - [facility] 1.3 (H) 05/10/2024 08:33 AM CREATININE - [facility] 1.3 (H) 04/14/2023 09:24 AM CREATININE - [facility] 1.2 (H) 11/03/2020 08:45 AM CREATININE - [facility] 1.4 (H) 08/08/2019 08:19 AM CREATININE - [facility] 1.2 (H) 08/21/2018 07:31 AM CREATININE, RANDOM URINE - [facility] 101 05/10/2024 08:33 AM CREATININE, RANDOM URINE - [facility] 133 04/14/2023 09:38 AM CREATININE, RANDOM URINE - [facility] 127 02/14/2018 08:11 AM Lab Results Component Value Date/Time LDL CHOLESTEROL (CALCULATED) - [facility] 63 05/10/2024 08:33 AM LDL CHOLESTEROL (CALCULATED) - [facility] 77 11/03/2020 08:45 AM LDL CHOLESTEROL (DIRECT MEASURE) - [facility] NOT APPLICABLE 11/03/2020 08:45 AM LDL CHOLESTEROL (DIRECT MEASURE) - [facility] 95 02/14/2018 08:11 AM Hemoglobin Results: Lab Results Component Value Date/Time HGB 9.9 (L) 08/27/2024 09:11 AM HGB 10.9 (L) 05/10/2024 08:33 AM HGB 11.2 (L) 04/14/2023 09:24 AM HGB 11.0 (L) 11/03/2020 08:45 AM HGB 11.1 (L) 08/08/2019 08:19 AM HGB 11.0 (L) 08/21/2018 07:31 AM Lab Results Component Value Date/Time HEMOGLOBIN A1C - [facility] 5.7 09/25/1998 08:10 AM The above clinical labs were reviewed by me on 11/21/2024. IMPRESSIONS: Asymptomatic 50-69% B/L Carotid Stenosis Asymptomatic >70% [...] SMA Patient lacks signs/symptoms of mesenteric ischemia HTN. Dyslipidemia, on statin. Reformed smoker. Lung Nodule. Hypothyroidism. Anemia. PLAN: The patient was counseled regarding [...] future should she experience a clinic change. On assessment today she was found to have a slow healing biopsy wound on the R eisenberg. Furthermore, she reports IC in the RLE that has worsened over the last few years. 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 I want her to apply betadine to the RLE wound. I will have her come back with PIPE and CTA with runoff. I called her daughter, Trudi, and updated her on today's findings. Scott Lee MD Vascular Surgeon Department of Vascular Surgery [facility] documented in this encounter Nursing Notes * Blanca Prince CMA - 11/21/2024 11:51 AM EST Reviewed the option of transferring scripts to [facility] pharmacy with patient and / or family. Blanca Prince CMA documented in this encounter Plan of Treatment Upcoming Encounters Date Type Department Care Team (Late st Contact Info) Description 12/18/2024 10:30 AM EST Office Visit Cardiology, [facility] [address] [facility] [place] [address] Thomas Burleson PA-C [address] [place] [address] 12/26/2024 10:50 AM EDT Office Visit Vascular Surgery, [facility] [address] [facility] [place] [address] Scott Lee MD [address] [place] [address] 12/26/2024 12:30 PM EDT Office Visit Gastroenterology, [facility] [address] [facility] [place] [address] Merlin Terrazas CRNP [address] [place] [address] 05/16/2025 8:00 AM EDT Office Visit [facility] [address] [facility] [place] [phone] Rafat Josue MD [address] [place] [address] Scheduled Orders Name Type Priority Associated Diagnoses Orde r Schedule VASC ANKLE BRACHIAL INDICES WITHOUT PPG (PAD) Medical Imaging Routine Atherosclerosis of aorta (HCC) Ordered: 11/21/2024 Health Maintenance Due Date Last Done Comments Adult Wellness Visit 09/05/2021 09/05/2020 *BISPHONATE OR OTHER ACCEPTABLE MEDICATION NEEDED FOR OSTEOPOROSIS (REFER TO SMARTSET #1146) 09/16/2024 *NEPHROLOGY REFERRAL DUE TO RESISTANT HTN 11/15/2024 COVID-19 Vaccine () 12/14/2024 06/15/2024, 09/26/2023, 08/10/2022, Additional history exists Albumin/Creatinine Ratio 05/10/2025 05/10/2024, 03/18 CKD PHOS USE SMARTSET 57568 05/10/202504/17, 04/14/2023, 11/03/2020, Additional history exists Depression Screening 07/13/2025 07/13/2024 TSH 08/27/2025 08/27/2024, 04/17, 04/14/2023, Additional history exists CKD HGB USE SMARTSET 48718 11/20/202511/20, 08/27/2024, 05/10/2024, Additional history exists DXA Scan 06/08/2026 06/08/2024, 05/18, 05/21/2019, Additional history exists DTap/Tdap Vaccines Discontinued 03/14/2013, 1 12/05/2001, 09/16/1992 Pneumococcal Vaccine: 50+ Years Completed 05/10/2016, 11/10/2006, 11/09/1999 Zoster Vaccines Completed 11/21/2018, 04/16, 04/16/2018, Additional history exists VITAMIN D LEVEL ONCE IN A LIFETIME-USE SMARTSET# [id number] Completed 04/14/2023, 08/04/2021, 11/03/2020, Additional history exists [...] Procedure Name Priority Date/Time Associated Diagnosis Comments CTA ABD AORTA/FEM RUNOFF W CONTRAST Routine 12/04/2024 1:18 PM EST Atherosclerosis of aorta (HCC) VASC DUPLEX CAROTID BILAT Routine 12/03/2024 12:59 PM EST Atherosclerosis of aorta (HCC) documented in this encounter Results * CTA ABD AORTA/FEM RUNOFF W CONTRAST (12/04/2024 1:18 PM EST) Anatomical Region Laterality Modality Abdomen, Pelvis, Body, Lower Extremity Computed Tomography 12/05/2024 1:04 PM EST Impressions 12/05/2024 1:02 PM EST IMPRESSION 1. Severe stenosis about the origin [...] 0.4 cm. Recommend further evaluation with MRI/MRCP. Narrative 12/05/2024 1:[address] angiography of the abdomen and pelvis with run-off to the lower extremities obtained 12/04/2024 HISTORY Peripheral vascular disease. COMPARISON No recent relevant prior examination available for comparison TECHNIQUE An initial scan was performed without contrast through the abdomen, pelvis and bilateral lower extremities. Following the administration of intravenous contrast computed tomography was performed through the abdomen, pelvis and bilateral lower extremities in the arterial phase. Coronal and sagittal reconstructions were created from the axial data. Three-dimensional reconstructions were performed on a separate workstation. FINDINGS Vasculature: Aorta: Tortuous with scattered atherosclerotic plaques. Coral calcifications noted about the origin of the SMA and celiac arteries, attention on endovascular procedure. Renal: Severe stenosis about the right renal artery. Left renal artery is patent. Accessory left lower pole renal artery. Celiac: Severe stenosis/near occlusion the ostium with poststenotic dilatation.Partially calcified splenic artery aneurysm measuring up to 0.7 cm (series 7, image 95). Superior mesenteric: Moderate ostial narrowing from calcified atheromatous disease. Inferior mesenteric: Patent. Iliac: Severe stenosis about the origin of the right common iliac artery. Mild stenosis of the left common iliac artery. The iliac arteries are tortuous in course with atherosclerotic plaques throughout and otherwise, without evidence of severe stenosis. Right lower extremity: Femoral: Severe stenosis about the common femoral artery. The deep femoral artery is patent. Multifocal severe stenoses about the SFA. Popliteal: Multifocal severe stenoses about the above the knee popliteal artery. Anterior tibial: Occluded beyond the proximal 3rd of the tibia. Posterior tibial: Severe stenosis about the tibioperoneal trunk. The PT is patent to the ankle. Peroneal: Patent to the ankle. Left lower extremity: Femoral: Moderate stenosis about the common femoral artery. The deep femoral artery is patent. Multifocal severe stenoses about the SFA. Popliteal: Patent. Anterior tibial: Multifocal stenoses and occlusions, with reconstitution at the ankle. Posterior tibial: Severe stenosis about the tibioperoneal trunk. The PT is patent to the ankle. Peroneal: Patent to the ankle. Visualized thorax: Unremarkable. Hepatobiliary: Liver is grossly unremarkable. Cholelithiasis. Pancreas: Diffuse pancreatic atrophy and diffuse pancreatic ductal dilatation measuring up to 0.4 cm. Spleen: Unremarkable. Adrenal glands: Unremarkable. Kidneys, ureters and bladder: The kidneys enhance symmetrically. The bladder is within normal limits. Reproductive: Status post hysterectomy. Abdominopelvic lymph nodes: No lymphadenopathy. Peritoneum and retroperitoneum: Colonic diverticulosis.The small bowel and colon are normal in caliber. No free air or free fluid. Bones: No acute fracture or suspicious osseous lesion.No acute osseous abnormalities are identified. Soft tissues: Unremarkable. Procedure Note Ignacio Mckee MD - 12/05/[address] angiography of the abdomen and pelvis with run-off to the lowerextremities obtained 12/04/2024 HISTORY Peripheral vascular disease. COMPARISON No recent relevant prior examination available for comparison TECHNIQUE An initial scan was performed without contrast through the abdomen, pelvisand bilateral lower extremities. Following the administration ofintravenous contrast computed tomography was performed through theabdomen, pelvis and bilateral lower extremities in the arterial phase.Coronal and sagittal reconstructions were created from the axial data.Three-dimensional reconstructions were performed on a separateworkstation. FINDINGS Vasculature: Aorta: Tortuous with scattered atherosclerotic plaques. Coralcalcifications noted about the origin of the SMA and celiac arteries,attention on endovascular procedure. Renal: Severe stenosis about the right renal artery. Left renal artery ispatent. Accessory left lower pole renal artery. Celiac: Severe stenosis/near occlusion the ostium with poststenoticdilatation.Partially calcified splenic artery aneurysm measuring up to 0.7cm (series 7, image 95). Superior mesenteric: Moderate ostial narrowing from calcified atheromatousdisease. Inferior mesenteric: Patent. Iliac: Severe stenosis about the origin of the right common iliac artery.Mild stenosis of the left common iliac artery. The iliac arteries aretortuous in course with atherosclerotic plaques throughout and otherwise,without evidence of severe stenosis. Right lower extremity: Femoral: Severe stenosis about the common femoral artery. The deepfemoral artery is patent. Multifocal severe stenoses about the SFA. Popliteal: Multifocal severe stenoses about the above the knee poplitealartery. Anterior tibial: Occluded beyond the proximal 3rd of the tibia. Posterior tibial: Severe stenosis about the tibioperoneal trunk. The PT ispatent to the ankle. Peroneal: Patent to the ankle. Left lower extremity: Femoral: Moderate stenosis about the common femoral artery. The deepfemoral artery is patent. Multifocal severe stenoses about the SFA. Popliteal: Patent. Anterior tibial: Multifocal stenoses and occlusions, with reconstitutionat the ankle. Posterior tibial: Severe stenosis about the tibioperoneal trunk. The PTis patent to the ankle. Peroneal: Patent to the ankle. Visualized thorax: Unremarkable. Hepatobiliary: Liver is grossly unremarkable. Cholelithiasis. Pancreas: Diffuse pancreatic atrophy and diffuse pancreatic ductaldilatation measuring up to 0.4 cm. Spleen: Unremarkable. Adrenal glands: Unremarkable. Kidneys, ureters and bladder: The kidneys enhance symmetrically. Thebladder is within normal limits. Reproductive: Status post hysterectomy. Abdominopelvic lymph nodes: No lymphadenopathy. Peritoneum and retroperitoneum: Colonic diverticulosis.The small bowel andcolon are normal in caliber. No free air or free fluid. Bones: No acute fracture or suspicious osseous lesion.No acute osseousabnormalities are identified. Soft tissues: Unremarkable. IMPRESSION IMPRESSION 1. Severe stenosis about the origin of the right common iliac artery. 2. Severe stenosis about the right common femoral artery. Multifocalsevere stenoses about the right SFA and above the knee popliteal artery. 3. Two vessel runoff to the right ankle via the PT and peroneal artery. 4. Multifocal severe stenoses about the left SFA. 5. Two vessel runoff to the left ankle via the PT and peroneal artery. 6. Diffuse pancreatic atrophy and diffuse pancreatic ductal dilatationmeasuring up to 0.4 cm. Recommend further evaluation with MRI/MRCP. us Rigoberto Arias BOWSTRING MAKER RAD CT Final Resu lt * VASC DUPLEX CAROTID BILAT (12/03/2024 12:59 PM EST) Anatomical Region Laterality Modality Neck, Vascular Ultrasound Narrative 12/03/2024 3:39 PM EST VASCULAR LAB RESULTS DATE OF EXAM: 12/03/24 PRESENTING CONDITIONS: Known carotid and subclavian arterial disease This is an interpretation of an exam performed at [facility]. PHYSICIAN REPORT Carotid Artery Duplex Examination Immediately before proceeding with the vascular lab procedure reported below, the identity of the patient, the correct exam and the correct procedural site were verified. Varghese scale and color flow Doppler imaging was performed for evaluation of the right carotid artery. Duplex examination of the right carotid artery identifies atherosclerotic plaque at the carotid bifurcation. The plaque is calcified and appears to have an irregular surface. Color Doppler imaging was performed for evaluation of the right carotid bifurcation. Spectral analysis of the right internal carotid artery demonstrates peak systolic velocities of 205.0 cm/sec. Maximum end diastolic velocities are 27.0 cm/sec.. Peak right common carotid velocity is 103.0 cm/sec. The right internal carotid to common carotid ratio is 2.0. The right external carotid artery has a peak velocity of 151.0 centimeters per second. Varghese scale and color flow Doppler imaging was performed for the evaluation of the left carotid artery. Duplex examination of the left carotid artery identifies atherosclerotic plaque at the carotid bifurcation. The plaque is calcified and appears to have an irregular surface. Color Doppler imaging was performed for the evaluation of the left carotid bifurcation. Spectral analysis of the left internal carotid artery demonstrates peak systolic velocities of 200.0 cm/sec. Maximum end diastolic velocities are 44.0 cm/sec. Peak left common carotid velocity is 125.0 cm/sec. The left internal carotid to common carotid ratio is 1.6. The left external carotid artery has a peak velocity of 219.0 centimeters per second. The right vertebral artery demonstrates antegrade flow. The left vertebral artery demonstrates antegrade flow. Right subclavian artery has a peak systolic velocity of 255.0 centimeters per second. Left subclavian artery has a peak systolic velocity of 270.0 centimeters per second. Impression: Right carotid artery duplex examination indicates evidence of 50-69% stenosis of the internal carotid artery. Degree of stenosis may be greater than reported due to heavily calcified plaque. Left carotid artery duplex examination indicates evidence of 50-69% stenosis of the internal carotid artery. Degree of stenosis may be greater than reported due to heavily calcified plaque. Additional comments: Right subclavian artery with evidence of 50-69% stenosis. Left subclavian artery with evidence of 50-69% stenosis. Rigoberto TOMPKINS RAD VASCULAR Final Resu lt * (ABNORMAL) CREATININE (11/28/2024 8:08 AM EST) CREATININE 1.4(H) 0.5 - 1.0 mg/dL 11/28/2024 4:17 PM EST [facility] EGFR 38(L) >=60 mL/min 11/28/2024 4:17 PM EST [facility] Comment:eGFR is calculated b ased on the CKD-EPI 2020 equation. Blood Venous blood specimen / Unknown Venipuncture / Unknown 11/28/2024 8:08 AM EST 11/28/2024 8:08 AM EST Rigoberto TOMPKINS LAB BLOOD ORDERABLES Final Result [facility] [address] [facility] [place] [address] documented in this encounter Visit Diagnoses Diagnosis Atherosclerosis of aorta (HCC)- Primary Atherosclerosis of aorta documented in this encounter Advance Directives Documents on File Type Date Recorded Patient Student Officer Expl anation Advance Directives and Living Will 09/26/2015 LIVING WILL LIVING W ILL Power of Soft Crab Shedder 09/26/2015 POWER OF A TTORNEY POWER OF CURRICULUM AND INSTRUCTION SPECIALIST Care Teams [employer] Special Agent Relationship Specialty Start Date End Date Rafat Josue MD [address] [place] [address] PCP - General 12/31/02 documented as of this encounter
--- OUTSIDE RECORDS SUMMARY | 2025-01-17 07:31 | External Medical Summary | Summary of Care ---
Author Name Unknown Organization [facility] Address [address] [place] [address] Phone [phone] Care Team Providers Care Juvenile Corrections Officer Name Role Phone Rafat Josue MD Primary Care Provider [phone]- [phone] Reason for Visit * Reason Comments Outpatient Testing Encounter Details Date Type Department Care Team (Late st Contact Info) Description 11/20/2024 1:30 PM EST Laboratory Laboratory, [facility] [address] [place] [address] [facility] [address] [place], [place] [id number] Dyslipidemia, goal LDL below 70; Other pancytopenia (HCC) Allergies No known active allergiesdocumented as of this encounter (statuses as of 11/21/2024) Medications CALCIUM 500 +D 500-400 MG-UNIT PO [...] 3 08/31/2024 11:53 AM EST 4 Active Levothyroxine Sodium 50 MCG [...] 3 08/31/2024 11:53 AM EST 4 Active Vitamin C 1000 MG [...] Active Additional Information Patient not taking.Reported on 11/12/2024 documented as of this encounter (statuses as of 11/21/2024) Active Problems Problem Noted Date Diagnosed Date Varicose veins of bilateral lower extremities with other complications 10/24/2024 Other pancytopenia 10/04/2024 History of [place] (myocardial infarction) 08/06/2024 Former smoker 01/17/2024 Atherosclerosis of aorta 04/26/2023 Hypertensive kidney disease with stage 3b chronic kidney disease 04/26/2023 Atherosclerosis of coronary artery of [place] heart without angina pectoris 04/26/2023 Thyroid [...] as of this encounter (statuses as of 11/21/2024) Resolved Problems Problem Noted Date Diagnosed Date [...] as of this encounter (statuses as of 11/21/2024) Immunizations Name Administration Dates Next Due COVID-19 mRNA, LNP-s, No Pre serve, 2-Dose Series ([place]) 07/25/2021,12/27/2020,11/29/2020 COVID-19, LNP-s, No Preserve , Binh-sucrose, [...] ages 0-17 years) Not on file 07/13/2024 Comments No Sex and Gender Information [...] Care Team (Late st Contact Info) Description 11/21/2024 11:10 AM EST Office Visit Vascular Surgery, [facility] [address] [place] [address] Scott Lee MD [address] [place] [address] 11/22/2024 8:30 AM EST Imaging Vascular Lab, [facility] 2nd Floor, [place] [address] [place] [address] 12/06/2024 8:00 AM EST Imaging Radiology [facility] 1st Floor, [place] [address] [place] [phone] 12/18/2024 10:30 AM EST Office Visit Cardiology, [facility] [address] [place] [address] Thomas Burleson PA-C [address] [place] [address] 12/26/2024 12:30 PM EDT Office Visit Gastroenterology, [facility] [address] [place] [address] Merlin Terrazas CRNP [address] [place] [address] 05/16/2025 8:00 AM EDT Office Visit [facility], [place] Amaya Day [address] [place] [place] [address] Rafat Josue MD 226 [facility] [place] [address] Pending Results Name Type Priority Associated Diagnoses Date /Time LIPID PANEL WITH DIRECT LDL IF TG IS HIGH Lab Routine Dyslipidemia, goal LDL below 70 11/20/2024 1:37 PM EST CBC Lab Routine Other pancytopenia (HCC) 11/20/2024 1:37 PM EST Health Maintenance Due Date Last Done Comments Adult Wellness Visit 09/05/2021 09/05/2020 *BISPHONATE OR OTHER ACCEPTABLE MEDICATION NEEDED FOR OSTEOPOROSIS (REFER TO SMARTSET #1146) 09/16/2024 *NEPHROLOGY REFERRAL DUE TO RESISTANT HTN 11/15/2024 Albumin/Creatinine Ratio 05/10/2025 05/10/2024, 03/18 CKD PHOS USE SMARTSET 84220 05/10/202504/17, 04/14/2023, 11/03/2020, Additional history exists Depression Screening 07/13/2025 07/13/2024 CKD HGB USE SMARTSET 46709 08/27/202508/27, 05/10/2024, 04/14/2023, Additional history exists TSH 08/27/2025 08/27/2024, 04/17, 04/14/2023, Additional history exists DXA Scan 06/08/2026 06/08/2024, 05/18, 05/21/2019, Additional history exists DTap/Tdap Vaccines Discontinued 03/14/2013, 1 12/05/2001, 09/16/1992 Pneumococcal Vaccine: 50+ Years Completed 05/10/2016, 11/10/2006, 11/09/1999 Zoster Vaccines Completed 11/21/2018, 04/16, 04/16/2018, Additional history exists VITAMIN D LEVEL ONCE IN A LIFETIME-USE SMARTSET# 89941 Completed 04/14/2023, 08/04/2021, 11/03/2020, Additional history exists [...] as of this encounter Visit Diagnoses Diagnosis Dyslipidemia, goal LDL below 70 Other and unspecified hyperlipidemia Other pancytopenia (HCC) Other pancytopenia documented in this encounter Advance Directives Documents on File Type Date Recorded Patient Live In Companion Expl anation Advance Directives and Living Will 09/26/2015 LIVING WILL LIVING W ILL Power of Mosaic Tile Maker 09/26/2015 POWER OF A TTORNEY POWER OF IGNITER CAPPER Care Teams Juvenile Corrections Officer Relationship Specialty Start Date End Date Rafat Josue MD [address] [place] [address] PCP - General 12/31/02 documented as of this encounter
--- OUTSIDE RECORDS SUMMARY | 2025-01-17 07:31 | External Medical Summary | Summary of Care ---
Author Name Unknown Organization [facility] Address [address] [place] [address] Phone [phone] Care Team Providers Care Coupon Clerk Name Role Phone Rafat Josue MD Primary Care Provider [phone]- [phone] Reason for Visit * Reason Comments Acute Infected wound Wound on eisenberg, was seen by derm for it on 10-01 and was to use vaseline and then started with redness and spreading and spoke with beveler online and was told to get mupirocin and was seen at the ER in [place] and got ABX. Not sure if she needs another one or not and the redness has gone down but is not goneIt is painful at times and will ache a bit Encounter Details Date Type Department Care Team (Late st Contact Info) Description 10/24/2024 11:40 AM EST Office Visit [facility] Amaya Day [address] [place] [place] [phone] Nely Gomes MD [address] [place] [id number] Postoperative wound cellulitis*; Varicose veins of bilateral lower extremities with other complications Allergies No known active allergiesdocumented as of this encounter (statuses as of 10/24/2024) Medications CALCIUM 500 +D 500-400 MG-UNIT PO [...] thing in the morning. 90 Tablet 3 08/08/2024 3:16 PM EDT 4 Active Metoprolol Succinate ER 50 MG [...] until healed 22 g 1 4 Active documented as of this encounter (statuses as of 10/24/2024) Active Problems Problem Noted Date Diagnosed Date Varicose veins of bilateral lower extremities with other complications 10/24/2024 Other pancytopenia 10/04/2024 History of [place] (myocardial infarction) 08/06/2024 Former smoker 01/17/2024 Atherosclerosis of aorta 04/26/2023 Hypertensive kidney disease with stage 3b chronic kidney disease 04/26/2023 Atherosclerosis of coronary artery of [place] heart without angina pectoris 04/26/2023 Thyroid nodule [...] as of this encounter (statuses as of 10/24/2024) Resolved Problems Problem Noted Date Diagnosed Date [...] as of this encounter (statuses as of 10/24/2024) Immunizations Name Administration Dates Next Due COVID-19 mRNA, LNP-s, No Pre serve, 2-Dose Series ([place]) 07/25/2021,12/27/2020,11/29/2020 COVID-19, LNP-s, No Preserve , Binh-sucrose, [...] Sign Reading Time Taken Comments Blood Pressure 140/62 10/24/2024 12:55 PM EST Pulse 72 10/24/2024 12:55 PM EST Temperature 36.5 °C (97.7 °F) 10/24/2024 12:[address] Respiratory Rate 15 10/24/2024 12:55 PM EST Oxygen Saturation 98% 10/24/2024 12:55 PM EST Inhaled Oxygen Concentration - - Weight 64 kg (141 lb 3.2 oz) 10/24/2024 12:55 PM EST Height 154.9 cm (5' 1") 10/24/2024 12:55 PM EST Body Mass Index 26.68 10/24/2024 12:55 PM EST documented in this encounter Progress Notes * Nely Gomes MD - 10/24/2024 1:20 PM EST Images from the original note were not included. ASSESSMENT / PLAN: Shiloh Ryan is a 88 year old female Postoperative wound cellulitis (Primary) Varicose veins of bilateral lower extremities with other complications Wound is healing well Completed oral abx Will send photo to derm for their review but I do not think any further intervention is needed at this time, reassurance provided Reviewed nature of the wound in that it is in her lower extremity and she has multiple varicositiesand would encourage compression stockings in the future. Discussion of mgmt with external healthcare professional via staff messaging completed today Follow Up: Return if symptoms worsen or fail to improve. If needed, prefers contact by: Ok to leave message on phone: SUBJECTIVE: Nursing Notes: Tayler Alonso LPN 10/24/24 1303 Signed The patient has been properly identified by confirmation of name and date of . Chief Complaint Patient presents with Acute Infected wound Wound on eisenberg, was seen by derm for it on 10-01 and was to use vaseline and then started with redness and spreading and spoke with beveler online and was told to get mupirocin and was seen at the ER in [place] and got ABX. Not sure if she needs another one or not and the redness has gone down but is not gone It is painful at times and will ache a bit HPI: Shiloh Ryan is a 88 year old female. Here for recheck. 10/01/24 shave biopsy in anterior RLE completed by Derm - she was told this was benign 10/06/24 Started noting redness a few days later and called derm - started bactroban on wound 10/09 redness and pain increased so she went to local ER (in [place]) and was started 7 day course of cefuroxime Currently feels well Still using bactroban Will get some achiness in her anterior R leg but otherwise does not endorse fevers or chills or drainage Reviewed sources 1- Patient Active Problem List Diagnosis HTN, goal below 140/90 Dyslipidemia, goal LDL below 130 Age-related osteoporosis without current pathological fracture Hypothyroidism History of lacunar cerebrovascular accident Vitamin D deficiency Chronic kidney disease, stage 3b Atherosclerosis of aorta (HCC) Hypertensive kidney disease with stage 3b chronic kidney disease (HCC) Atherosclerosis of coronary artery of [place] heart without angina pectoris Thyroid nodule Former smoker Nodule of upper lobe of left lung History of [place] (myocardial infarction) Other pancytopenia (HCC) Varicose veins of bilateral lower extremities with other complications Current Outpatient Medications Medication Sig Dispense Refill [...] 2-3x daily until healed 22 g 1 No current facility-administered medications for this visit. OBJECTIVE: BP 140/62 | Pulse 72 | Temp 97.7 °F (36.5 °C) | Resp 15 | Ht 5' 1" (1.549 m) | Wt 141 lb 3.2 oz (64 kg) | SpO2 98% | BMI 26.68 kg/m² | BSA 1.66 m² Vitals reviewed and is normotensive / afebrile / and not tachycardic General: No acute distress. Neuro: Alert Pleasant & interactive. Respiratory: Good inspiratory effort, no labored breathing. HEENT: Conjunctivae appear clear. No swelling noted face or lips. Skin: scab on RLE anterior eisenberg with trace erythema, no fluctuance or tenderness or drainage. +numerous varicosities of BLE Psych: Normal affect. Fluent speech. Nely Gomes MD [facility], [place] [facility] [address] [facility] [place] [facility] [place] [address] There are no Patient Instructions on file for this visit. documented in this encounter Nursing Notes * Tayler Alonso LPN - 10/24/2024 1:03 PM EST The patient has been properly identified by confirmation of name and date of . Chief Complaint Patient presents with Acute Infected wound Wound on eisenberg, was seen by derm for it on 10-01 and was to use vaseline and then started with redness and spreading and spoke with beveler online and was told to get mupirocin and was seen at the ER in [place] and got ABX. Not sure if she needs another one or not and the redness has gone down but is not gone It is painful at times and will ache a bit documented in this encounter Plan of Treatment Upcoming Encounters Date Type Department Care Team (Late st Contact Info) Description 11/21/2024 11:10 AM EST Office Visit Vascular Surgery, [address] [place] [address] Scott [facility] [address] [facility] [address] 11/30/2024 9:00 AM EST Office Visit [facility], [place] [facility] [address] [facility] [place] [phone] Rafat Josue MD 226 [facility] [place] [id number] 12/06/2024 8:00 AM EST Imaging Radiology [address] [facility] [place] [address] 12/18/2024 10:30 AM EST Office Visit Cardiology, [facility] [address] [place] [address] Thomas Burleson PA-C [address] [place] [address] 12/26/2024 12:30 PM EDT Office Visit Gastroenterology, [facility] [address] [place] [address] Merlin Terrazas CRNP [address] [place] [address] Health Maintenance Due Date Last Done Comments Adult Wellness Visit 09/05/2021 09/05/2020 *BISPHONATE OR OTHER ACCEPTABLE MEDICATION NEEDED FOR OSTEOPOROSIS (REFER TO SMARTSET #1146) 09/16/2024 Albumin/Creatinine Ratio 05/10/2025 05/10/2024, 03/18 CKD PHOS USE SMARTSET 97328 05/10/202504/17, 04/14/2023, 11/03/2020, Additional history exists Depression Screening 07/13/2025 07/13/2024 CKD HGB USE SMARTSET 77208 08/27/202508/27, 05/10/2024, 04/14/2023, Additional history exists TSH 08/27/2025 08/27/2024, 04/17, 04/14/2023, Additional history exists DXA Scan 06/08/2026 06/08/2024, 05/18, 05/21/2019, Additional history exists DTap/Tdap Vaccines Discontinued 03/14/2013, 1 12/05/2001, 09/16/1992 Pneumococcal Vaccine: 50+ Years Completed 05/10/2016, 11/10/2006, 11/09/1999 Zoster Vaccines Completed 11/21/2018, 04/16, 04/16/2018, Additional history exists VITAMIN D LEVEL ONCE IN A LIFETIME-USE SMARTSET# 27055 Completed 04/14/2023, 08/04/2021, 11/03/2020, Additional history exists [...] as of this encounter Visit Diagnoses Diagnosis Postoperative wound cellulitis- Primary Other postoperative infection Varicose veins of bilateral lower extremities with other complications documented in this encounter Advance Directives Documents on File Type Date Recorded Patient Tung Nut Grower Expl anation Advance Directives and Living Will 09/26/2015 LIVING WILL LIVING W ILL Power of Councillor [employer] 09/26/2015 POWER OF A TTORNEY POWER OF HUMAN SERVICE WORKER Care Teams Coupon Clerk Relationship Specialty Start Date End Date Rafat Josue MD [address] [place] [address] PCP - General 12/31/02 documented as of this encounter
--- OUTSIDE RECORDS SUMMARY | 2025-01-17 07:31 | External Medical Summary | Summary of Care ---
Author Name Unknown Organization [facility] Address [address] [place] [address] Phone [phone] Care Team Providers Care Stone Product Fabricator Name Role Phone Rafat Josue MD Primary Care Provider +1- [phone] Reason for Visit * Reason Onset Date Comments Test Results 11/21/2024 Encounter Details Date Type Department Care Team (Late st Contact Info) Description 11/21/2024 Telephone Cardiology, [facility] [address] [place] [address] Mk Rudd, [facility] [place] [address] Test Results Allergies No known active allergiesdocumented as of this encounter (statuses as of 11/22/2024) Medications CALCIUM 500 +D 500-400 MG-UNIT PO [...] as of this encounter (statuses as of 11/22/2024) Active Problems Problem Noted Date Diagnosed Date Varicose veins of bilateral lower extremities with other complications 10/24/2024 Other pancytopenia 10/04/2024 History of [place] (myocardial infarction) 08/06/2024 Former smoker 01/17/2024 Atherosclerosis of aorta 04/26/2023 Hypertensive kidney disease with stage 3b chronic kidney disease 04/26/2023 Atherosclerosis of coronary artery of [place] heart without angina pectoris 04/26/2023 Thyroid nodule [...] as of this encounter (statuses as of 11/22/2024) Resolved Problems Problem Noted Date Diagnosed Date [...] as of this encounter (statuses as of 11/22/2024) Immunizations Name Administration Dates Next Due COVID-19 mRNA, LNP-s, No Pre serve, 2-Dose Series ([place]) 07/25/2021,12/27/2020,11/29/2020 COVID-19, LNP-s, No Preserve , Binh-sucrose, [...] encounter Miscellaneous Notes * Telephone Encounter - Randy Levine LPN - 11/21/2024 4:45 PM EST Sent patient a [employer] message to make aware. ----- Message from Mk Rudd DO sent at 11/21/2024 4:40 PM EST ----- Lab results reviewed in coverage for Dr. Roberson. LDL well controlled. No med changes at this time. documented in this encounter Plan of Treatment Upcoming Encounters Date Type Department Care Team (Late st Contact Info) Description 12/03/2024 12:00 PM EST Imaging Vascular Lab, [facility] 2nd Floor, [address] [place] [address] 12/04/2024 1:15 PM EST Imaging Radiology [address] [facility] [place] [phone] 12/06/2024 8:00 AM EST Imaging Radiology [address] [place] [address] 12/18/2024 10:30 AM EST Office Visit Cardiology, [facility] 132 [facility] [place] [address] Thomas Burleson PA-C 132 [facility] [place] [address] 12/26/2024 10:50 AM EDT Office Visit Vascular Surgery, [facility] [address] [place] [address] Scott Lee MD [address] [place] [address] 12/26/2024 12:30 PM EDT Office Visit Gastroenterology, [facility] 132 [facility] [place] [address] Merlin Terrazas CRNP 132 [facility] [place] [address] 05/16/2025 8:00 AM EDT [facility] [address] [place] [phone] Rafat Josue MD [address] [place] [address] Health Maintenance Due Date Last Done Comments Adult Wellness Visit 09/05/2021 09/05/2020 *BISPHONATE OR OTHER ACCEPTABLE MEDICATION NEEDED FOR OSTEOPOROSIS (REFER TO SMARTSET #1146) 09/16/2024 *NEPHROLOGY REFERRAL DUE TO RESISTANT HTN 11/15/2024 Albumin/Creatinine Ratio 05/10/2025 05/10/2024, 03/18 CKD PHOS USE SMARTSET 82552 05/10/202504/17, 04/14/2023, 11/03/2020, Additional history exists Depression Screening 07/13/2025 07/13/2024 TSH 08/27/2025 08/27/2024, 04/17, 04/14/2023, Additional history exists CKD HGB USE SMARTSET 42076 11/20/202511/20, 08/27/2024, 05/10/2024, Additional history exists DXA Scan 06/08/2026 06/08/2024, 05/18, 05/21/2019, Additional history exists DTap/Tdap Vaccines Discontinued 03/14/2013, 1 12/05/2001, 09/16/1992 Pneumococcal Vaccine: 50+ Years Completed 05/10/2016, 11/10/2006, 11/09/1999 Zoster Vaccines Completed 11/21/2018, 04/16, 04/16/2018, Additional history exists VITAMIN D LEVEL ONCE IN A LIFETIME-USE SMARTSET# 15600 Completed 04/14/2023, 08/04/2021, 11/03/2020, Additional history exists [...] Documents on File Type Date Recorded Patient Picture Frame Maker Expl anation Advance Directives and Living Will 09/26/2015 LIVING WILL LIVING W ILL Power of Hazardous Substances Engineer 09/26/2015 POWER OF A TTORNEY POWER OF DATA COLLECTION SPECIALIST Care Teams Stone Product Fabricator Relationship Specialty Start Date End Date Rafat Josue MD [address] [place] [address] PCP - General 12/31/02 documented as of this encounter
--- OUTSIDE RECORDS SUMMARY | 2025-01-17 07:31 | External Medical Summary | Summary of Care ---
Author Name Unknown Organization [facility] Address [address] [place] [address] Phone [phone] Care Team Providers Care Can Doffer Name Role Phone Rafat Josue MD Primary Care Provider [phone]- [phone] Reason for Referral * Precert (Within 10 days (routine)) - Authorized Specialty Diagnoses / Procedures Referred By Contac t Referred To Contact Radiology Diagnoses Atherosclerosis of aorta (HCC) Procedures CTA ABD AORTA/FEM RUNOFF W CONTRAST Rigoberto Arias CRNP [address] [place] [address] Phone: tel: fax: Referral ID Status Reason Start Date Expiration Date V isits Requested Visits Authorized [id number] Authorized 11/21/2024 999 999 Reason for Visit * Reason Comments NEW PATIENT * Evaluate & Treat - Unlimited Visits (Within 30 days (routine)) - Authorized Specialty Diagnoses / Procedures Referred By Contact Referred To Contact Vascular Surgery / Cardiovascular Surgery Diagnoses Unequal blood pressure in upper extremities Subclavian arterial stenosis (HCC) Ean Roberson, DO [address] [place] [address] Phone: tel: fax: Referral ID Status Reason Start Date Expiration Date Visits Requested Visits Authorized [id number] Authorized Specialty Services Required 4 [phone] Encounter Details Date Type Department Care Team (Latest Contact Info) Description 11/21/2024 11:10 AM EST Office Visit Vascular Surgery, [facility] [address] [email or web address] [place] [address] Scott Lee MD [address] [facility] [place] [address] Atherosclerosis of aorta (HCC)* Allergies No [...] 90 Tablet 3 08/31/2024 11:53 AM EST 10/23/202 4 Active Vitamin C 1000 [...] complications 10/24/2024 Other pancytopenia 10/04/2024 History of [place] (myocardial infarction) 08/06/2024 Former smoker 01/17/2024 Atherosclerosis of aorta 04/26/2023 Hypertensive kidney disease with stage 3b chronic kidney disease 04/26/2023 Atherosclerosis of coronary artery of [place] heart without angina pectoris 04/26/2023 Thyroid [...] mRNA, LNP-s, No Pre serve, 2-Dose Series ([employer]) 07/25/2021,12/27/2020,11/29/2020 COVID-19, LNP-s, No Preserve , Binh-sucrose, [...] Bear PA-C - 11/21/2024 11:10 AM EST Date of Service: 11/21/2024 12:17 PM Shiloh [...] amaurosis fugax. 09/04/2024 Carotid duplex exam at [facility] identified the right internal carotid with [...] disease (HCC) Atherosclerosis of coronary artery of [place] heart without angina pectoris Thyroid nodule Former smoker Nodule of upper lobe of left lung History of [place] (myocardial infarction) Other pancytopenia (HCC) Varicose veins of bilateral lower extremities with other complications Past Medical History: Diagnosis Date Allergic conjunctivitis, Other Esophageal reflux HTN, goal below 140/90 Past Surgical History: Procedure Laterality Date BIOPSY OF BREAST, OPEN 1971 Breast Biopsy, Benign Disease CARPAL TUNNEL SURGERY Left 01/11/2017 left NEUROPLASTY MEDIAN NERVE AT CARPAL TUNNEL performed by Yaw Campbell MD at [facility] COLONOSCOPY 02/17 incomplete, needed barium enema REMOVAL OF RUPTURED APPENDIX 3/4/01 Appendectomy, Rupt Appendx REMOVE LUMBAR SPINE LAMINA, 3+ SEGS [facility] Lumbar Disk Excision TOTAL HYSTERECTOMY 1977 VICK (Total Abdominal Hysterectomy) Family History Problem Relation Name Age of Onset Heart Disorder Mother DEC AGE 72/ Stroke Mother Hypertension Mother Heart Disorder Grandmother (Maternal) SEP 80' Heart Disorder Grandfather (Maternal) Heart Disorder Brother CABG Heart Disorder Brother CABG Hypertension Brother Heart Disorder Brother [facility] ByPass surgery Heart Disorder Brother [facility] ByPass surgery Social History Socioeconomic History [...] Stability Do you currently live in a residential or have no steady place to sleep [...] pain, shortness of breath, palpitations, angina or [place] Neurological: Positive for remote stroke. 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 I want her to apply betadine to the RLE wound. I will have her come back with PIPE and CTA with runoff. I called her daughter, Trudi, and updated her on today's findings. Scott Lee MD Vascular Surgeon Department of Vascular Surgery [facility] documented in this encounter Nursing Notes * Blanca Prince CMA - 11/21/2024 11:51 AM EST Reviewed the option of transferring scripts to [facility] pharmacy with patient and / or family. Blanca Prince CMA documented in this encounter Plan of Treatment Upcoming Encounters Date Type Department Care Team (Late st Contact Info) Description 12/03/2024 12:00 PM EST Imaging Vascular Lab, [facility] 2nd Floor, [place] [address] [facility] [place] [address] 12/04/2024 1:15 PM EST Imaging Radiology [facility], [place] [address] [place] [address] 12/06/2024 8:00 AM EST Imaging Radiology [facility], [place] [address] [place] [address] 12/18/2024 10:30 AM EST Office Visit Cardiology, [facility] [address] [facility] [place] [address] Thomas Burleson PA-Margarita [address] [place] [address] 12/26/2024 10:50 AM EDT Office Visit Vascular Surgery, [facility] [address] [facility] [place] [address] Scott Lee MD [address] [place] [address] 12/26/2024 12:30 PM EDT Office Visit Gastroenterology, [facility] [address] [place] [address] Merlni Terrazas CRNP [address] [place] [address] 05/16/2025 8:00 AM EDT Office Visit [facility] [place] [facility] [address] [place] [phone] Rafat Josue MD [address] [place] [address] Scheduled Orders Name Type Priority Associated Diagnoses Orde r Schedule VASC DUPLEX CAROTID BILAT Medical Imaging Routine Atherosclerosis of aorta (HCC) Ordered: 11/21/2024 VASC ANKLE BRACHIAL INDICES WITHOUT PPG (PAD) Medical Imaging Routine Atherosclerosis of aorta (HCC) Ordered: 11/21/2024 CREATININE Lab Routine Atherosclerosis of aorta (HCC) Expected: 11/21/2024, Expires: 11/21/2025 CTA ABD AORTA/FEM RUNOFF W CONTRAST Medical Imaging Routine Atherosclerosis of aorta (HCC) Ordered: 11/21/2024 Health Maintenance Due Date Last Done Comments Adult Wellness Visit 09/05/2021 09/05/2020 *BISPHONATE OR OTHER ACCEPTABLE MEDICATION NEEDED FOR OSTEOPOROSIS (REFER TO SMARTSET #1146) 09/16/2024 *NEPHROLOGY REFERRAL DUE TO RESISTANT HTN 11/15/2024 Albumin/Creatinine Ratio 05/10/2025 05/10/2024, 03/18 CKD PHOS USE SMARTSET 89601 05/10/202504/17, 04/14/2023, 11/03/2020, Additional history exists Depression Screening 07/13/2025 07/13/2024 TSH 08/27/2025 08/27/2024, 04/17, 04/14/2023, Additional history exists CKD HGB USE SMARTSET 89937 11/20/202511/20, 08/27/2024, 05/10/2024, Additional history exists DXA Scan 06/08/2026 06/08/2024, 05/18, 05/21/2019, Additional history exists DTap/Tdap Vaccines Discontinued 03/14/2013, 1 12/05/2001, 09/16/1992 Pneumococcal Vaccine: 50+ Years Completed 05/10/2016, 11/10/2006, 11/09/1999 Zoster Vaccines Completed 11/21/2018, 04/16, 04/16/2018, Additional history exists VITAMIN D LEVEL ONCE IN A LIFETIME-USE SMARTSET# 39258 Completed 04/14/2023, 08/04/2021, 11/03/2020, Additional history exists [...] Documents on File Type Date Recorded Patient Aboriginal Liaison Officer Expl anation Advance Directives and Living Will 09/26/2015 LIVING WILL LIVING W ILL Power of Test Conductor 09/26/2015 POWER OF A TTORNEY POWER OF POT OPERATOR Care Teams Can Doffer Relationship Specialty Start Date End Date Rafat Josue MD [address] [place] [address] PCP - General 12/31/02 documented as of this encounter
--- OUTSIDE RECORDS SUMMARY | 2025-01-17 07:31 | External Medical Summary ---
Author Name Unknown Address Unknown Organization K01:[facility] - [address] [facility] [place] [address] Laboratory Report Ordering Provider Test Date Status DIANNE RIVERO 11/20/2024 13:37:19 Final Observation Date Value Abnormality Reference (Units ) Status Triglyceride 11/20/2024 13:37:19 89 <=174 ( mg/dL) Final Triglyceride Reference Range s (mg/dL):
<150 Acceptable
150-174 Borderline high
175-499 High
>=500 Very high Cholesterol 11/20/2024 13:37:19 96 <200 (mg /dL) Final Total Cholesterol Reference Ranges (mg/dL):
<200 Desirable
200-239 Borderline high
>=240 High HDL 11/20/2024 13:37:19 32 Below low normal >49 (mg/dL) Final HDL Cholesterol Reference Ra nges (mg/dL):
>=60 High (Desirable)
<50 Low (Undesirable) For Females
<40 Low (Undesirable) For Males NON-HDL CHOLESTEROL 11/20/2024 13:37:19 64 <=159 (mg/dL) Final Non-HDL Cholesterol Referenc e Range (mg/dL):
<100 Target level for high risk ASCVD patient
<130 Optimal for general population
130-159 Near optimal for general population
160-189 Borderline High
190-219 High
>=220 Very High LDL, (calculated) 11/20/2024 13:37:19 46 <= 129 (mg/dL) Final LDL Cholesterol Reference Ra nges (mg/dL):
<70 Target level for high risk ASCVD patient
<100 Optimal for general population
100-129 Near optimal for general population
130-159 Borderline high
160-189 High
>=190 Very high Performing Location [facility] - [address] [facility] [address]
--- OUTSIDE RECORDS SUMMARY | 2025-01-17 07:31 | External Medical Summary | Summary of Care ---
Author Name Unknown Organization [facility] Address [address] [place] [address] Phone [phone] Care Team Providers Care Hat Sizer Name Role Phone Rafat Josue MD Primary Care Provider [phone]- [phone] Encounter Details Date Type Department Care Team (Late st Contact Info) Description 11/05/2024 Population Health External Data Unspecified Department Allergies No known active allergiesdocumented as of this encounter (statuses as of 11/05/2024) Medications CALCIUM 500 +D 500-400 MG-UNIT PO [...] as of this encounter (statuses as of 11/05/2024) Active Problems Problem Noted Date Diagnosed Date Varicose veins of bilateral lower extremities with other complications 10/24/2024 Other pancytopenia 10/04/2024 History of [place] (myocardial infarction) 08/06/2024 Former smoker 01/17/2024 Atherosclerosis of aorta 04/26/2023 Hypertensive kidney disease with stage 3b chronic kidney disease 04/26/2023 Atherosclerosis of coronary artery of [place] heart without angina pectoris 04/26/2023 Thyroid nodule [...] as of this encounter (statuses as of 11/05/2024) Resolved Problems Problem Noted Date Diagnosed Date [...] as of this encounter (statuses as of 11/05/2024) Immunizations Name Administration Dates Next Due COVID-19 mRNA, LNP-s, No Pre serve, 2-Dose Series ([employer]) 07/25/2021,12/27/2020,11/29/2020 COVID-19, LNP-s, No Preserve , Binh-sucrose, [...] 11:10 AM EST Office Visit Vascular Surgery, [facility] [address] [place] [address] Scott Lee MD [address] [facility] [place] [address] 11/30/2024 9:00 AM EST [facility] [phone] [facility] [address] 12/06/2024 8:00 AM EST Imaging [facility] [place] [phone] 12/18/2024 10:30 AM EST Office Visit Cardiology, [facility] [address] [place] [address] Thomas Burleson PA-C [address] [facility] [place] [address] 12/26/2024 12:30 PM EDT Office Visit Gastroenterology, [facility] [address] [place] [address] Merlin Terrazas CRNP [address] [place] [address] Health Maintenance Due Date Last Done Comments Adult Wellness Visit 09/05/2021 09/05/2020 *BISPHONATE OR OTHER ACCEPTABLE MEDICATION NEEDED FOR OSTEOPOROSIS (REFER TO SMARTSET #1146) 09/16/2024 Albumin/Creatinine Ratio 05/10/2025 05/10/2024, 03/18 CKD PHOS USE SMARTSET 01984 05/10/202504/17, 04/14/2023, 11/03/2020, Additional history exists Depression Screening 07/13/2025 07/13/2024 CKD HGB USE SMARTSET 46940 08/27/202508/27, 05/10/2024, 04/14/2023, Additional history exists TSH 08/27/2025 08/27/2024, 04/17, 04/14/2023, Additional history exists DXA Scan 06/08/2026 06/08/2024, 05/18, 05/21/2019, Additional history exists DTap/Tdap Vaccines Discontinued 03/14/2013, 1 12/05/2001, 09/16/1992 Pneumococcal Vaccine: 50+ Years Completed 05/10/2016, 11/10/2006, 11/09/1999 Zoster Vaccines Completed 11/21/2018, 04/16, 04/16/2018, Additional history exists VITAMIN D LEVEL ONCE IN A LIFETIME-USE SMARTSET# 27951 Completed 04/14/2023, 08/04/2021, 11/03/2020, Additional history exists [...] Documents on File Type Date Recorded Patient Educational Consultant Expl anation Advance Directives and Living Will 09/26/2015 LIVING WILL LIVING W ILL Power of Millinery Worker 09/26/2015 POWER OF A TTORNEY POWER OF TROLLEY OPERATOR Care Teams Hat Sizer Relationship Specialty Start Date End Date Rafat Josue MD [address] [place] [address] PCP - General 12/31/02 documented as of this encounter
--- OUTSIDE RECORDS SUMMARY | 2025-01-17 07:31 | External Medical Summary | Summary of Care ---
Author Name Unknown Organization [facility] Address [address] [place] [address] Phone [phone] Care Team Providers Care Corrections Caseworker Name Role Phone Rafat Josue MD Primary Care Provider +1- [phone] Reason for Visit * Reason Comments Follow Up Patient is here for a 6 month follow up. She reports that her R leg will hurt in the eisenberg and her muscles feel weak; it makes it hard to walk. Reports that it has been happening since early September. Encounter Details Date Type Department Care Team (Late st Contact Info) Description 11/12/2024 2:20 PM EST Office Visit [facility] [address] [facility] [place] [phone] Rafat Josue MD [address] [facility] [place] [address] Other pancytopenia (HCC)*; Pain of right lower leg; Chronic kidney disease, stage 3b (HCC); Atherosclerosis of coronary artery of [place] heart without angina pectoris, unspecified vessel or lesion type; Hypothyroidism, unspecified type; Age-related osteoporosis without current pathological fracture; Dyslipidemia, goal LDL below 130 Allergies No known active allergiesdocumented as of this encounter (statuses as of 11/27/2024) Medications CALCIUM 500 +D 500-400 MG-UNIT PO [...] as of this encounter (statuses as of 11/27/2024) Active Problems Problem Noted Date Diagnosed Date Varicose veins of bilateral lower extremities with other complications 10/24/2024 Other pancytopenia 10/04/2024 History of [place] (myocardial infarction) 08/06/2024 Former smoker 01/17/2024 Atherosclerosis of aorta 04/26/2023 Hypertensive kidney disease with stage 3b chronic kidney disease 04/26/2023 Atherosclerosis of coronary artery of [place] heart without angina pectoris 04/26/2023 Thyroid nodule [...] as of this encounter (statuses as of 11/27/2024) Resolved Problems Problem Noted Date Diagnosed Date [...] as of this encounter (statuses as of 11/27/2024) Immunizations Name Administration Dates Next Due COVID-19 mRNA, LNP-s, No Pre serve, 2-Dose Series ([employer]) 07/25/2021,12/27/2020,11/29/2020 COVID-19, LNP-s, No Preserve , [...] Sign Reading Time Taken Comments Blood Pressure 174/53 11/12/2024 2:30 PM EST Pulse 74 11/12/2024 2:30 PM EST Temperature 36.5 °C (97.7 °F) 11/12/2024 2:30 PM ES T Respiratory Rate 16 11/12/2024 2:30 PM EST Oxygen Saturation 94% 11/12/2024 2:30 PM EST Inhaled Oxygen Concentration - - Weight 63.9 kg (140 lb 12.8 oz) 11/12/2024 2:30 PM EST Height 154.9 cm (5' 1") 11/12/2024 2:30 PM EST Body Mass Index 26.6 11/12/2024 2:30 PM EST documented in this encounter Progress Notes * Rafta Josue MD - 11/12/2024 3:00 PM EST Subjective: Shiloh Ryan is a 89 year old female here today for Chief Complaint Patient presents with Follow Up Patient is here for a 6 month follow up. She reports that her R leg will hurt in the eisenberg and her muscles feel weak; it makes it hard to walk. Reports that it has been happening since early September. Pt presents for routine recheck. She is tolerating her current meds. [place]. Main concern today is pain of the right lower ext - in the thigh and eisenberg. Occurs with walking and can take a while to go away. No injury. No calf swelling, cp, sob. Present for about 2 months. Past Medical History: Diagnosis Date Allergic conjunctivitis, Other Esophageal reflux HTN, goal below 140/90 Past Surgical History: Procedure Laterality Date BIOPSY OF BREAST, OPEN 1970 Breast Biopsy, Benign Disease CARPAL TUNNEL SURGERY Left 01/11/2017 left NEUROPLASTY MEDIAN NERVE AT CARPAL TUNNEL performed by Yaw Campbell MD [facility] COLONOSCOPY 02/17 incomplete, needed barium enema REMOVAL OF RUPTURED APPENDIX 12/18/00 Appendectomy, Rupt Appendx REMOVE LUMBAR SPINE LAMINA, 3+ SEGS [facility] Lumbar Disk Excision TOTAL HYSTERECTOMY 1977 VICK (Total Abdominal Hysterectomy) Review of patient's allergies indicates: No Known [...] No current facility-administered medications for this visit. Objective: BP 174/53 | Pulse 74 | Temp 97.7 °F (36.5 °C) (Tympanic) | Resp 16 | Ht 5' 1" (1.549 m) | Wt 140 lb 12.8 oz (63.9 kg) | SpO2 94% | BMI 26.60 kg/m² | BSA 1.66 m² GEN: NAD HEENT: Benign NECK: Supple with no LAD, TM, JVD CHEST: CTA B CV: RRR ABD: Soft, NT/ND, No HSM, NABS EXT: No c,c,e. Difficult to palpate pedal pulses. Assessment and Plan: Other pancytopenia (HCC) (Primary) - CBC; Future; Expected date: 11/12/2024 Pain of right lower leg - VASC ARTERIAL DOPPLER LE Chronic kidney disease, stage 3b (HCC) Atherosclerosis of coronary artery of [place] heart without angina pectoris, unspecified vessel or lesion type Hypothyroidism, unspecified type Age-related osteoporosis without current pathological fracture Dyslipidemia, goal LDL below 130 -continue current treatments and lab monitoring. Follow Up: Return in about 6 months (around 05/12/2025) for recheck. | For: recheck | Check-out note: Arterial doppler 34 min with pt and chart review. Rafat Josue MD documented in this encounter Nursing Notes * Ban Estrada MED ASSIST - 11/12/2024 2:34 PM EST The patient has been properly identified by confirmation of name and date of . Chief Complaint Patient presents with Follow Up Patient is here for a 6 month follow up. She reports that her R leg will hurt in the eisenberg and her muscles feel weak; it makes it hard to walk. Reports that it has been happening since early September. documented in this encounter Plan of Treatment Upcoming Encounters Date Type Department Care Team (Late st Contact Info) Description 12/03/2024 12:00 PM EST Imaging Vascular Lab, [facility] 2nd Floor, [place] [facility] [place] [address] 12/04/2024 1:00 PM EST Imaging Radiology [facility], [place] [address] [place] [phone] 12/04/2024 1:15 PM EST Imaging Radiology [facility], [place] [address] [place] [address] 12/18/2024 10:30 AM EST Office Visit Cardiology, [facility] [address] [place] [address] Thomas Burleson PA-C [address] [place] [address] 12/26/2024 10:50 AM EDT Office Visit Vascular Surgery, [facility] [address] [place] [address] Scott Lee MD [address] [place] [address] 12/26/2024 12:30 PM EDT Office Visit Gastroenterology, [facility] [address] [place] [address] Merlin Terrazas CRNP [address] [place] [address] 05/16/2025 8:00 AM EDT Office Visit [facility] [place] [address] [place] [phone] Rafat Josue MD [address] [facility] [place] [address] Scheduled Orders Name Type Priority Associated Diagnoses Orde r Schedule VASC ARTERIAL DOPPLER LE Medical Imaging Routine Pain of right lower leg Ordered: 11/12/2024 Health Maintenance Due Date Last Done Comments Adult Wellness Visit 09/05/2021 09/05/2020 *BISPHONATE OR OTHER ACCEPTABLE MEDICATION NEEDED FOR OSTEOPOROSIS (REFER TO SMARTSET #1146) 09/16/2024 *NEPHROLOGY REFERRAL DUE TO RESISTANT HTN 11/15/2024 Albumin/Creatinine Ratio 05/10/2025 05/10/2024, 03/18 CKD PHOS USE SMARTSET 11813 05/10/202504/17, 04/14/2023, 11/03/2020, Additional history exists Depression Screening 07/13/2025 07/13/2024 TSH 08/27/2025 08/27/2024, 04/17, 04/14/2023, Additional history exists CKD HGB USE SMARTSET 77954 11/20/202511/20, 08/27/2024, 05/10/2024, Additional history exists DXA Scan 06/08/2026 06/08/2024, 05/18, 05/21/2019, Additional history exists DTap/Tdap Vaccines Discontinued 03/14/2013, 1 12/05/2001, 09/16/1992 Pneumococcal Vaccine: 50+ Years Completed 05/10/2016, 11/10/2006, 11/09/1999 Zoster Vaccines Completed 11/21/2018, 04/16, 04/16/2018, Additional history exists VITAMIN D LEVEL ONCE IN A LIFETIME-USE SMARTSET# 29340 Completed 04/14/2023, 08/04/2021, 11/03/2020, Additional history exists [...] Not on filedocumented as of this encounter Results * (ABNORMAL) CBC (11/20/2024 1:37 PM EST) WBC 3.80(L) 4.00 - 10.80 K/uL 11/21/2024 12:44 AM EST [facility] RBC 3.25 3.85 - 5.15 M/uL 11/21/2024 12:44 AM EST [facility] HGB 9.7(L) 12.0 - 15.3 g/dL 11/21/2024 12:44 AM EST [facility] HCT 30.5(L) 36.0 - 45.2 % 11/21/2024 12:44 AM EST [facility] MCV 93.8 81.5 - 97.5 fL 11/21/2024 12:44 AM EST [facility] MCH 29.8 27.0 - 34.0 pg 11/21/2024 12:44 AM EST [facility] MCHC 31.8 32.0 - 36.0 g/dL 11/21/2024 12:44 AM EST [facility] RDW 18.6 11.5 - 15.5 % 11/21/2024 12:44 AM EST [facility] PLT 142 140 - 400 K/uL 11/21/2024 12:44 AM EST [facility] MPV 11/21/2024 12:44 AM EST [facility] Comment:No result - abnormal platelet distribution. nRBCs 1(H) <=0 /100 WBCs 11/21/2024 12:44 AM EST [facility] Blood Venous blood specimen / Unknown Venipuncture / Unknown 11/20/2024 1:37 PM EST 11/20/2024 1:37 PM EST us Rafat Jouse MD LAB BLOOD ORDERABLES Final Result [facility] [address] [facility] [place] [address] documented in this encounter Visit Diagnoses Diagnosis Other pancytopenia (HCC)- Primary Other pancytopenia Pain of right lower leg Pain in limb Chronic kidney disease, stage 3b (HCC) Atherosclerosis of coronary artery of [place] heart without angina pectoris, unspecified vessel or lesion type Hypothyroidism, unspecified type Age-related osteoporosis without current pathological fracture Senile osteoporosis Dyslipidemia, goal LDL below 130 Other and unspecified hyperlipidemia documented in this encounter Advance Directives Documents on File Type Date Recorded Patient Clinical Dental Technician Expl anation Advance Directives and Living Will 09/26/2015 LIVING WILL LIVING W ILL Power of Termite Treater Helper 09/26/2015 POWER OF A TTORNEY POWER OF ETHOLOGIST Care Teams Corrections Caseworker Relationship Specialty Start Date End Date Rafat Josue MD [address] [place] [address] PCP - General 12/31/02 documented as of this encounter
--- OUTSIDE RECORDS SUMMARY | 2025-01-17 07:31 | External Medical Summary ---
Author Name Unknown Address Unknown Organization K01:[facility] - [facility] [address] [facility] [address] Laboratory Report Ordering Provider Test Date Status PAULINA MURPHY 11/20/2024 13:37:19 Final Observation Date Value Abnormality Reference (Units ) Status WBC, Total 11/20/2024 13:37:19 3.80 Below low normal 4. 00-10.80 (K/uL) Final RBC 11/20/2024 13:37:19 3.25 3.85-5.15 (M/uL) Final Hemoglobin 11/20/2024 13:37:19 9.7 Below low normal 12 .0-15.3 (g/dL) Final HCT 11/20/2024 13:37:19 30.5 Below low normal 36. 0-45.2 (%) Final MCV 11/20/2024 13:37:19 93.8 81.5-97.5 (fL) Final MCH 11/20/2024 13:37:19 29.8 27.0-34.0 (pg) Final MCHC 11/20/2024 13:37:19 31.8 32.0-36.0 (g/dL) Final RDW 11/20/2024 13:37:19 18.6 11.5-15.5 (%) Final Platelets 11/20/2024 13:37:19 142 140-400 (K /uL) Final MPV 11/20/2024 13:37:19 Final No result - abnormal platele t distribution. Nucleated erythrocytes/100 leukocytes [Ratio] in Blood by Automated count 11/20/2024 13:37:19 1 Above high normal <=0 (/100 WBCs) Final Performing Location [facility] - [address] [place] [address]
--- OUTSIDE RECORDS SUMMARY | 2025-01-17 07:32 | External Medical Summary | Summary of Care ---
Author Name Unknown Organization [facility] Address [address] [place] [address] Phone [phone] Care Team Providers Care Manager Of Manufacturing Name Role Phone Katherine Gallardo MD Primary Care Provider [phone] Reason for Visit * Reason Comments Follow Up Skin check- pt repor ts a growth on her back she would like evaluated Encounter Details Date Type Department Care Team (Late st Contact Info) Description 10/01/2024 1:30 PM EST Office Visit Dermatology [facility] [place] [address] [facility] [place] [address] Richard Saucedo MD [address] [facility] [place] [address] Actinic skin damage*; Seborrheic keratoses; Hx of squamous cell carcinoma; Scar; Skin neoplasm; Actinic keratosis Allergies No known active allergiesdocumented as of this encounter (statuses as of 10/01/2024) Medications CALCIUM 500 +D 500-400 MG-UNIT PO TABS Take 2 Tablets by mouth daily. 60 Tab 5 08/24/2011 Active ASPIRIN EC [...] 90 Tablet 3 08/31/2024 11:53 AM EST 08/08/2024 Active Clopidogrel Bisulfate 75 MG Oral Tablet (pLAVix) Take 1 Tablet by mouth in the morning. 90 Tablet 3 08/31/2024 11:53 AM EST 08/08/2024 Active Levothyroxine Sodium 50 MCG Oral Tablet (Levoxyl) Take 1 Tablet by mouth daily first thing in the morning. 90 Tablet 3 08/08/2024 3:16 PM EDT 08/08/2024 Active Metoprolol Succinate ER 50 MG Oral Tablet Extended Release 24 Hour (toPROL XL) Take 1 Tablet by mouth in the morning. 90 Tablet 3 08/31/2024 11:53 AM EST 08/08/2024 Active Pantoprazole Sodium 40 MG Oral Tablet Delayed Release (Protonix) Take 1 Tablet by mouth in the morning. 90 Tablet 3 08/31/2024 11:53 AM EST 08/08/2024 Active Losartan Potassium 100 MG Oral Tablet (Cozaar)Indicati ons:HTN, goal below 140/90 Take 1 Tablet by mouth daily. 30 Tablet 1 08/15/2024 Active Vitamin C 1000 MG Oral Tablet Take 1 Tablet by mouth in the morning. Active amLODIPine Besylate 5 MG Oral Tablet (Norvasc)Indicat ions:HTN, goal below 140/90 Take 1 Tablet by mouth 2 times a day. 200 Tablet 3 08/24/2024 10:41 AM EST 08/23/2024 Active hydroCHLOROthiaz marvel 12.5 MG Oral Capsule Take 1 Capsule by mouth in the morning. 31 Capsule 5 08/23/2024 Active Isosorbide Mononitrate ER 60 MG Oral Tablet Extended Release 24 Hour (Imdur)Indicatio ns:HTN, goal below 140/90 Take 1 Tablet by mouth in the morning. 100 Tablet 3 09/05/2024 1:24 PM EST 09/04/2024 Active documented as of this encounter (statuses as of 10/01/2024) Active Problems Problem Noted Date Diagnosed Date History of MO (myocardial infarction) 08/06/2024 Former smoker 01/17/2024 Atherosclerosis of aorta 04/26/2023 Hypertensive kidney disease with stage 3b chronic kidney disease 04/26/2023 Atherosclerosis of coronary artery of [place] heart without angina pectoris 04/26/2023 Thyroid nodule [...] as of this encounter (statuses as of 10/01/2024) Resolved Problems Problem Noted Date Diagnosed Date [...] as of this encounter (statuses as of 10/01/2024) Immunizations Name Administration Dates Next Due COVID-19 mRNA, LNP-s, No Pre serve, 2-Dose Series ([facility]) 07/25/2021,12/27/2020,11/29/2020 COVID-19, LNP-s, No Preserve , Binh-sucrose, Ages 12+ ([employer]) 03/05/2022 COVID-19, MRNA-LNP, PF, 30 M CG/0.3 mL, 12 YRS AND ABOVE, IM ([facility]) 06/15/2024,09/26/2023 Pneumococcal Conjugate Vacc, 13 Valent [...] as of this encounter Progress Notes * Richard Saucedo MD - 10/01/2024 1:30 PM EST SUBJECTIVE: Chief Complaint: Chief Complaint Patient presents with Follow Up Skin check- pt reports a growth on her back she would like evaluated HPI: Shiloh Ryan is a 88 year old female seen for a full skin check for history of nonmelanoma skin cancer. 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 Right eisenberg - 4mm pink scaly papule - hak, r/o sccis, bisected for porokeratosis Right medial eisenberg, right upper back, left helix x2 - x4 total gritty erythematous macules/papules Well-healed scar(s) at primary site(s) without evidence of recurrence Scattered on face, chest, back - diffuse mottled hypopigmented and hyperpigmented macules without significant irregularity. Associated telangiectasias At the trunk and extremities are several scattered dyer/brown hyperkeratotic stuck on appearing waxypapules. ASSESSMENT/PLAN: Skin neoplasm(s) - Shave biopsy of the following lesion(s) A. Right eisenberg - 4mm pink scaly papule - hak, r/o sccis, bisected for porokeratosis Procedure - Tangential biopsy of skin Biopsy by shave was recommended for the lesion(s) noted above to establish and confirm diagnosis. The procedure, risks, benefits, alternatives and expected outcomes were discussed with the patient and consent was obtained. Time out called. Patient identified, procedure verified, site(s) identified and verified. Patient and staff present in agreement. Area prepped with alcohol and anesthetized using 0.5% lidocaine with epinephrine at 1:200,000 concentration. Biopsy of lesion(s) performed. 20% AlCl and bandaging applied. Specimen(s) sent to pathology. Patient instructed in routine post-op care. -cauterized for hemostasis and destruction for AK Actinic keratosis -The diagnosis and malignant potential of the lesion was explained. Treatment options were reviewedincluding cryotherapy, topical medications, and observation. All questions were addressed. Procedure - Cryotherapy (Premalignant Destruction) -The patient would like to proceed with cryosurgery;Cryosurgery explained to the patient, consent obtained, patient, site and procedure verified, and then cryotherapy was performed with Liquid Nitrogen via cryo spray unit to 4 lesions. Location noted in physical exam. Post op course explained. -Discussed that if any of these lesions fail to completely resolve after treatment patient should call me for re-evaluation Scar(s), History of Nonmelanoma Skin Cancer - Well healed scar(s) with no evidence of recurrence - Recommended periodic skin exams and instructed to call clinic if patient notices any changing lesions, including rapid enlargement, changes in color or shape or symptoms, bleeding, or other concerns. The common features and behavior of non-melanoma skin cancers (e.g. basal cell carcinoma/squamouscell carcinoma) as well as the features of melanoma were also reviewed. -Daily sun protection recommended including physical (i.e. clothing) and chemical blockers. Broad spectrum sunscreens with at least SPF 30 for UVA and UVA protection were recommended. Chronic Actinic Damage - Discussed that skin changes are due to chronic sun exposure. - Daily sun protection recommended as discussed above Seborrheic keratoses - The benign nature of these lesions was discussed with the patient and that no treatment is indicated today. Richard Saucedo MD REF: SELF [address] STRE[address] ADDRESS AVAILABLE PCP: KATHERINE GALLARDO [address] [place] [id number] documented in this encounter Nursing Notes * Jacqueline Lora LPN - 10/01/2024 1:15 PM EST Patient identified by name and date of . Do you have any concerns about pain management for today's visit? No Living Will or Advance Directive for Health Care as noted on problem list. [facility] is a way you can talk to your provider online through e-mail. Would you like to sign up? I can activate it for you? ALREADY ACTIVE Chief Complaint Patient presents with Follow Up Skin check- pt reports a growth on her back she would like evaluated documented in this encounter Plan of Treatment Upcoming Encounters Date Type Department Care Team (Late st Contact Info) Description 11/21/2024 11:10 AM EST Office Visit Vascular Surgery, [address] [address] Scott Lee MD [address] [place] [address] 11/30/2024 9:00 AM EST [facility] [place] [facility] [address] [facility] [address] [place] [phone] Katherine Gallardo MD [address] [facility] [address] [place] [id number] 12/06/2024 8:00 AM EST Imaging Radiology [facility] 1st Floor, [place] [address] [facility] [place] [address] 12/18/2024 10:30 AM EST Office Visit Cardiology, [facility] [address] [facility] [place] [address] Thomas Burleson PA-C [address] [facility] [place] [address] 12/26/2024 12:30 PM EDT Office Visit Gastroenterology, [facility] [address] [facility] [place] [address] Merlin Terrazas CRNP [address] [facility] [place] [address] Pending Results Name Type Priority Associated Diagnoses Date /Time SURGICAL PATHOLOGY Pathology Routine Skin neoplasm 10/01/2024 1:39 PM EST Health Maintenance Due Date Last Done Comments Adult Wellness Visit 09/05/2021 09/05/2020 *NEPHROLOGY REFERRAL DUE TO RESISTANT HTN 08/11/2024 *BISPHONATE OR OTHER ACCEPTABLE MEDICATION NEEDED FOR OSTEOPOROSIS (REFER TO SMARTSET #1146) 09/16/2024 Albumin/Creatinine Ratio 05/10/2025 05/10/2024, 03/18 CKD PHOS USE SMARTSET 32948 05/10/202504/17, 04/14/2023, 11/03/2020, Additional history exists Depression Screening 07/13/2025 07/13/2024 CKD HGB USE SMARTSET 50979 08/27/202508/27, 05/10/2024, 04/14/2023, Additional history exists TSH 08/27/2025 08/27/2024, 04/17, 04/14/2023, Additional history exists DXA Scan 06/08/2026 06/08/2024, 05/18, 05/21/2019, Additional history exists DTap/Tdap Vaccines Discontinued 03/14/2013, 1 12/05/2001, 09/16/1992 Pneumococcal Vaccine: 65+ Years Completed 05/10/2016, 11/10/2006, 11/09/1999 Zoster Vaccines Completed 11/21/2018, 04/16, 04/16/2018, Additional history exists VITAMIN D LEVEL ONCE IN A LIFETIME-USE SMARTSET# 67064 Completed 04/14/2023, 08/04/2021, 11/03/2020, Additional history exists [...] as of this encounter Visit Diagnoses Diagnosis Actinic skin damage- Primary Other dermatitis due to solar radiation Seborrheic keratoses Hx of squamous cell carcinoma Personal history of malignant neoplasm of other site Scar Scar condition and fibrosis of skin Skin neoplasm Neoplasm of unspecified nature of bone, soft tissue, and skin Actinic keratosis documented in this encounter Advance Directives Documents on File Type Date Recorded 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
--- OUTSIDE RECORDS SUMMARY | 2025-01-17 07:32 | External Medical Summary | Summary of Care ---
Author Name Unknown Organization [facility] Address [address] [place] [address] Phone [phone] Care Team Providers Care Refractory Tile Helper Name Role Phone Rafat Josue MD Primary Care Provider [phone] Reason for Visit * Reason Comments Acute Pt is here today due to having nose bleed. Encounter Details Date Type Department Care Team (Late st Contact Info) Description 10/04/2024 5:20 PM EST Office Visit [facility] [address] [facility] [place] [address] Enoch Farnsworth MD [address] [place], [place] [id number] Bleeding nose*; Risk and functional assessment; Atherosclerosis of coronary artery of tejon heart without angina pectoris, unspecified vessel or lesion type; History of lacunar cerebrovascular accident; Other pancytopenia (HCC) Allergies No known active allergiesdocumented as of this encounter (statuses as of 10/04/2024) Medications CALCIUM 500 +D 500-400 MG-UNIT PO [...] as of this encounter (statuses as of 10/04/2024) Active Problems Problem Noted Date Diagnosed Date Other pancytopenia 10/04/2024 History of GA (myocardial infarction) 08/06/2024 Former smoker 01/17/2024 Atherosclerosis of aorta 04/26/2023 Hypertensive kidney disease with stage 3b chronic kidney disease 04/26/2023 Atherosclerosis of coronary artery of tejon heart without angina pectoris 04/26/2023 Thyroid nodule [...] as of this encounter (statuses as of 10/04/2024) Resolved Problems Problem Noted Date Diagnosed Date [...] as of this encounter (statuses as of 10/04/2024) Immunizations Name Administration Dates Next Due COVID-19 mRNA, LNP-s, No Pre serve, 2-Dose Series ([employer]) 07/25/2021,12/27/2020,11/29/2020 COVID-19, LNP-s, No Preserve , Binh-sucrose, [...] Sign Reading Time Taken Comments Blood Pressure 130/52 10/04/2024 5:18 PM EST Pulse 65 10/04/2024 5:18 PM EST Temperature 36.1 °C (96.9 °F) 10/04/2024 5:18 PM ES T Respiratory Rate 18 10/04/2024 5:18 PM EST Oxygen Saturation 98% 10/04/2024 5:18 PM EST Inhaled Oxygen Concentration - - Weight 64 kg (141 lb 1.6 oz) 10/04/2024 5:18 PM EST Height - - Body Mass Index 26.66 05/15/2024 6:06 PM EDT documented in this encounter Patient Instructions * Patient Instructions* Deborah Cm LPN - 10/04/2024 5:22 PM EST Patient Instructions - Fall Prevention (This education is for all patients over 65 regardless of symptoms) Remember to take your current medications as prescribed. In order to prevent falls, you are encouraged to: Exercise Utilize assistive/adaptive devices Avoid multifocal lenses when walking Avoid hazards in home Maintain a regular toileting schedule Any questions please contact our office. Preventing Falls in the Home (This education is for all patients over 65 regardless of symptoms) As you get older, falls are more likely. That’s because your reaction time slows. Your muscles and joints may also get stiffer, making them less flexible. Illness, medications, and vision changes can also affect your balance. A fall could leave you unable to live on your own. To make your home safer, follow these tips: Floors Put nonskid pads under area rugs Remove throw rugs Replace worn floor coverings Tack carpets firmly to each step on carpeted stairs. Put nonskid strips on the edges of uncarpeted stairs Keep floors and stairs free of clutter and cords Arrange furniture so there are clear pathways Clean up any spills right away Bathrooms Install grab bars in the tub or shower Apply nonskid strips or put a nonskid rubber mat in the tub or shower Sit on a bath chair to bathe Use bathmats with nonskid backing Lighting Keep a flashlight in each room Put a nightlight along the pathway between the bedroom and the bathroom Kari Patient Education Copyright© 2008 - 2010 [employer] except where otherwise noted Preventing Falls: Exercises to Improve Balance, Flexibility, Strength, and Staying Power (This education is for all patients over 65 regardless of symptoms) Certain types of exercises may help make you less likely to fall. Try the ones below. Or do other exercises that your healthcare provider suggests. Depending on your health, you may need to start slowly. Don’t let that stop you. Even small amounts of exercise can help you. Be sure to talk to yourhealthcare provider before starting any exercise program. Improve Balance Many types of exercise can help improve balance. Alejo chi and yoga are good examples. Here’s another one to try. You can do it anytime and almost anywhere. Stand next to a counter or solid support. Push yourself up onto your tiptoes. Hold for 5 seconds. If you start to lose your balance, hold on to the counter. Rest and repeat 5 times. Work up to holding for 20 to 30 seconds, if you can. Increase Flexibility Being more flexible makes it easier for you to move around safely. Try exercises like the seated hamstring stretch. Sit in a chair and put one foot on a stool. Straighten your leg and reach with both hands down either side of your leg. Reach as far down your leg as you can. Hold for about 20 seconds. Go back to the starting position. Then repeat 5 times. Switch legs. Build Strength “Resistance” exercises help build strength. You can do them without equipment. Or you can use weights, elastic bands, or special machines. One such exercise is called the biceps curl. You can hold a 1 pound weight or even a can of soup. Do this exercise at least 3 times a week. Strive for everyday. Sit up straight in a chair. Keep your elbow close to your body and your wrist straight. Bend your arm, moving your hand up to your shoulder. Then slowly lower your arm. Repeat 5 times. Switch to the other arm. Build Your Staying Power “Aerobic” exercises make your heart and lungs stronger so you can keep moving longer. Walking and swimming are two of the best types of exercises you can do. Using a stationary bike is great, too. Find an aerobic exercise that you enjoy. Start slowly and build up. Even 5 minutes is helpful. Aimfor a goal of 30 minutes, at least 3 times a week. You don’t have to do 30 minutes in one session. Break it up and walk a little throughout the day. More Helpful Tips Start easy. Slowly work up to doing more. Talk with your healthcare provider about the best exercises for you. Call senior centers or health clubs about exercise programs. If needed, have a family member watch you walk every so often to check your stability. Exercise with a friend. Choose an activity you both enjoy. Try exercises that you can do anytime, anywhere. Here are two examples. Have someone with you when you first try these: Practice walking by placing one foot right in front of the other. Stand up and sit down 10 times. Repeat this throughout the day. Kari Patient Education Copyright© 2008 - 2010 Kari except where otherwise noted. Preventing Falls: Moving Safely Using a Cane or Walker (This education is for all patients over 65 regardless of symptoms) Keep the cane away from your feet so you don’t trip. A walking aid, such as a cane or walker, can help you stay more independent and avoid falls. Remember to keep your walking aid within easy reach when you’re in a chair or in bed. And learn how to use it safely so you don’t injure yourself. Using a Cane If you have a stronger side, hold the cane on that side. Get your balance. Move the cane and your weaker leg forward. Support your weight on both the cane and your weaker side. Step with your stronger leg. Start again from step 1. If you’re using a folding walker, be sure you know how to lock it open. Check that it’s locked open before each use. Using a Walker Roll the walker (or lift it, if you’re using one without wheels) forward about 12 inches. Step forward with your weaker leg first. Use the walker to help keep your balance. Bring your other foot forward to the center of the walker. Start again from step 1. Helpful Tips Check with your healthcare provider about the right walking aid to use. Ask about a walker with a seat attached. Check the tips of your cane or walker to make sure they have nonskid covers. Move slowly from room to room. Don’t espinal. Sit down to get dressed. Use a shauna pack or backpack to keep your hands free. Get help for jobs that mean climbing, even on a stepstool. Radiation Watch Patient Education Copyright© 2008 - 2010 [employer] except where otherwise noted. Urinary Incontinence Plan of Care Documentation: (This education is for all patients over 65 regardless of symptoms) Current medications reconciled. Patient encouraged to: Practice kegal exercises Provide education materials Use the restroom every 2 hours throughout the day Limit caffeine, alcohol, spicy foods and acidic foods Keep a bladder diary Limit fluid intake 3-4 hours before bed Lose weight Prevent constipation Take fluid pills at a time when you can get to the bathroom quickly Control sugar better if diabetic Limit fluid intake to 60 oz. per day Wear support stockings (TEDs)if you have edema Deborah Cm LPN 10/04/2024 Kegel Exercises Kegel exercises don’t require special clothing or equipment. They’re easy to learn and simple to do. And if you do them right, no one can tell you’re doing them, so they can be done almost anywhere. Your doctor, nurse, or physical therapist can answer any questions you have and help you get started. A Weak Pelvic Floor The pelvic floor muscles may weaken due to aging, and vaginal childbirth, injury, surgery, chronic cough, or lack of exercise. If the pelvic floor is weak, your bladder and other pelvic organs may sag out of place. The urethra may also open too easily and allow urine to leak out. Kegel exercises can help you strengthen your pelvic floor muscles so they can better support the pelvic organs and control urine flow. How Kegel Exercises Are Done Try each of the Kegel exercises described below. When you’re doing them, try not to move your leg, buttock, or stomach muscles. While you’re urinating, try to stop the flow of urine. Start and stop it as often as you can. Contract as if you were stopping your urine stream, but do it when you’re not urinating. Tighten your rectum as if trying not to pass gas. Contract your anus, but don’t move your buttocks. Helpful Hints Do your Kegels as often as you can. The more you do them, the faster you’ll feel the results. Pick an activity you do often as a reminder. For instance, do your Kegels every time you sit down. Tighten your pelvic floor before you sneeze, get up from a chair, cough, laugh, or lift. This protects your pelvic floor from injury and can help prevent urine leakage. Try to hold each Kegel for a slow count to five. You probably won’t be able to hold them for thatlong at first, but keep practicing. It will get easier as your pelvic floor gets stronger. Eventually, special weights that you place in your vagina may be recommended to help make your Kegels even more effective. Kari Patient Education Copyright© 2008 - 2010 Kari except where otherwise noted. Here are some helpful tips for your urinary incontinence: (This education is for all patients over 65 regardless of symptoms) Practice Kegel exercises Use the restroom every 2 hours throughout the day Limit caffeine, alcohol, spicy foods, and acidic foods Keep a bladder diary Limit fluid intake 3-4 hours before bed Lose weight Prevent constipation Take fluid pills at a time when can get to the bathroom quickly Control sugar better if diabetic Limit fluid intake to 60 oz. per day Any questions, please feel free to contact our office. documented in this encounter Progress Notes * Enoch Farnsworth MD - 10/04/2024 5:42 PM EST Subjective Shiloh Ryan is a 88 year old female. Chief Complaint Patient presents with Acute Pt is here today due to having nose bleed. HPI: Here for recurrent nose bleeding Taking asa plavix Had stent for CAD, GA in sep Hx of stroke + Denies sinus congestion or runny nose Mild nose bleeding but since last months it has been recurrent Known mild anemia, mild low Plt but recent cbc was normal Plt count PMH: Patient Active Problem List Diagnosis HTN, goal below 140/90 Dyslipidemia, goal LDL below 130 Age-related osteoporosis without current pathological fracture Hypothyroidism History of lacunar cerebrovascular accident Vitamin D deficiency Chronic kidney disease, stage 3b Atherosclerosis of aorta (HCC) Hypertensive kidney disease with stage 3b chronic kidney disease (HCC) Atherosclerosis of coronary artery of tejon heart without angina pectoris Thyroid nodule Former smoker Nodule of upper lobe of left lung History of GA (myocardial infarction) Other pancytopenia (HCC) Current Outpatient Medications Medication Sig Dispense Refill [...] mouth in the morning. 90 Tablet 3 Losartan Potassium 100 MG Oral Tablet (Cozaar) Take 1 Tablet by mouth daily. 30 Tablet 1 Vitamin C 1000 MG Oral Tablet Take [...] by mouthin the morning. 100 Tablet 3 No current facility-administered medications for this visit. Past Medical History: Diagnosis Date Allergic conjunctivitis, Other Esophageal reflux HTN, goal below 140/90 Past Surgical History: Procedure Laterality Date BIOPSY OF BREAST, OPEN 1971 Breast Biopsy, Benign Disease CARPAL TUNNEL SURGERY Left 01/11/2017 left NEUROPLASTY MEDIAN NERVE AT CARPAL TUNNEL performed by Yaw Campbell MD at OR [facility] COLONOSCOPY 02/17 incomplete, needed barium enema REMOVAL OF RUPTURED APPENDIX 12/18/00 Appendectomy, Rupt Appendx REMOVE LUMBAR SPINE LAMINA, 3+ SEGS [facility] Lumbar Disk Excision TOTAL HYSTERECTOMY 1977 VICK (Total Abdominal Hysterectomy) Review of patient's allergies indicates: No Known Allergies Family History Problem Relation Name Age of Onset Heart Disorder Mother DEC AGE 72/ Stroke Mother Hypertension Mother Heart Disorder Grandmother (Maternal) SEP 80' Heart Disorder Grandfather (Maternal) Heart Disorder Brother CABG Heart Disorder Brother CABG Hypertension Brother Heart Disorder Brother [facility] ByPass surgery Heart Disorder Brother [facility] ByPass surgery Family Status Relation Status Mo at age 72 GA Fa at age 42 ACC MGMA (Not Specified) MGFA (Not Specified) Bro (Not Specified) Bro (Not Specified) Bro (Not Specified) Bro (Not Specified) Bro (Not Specified) Social History Socioeconomic History Marital status: Spouse name: CHASIDY Number of children: 2 Years of education: Not on file Highest education level: Not on file Occupational History Occupation: RETIRED Tobacco Use Smoking status: Former Current packs/day: 0.00 Average packs/day: 1 pack/day for 20.0 years (20.0 ttl pk-yrs) Types: Cigarettes Start date: 10/17/1949 Quit date: 10/17/1969 Years since quittin.0 Passive exposure: Past Smokeless tobacco: Never Tobacco [...] Stability Do you currently live in a skilled nursing or have no steady place to sleep [...] - for ages0-17 years): Not on file Review of Systems Constitutional: Negative for activity change, appetite change, chills, diaphoresis, fatigue, fever and unexpected weight change. HENT: Positive for nosebleeds. Negative for congestion, postnasal drip and rhinorrhea. Respiratory: Negative. Cardiovascular: Negative. Gastrointestinal: Negative for abdominal distention and abdominal pain. Allergic/Immunologic: Negative for environmental allergies. Hematological: Bruises/bleeds easily. Psychiatric/Behavioral: Positive for sleep disturbance. Negative for agitation and behavioral problems. Objective BP 130/52 | Pulse 65 | Temp 96.9 °F (36.1 °C) (Infrared ) | Resp 18 | Wt 141 lb 1.6 oz (64 kg) | SpO2 98% | BMI 26.66 kg/m² | BSA 1.66 m² Physical Exam Constitutional: General: She is not in acute distress. Appearance: Normal appearance. She is not ill-appearing, toxic-appearing or diaphoretic. HENT: Head: Normocephalic and atraumatic. Nose: Nose normal. Eyes: Extraocular Movements: Extraocular movements intact. Cardiovascular: Rate and Rhythm: Normal rate and regular rhythm. Pulmonary: Effort: Pulmonary effort is normal. No respiratory distress. Neurological: General: No focal deficit present. Mental Status: She is alert and oriented to person, place, and time. Psychiatric: Mood and Affect: Mood normal. Behavior: Behavior normal. ASSESSMENT/PLAN: Bleeding nose (Primary) Risk and functional assessment Atherosclerosis of coronary artery of tejon heart without angina pectoris, unspecified vessel or lesion type History of lacunar cerebrovascular accident Other pancytopenia (HCC) Increase water intake , 8 glasses per day Humidifier use And vaselin ointment inside nostril twice daily Enoch Farnsworth MD * Deborah Cm LPN - 10/04/2024 5:22 PM EST Fall Risk Plan of Care Documentation: - Current medications reconciled Patient encouraged to: - Exercise - Provide education materials for Core strengthening - Utilize assistive/adaptive devices - Provide education materials - Avoid multifocal lenses when walking - Avoid hazards in home - Provide education materials - Maintain a regular toileting schedule Deborah Cm LPN 10/04/2024 documented in this encounter Nursing Notes * Deborah Cm LPN - 10/04/2024 5:16 PM EST Chief Complaint Patient presents with Acute Pt is here today due to having nose bleed. documented in this encounter Plan of Treatment Upcoming Encounters Date Type Department Care Team (Late st Contact Info) Description 11/21/2024 11:10 AM EST Office Visit Vascular Surgery, [facility] [address] [facility] [place] [address] Scott Lee MD [address] [facility] [address] 11/30/2024 9:00 AM EST Office [facility] [address] [facility] [id number] Rafat Josue MD [address] [facility] [id number] 12/06/2024 8:00 AM EST Imaging Radiology [facility] 1st Floor, [place] [address] [facility] [place] [address] 12/18/2024 10:30 AM EST Office Visit Cardiology, [facility] [address] [facility] [place] [address] Thomas Burleson PA-C [address] [facility] [place] [address] 12/26/2024 12:30 PM EDT Office Visit Gastroenterology, [facility] [address] [facility] [place] [address] Merlin Terrazas CRNP [address] [facility] [place] [address] Health Maintenance Due Date Last Done Comments Adult Wellness Visit 09/05/2021 09/05/2020 *NEPHROLOGY REFERRAL DUE TO RESISTANT HTN 08/11/2024 *BISPHONATE OR OTHER ACCEPTABLE MEDICATION NEEDED FOR OSTEOPOROSIS (REFER TO SMARTSET #1146) 09/16/2024 Albumin/Creatinine Ratio 05/10/2025 05/10/2024, 03/18 CKD PHOS USE SMARTSET 51439 05/10/202504/17, 04/14/2023, 11/03/2020, Additional history exists Depression Screening 07/13/2025 07/13/2024 CKD HGB USE SMARTSET 90301 08/27/202508/27, 05/10/2024, 04/14/2023, Additional history exists TSH 08/27/2025 08/27/2024, 04/17, 04/14/2023, Additional history exists DXA Scan 06/08/2026 06/08/2024, 05/18, 05/21/2019, Additional history exists DTap/Tdap Vaccines Discontinued 03/14/2013, 1 12/05/2001, 09/16/1992 Pneumococcal Vaccine: 65+ Years Completed 05/10/2016, 11/10/2006, 11/09/1999 Zoster Vaccines Completed 11/21/2018, 04/16, 04/16/2018, Additional history exists VITAMIN D LEVEL ONCE IN A LIFETIME-USE SMARTSET# [id number] Completed 04/14/2023, 08/04/2021, 11/03/2020, Additional history exists [...] as of this encounter Visit Diagnoses Diagnosis Bleeding nose- Primary Epistaxis Risk and functional assessment Screening for unspecified condition Atherosclerosis of coronary artery of tejon heart without angina pectoris, unspecified vessel or lesion type History of lacunar cerebrovascular accident Other pancytopenia (HCC) Other pancytopenia documented in this encounter Advance Directives Documents on File Type Date Recorded Patient Senior Audit Manager Expl anation Advance Directives and Living Will 09/26/2015 LIVING WILL LIVING W ILL Power of Orthophotography Technician 09/26/2015 POWER OF A TTORNEY POWER OF RHEUMATOLOGY NURSE Care Teams Refractory Tile Helper Relationship Specialty Start Date End Date Rafat Josue MD [address] [place] [address] PCP - General 12/31/02 documented as of this encounter"
--- OUTSIDE RECORDS SUMMARY | 2025-01-17 07:32 | External Medical Summary | Summary of Care ---
Author Name Unknown Organization [facility] Address [address] [place] [address] Phone [phone] Care Team Providers Care Sheet Pile Hammer Operator Name Role Phone Rafat Josue MD Primary Care Provider [phone]- [phone] Reason for Visit * Reason Onset Date Comments Appointment 09/11/2024 CT colon Encounter Details Date Type Department Care Team (Late st Contact Info) Description 09/11/2024 Telephone Radiology, [place] [address] [place] [address] Specified, [place] No Resource [address] [place] [address] Appointment (CT colon/) Allergies No known active allergiesdocumented as of this encounter (statuses as of 09/17/2024) Medications CALCIUM 500 +D 500-400 MG-UNIT PO [...] as of this encounter (statuses as of 09/17/2024) Active Problems Problem Noted Date Diagnosed Date History of [place] (myocardial infarction) 08/06/2024 Former smoker 01/17/2024 Atherosclerosis [...] as of this encounter (statuses as of 09/17/2024) Resolved Problems Problem Noted Date Diagnosed Date [...] as of this encounter (statuses as of 09/17/2024) Immunizations Name Administration Dates Next Due COVID-19 mRNA, LNP-s, No Pre serve, 2-Dose Series (Mobilitrix) 07/25/2021,12/27/2020,11/29/2020 COVID-19, LNP-s, No Preserve , Binh-sucrose, Ages 12+ (Pfizer) 03/05/2022 COVID-19, MRNA-LNP, PF, 30 M CG/0.3 mL, 12 YRS AND ABOVE, IM ([facility] 06/15/2024,09/26/2023 Pneumococcal Conjugate Vacc, 13 Valent [...] encounter Miscellaneous Notes * Telephone Encounter - Aisha Domingo OSA - 09/11/2024 1:55 PM EST Images from the original note were not included. Order CT VIRTUAL COLONOSCOPY DIAGNOSTIC WO CONTRAST [CTVCOL] (Order [id number]) Ordered On 09/11/2024 1:30 PM Ordering Provider Authorizing Provider Ordering User Ordering Department Merlin Terrazas CRNP Thomas, Lorella G, CRNP Thomas, Lorella G, CRNP GASTRO QUE JAIME Nurse Practitioner Nurse Practitioner Nurse Practitioner Gastroenterology [phone] Order Providers Authorizing Provider Encounter Provider ([id number]) Merlin Terrazas CRNP ([id number]) Merlin Terrazas CRNP Supervision Information Encounter Supervising Provider Type of Supervision ([id number]) Jewel Govae MD General Result Information Date and Time: Ordered: 09/11/2024 13:30 Provider Status: Exam Details Performed Procedure Technologist Supporting Staff Performing Physician CT Virtual Colonoscopy Diagnostic without contrast Appointment Date/Status Modality Department Priority and Order Details Priority Class Routine OUTPATIENT PRECERT POOL Comments iron deficiency anemia, FOBT (+), unable to pass scope due to 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 iron deficiency anemia, FOBT (+), unable to pass scope due to tight sigmoid stricture during last attempt in 2004 Has the patient had a biopsy of the colon within the last 4 weeks? No Has the patient had an active inflammatory process of the colon within the last six weeks? No Has the patient had colon surgery in the past 3 months? No Has the patient had pelvic irradiation in the last 3 months? No Procedure Location: [place] Facility: [facility] Where is this test being performed? Que Jaime Decision Support Appropriateness Score Ordering Provider Indeterminate Merlin Terrazas CRNP Session ID Source CDSM Identifier Adherence [id number] Web Service [facility] (G1010) No Criteria Available (MG) Date Time Consulted Exception Comment 09/11/24 13:30:00 Decision Support Session ID [id number] Future Order Information Expected Expires 09/18/2024 10/11/2025 Associated Diagnoses Iron deficiency anemia, unspecified iron deficiency anemia type [D50.9] - Primary Sigmoid stricture (HCC) [K56.699] Reference Links [facility] - Radiology IV and Oral Contrast Protocols Status of Other Orders View Status of Other Orders Encounter View Encounter Precert Information Click here for any available precertification information Reprint Requisition CT VIRTUAL COLONOSCOPY DIAGNOSTIC WO CONTRAST (Order #[id number]) on 09/11/24 Tracking Links Cosign Tracking Order Transmittal Tracking documented in this encounter Plan of Treatment Upcoming Encounters Date Type Department Care Team (Late st Contact Info) Description 10/01/2024 1:30 PM EST Office Visit Dermatology [facility] [address] [facility] [place] [address] Richard Saucedo MD [address] [facility] [place] [address] 11/30/2024 9:00 AM EST Office Visit [facility] [address] [facility] [place] [phone] Rafat Josue MD [address] [facility] [place] [address] 12/06/2024 8:00 AM EST Imaging Radiology [facility] 1st [facility] [address] [place] [address] 12/18/2024 10:30 AM EST Office Visit Cardiology, [facility] [address] [place] [address] Thomas Burleson PA-C [address] [place] [address] 12/26/2024 12:30 PM EDT Office Visit Gastroenterology, [facility] [address] [place] [address] Merlin Terrazas CRNP [address] [place] [address] Health Maintenance Due Date Last Done Comments Adult Wellness Visit 09/05/2021 09/05/2020 *NEPHROLOGY REFERRAL DUE TO RESISTANT HTN 08/11/2024 Albumin/Creatinine Ratio 05/10/2025 05/10/2024, 03/18 CKD PHOS USE SMARTSET 34837 05/10/202504/17, 04/14/2023, 11/03/2020, Additional history exists Depression Screening 07/13/2025 07/13/2024 CKD HGB USE SMARTSET 63645 08/27/202508/27, 05/10/2024, 04/14/2023, Additional history exists TSH 08/27/2025 08/27/2024, 04/17, 04/14/2023, Additional history exists DXA Scan 06/08/2026 06/08/2024, 05/18, 05/21/2019, Additional history exists DTap/Tdap Vaccines Discontinued 03/14/2013, 1 12/05/2001, 09/16/1992 Pneumococcal Vaccine: 65+ Years Completed 05/10/2016, 11/10/2006, 11/09/1999 Zoster Vaccines Completed 11/21/2018, 04/16, 04/16/2018, Additional history exists VITAMIN D LEVEL ONCE IN A LIFETIME-USE SMARTSET# [id number] Completed 04/14/2023, 08/04/2021, 11/03/2020, Additional history exists [...] Documents on File Type Date Recorded Patient Shell Molding Roller Blast Operator Expl anation Advance Directives and Living Will 09/26/2015 LIVING WILL LIVING W ILL Power of Division Officer Weapons Department 09/26/2015 POWER OF A TTORNEY POWER OF CONTINUOUS CONVEYOR SCREEN DRIER Care Teams Sheet Pile Hammer Operator Relationship Specialty Start Date End Date Rafat Josue MD [address] [place] [address] PCP - General 12/31/02 documented as of this encounter
--- OUTSIDE RECORDS SUMMARY | 2025-01-17 07:32 | External Medical Summary | Summary of Care ---
Author Name Unknown Organization [facility] Address [address] [place] [address] Phone [phone] Care Team Providers Care Wildlife Conservation Officer Name Role Phone Rafat Josue MD Primary Care Provider [phone]- [phone] Reason for Visit * Reason Onset Date Comments Health Maintenance 10/01/2024 Encounter Details Date Type Department Care Team (Late st Contact Info) Description 10/01/2024 Telephone [facility] [address] [place] [address] Rafat Josue MD [address] [place] [address] Health Maintenance Allergies No known active allergiesdocumented as of [...] Problem Noted Date Diagnosed Date History of CT (myocardial infarction) 08/06/2024 Former smoker 01/17/2024 Atherosclerosis of aorta 04/26/2023 Hypertensive kidney disease with stage 3b chronic kidney disease 04/26/2023 Atherosclerosis of coronary artery of [place] heart without angina pectoris 04/26/2023 Thyroid nodule [...] mRNA, LNP-s, No Pre serve, 2-Dose Series (GlocalReach) 07/25/2021,12/27/2020,11/29/2020 COVID-19, LNP-s, No Preserve , Binh-sucrose, [...] encounter Miscellaneous Notes * Telephone Encounter - Gardenia Melo LPN - 10/01/2024 9:29 AM EST Care Gaps Comprehensive Care Outreach Last Office/Telemedicine Visit: Visit date not found (in office), Visit date not found (telemedicine) Next Office Visit: 11/30/2024 Hemoglobin AIC Results: Lab Results Component Value Date/Time HEMOGLOBIN A1C - INDIRAER 5.7 09/25/1998 08:10 AM BP Readings from Last 1 Encounters: 09/11/24 162/68 Reviewed Health Maintenance below: Health Maintenance Topic Date Due Adult Wellness Visit 09/05/2021 *NEPHROLOGY REFERRAL DUE TO RESISTANT HTN Never done *BISPHONATE OR OTHER ACCEPTABLE MEDICATION NEEDED FOR OSTEOPOROSIS (REFER TO SMARTSET #1146) Never done Albumin/Creatinine Ratio 05/10/2025 CKD PHOS USE SMARTSET 05265 05/10/2025 Depression Screening 07/13/2025 CKD HGB USE SMARTSET 27743 08/27/2025 TSH 08/27/2025 Positive fobt Saw gastro they are doing a virtual colonoscopy January 15 Care Gap Outreach Action Taken: Outreach not indicated documented in this encounter Plan of Treatment Upcoming Encounters Date Type Department Care Team (Late st Contact Info) Description 10/01/2024 1:30 PM EST Office Visit Dermatology [facility] [place] [address] [place] [address] Richard Saucedo MD [address] [place] [address] 11/21/2024 11:10 AM EST Office Visit Vascular Surgery, [facility] [address] [facility] [place] [address] Scott Lee MD [address] [place] [address] 11/30/2024 9:00 AM EST Office Visit [facility] [address] [facility] [place] [phone] Rafat Josue MD 226 [facility] [place] [address] 12/06/2024 8:00 AM EST Imaging Radiology [facility] 1st [facility] 132 [facility] [place] [address] 12/18/2024 10:30 AM EST Office Visit Cardiology, [facility] [address] [facility] [place] [address] Thomas Burleson PAVivianC 132 [facility] [place] [address] 12/26/2024 12:30 PM EDT Office Visit Gastroenterology, [facility] [address] [facility] [place] [address] Merlin Terrazas CRNP 132 [facility] [place] [address] Health Maintenance Due Date Last Done Comments Adult Wellness Visit 09/05/2021 09/05/2020 *NEPHROLOGY REFERRAL DUE TO RESISTANT HTN 08/11/2024 *BISPHONATE OR OTHER ACCEPTABLE MEDICATION NEEDED FOR OSTEOPOROSIS (REFER TO SMARTSET #1146) 09/16/2024 Albumin/Creatinine Ratio 05/10/2025 05/10/2024, 03/18 CKD PHOS USE SMARTSET 13851 05/10/202504/17, 04/14/2023, 11/03/2020, Additional history exists Depression Screening 07/13/2025 07/13/2024 CKD HGB USE SMARTSET 34639 08/27/202508/27, 05/10/2024, 04/14/2023, Additional history exists TSH 08/27/2025 08/27/2024, 04/17, 04/14/2023, Additional history exists DXA Scan 06/08/2026 06/08/2024, 05/18, 05/21/2019, Additional history exists DTap/Tdap Vaccines Discontinued 03/14/2013, 1 12/05/2001, 09/16/1992 Pneumococcal Vaccine: 65+ Years Completed 05/10/2016, 11/10/2006, 11/09/1999 Zoster Vaccines Completed 11/21/2018, 04/16, 04/16/2018, Additional history exists VITAMIN D LEVEL ONCE IN A LIFETIME-USE SMARTSET# 69194 Completed 04/14/2023, 08/04/2021, 11/03/2020, Additional history exists [...] Documents on File Type Date Recorded Patient Palliative Nurse Expl anation Advance Directives and Living Will 09/26/2015 LIVING WILL LIVING W ILL Power of Trimming Machine Operator 09/26/2015 POWER OF A TTORNEY POWER OF MAINFRAME CONSULTANT Care Teams Wildlife Conservation Officer Relationship Specialty Start Date End Date Rafat Josue MD [address] [place] [address] PCP - General 12/31/02 documented as of this encounter
--- OUTSIDE RECORDS SUMMARY | 2025-01-17 07:32 | External Medical Summary | Summary of Care ---
Author Name Unknown Organization [facility] Address [address] [place] [address] Phone [phone] Care Team Providers Care Escrow Closer Name Role Phone Rafat Josue MD Primary Care Provider [phone]- [phone] Reason for Visit * Reason Comments eRx-Medication Refill Encounter Details Date Type Department Care Team (Late st Contact Info) Description 10/04/2024 Refill Cardiology, [facility] [address] [facility] [place] [address] Mat Dean, 132 [facility] [place] [address] HTN, goal below 140/90 Allergies No known active allergiesdocumented as of this encounter (statuses as of 10/05/2024) Medications CALCIUM 500 +D 500-400 MG-UNIT PO TABS Take 2 Tablets by mouth daily. 60 Tab 5 1 Active ASPIRIN EC 81 MG PO TBEC Take 1 Tablet by mouth in the morning. 100 Tab 5 1 Active Vitamin D 50 MCG (1999 UT) Oral Capsule Take 2,000 Units by mouth in the morning. Active Vitamin B-12 1000 MCG Oral Tablet (Cyanocobalamin ) Take 1 Tablet by mouth in the [...] Active amLODIPine Besylate 5 MG Oral Tablet (Norvasc)Indica tions:HTN, goal below 140/90 Take 1 Tablet by mouth 2 times a day. 200 Tablet 3 08/24/2024 10:41 AM EST 4 Active hydroCHLOROthia zide 12.5 MG Oral Capsule Take 1 Capsule by mouth in the morning. 31 Capsule 5 4 Active Isosorbide Mononitrate ER 60 MG Oral Tablet Extended Release 24 Hour (Imdur)Indicati ons:HTN, goal below 140/90 Take 1 Tablet by mouth in the morning. 100 Tablet 3 09/05/2024 1:24 PM EST 4 Active Losartan Potassium 100 MG Oral Tablet (Cozaar)Indicat ions:HTN, goal below 140/90 Take 1 tablet by mouth once daily 90 Tablet 3 4 Active Losartan Potassium 100 MG Oral Tablet (Cozaar)Indicat ions:HTN, goal below 140/90 Take 1 Tablet by mouth daily. 30 Tablet 1 4 024 Discontinued documented as of this encounter (statuses as of 10/05/2024) Active Problems Problem Noted Date Diagnosed Date Other pancytopenia 10/04/2024 History of [place] (myocardial infarction) 08/06/2024 Former smoker 01/17/2024 Atherosclerosis of aorta 04/26/2023 Hypertensive kidney disease with stage 3b chronic kidney disease 04/26/2023 Atherosclerosis of coronary artery of [place] heart without angina pectoris 04/26/2023 Thyroid nodule [...] as of this encounter (statuses as of 10/05/2024) Resolved Problems Problem Noted Date Diagnosed Date [...] as of this encounter (statuses as of 10/05/2024) Immunizations Name Administration Dates Next Due COVID-19 mRNA, LNP-s, No Pre serve, 2-Dose Series (CitySwag) 07/25/2021,12/27/2020,11/29/2020 COVID-19, LNP-s, No Preserve , Binh-sucrose, [...] encounter Miscellaneous Notes * Telephone Encounter - Mike Gallegos RPh - 10/05/2024 2:31 PM ESTSigned Prescriptions: Disp Refills Losartan Potassium 100 MG Oral Tablet (Coz*90 Tab*3 Sig: Take 1tablet by mouth once dailyAuthorizing Provider: MAT DEAN User: MIKE GALLEGOS------ documented in this encounter Plan of Treatment Upcoming Encounters Date Type Department Care Team (Late st Contact Info) Description 11/21/2024 11:10 AM EST Office Visit Vascular Surgery, [facility] [address] [facility] [place] [address] Scott [facility] [address] [facility] [place] [address] 11/30/2024 9:00 AM EST [facility] [place] [phone] Rafat Josue MD [address] [facility] [place] [id number] 12/06/2024 8:00 AM EST Imaging Radiology [facility] 1st Floor, [place] [address] [facility] [place] [address] 12/18/2024 10:30 AM EST Office Visit Cardiology, [facility] [place] [address] Thomas Burleson PA-C [address] [place] [address] 12/26/2024 12:30 PM EDT Office Visit Gastroenterology, [facility] [place] [address] Merlin Terrazas CRNP [address] [place] [address] Health Maintenance Due Date Last Done Comments Adult Wellness Visit 09/05/2021 09/05/2020 *NEPHROLOGY REFERRAL DUE TO RESISTANT HTN 08/11/2024 *BISPHONATE OR OTHER ACCEPTABLE MEDICATION NEEDED FOR OSTEOPOROSIS (REFER TO SMARTSET #1146) 09/16/2024 Albumin/Creatinine Ratio 05/10/2025 05/10/2024, 03/18 CKD PHOS USE SMARTSET 98820 05/10/202504/17, 04/14/2023, 11/03/2020, Additional history exists Depression Screening 07/13/2025 07/13/2024 CKD HGB USE SMARTSET 86454 08/27/202508/27, 05/10/2024, 04/14/2023, Additional history exists TSH 08/27/2025 08/27/2024, 04/17, 04/14/2023, Additional history exists DXA Scan 06/08/2026 06/08/2024, 05/18, 05/21/2019, Additional history exists DTap/Tdap Vaccines Discontinued 03/14/2013, 1 12/05/2001, 09/16/1992 Pneumococcal Vaccine: 65+ Years Completed 05/10/2016, 11/10/2006, 11/09/1999 Zoster Vaccines Completed 11/21/2018, 04/16, 04/16/2018, Additional history exists VITAMIN D LEVEL ONCE IN A LIFETIME-USE SMARTSET# 67316 Completed 04/14/2023, 08/04/2021, 11/03/2020, Additional history exists [...] as of this encounter Visit Diagnoses Diagnosis HTN, goal below 140/90 Unspecified essential hypertension documented in this encounter Advance Directives Documents on File Type Date Recorded Patient Top Collar Maker Expl anation Advance Directives and Living Will 09/26/2015 LIVING WILL LIVING W ILL Power of Landfill Attendant 09/26/2015 POWER OF A TTORNEY POWER OF TOOL AND DIE MANAGER Care Teams Escrow Closer Relationship Specialty Start Date End Date Rafat Josue MD [address] [place] [address] PCP - General 12/31/02 documented as of this encounter
--- OUTSIDE RECORDS SUMMARY | 2025-01-17 07:32 | External Medical Summary | Summary of Care ---
Author Name Unknown Organization [facility] Address [address] [place] [address] Phone [phone] Care Team Providers Care Woodworking Bench Carpenter Name Role Phone Rafat Josue MD Primary Care Provider [phone]- [phone] Encounter Details Date Type Department Care Team (Late st Contact Info) Description 10/06/2024 Telephone Dermatology [facility] [address] [place] [address] Georgiana Mesa MD [address] [place] [address] Allergies No known active allergiesdocumented as of this encounter (statuses as of 10/06/2024) Medications CALCIUM 500 +D 500-400 MG-UNIT PO [...] as of this encounter (statuses as of 10/06/2024) Active Problems Problem Noted Date Diagnosed Date Other pancytopenia 10/04/2024 History of [place] (myocardial infarction) 08/06/2024 Former smoker 01/17/2024 Atherosclerosis of aorta 04/26/2023 Hypertensive kidney disease with stage 3b chronic kidney disease 04/26/2023 Atherosclerosis of coronary artery of [place] heart without angina pectoris 04/26/2023 Thyroid [...] as of this encounter (statuses as of 10/06/2024) Resolved Problems Problem Noted Date Diagnosed Date [...] as of this encounter (statuses as of 10/06/2024) Immunizations Name Administration Dates Next Due COVID-19 mRNA, LNP-s, No Pre serve, 2-Dose Series (Vaccsys) 07/25/2021,12/27/2020,11/29/2020 COVID-19, LNP-s, No Preserve , Binh-sucrose, [...] encounter Miscellaneous Notes * Telephone Encounter - Georgiana Mesa MD - 10/06/2024 8:49 PM EST Received page to call patient. Called and confirmed speaking to Shiloh Ryan. Patient had shave biopsy done in derm clinic on 10/01 on right [place]. Patient stated that about two days ago the biopsy site started to get a little red, approximately an inch around the site. She said that it is now sore, denies severe pain, says pain is 3 or 4 out of 10. Denies erythema extending up leg. Denies fever. Denies increased drainage/foul smell from biopsy site. Patient stated she is following wound care instructions and applying Vaseline. Given erythema, pain, and lower extremity at higher risk for infection, will prescribe topical mupirocin 2% ointment to apply 2-3 times daily to wound. Advised patient if worsening or having further signs of infection (fever, redness spreading) to contact dermatology or present to urgent care for ev aluation. Patient is going out of critical access [facility] to [place] tomorrow for however is able to berry picker prescription prior to leaving. No further concerns or questions. Georgiana Mesa MD Dermatology Resident, PGY-2 documented in this encounter Plan of Treatment Upcoming Encounters Date Type Department Care Team (Late st Contact Info) Description 11/21/2024 11:10 AM EST Office Visit Vascular Surgery, [facility] [address] [place] [address] Scott Lee MD [address] [facility] [address] 11/30/2024 9:00 AM EST Office Visit [facility], [place] [facility] [address] [place] [place] [phone] Rafat Josue MD [address] [place] [address] 12/06/2024 8:00 AM EST Imaging Radiology [facility] 1st Floor, [place] [address] [facility] [place] [address] 12/18/2024 10:30 AM EST Office Visit Cardiology, [facility] [address] [facility] [place] [address] Thomas Burleson PA-C 132 [facility] [place] [address] 12/26/2024 12:30 PM EDT Office Visit Gastroenterology, [facility] [address] [facility] [place] [address] Merlin Terrazas CRNP 132 [facility] [place] [address] Health Maintenance Due Date Last Done Comments Adult Wellness Visit 09/05/2021 09/05/2020 *BISPHONATE OR OTHER ACCEPTABLE MEDICATION NEEDED FOR OSTEOPOROSIS (REFER TO SMARTSET #1146) 09/16/2024 Albumin/Creatinine Ratio 05/10/2025 05/10/2024, 03/18 CKD PHOS USE SMARTSET 11127 05/10/202504/17, 04/14/2023, 11/03/2020, Additional history exists Depression Screening 07/13/2025 07/13/2024 CKD HGB USE SMARTSET 59421 08/27/202508/27, 05/10/2024, 04/14/2023, Additional history exists TSH 08/27/2025 08/27/2024, 04/17, 04/14/2023, Additional history exists DXA Scan 06/08/2026 06/08/2024, 05/18, 05/21/2019, Additional history exists DTap/Tdap Vaccines Discontinued 03/14/2013, 1 12/05/2001, 09/16/1992 Pneumococcal Vaccine: 65+ Years Completed 05/10/2016, 11/10/2006, 11/09/1999 Zoster Vaccines Completed 11/21/2018, 04/16, 04/16/2018, Additional history exists VITAMIN D LEVEL ONCE IN A LIFETIME-USE SMARTSET# 26355 Completed 04/14/2023, 08/04/2021, 11/03/2020, Additional history exists [...] Documents on File Type Date Recorded Patient It Program Auditor Expl anation Advance Directives and Living Will 09/26/2015 LIVING WILL LIVING W ILL Power of It Network Architect 09/26/2015 POWER OF A TTORNEY POWER OF GERMINATION WORKER Care Teams Woodworking Bench Carpenter Relationship Specialty Start Date End Date Rafat Josue MD [address] [place] [address] PCP - General 12/31/02 documented as of this encounter
--- OUTSIDE RECORDS SUMMARY | 2025-01-17 07:32 | External Medical Summary | Summary of Care ---
Author Name Unknown Organization [facility] Address [address] [place] [address] Phone [phone] Care Team Providers Care Cloth Tester Name Role Phone Rafat Josue MD Primary Care Provider [phone]- [phone] Reason for Visit * Reason Onset Date Comments TRIAGE 09/19/2024 Encounter Details Date Type Department Care Team (Late st Contact Info) Description 09/19/2024 Telephone Vascular [facility] [address], [place] [phone] Scott Lee MD [address], [place] [phone] TRIAGE Allergies No known active allergiesdocumented as of this encounter (statuses as of 09/19/2024) Medications CALCIUM 500 +D 500-400 MG-UNIT PO [...] as of this encounter (statuses as of 09/19/2024) Active Problems Problem Noted Date Diagnosed Date History of [place] (myocardial infarction) 08/06/2024 Former smoker 01/17/2024 Atherosclerosis of aorta 04/26/2023 Hypertensive kidney disease with stage 3b chronic kidney disease 04/26/2023 Atherosclerosis of coronary artery of [place] heart without angina pectoris 04/26/2023 Thyroid nodule [...] as of this encounter (statuses as of 09/19/2024) Resolved Problems Problem Noted Date Diagnosed Date [...] as of this encounter (statuses as of 09/19/2024) Immunizations Name Administration Dates Next Due COVID-19 mRNA, LNP-s, No Pre serve, 2-Dose Series (Sunglass) 07/25/2021,12/27/2020,11/29/2020 COVID-19, LNP-s, No Preserve , Binh-sucrose, Ages 12+ (Pfizer) 03/05/2022 COVID-19, MRNA-LNP, PF, 30 M CG/0.3 mL, 12 YRS AND ABOVE, IM ([facility]) 06/15/2024,09/26/2023 Pneumococcal Conjugate Vacc, 13 [...] encounter Miscellaneous Notes * Telephone Encounter - Sandhya Howard CRNP - 09/19/2024 8:26 AM EST Carotid duplex in Epic 08/2024. No additional imaging required. * Telephone Encounter - Marie Faust LPN - 09/19/2024 8:23 AM EST New pt - 2/5 Irvan documented in this encounter Plan of Treatment Upcoming Encounters Date Type Department Care Team (Late st Contact Info) Description 10/01/2024 1:30 PM EST Office Visit Dermatology [facility] [address] [facility] [place] [place] [address] Richard Saucedo MD [address] [facility] [place] [address] 11/21/2024 11:10 AM EST Office Visit Vascular Surgery, [facility] [place] [address] [facility] [place] [address] Scott Lee MD [address] [facility] [place] [address] 11/30/2024 9:00 AM EST Office Visit [facility] [address] [facility] [place] [phone] Rafat Josue MD [address] [facility] [place], [place] [phone] 12/06/2024 8:00 AM EST Imaging Radiology [facility] 1st Floor, [place] [address] [facility] [place] [address] 12/18/2024 10:30 AM EST Office Visit Cardiology, [facility] [place] [address] [facility] [place] [address] Thomas Burleson PA-C [address] [place] [address] 12/26/2024 12:30 PM EDT Office Visit Gastroenterology, [facility] [place] [address] [facility] [place] [address] Merlin Terrazas CRNP 132 [facility] [place] [address] Health Maintenance Due Date Last Done Comments Adult Wellness Visit 09/05/2021 09/05/2020 *NEPHROLOGY REFERRAL DUE TO RESISTANT HTN 08/11/2024 *BISPHONATE OR OTHER ACCEPTABLE MEDICATION NEEDED FOR OSTEOPOROSIS (REFER TO SMARTSET #1146) 09/16/2024 Albumin/Creatinine Ratio 05/10/2025 05/10/2024, 03/18 CKD PHOS USE SMARTSET 15353 05/10/202504/17, 04/14/2023, 11/03/2020, Additional history exists Depression Screening 07/13/2025 07/13/2024 CKD HGB USE SMARTSET 44310 08/27/202508/27, 05/10/2024, 04/14/2023, Additional history exists TSH 08/27/2025 08/27/2024, 04/17, 04/14/2023, Additional history exists DXA Scan 06/08/2026 06/08/2024, 05/18, 05/21/2019, Additional history exists DTap/Tdap Vaccines Discontinued 03/14/2013, 1 12/05/2001, 09/16/1992 Pneumococcal Vaccine: 65+ Years Completed 05/10/2016, 11/10/2006, 11/09/1999 Zoster Vaccines Completed 11/21/2018, 04/16, 04/16/2018, Additional history exists VITAMIN D LEVEL ONCE IN A LIFETIME-USE SMARTSET# 35330 Completed 04/14/2023, 08/04/2021, 11/03/2020, Additional history exists [...] Documents on File Type Date Recorded Patient Curriculum Advisory Teacher Expl anation Advance Directives and Living Will 09/26/2015 LIVING WILL LIVING W ILL Power of Transition Lead 09/26/2015 POWER OF A TTORNEY POWER OF PILOT MANAGER Care Teams Cloth Tester Relationship Specialty Start Date End Date Rafat Josue MD [address] [place] [address] PCP - General 12/31/02 documented as of this encounter
--- OUTSIDE RECORDS SUMMARY | 2025-01-17 07:33 | External Medical Summary | Summary of Care ---
Author Name Unknown Organization [facility] Address [address] [place] [address] Phone [phone] Care Team Providers Care Payroll Examiner Name Role Phone Rafat Josue MD Primary Care Provider [phone]- [phone] Reason for Visit * Reason Comments Outpatient Testing Encounter Details Date Type Department Care Team (Late st Contact Info) Description 09/11/2024 2:00 PM EST Laboratory Laboratory, [facility] [address] [place] [address] [facility] [address] [place] [address] Iron deficiency anemia, unspecified iron deficiency anemia type Allergies No known active allergiesdocumented as of this encounter (statuses as of 09/11/2024) Medications CALCIUM 500 +D 500-400 MG-UNIT PO [...] as of this encounter (statuses as of 09/11/2024) Active Problems Problem Noted Date Diagnosed Date History of [place] (myocardial infarction) 08/06/2024 Former smoker 01/17/2024 Atherosclerosis of aorta 04/26/2023 Hypertensive kidney disease with stage 3b chronic kidney disease 04/26/2023 Atherosclerosis of coronary artery of [place] heart without angina pectoris 04/26/2023 Thyroid nodule [...] as of this encounter (statuses as of 09/11/2024) Resolved Problems Problem Noted Date Diagnosed Date [...] as of this encounter (statuses as of 09/11/2024) Immunizations Name Administration Dates Next Due COVID-19 mRNA, LNP-s, No Pre serve, 2-Dose Series (BabyFirstTV) 07/25/2021,12/27/2020,11/29/2020 COVID-19, LNP-s, No Preserve , Binh-sucrose, [...] 10/01/2024 1:30 PM EST Office Visit Dermatology [facility] 200 [facility] [place] [place] [address] Richard Saucedo MD [address] [facility] [place] [address] 11/30/2024 9:00 AM EST Office Visit [facility] [address] [place] [phone] Rafat Josue MD [address] [place] [address] 12/06/2024 8:00 AM EST Imaging Radiology [facility] 132 [facility] [place] [address] 12/18/2024 10:30 AM EST Office Visit Cardiology, [facility] 132 [facility] [place] [address] Thomas Burleson PA-C 132 [facility] [place] [address] 12/26/2024 12:30 PM EDT Office Visit Gastroenterology, [facility] 132 [facility] [place] [address] Merlin Terrazas CRNP 132 [facility] [place] [address] Pending Results Name Type Priority Associated Diagnoses Date /Time TISSUE TRANSGLUTAMINASE IGA ANTIBODY Lab Routine Iron deficiency anemia, unspecified iron deficiency anemia type 09/11/2024 1:48 PM EST IGA Lab Routine Iron deficiency anemia, unspecified iron deficiency anemia type 09/11/2024 1:48 PM EST Health Maintenance Due Date Last Done Comments Adult Wellness Visit 09/05/2021 09/05/2020 *NEPHROLOGY REFERRAL DUE TO RESISTANT HTN 08/11/2024 Albumin/Creatinine Ratio 05/10/2025 05/10/2024, 03/18 CKD PHOS USE SMARTSET 06731 05/10/202504/17, 04/14/2023, 11/03/2020, Additional history exists Depression Screening 07/13/2025 07/13/2024 CKD HGB USE SMARTSET 83913 08/27/202508/27, 05/10/2024, 04/14/2023, Additional history exists TSH 08/27/2025 08/27/2024, 04/17, 04/14/2023, Additional history exists DXA Scan 06/08/2026 06/08/2024, 05/18, 05/21/2019, Additional history exists DTap/Tdap Vaccines Discontinued 03/14/2013, 1 12/05/2001, 09/16/1992 Pneumococcal Vaccine: 65+ Years Completed 05/10/2016, 11/10/2006, 11/09/1999 Zoster Vaccines Completed 11/21/2018, 04/16, 04/16/2018, Additional history exists VITAMIN D LEVEL ONCE IN A LIFETIME-USE SMARTSET# 76714 Completed 04/14/2023, 08/04/2021, 11/03/2020, Additional history exists [...] deficiency anemia, unspecified iron deficiency anemia type documented in this encounter Advance Directives Documents on File Type Date Recorded Patient Blanket Binder Expl anation Advance Directives and Living Will 09/26/2015 LIVING WILL LIVING W ILL Power of Concrete Smoother 09/26/2015 POWER OF A TTORNEY POWER OF NETWORK PROGRAM MANAGER Care Teams Payroll Examiner Relationship Specialty Start Date End Date Rafat Josue MD [address] [facility] [place] [address] PCP - General 12/31/02 documented as of this encounter
--- OUTSIDE RECORDS SUMMARY | 2025-01-17 07:33 | External Medical Summary | Summary of Care ---
Author Name Unknown Organization [facility] Address [address] [place] [address] Phone [phone] Care Team Providers Care Silica Spray Mixer Name Role Phone Katherine Gallardo MD Primary Care Provider [phone]- [phone] Reason for Referral * Precert (Within 10 days (routine)) - Authorized Specialty Diagnoses / Procedures Referred By Minnie armstrong Referred To Contact Radiology Diagnoses Iron deficiency anemia, unspecified iron deficiency anemia type Sigmoid stricture (HCC) Fecal occult blood test positive Procedures CT VIRTUAL COLONOSCOPY DIAGNOSTIC WO CONTRAST CT VIRTUAL COLONOSCOPY DIAGNOSTIC WO CONTRAST Merlin Terrazas CRNP [address] [place] [address] Phone: tel: fax: Referral ID Status Reason Start Date Expiration Date V isits Requested Visits Authorized [id number] Authorized 01/15/[phone] Reason for Visit * Reason Comments NEW PATIENT New pt ref by Thomas ELLIS for +FOB. * Evaluate & Treat - Unlimited Visits (Within 10 days (routine)) - Authorized Specialty Diagnoses / Procedures Referred By Contdeneen t Referred To Contact Gastroenterology Diagnoses Fecal occult blood test positive Thomas Burleson PA-C [address] [place] [address] Phone: tel: fax: Referral ID Status Reason Start Date Expiration Date Visits Requested Visits Authorized [id number] Authorized Specialty Services Required 4 [phone] Encounter Details Date Type Department Care Team (Late st Contact Info) Description 09/11/2024 1:00 PM EST Office Visit Gastroenterology, [facility] [address] [place] [address] Merlin Terrazas CRNP [address] [place] [address] Iron deficiency anemia, unspecified iron deficiency anemia type*; Sigmoid stricture (HCC); Fecal occult blood test positive Allergies No known active allergiesdocumented as of this encounter (statuses as of 09/12/2024) Medications CALCIUM 500 +D 500-400 MG-UNIT PO [...] as of this encounter (statuses as of 09/12/2024) Active Problems Problem Noted Date Diagnosed Date History of [place] (myocardial infarction) 08/06/2024 Former smoker 01/17/2024 Atherosclerosis of aorta 04/26/2023 Hypertensive kidney disease with stage 3b chronic kidney disease 04/26/2023 Atherosclerosis of coronary artery of [place] heart without angina pectoris 04/26/2023 Thyroid nodule [...] as of this encounter (statuses as of 09/12/2024) Resolved Problems Problem Noted Date Diagnosed Date [...] as of this encounter (statuses as of 09/12/2024) Immunizations Name Administration Dates Next Due COVID-19 mRNA, LNP-s, No Pre serve, 2-Dose Series (Blue Calypso) 07/25/2021,12/27/2020,11/29/2020 COVID-19, LNP-s, No Preserve , Binh-sucrose, [...] Sign Reading Time Taken Comments Blood Pressure 162/68 09/11/2024 12:52 PM EST Pulse 66 09/11/2024 12:52 PM EST Temperature 36.8 °C (98.2 °F) 09/11/2024 12:[address] Respiratory Rate - - Oxygen Saturation 97% 09/11/2024 12:52 PM EST Inhaled Oxygen Concentration - - Weight 64 kg (141 lb) 09/11/2024 12:52 PM EST Height - - Body Mass Index 26.64 05/15/2024 6:06 PM EDT documented in this encounter Progress Notes * Merlin Terrazas CRNP - 09/11/2024 12:32 PM EST Consult requested by REF: KATHERINE GALLARDO [address] [place] [address] (office) [phone] (fax) CC: Fecal occult blood (+), iron deficiency anemia HPI: 88 year old female pt of Katherine Gallardo MD with a hx of HTN, GERD, CAD/NC w stent, Jun 2024 on Plavix. No visble blood in BMs, no abd pain. No N/V/D, constipation or unintentional weight loss. Diagnostic Testing: Most recent colonoscopy was in [address] Hinton. He was unable to advance the scope beyond the sigmoid due to a tight stricture there. Pt was told not to get another colonoscopy. Labs Aug 2024: Hb 9.9, Hct 31.5, MCV 93.5, ferritin sl low at 26, iron TIBC normal, FOBT (+), Cr 1.3, eGFR 41 Review of labs shows that Hb has been slowly drifting down since 2018. ROS: No lightheadedness, dizziness No fevers, chills, sweats No vision loss, eye pain, redness No oral ulcers No chest pain, palpitations, syncope No cough, shortness of breath, exertional dyspnea No rashes or other skin lesions No new joint pain, swelling, myalgias No edema No bleeding tendencies or excessive bruising A total of 12 systems were reviewed, all others (-). ALLERGIES: Review of patient's allergies indicates: No Known Allergies PMH/PSH/Soc Hx reviewed, significant for: Past Medical History: Diagnosis Date Allergic conjunctivitis, Other Esophageal reflux HTN, goal below 140/90 Past Surgical History: Procedure Laterality Date BIOPSY OF BREAST, OPEN 1971 Breast Biopsy, Benign Disease CARPAL TUNNEL SURGERY Left 01/11/2017 left NEUROPLASTY MEDIAN NERVE AT CARPAL TUNNEL performed by Yaw Campbell MD at [facility] COLONOSCOPY 02/17 incomplete, needed barium enema REMOVAL OF RUPTURED APPENDIX 12/18/00 Appendectomy, Rupt Appendx REMOVE LUMBAR SPINE LAMINA, 3+ SEGS [facility] Lumbar Disk Excision TOTAL HYSTERECTOMY 1977 VICK (Total Abdominal Hysterectomy) Social History Socioeconomic History Marital status: Spouse name: CHASIDY Number of children: 2 Occupational History Occupation: RETIRED Tobacco Use Smoking status: Former Current packs/day: 0.00 Average packs/day: 1 pack/day for 20.0 years (20.0 ttl pk-yrs) Types: Cigarettes Start date: 10/17/1949 Quit date: 10/17/1969 Years since quittin.9 Passive exposure: Past Smokeless tobacco: Never Tobacco [...] Brother CABG Hypertension Brother Heart Disorder Brother [facility] ByPass surgery Heart Disorder Brother [facility] ByPass surgery Current Outpatient Medications Medication Sig Dispense Refill Isosorbide Mononitrate ER 60 MG Oral Tablet [...] 1 Tablet by mouth in the morning. Losartan Potassium 100 MG Oral Tablet (Cozaar) Take 1 Tablet by mouth daily. 30 Tablet 1 Atorvastatin Calcium 40 MG Oral Tablet (Lipitor) [...] 2,000 Units by mouth in the morning. ASPIRIN EC 81 MG PO TBEC Take 1 Tablet by mouth in the morning. 100 Tab 5 CALCIUM 500 +D 500-400 MG-UNIT PO TABS Take 2 Tablets by mouth daily. 60 Tab 5 No current facility-administered medications for this visit. EXAM: BP 162/68 | Pulse 66 | Temp 36.8 °C (98.2 °F) | Wt 64 kg (141 lb) | SpO2 97% | BMI 26.64 kg/m² |BSA 1.66 m² GENERAL: 88 year old female well developed and well [...] no lateralizing findings, Sensory/Motor grossly normal IMPRESSION/RECOMMENDATIONS: 88 year old female with Iron deficiency anemia, unspecified iron deficiency anemia type (Primary) - TISSUE TRANSGLUTAMINASE IGA ANTIBODY; Future; Expected date: 09/11/2024 - IGA; Future; Expected date: 09/11/2024 - EGD, FLEXIBLE, DIAGNOSTIC; Future; Expected date: 01/15/2025 - CT VIRTUAL COLONOSCOPY DIAGNOSTIC WO CONTRAST; Future; Expected date: 01/15/2025 Sigmoid stricture (HCC) - EGD, FLEXIBLE, DIAGNOSTIC; Future; Expected date: 01/15/2025 - CT VIRTUAL COLONOSCOPY DIAGNOSTIC WO CONTRAST; Future; Expected date: 01/15/2025 Fecal occult blood test positive - CT VIRTUAL COLONOSCOPY DIAGNOSTIC WO CONTRAST; Future; Expected date: 01/15/2025 Discussed by staff kyra Burleson, cardiology - Plavix can not be interrupted until January 03. Will plan for EGD, virtual colonoscopy January 15. I spent a total of 40 minutes on the date of service in review of patient's record, and previously obtained information in person and appropriate medical visit, discussion and education of plan, withpatient and/or caregiver, placing orders for tests/referral/procedures as medically necessary and documentation of pertinent clinical information in patient's medical records for their visit today. [facility] Gastroenterology documented in this encounter Nursing Notes * Karla De La Rosa CMA - 09/11/2024 12:52 PM EST Chief Complaint Patient presents with NEW PATIENT New pt ref by Thomas ELLIS for +FOB. documented in this encounter Plan of Treatment Upcoming Encounters Date Type Department Care Team (Late st Contact Info) Description 09/28/2024 1:00 PM EST Appointment Radiology, [address] [address] 10/01/2024 1:30 PM EST Office Visit Dermatology [facility] 200 [facility] [place] [address] Richard Saucedo MD 200 [facility] [place] [address] 11/30/2024 9:00 AM EST Office Visit [facility] [address] [place] [phone] Katherine Gallardo MD 226 [facility] [place] [address] 12/06/2024 8:00 AM EST Imaging Radiology [facility] 1st [facility] 132 [facility] [place] [address] 12/18/2024 10:30 AM EST Office Visit Cardiology, [facility] [address] [facility] [place] [address] Thomas Burleson PA-C 132 [facility] [place] [address] 12/26/2024 12:30 PM EDT Office Visit Gastroenterology, [facility] 132 [facility] [place] [address] Merlin Terrazas CRNP 132 [facility] [place] [address] Pending Results Name Type Priority Associated Diagnoses Date /Time TISSUE TRANSGLUTAMINASE IGA ANTIBODY Lab Routine Iron deficiency anemia, unspecified iron deficiency anemia type 09/11/2024 1:48 PM EST Scheduled Orders Name Type Priority Associated Diagnoses Order Schedule TISSUE TRANSGLUTAMINASE IGA ANTIBODY Lab Routine Iron deficiency anemia, unspecified iron deficiency anemia type Expected: 09/11/2024, Expires: 09/11/2025 EGD, FLEXIBLE, DIAGNOSTIC Procedures Routine Iron deficiency anemia, unspecified iron deficiency anemia type Sigmoid stricture (HCC) Expected: 01/15/2025, Expires: 10/11/2025 CT VIRTUAL COLONOSCOPY DIAGNOSTIC WO CONTRAST Medical Imaging Routine Iron deficiency anemia, unspecified iron deficiency anemia type Sigmoid stricture (HCC) Fecal occult blood test positive Expected: 01/15/2025, Expires: 10/11/2025 Health Maintenance Due Date Last Done Comments Adult Wellness Visit 09/05/2021 09/05/2020 *NEPHROLOGY REFERRAL DUE TO RESISTANT HTN 08/11/2024 Albumin/Creatinine Ratio 05/10/2025 05/10/2024, 03/18 CKD PHOS USE SMARTSET 01479 05/10/202504/17, 04/14/2023, 11/03/2020, Additional history exists Depression Screening 07/13/2025 07/13/2024 CKD HGB USE SMARTSET 68992 08/27/202508/27, 05/10/2024, 04/14/2023, Additional history exists TSH 08/27/2025 08/27/2024, 04/17, 04/14/2023, Additional history exists DXA Scan 06/08/2026 06/08/2024, 05/18, 05/21/2019, Additional history exists DTap/Tdap Vaccines Discontinued 03/14/2013, 1 12/05/2001, 09/16/1992 Pneumococcal Vaccine: 65+ Years Completed 05/10/2016, 11/10/2006, 11/09/1999 Zoster Vaccines Completed 11/21/2018, 04/16, 04/16/2018, Additional history exists VITAMIN D LEVEL ONCE IN A LIFETIME-USE SMARTSET# 73148 Completed 04/14/2023, 08/04/2021, 11/03/2020, Additional history exists [...] filedocumented as of this encounter Results * IGA (09/11/2024 1:48 PM EST) IgA 353 70 - 400 mg/dL 09/12/2024 3:30 AM EST LABORATORY [facility] Blood Venous blood specimen / Unknown Venipuncture / Unknown 09/11/2024 1:48 PM EST 09/11/2024 1:48 PM EST Merlin TOMPKINS LAB BLOOD ORDERABLES Final Result LABORATORY [facility] [address] [place] [address] documented in this encounter Visit Diagnoses Diagnosis Iron deficiency anemia, unspecified iron deficiency anemia type- Primary Sigmoid stricture (HCC) Unspecified intestinal obstruction Fecal occult blood test positive Nonspecific abnormal finding in stool contents documented in this encounter Advance Directives Documents on File Type Date Recorded Patient Fire Protection Engineering Technician Expl anation Advance Directives and Living Will 09/26/2015 LIVING WILL LIVING W ILL Power of Supervising Broker 09/26/2015 POWER OF A TTORNEY POWER OF SEXUAL ASSAULT NURSE Care Teams Silica Spray Mixer Relationship Specialty Start Date End Date Katherine Gallardo MD [address] [place] [address] PCP - General 12/31/02 documented as of this encounter"
--- OUTSIDE RECORDS SUMMARY | 2025-01-17 07:33 | External Medical Summary | Summary of Care ---
Author Name Unknown Organization [facility] Address [address] [place] [address] Phone [phone] Care Team Providers Care Tractor Engine Mechanic Name Role Phone Rafat Josue MD Primary Care Provider +1- [phone] Reason for Visit * Reason Comments Outpatient Testing Encounter Details Date Type Department Care Team (Late st Contact Info) Description 09/11/2024 2:00 PM EST Laboratory Laboratory, [facility] [address] [place] [address] [facility] [address] [place], [place] [id number] Iron deficiency anemia, unspecified iron deficiency anemia [...] Problem Noted Date Diagnosed Date History of [place] (myocardial infarction) 08/06/2024 Former smoker 01/17/2024 Atherosclerosis of aorta 04/26/2023 Hypertensive kidney disease with stage 3b chronic kidney disease 04/26/2023 Atherosclerosis of coronary artery of [place] heart without angina pectoris 04/26/2023 Thyroid nodule [...] mRNA, LNP-s, No Pre serve, 2-Dose Series ([facility]) 07/25/2021,12/27/2020,11/29/2020 COVID-19, LNP-s, No Preserve , Binh-sucrose, Ages 12+ (Pfizer) 03/05/2022 COVID-19, MRNA-LNP, PF, 30 M CG/0.3 mL, 12 YRS AND ABOVE, IM ([facility]) 06/15/2024,09/26/2023 Diptheria/Tetanus (Adult) 09/16/1992 Pneumococcal Conjugate Vacc, [...] as of this encounter Miscellaneous Notes * Result Encounter Note - Merlin Terrazas CRNP - 09/12/2024 3:08 PM EST I spoke w the pt by phone and notified her of no evidence of celiac dx, ok to eat foods made from wheat/gluten. documented in this encounter Plan of Treatment Upcoming Encounters Date Type Department Care Team (Late st Contact Info) Description 09/28/2024 1:00 PM EST Appointment Radiology, [address] [address] 10/01/2024 1:30 PM EST Office Visit Dermatology [facility] [place] [address] [facility] [place] [address] Richard Saucedo MD [address] [facility] [place] [address] 11/30/2024 9:00 AM EST [facility] [address] [place] [phone] Rafat Josue MD [address] [place] [address] 12/06/2024 8:00 AM EST Imaging Radiology [facility] 1st Floor, [place] [address] [place] [address] 12/18/2024 10:30 AM EST Office Visit Cardiology, [facility] [address] [place] [address] Thomas Burleson PA-C [address] [place] [address] 12/26/2024 12:30 PM EDT Office Visit Gastroenterology, [facility] [address] [place] [address] Merlin Terrazas CRNP [address] [place] [address] Health Maintenance Due Date Last Done Comments Adult Wellness Visit 09/05/2021 09/05/2020 *NEPHROLOGY REFERRAL DUE TO RESISTANT HTN 08/11/2024 Albumin/Creatinine Ratio 05/10/2025 05/10/2024, 03/18 CKD PHOS USE SMARTSET 94882 05/10/202504/17, 04/14/2023, 11/03/2020, Additional history exists Depression Screening 07/13/2025 07/13/2024 CKD HGB USE SMARTSET 20630 08/27/202508/27, 05/10/2024, 04/14/2023, Additional history exists TSH 08/27/2025 08/27/2024, 04/17, 04/14/2023, Additional history exists DXA Scan 06/08/2026 06/08/2024, 05/18, 05/21/2019, Additional history exists DTap/Tdap Vaccines Discontinued 03/14/2013, 1 12/05/2001, 09/16/1992 Pneumococcal Vaccine: 65+ Years Completed 05/10/2016, 11/10/2006, 11/09/1999 Zoster Vaccines Completed 11/21/2018, 04/16, 04/16/2018, Additional history exists VITAMIN D LEVEL ONCE IN A LIFETIME-USE SMARTSET# 42025 Completed 04/14/2023, 08/04/2021, 11/03/2020, Additional history exists [...] Procedure Name Priority Date/Time Associated Diagnosis Comments TISSUE TRANSGLUTAMINASE IGA ANTIBODY Routine 09/11/2024 1:48 PM EST Iron deficiency anemia, unspecified iron deficiency anemia type IGA Routine 09/11/2024 1:48 PM EST Iron deficiency anemia, unspecified iron deficiency anemia type documented in this encounter Results * IGA (09/11/2024 1:48 PM EST) IgA 353 70 - 400 mg/dL 09/12/2024 3:30 AM EST LAB[facility]ATORY [facility] Blood Venous blood specimen / Unknown Venipuncture / Unknown 09/11/2024 1:48 PM EST 09/11/2024 1:48 PM EST us Merlin TOMPKINS LAB BLOOD ORDERABLES Final Result [facility]ATORY [facility] [address] [place] [address] * TISSUE TRANSGLUTAMINASE IGA ANTIBODY (09/11/2024 1:48 PM EST) Tissue Transglutaminase IgA Antibody Interpretation Negative Negative 09/12/2024 9:10 AM EST [facility] Tissue Transglutaminase IgA Antibody Value 0.5 <7 U/mL 09/12/2024 9:10 AM EST [facility] Blood Venous blood specimen / Unknown Venipuncture / Unknown 09/11/2024 1:48 PM EST 09/11/2024 1:48 PM EST us Merlin TOMPKINS LAB BLOOD ORDERABLES Final Result [facility] [address] [place] [address] documented in this encounter Visit Diagnoses Diagnosis Iron deficiency anemia, unspecified iron deficiency anemia type documented in this encounter Advance Directives Documents on File Type Date Recorded Patient Night Nurse Expl anation Advance Directives and Living Will 09/26/2015 LIVING WILL LIVING W ILL Power of Baby Formula Worker 09/26/2015 POWER OF A TTORNEY POWER OF RISK LEAD Care Teams Tractor Engine Mechanic Relationship Specialty Start Date End Date Rafat Josue MD [address] [place] [address] PCP - General 12/31/02 documented as of this encounter
--- OUTSIDE RECORDS SUMMARY | 2025-01-17 07:33 | External Medical Summary | Summary of Care ---
Author Name Unknown Organization [facility] Address [address] [place] [address] Phone [phone] Care Team Providers Care Shuttle Inspector Name Role Phone Rafat Josue MD Primary Care Provider +1- [phone] Reason for Referral * Evaluate & Treat - Unlimited Visits (Within 30 days (routine)) - Authorized Specialty Diagnoses / Procedures Referred By Contact Referred To Contact Vascular Surgery / Cardiovascular Surgery Diagnoses Unequal blood pressure in upper extremities Subclavian arterial stenosis (HCC) Ean Roberson DO [address] [place] [address] Phone: tel: fax: Referral ID Status Reason Start Date Expiration Date Visits Requested Visits Authorized [id number] Authorized Specialty Services Required 4 [phone] Question Answer Referral Priority Within 30 days (routine) Where should this appointment be scheduled? [facility] What condition is the patient being seen for? Other - please type comment in box - subclavian stenosis Comments Systemic Hypertension. uneven BP readings left arm 26 mm Hg higher than right arm. Carotid duplex suggests moderate right internal carotid artery stenosis, bilateral subclavian stenosis. Reason for Visit * Reason Onset Date Comments Abnormal Test Results 09/14/2024 Encounter Details Date Type Department Care Team (Late st Contact Info) Description 09/14/2024 Telephone Cardiology, [facility] [address] [place] [address] Ean Roberson DO [address] [place] [address] Abnormal Test Results Allergies No known active allergiesdocumented as of this encounter (statuses as of 09/14/2024) Medications CALCIUM 500 +D 500-400 MG-UNIT PO [...] as of this encounter (statuses as of 09/14/2024) Active Problems Problem Noted Date Diagnosed Date History of [place] (myocardial infarction) 08/06/2024 Former smoker 01/17/2024 Atherosclerosis [...] as of this encounter (statuses as of 09/14/2024) Resolved Problems Problem Noted Date Diagnosed Date [...] as of this encounter (statuses as of 09/14/2024) Immunizations Name Administration Dates Next Due COVID-19 mRNA, LNP-s, No Pre serve, 2-Dose Series ([employer]) 07/25/2021,12/27/2020,11/29/2020 COVID-19, LNP-s, No Preserve , Binh-sucrose, [...] encounter Miscellaneous Notes * Telephone Encounter - Ean Roberson DO - 09/14/2024 5:03 PM EST Carotid duplex performed for further evaluation given systemic hypertension despite 5 blood pressure medications. Uneven BP readings left arm 26 mm Hg higher than right arm. Carotid duplex suggests moderate right internal carotid artery stenosis, bilateral subclavian stenosis. -I attempted to call the patient and reviewed the results with her. I was unable to connect with her so I left her a brief voicemail message. Cardiology nursing, please help connect with her and provide the information by phone. I have placed a referral for Vascular Surgery assessment which hopefully can take place at [facility]. Ean Roberson DO documented in this encounter Plan of Treatment Upcoming Encounters Date Type Department Care Team (Late st Contact Info) Description 10/01/2024 1:30 PM EST Office [facility] [address] [facility] [place] [address] Richard Saucedo MD [address] [facility] [place] [address] 11/30/2024 9:00 AM EST Office Visit [facility] [address] [facility] [phone] Rafat Josue MD [address] [facility] [place] [address] 12/06/2024 8:00 AM EST Imaging Radiology [facility] 1st [facility] [address] [facility] [place] [address] 12/18/2024 10:30 AM EST Office Visit Cardiology, [facility] [address] [facility] [place] [address] Thomas Burleson PA-C [facility] [place] [address] 12/26/2024 12:30 PM EDT Office Visit Gastroenterology, [facility] [address] [facility] [place] [address] Merlin [facility]as CRNP [facility] [place] [address] Scheduled Referrals Name Type Priority Associated Diagnoses Orde r Schedule VASCULAR SURGERY REFERRAL OP Referral Within 30 days (routine) Unequal blood pressure in upper extremities Subclavian arterial stenosis (HCC) Ordered: 09/14/2024 Health Maintenance Due Date Last Done Comments Adult Wellness Visit 09/05/2021 09/05/2020 *NEPHROLOGY REFERRAL DUE TO RESISTANT HTN 08/11/2024 Albumin/Creatinine Ratio 05/10/2025 05/10/2024, 03/18 CKD PHOS USE SMARTSET 17161 05/10/202504/17, 04/14/2023, 11/03/2020, Additional history exists Depression Screening 07/13/2025 07/13/2024 CKD HGB USE SMARTSET 45170 08/27/202508/27, 05/10/2024, 04/14/2023, Additional history exists TSH 08/27/2025 08/27/2024, 04/17, 04/14/2023, Additional history exists DXA Scan 06/08/2026 06/08/2024, 05/18, 05/21/2019, Additional history exists DTap/Tdap Vaccines Discontinued 03/14/2013, 1 12/05/2001, 09/16/1992 Pneumococcal Vaccine: 65+ Years Completed 05/10/2016, 11/10/2006, 11/09/1999 Zoster Vaccines Completed 11/21/2018, 04/16, 04/16/2018, Additional history exists VITAMIN D LEVEL ONCE IN A LIFETIME-USE SMARTSET# 89392 Completed 04/14/2023, 08/04/2021, 11/03/2020, Additional history exists [...] as of this encounter Visit Diagnoses Diagnosis Unequal blood pressure in upper extremities- Primary Subclavian arterial stenosis (HCC) Stricture of artery documented in this encounter Advance Directives Documents on File Type Date Recorded Patient Die Trimmer Expl anation Advance Directives and Living Will 09/26/2015 LIVING WILL LIVING W ILL Power of Workforce Development Vice President 09/26/2015 POWER OF A TTORNEY POWER OF COATING OPERATOR Care Teams Shuttle Inspector Relationship Specialty Start Date End Date Oesterling, Rafat R, MD [address] [facility] [place] [id number] PCP - General 12/31/02 documented as of this encounter
--- OUTSIDE RECORDS SUMMARY | 2025-01-17 07:33 | External Medical Summary ---
Author Name Unknown Address Unknown Organization K01:[facility] [address] [place] [address] Laboratory Report Ordering Provider Test Date Status TEAGAN CAMARILLO 09/11/2024 13:48:23 Final Observation Date Value Abnormality Reference (Units ) Status IgA 09/11/2024 13:48:23 353 70-400 (mg /dL) Final Performing Location [facility] [address] [place] [address]
--- OUTSIDE RECORDS SUMMARY | 2025-01-17 07:33 | External Medical Summary | Summary of Care ---
Author Name Unknown Organization [facility] Address [address] [place] [address] Phone [phone] Care Team Providers Care Office Aide Name Role Phone Rafat Josue MD Primary Care Provider +1- [phone] Reason for Visit * Reason Onset Date Comments Information 09/11/2024 Tagitol for Virt ual Colon was placed in Pharm today for pt to slate picker Encounter Details Date Type Department Care Team (Late st Contact Info) Description 09/11/2024 Telephone Radiology [address] [address] Ene Butler, RT (R) Information (Tagitol for Virtual Colon was... Allergies No known active allergiesdocumented as of [...] Problem Noted Date Diagnosed Date History of [place] (myocardial infarction) 08/06/2024 Former smoker 01/17/2024 Atherosclerosis of aorta 04/26/2023 Hypertensive kidney disease with stage 3b chronic kidney disease 04/26/2023 Atherosclerosis of coronary artery of [place] heart without angina pectoris 04/26/2023 Thyroid [...] mRNA, LNP-s, No Pre serve, 2-Dose Series ([facility]) 07/25/2021,12/27/2020,11/29/2020 COVID-19, LNP-s, No Preserve , Binh-sucrose, [...] encounter Miscellaneous Notes * Telephone Encounter - Ene Butler RT (R) - 09/11/2024 2:38 PM EST Placed Virtual prep bag in [facility] Pharm for pt to slate picker. thanks documented in this encounter Plan of Treatment Upcoming Encounters Date Type Department Care Team (Late st Contact Info) Description 09/28/2024 1:00 PM EST Appointment Radiology, [address] [address] 10/01/2024 1:30 PM EST Office Visit Dermatology [facility] [address] [place] [address] Richard Saucedo MD [address] [place] [address] 11/30/2024 9:00 AM EST Office Visit [facility] [address] [place] [phone] Rafat Josue MD 226 [facility] [place] [address] 12/06/2024 8:00 AM EST Imaging Radiology [facility] 1st [facility] [address] [place] [address] 12/18/2024 10:30 AM EST Office Visit Cardiology, [facility] [address] [facility] [place] [address] Thomas Burleson PAVivianC [address] [place] [address] 12/26/2024 12:30 PM EDT Office Visit Gastroenterology, [facility] [address] [place] [address] Merlin Terrazas CRNP [address] [place] [address] Health Maintenance Due Date Last Done Comments Adult Wellness Visit 09/05/2021 09/05/2020 *NEPHROLOGY REFERRAL DUE TO RESISTANT HTN 08/11/2024 Albumin/Creatinine Ratio 05/10/2025 05/10/2024, 03/18 CKD PHOS USE SMARTSET 28272 05/10/202504/17, 04/14/2023, 11/03/2020, Additional history exists Depression Screening 07/13/2025 07/13/2024 CKD HGB USE SMARTSET 03691 08/27/202508/27, 05/10/2024, 04/14/2023, Additional history exists TSH 08/27/2025 08/27/2024, 04/17, 04/14/2023, Additional history exists DXA Scan 06/08/2026 06/08/2024, 05/18, 05/21/2019, Additional history exists DTap/Tdap Vaccines Discontinued 03/14/2013, 1 12/05/2001, 09/16/1992 Pneumococcal Vaccine: 65+ Years Completed 05/10/2016, 11/10/2006, 11/09/1999 Zoster Vaccines Completed 11/21/2018, 04/16, 04/16/2018, Additional history exists VITAMIN D LEVEL ONCE IN A LIFETIME-USE SMARTSET# 66550 Completed 04/14/2023, 08/04/2021, 11/03/2020, Additional history exists [...] Documents on File Type Date Recorded Patient Infection Prevention Specialist Expl anation Advance Directives and Living Will 09/26/2015 LIVING WILL LIVING W ILL Power of Steam Brush Operator 09/26/2015 POWER OF A TTORNEY POWER OF BILINGUAL SALES ASSISTANT Care Teams Office Aide Relationship Specialty Start Date End Date Rafat Josue MD [address] [place] [address] PCP - General 12/31/02 documented as of this encounter
--- OUTSIDE RECORDS SUMMARY | 2025-01-17 07:34 | External Medical Summary | Summary of Care ---
Author Name Unknown Organization [facility] Address [address] [place] [address] Phone [phone] Care Team Providers Care Territory Account Representative Name Role Phone Rafat Josue MD Primary Care Provider +1- [phone] Reason for Visit * Reason Comments Outpatient Testing Encounter Details Date Type Department Care Team (Late st Contact Info) Description 08/28/2024 2:00 PM EST Laboratory Laboratory, [facility] [address] [place] [address] [employer] [address] [place] [address] Arrived Allergies No known active allergiesdocumented as of this encounter (statuses as of 08/28/2024) Medications CALCIUM 500 +D 500-400 MG-UNIT PO [...] mouth in the morning. 90 Tablet 3 08/08/2024 Active Clopidogrel Bisulfate 75 MG Oral Tablet (pLAVix) Take 1 Tablet by mouth in the morning. 90 Tablet 3 08/08/2024 Active Levothyroxine Sodium 50 MCG Oral Tablet (Levoxyl) Take 1 Tablet by mouth daily first thing in the morning. 90 Tablet 3 08/08/2024 3:16 PM EDT 08/08/2024 Active Metoprolol Succinate ER 50 MG Oral Tablet Extended Release 24 Hour (toPROL XL) Take 1 Tablet by mouth in the morning. 90 Tablet 3 08/08/2024 Active Pantoprazole Sodium 40 MG Oral Tablet Delayed Release (Protonix) Take 1 Tablet by mouth in the morning. 90 Tablet 3 08/08/2024 Active Losartan Potassium 100 MG Oral Tablet (Cozaar)Indicati ons:HTN, goal below 140/90 Take 1 Tablet by mouth daily. 30 Tablet 1 08/15/2024 Active Isosorbide Mononitrate ER 30 MG Oral Tablet Extended Release 24 Hour (Imdur)Indicatio ns:HTN, goal below 140/90 Take 1 Tablet by mouth in the morning. 30 Tablet 1 08/15/2024 Active Vitamin C [...] the morning. 31 Capsule 5 08/23/2024 Active documented as of this encounter (statuses as of 08/28/2024) Active Problems Problem Noted Date Diagnosed Date History of [place] (myocardial infarction) 08/06/2024 Former smoker 01/17/2024 Atherosclerosis of aorta 04/26/2023 Hypertensive kidney disease with stage 3b chronic kidney disease 04/26/2023 Atherosclerosis of coronary artery of [place] heart without angina pectoris 04/26/2023 Thyroid nodule [...] as of this encounter (statuses as of 08/28/2024) Resolved Problems Problem Noted Date Diagnosed Date [...] as of this encounter (statuses as of 08/28/2024) Immunizations Name Administration Dates Next Due COVID-19 mRNA, LNP-s, No Pre serve, 2-Dose Series ([place]) 07/25/2021,12/27/2020,11/29/2020 COVID-19, LNP-s, No Preserve , Binh-sucrose, [...] Care Team (Late st Contact Info) Description 09/27/2024 10:30 AM EST Imaging Vascular Lab, [facility] 2nd [facility] [address] [place] [address] 10/01/2024 1:30 PM EST Office [facility] [address] [place] [address] Richard Saucedo MD [address] [place] [address] 11/30/2024 9:00 AM EST Office Visit [facility] [address] [place] [address] Rafat Josue MD [address] [place] [address] 12/06/2024 8:00 AM EST Imaging Radiology [facility] 1st [facility] 132 [facility] [place] [address] 12/18/2024 10:30 AM EST Office Visit Cardiology, [facility] [address] [facility] [place] [address] Thomas Burleson, PA-C 132 [facility] [place] [address] Health Maintenance Due Date Last Done Comments Adult Wellness Visit 09/05/2021 09/05/2020 *NEPHROLOGY REFERRAL DUE TO RESISTANT HTN 08/11/2024 Albumin/Creatinine Ratio 05/10/2025 05/10/2024, 03/18 CKD PHOS USE SMARTSET 97893 05/10/202504/17, 04/14/2023, 11/03/2020, Additional history exists Depression Screening 07/13/2025 07/13/2024 CKD HGB USE SMARTSET 57625 08/27/202508/27, 05/10/2024, 04/14/2023, Additional history exists TSH 08/27/2025 08/27/2024, 04/17, 04/14/2023, Additional history exists DXA Scan 06/08/2026 06/08/2024, 05/18, 05/21/2019, Additional history exists DTap/Tdap Vaccines Discontinued 03/14/2013, 1 12/05/2001, 09/16/1992 Pneumococcal Vaccine: 65+ Years Completed 05/10/2016, 11/10/2006, 11/09/1999 Zoster Vaccines Completed 11/21/2018, 04/16, 04/16/2018, Additional history exists VITAMIN D LEVEL ONCE IN A LIFETIME-USE SMARTSET# 14189 Completed 04/14/2023, 08/04/2021, 11/03/2020, Additional history exists [...] Documents on File Type Date Recorded Patient Stakes Player Expl anation Advance Directives and Living Will 09/26/2015 LIVING WILL LIVING W ILL Power of Superintendent Construction 09/26/2015 POWER OF A TTORNEY POWER OF SOLDER MAKING SUPERVISOR Care Teams Territory Account Representative Relationship Specialty Start Date End Date Rafat Josue MD [address] [place] [address] PCP - General 12/31/02 documented as of this encounter
--- OUTSIDE RECORDS SUMMARY | 2025-01-17 07:34 | External Medical Summary | Summary of Care ---
Author Name Unknown Organization [facility] Address [address] [place] [address] Phone [phone] Care Team Providers Care Surgical Product Sales Consultant Name Role Phone Rafat Josue MD Primary Care Provider +1- [phone] Encounter Details Date Type Department Care Team (Late st Contact Info) Description 08/31/2024 11:00 AM EST Scheduled Telephone Care Coordination and Integration [address] [place], [place] [id number] Jesica Alonso, [facility] Maintenance Engineer [address] [place] [address] Allergies No known active allergiesdocumented as of this encounter (statuses as of 08/31/2024) Medications CALCIUM 500 +D 500-400 MG-UNIT PO [...] as of this encounter (statuses as of 08/31/2024) Active Problems Problem Noted Date Diagnosed Date History of [place] (myocardial infarction) 08/06/2024 Former smoker 01/17/2024 Atherosclerosis of aorta 04/26/2023 Hypertensive kidney disease with stage 3b chronic kidney disease 04/26/2023 Atherosclerosis of coronary artery of [place] heart without angina pectoris 04/26/2023 Thyroid nodule [...] as of this encounter (statuses as of 08/31/2024) Resolved Problems Problem Noted Date Diagnosed Date [...] as of this encounter (statuses as of 08/31/2024) Immunizations Name Administration Dates Next Due COVID-19 mRNA, LNP-s, No Pre serve, 2-Dose Series ([employer]ber[employer]) 07/25/2021,12/27/2020,11/29/2020 COVID-19, LNP-s, No Preserve , Binh-sucrose, Ages 12+ (Ibercheck) 03/05/2022 COVID-19, MRNA-LNP, PF, 30 M CG/0.3 [...] as of this encounter Progress Notes * Jesica Alonso Community Health Maintenance Engineer - 08/31/2024 11:26 AM EST Telemedicine visit: No Community Health Maintenance Engineer (MING) documentation: CHW bren call per CM CHW spoke with pt this date. Pt is not taking her BP daily at this time. She does go to cardiac rehab on Tuesday, Tuesday, and Tuesday where they do BP's . Today's readings were: Prior to the start of rehab 162/[address], [address] through session was 148/60 and at the end of the session it was 134/54. Pt denies any chest pain, any stroke like symptoms, any headaches, dizziness, lightheadedness, vision changes, facial drooping, slurred speech or difficulty speaking, sudden onset weakness or confusion. documented in this encounter Plan of Treatment Upcoming Encounters Date Type Department Care Team (Late st Contact Info) Description 09/27/2024 10:30 AM EST Imaging Vascular Lab, [address] 132 [facility] [place] [address] 10/01/2024 1:30 PM EST Office Visit Dermatology [facility] [address] [place] [address] Richard Saucedo MD 200 [facility] [place] [address] 11/30/2024 9:00 AM EST Office Visit [facility] [address] [place] [address] Rafat Josue MD [address] [place] [address] 12/06/2024 8:00 AM EST Imaging Radiology [address] 132 [facility] [place] [address] 12/18/2024 10:30 AM EST Office Visit Cardiology, [facility] [address] [place] [address] Thomas Burleson PA-C [address] [place] [address] Health Maintenance Due Date Last Done Comments Adult Wellness Visit 09/05/2021 09/05/2020 *NEPHROLOGY REFERRAL DUE TO RESISTANT HTN 08/11/2024 Albumin/Creatinine Ratio 05/10/2025 05/10/2024, 03/18 CKD PHOS USE SMARTSET 71972 05/10/202504/17, 04/14/2023, 11/03/2020, Additional history exists Depression Screening 07/13/2025 07/13/2024 CKD HGB USE SMARTSET 96484 08/27/202508/27, 05/10/2024, 04/14/2023, Additional history exists TSH 08/27/2025 08/27/2024, 04/17, 04/14/2023, Additional history exists DXA Scan 06/08/2026 06/08/2024, 05/18, 05/21/2019, Additional history exists DTap/Tdap Vaccines Discontinued 03/14/2013, 1 12/05/2001, 09/16/1992 Pneumococcal Vaccine: 65+ Years Completed 05/10/2016, 11/10/2006, 11/09/1999 Zoster Vaccines Completed 11/21/2018, 04/16, 04/16/2018, Additional history exists VITAMIN D LEVEL ONCE IN A LIFETIME-USE SMARTSET# 36206 Completed 04/14/2023, 08/04/2021, 11/03/2020, Additional history exists [...] Documents on File Type Date Recorded Patient Eeler Expl anation Advance Directives and Living Will 09/26/2015 LIVING WILL LIVING W ILL Power of Reliability Technologist 09/26/2015 POWER OF A TTORNEY POWER OF ASSISTANT PROGRAM MANAGER Care Teams Surgical Product Sales Consultant Relationship Specialty Start Date End Date Rafat Josue MD [address] [place] [address] PCP - General 12/31/02 documented as of this encounter
--- OUTSIDE RECORDS SUMMARY | 2025-01-17 07:34 | External Medical Summary | Summary of Care ---
Author Name Unknown Organization [facility] Address [address] [place] [address] Phone [phone] Care Team Providers Care Virtualization Engineer Name Role Phone Rafat Josue MD Primary Care Provider [phone]- [phone] Reason for Visit * Reason Onset Date Comments Medication Adjustment 09/04/2024 Encounter Details Date Type Department Care Team (Late st Contact Info) Description 09/04/2024 Refill Cardiology, [facility] [address] [place] [address] Maverick Kaur PA-C [address] [place] [address] HTN, goal below 140/90 Allergies No known active allergiesdocumented as of this encounter (statuses as of 09/04/2024) Medications CALCIUM 500 +D 500-400 MG-UNIT PO [...] 3 08/31/2024 11:53 AM EST 4 Active Losartan Potassium 100 MG Oral Tablet (Cozaar)Indicati ons:HTN, goal below 140/90 Take 1 Tablet by mouth daily. 30 Tablet 1 4 Active Vitamin C 1000 MG Oral [...] mouth in the morning. 100 Tablet 3 4 Active Isosorbide Mononitrate ER 30 MG Oral Tablet Extended Release 24 Hour (Imdur)Indicatio ns:HTN, goal below 140/90 Take 1 Tablet by mouth in the morning. 30 Tablet 1 4 09/04/20 24 Discontinu ed(Refill) documented as of this encounter (statuses as of 09/04/2024) Active Problems Problem Noted Date Diagnosed Date History of [place] (myocardial infarction) 08/06/2024 Former smoker 01/17/2024 Atherosclerosis of aorta 04/26/2023 Hypertensive kidney disease with stage 3b chronic kidney disease 04/26/2023 Atherosclerosis of coronary artery of [place] heart without angina pectoris 04/26/2023 Thyroid nodule [...] as of this encounter (statuses as of 09/04/2024) Resolved Problems Problem Noted Date Diagnosed Date [...] as of this encounter (statuses as of 09/04/2024) Immunizations Name Administration Dates Next Due COVID-19 mRNA, LNP-s, No Pre serve, 2-Dose Series ([employer]) 07/25/2021,12/27/2020,11/29/2020 COVID-19, LNP-s, No Preserve , Binh-sucrose, [...] encounter Miscellaneous Notes * Telephone Encounter - Maverick Kaur PA-C - 09/04/2024 4:04 PM ESTSigned Prescriptions: Disp Refills Isosorbide Mononitrate ER 60 MG Oral Table*100 Ta*3 Sig: Take 1 Tablet by mouth in the morning. Authorizing Provider: MAVERICK KAUR * Telephone Encounter - Randy Levine LPN - 09/04/2024 3:54 PM EST Pended and patient is aware and verbalized understanding. * Telephone Encounter - Randy Levine LPN - 09/04/2024 3:48 PM EST Increase Imdur to 60 mg/day Maverick documented in this encounter Plan of Treatment Upcoming Encounters Date Type Department Care Team (Late st Contact Info) Description 09/11/2024 1:00 PM EST Office Visit Gastroenterology, [facility] 132 [facility] [place] [address] Merlin Terrazas CRNP [address] [place] [address] 10/01/2024 1:30 PM EST Office Visit Dermatology [facility] 200 [facility] [place] [address] Richard Saucedo MD 200 [facility] [place] [address] 11/30/2024 9:00 AM EST [facility] [address] [place] [address] Rafat Josue MD [address] [place] [address] 12/06/2024 8:00 AM EST Imaging Radiology [facility] 1st [facility] 132 [facility] [place] [address] 12/18/2024 10:30 AM EST Office Visit Cardiology, [facility] 132 [facility] [place] [address] Maverick Kaur, PAVivianC 132 [facility] [place] [address] Health Maintenance Due Date Last Done Comments Adult Wellness Visit 09/05/2021 09/05/2020 *NEPHROLOGY REFERRAL DUE TO RESISTANT HTN 08/11/2024 Albumin/Creatinine Ratio 05/10/2025 05/10/2024, 03/18 CKD PHOS USE SMARTSET 82023 05/10/202504/17, 04/14/2023, 11/03/2020, Additional history exists Depression Screening 07/13/2025 07/13/2024 CKD HGB USE SMARTSET 13460 08/27/202508/27, 05/10/2024, 04/14/2023, Additional history exists TSH 08/27/2025 08/27/2024, 04/17, 04/14/2023, Additional history exists DXA Scan 06/08/2026 06/08/2024, 05/18, 05/21/2019, Additional history exists DTap/Tdap Vaccines Discontinued 03/14/2013, 1 12/05/2001, 09/16/1992 Pneumococcal Vaccine: 65+ Years Completed 05/10/2016, 11/10/2006, 11/09/1999 Zoster Vaccines Completed 11/21/2018, 04/16, 04/16/2018, Additional history exists VITAMIN D LEVEL ONCE IN A LIFETIME-USE SMARTSET# 20971 Completed 04/14/2023, 08/04/2021, 11/03/2020, Additional history exists [...] Documents on File Type Date Recorded Patient Crabber Expl anation Advance Directives and Living Will 09/26/2015 LIVING WILL LIVING W ILL Power of Flow Worker 09/26/2015 POWER OF A TTORNEY POWER OF AGENT TICKETING GATE Care Teams Virtualization Engineer Relationship Specialty Start Date End Date Rafat Josue MD [address] [place] [address] PCP - General 12/31/02 documented as of this encounter
--- OUTSIDE RECORDS SUMMARY | 2025-01-17 07:34 | External Medical Summary ---
Author Name Unknown Address Unknown Organization K01:[facility] [place] [address] [place] [address] Laboratory Report Ordering Provider Test Date Status VINCENT TEMPLE 08/31/2024 14:18:54 Final Observation Date Value Abnormality Reference (Units ) Status Occult Blood (EIA) 08/31/2024 14:18:54 Positive Abnormal N egative Final Performing Location LABORATORY C - [address] [place] [address]
--- OUTSIDE RECORDS SUMMARY | 2025-01-17 07:34 | External Medical Summary | Summary of Care ---
Author Name Unknown Organization [facility] Address [address] [place] [address] Phone [phone] Care Team Providers Care Communications Instructor Name Role Phone Rafat Josue MD Primary Care Provider +1- [phone] Reason for Visit * Reason Comments Outpatient Testing Encounter Details Date Type Department Care Team (Late st Contact Info) Description 08/31/2024 11:20 AM EST Laboratory Laboratory, [address] [address] [address], Specimen Drop Off [address] [address] Abnormal CBC; Anemia, unspecified type Allergies No known active allergiesdocumented as [...] Problem Noted Date Diagnosed Date History of [place] (myocardial infarction) 08/06/2024 Former smoker 01/17/2024 Atherosclerosis of aorta 04/26/2023 Hypertensive kidney disease with stage 3b chronic kidney disease 04/26/2023 Atherosclerosis of coronary artery of [place] heart without angina pectoris 04/26/2023 Thyroid nodule [...] mRNA, LNP-s, No Pre serve, 2-Dose Series (Pfizer) 07/25/2021,12/27/2020,11/29/2020 COVID-19, LNP-s, No Preserve , Binh-sucrose, [...] Vascular Lab, [facility] 2nd [facility] [address] [place] [address] 10/01/2024 1:30 PM EST Office Visit Dermatology [facility] 200 [facility] [place] [address] Richard Saucedo MD 200 [facility] [place] [address] 11/30/2024 9:00 AM EST [facility] [address] [place] [address] Rafat Josue MD [address] [place] [address] 12/06/2024 8:00 AM EST Imaging Radiology [facility] 1st [facility] [address] [place] [address] 12/18/2024 10:30 AM EST Office Visit Cardiology, [facility] [address] [place] [address] Thomas Burleson PA-C [address] [place] [address] Pending Results Name Type Priority Associated Diagnoses Date /Time FECAL OCCULT BLOOD, EIA Lab Routine Abnormal CBC Anemia, unspecified type 08/31/2024 2:18 PM EST Health Maintenance Due Date Last Done Comments Adult Wellness Visit 09/05/2021 09/05/2020 *NEPHROLOGY REFERRAL DUE TO RESISTANT HTN 08/11/2024 Albumin/Creatinine Ratio 05/10/2025 05/10/2024, 03/18 CKD PHOS USE SMARTSET 08232 05/10/202504/17, 04/14/2023, 11/03/2020, Additional history exists Depression Screening 07/13/2025 07/13/2024 CKD HGB USE SMARTSET 18669 08/27/202508/27, 05/10/2024, 04/14/2023, Additional history exists TSH 08/27/2025 08/27/2024, 04/17, 04/14/2023, Additional history exists DXA Scan 06/08/2026 06/08/2024, 05/18, 05/21/2019, Additional history exists DTap/Tdap Vaccines Discontinued 03/14/2013, 1 12/05/2001, 09/16/1992 Pneumococcal Vaccine: 65+ Years Completed 05/10/2016, 11/10/2006, 11/09/1999 Zoster Vaccines Completed 11/21/2018, 04/16, 04/16/2018, Additional history exists VITAMIN D LEVEL ONCE IN A LIFETIME-USE SMARTSET# 75415 Completed 04/14/2023, 08/04/2021, 11/03/2020, Additional history exists [...] as of this encounter Visit Diagnoses Diagnosis Abnormal CBC Other abnormal blood chemistry Anemia, unspecified type documented in this encounter Advance Directives Documents on File Type Date Recorded Patient Resources Representative Expl anation Advance Directives and Living Will 09/26/2015 LIVING WILL LIVING W ILL Power of Baby Formula Mixer 09/26/2015 POWER OF A TTORNEY POWER OF COOK SPECIALTY Care Teams Communications Instructor Relationship Specialty Start Date End Date Rafat Josue MD [address] [place] [address] PCP - General 12/31/02 documented as of this encounter
--- OUTSIDE RECORDS SUMMARY | 2025-01-17 07:34 | External Medical Summary | Summary of Care ---
Author Name Unknown Organization [facility] Address [address] [place] [address] Phone [phone] Care Team Providers Care Field Support Rep Name Role Phone Rafat Josue MD Primary Care Provider +1- [phone] Reason for Referral * Evaluate & Treat - Unlimited Visits (Within 10 days (routine)) - Authorized Specialty Diagnoses / Procedures Referred By Minnie armstrong Referred To Contact Gastroenterology Diagnoses Fecal occult blood test positive Thomas Burleson PA-C [address] [place] [address] Phone: tel: fax: Referral ID Status Reason Start Date Expiration Date Visits Requested Visits Authorized [id number] Authorized Specialty Services Required 4 999 999 Question Answer Referral Priority Within 10 days (routine) Where should this appointment be scheduled? [facility] For what condition is the patient being referred? All Gastro Conditions Comments Positive FOBT Reason for Visit * Reason Onset Date Comments Test Results 09/03/2024 Encounter Details Date Type Department Care Team ([facility] st Contact Info) Description 09/03/2024 Telephone Cardiology, [facility] [address] [place] [address] Thomas Burleson PA-C [address] [place] [address] Test Results Allergies No known active allergiesdocumented as of this encounter (statuses as of 09/03/2024) Medications CALCIUM 500 +D 500-400 MG-UNIT PO [...] as of this encounter (statuses as of 09/03/2024) Active Problems Problem Noted Date Diagnosed Date History of [place] (myocardial infarction) 08/06/2024 Former smoker 01/17/2024 Atherosclerosis of aorta 04/26/2023 Hypertensive kidney disease with stage 3b chronic kidney disease 04/26/2023 Atherosclerosis of coronary artery of [place] heart without angina pectoris 04/26/2023 Thyroid [...] as of this encounter (statuses as of 09/03/2024) Resolved Problems Problem Noted Date Diagnosed Date [...] as of this encounter (statuses as of 09/03/2024) Immunizations Name Administration Dates Next Due COVID-19 mRNA, LNP-s, No Pre serve, 2-Dose Series (Collections) 07/25/2021,12/27/2020,11/29/2020 COVID-19, LNP-s, No Preserve , Binh-sucrose, [...] Telephone Encounter - Randy Levine LPN - 09/03/2024 9:48 AM EST Sent patient a [employer] message to make aware. Referral placed. ----- Message from Thomas Burleson sent at 09/01/2024 3:30 PM EST ----- Positive FOBT. Refer to GI documented in this encounter Plan of Treatment Upcoming Encounters Date Type Department Care Team (Late st Contact Info) Description 09/27/2024 10:30 AM EST Imaging Vascular Lab, [facility] [address] [address] 10/01/2024 1:30 PM EST Office Visit Dermatology [facility] [address] [place], [place] [address] Richard Saucedo MD 200 [facility] [place], [place] [address] 11/30/2024 9:00 AM EST [facility] [address] Rafat Josue MD [address] [place] [address] 12/06/2024 8:00 AM EST Imaging Radiology [facility]st [facility] 132 [facility] [place] [address] 12/18/2024 10:30 AM EST Office Visit Cardiology, [facility] 132 [facility] [place] [address] Thomas Burleson PA-C [facility] [place] [address] Scheduled Referrals Name Type Priority Associated Diagnoses Order Schedule ADULT GASTROENTEROLOGY REFERRAL OP Referral Within 10 days (routine) Fecal occult blood test positive Ordered: 09/03/2024 Health Maintenance Due Date Last Done Comments Adult Wellness Visit 09/05/2021 09/05/2020 *NEPHROLOGY REFERRAL DUE TO RESISTANT HTN 08/11/2024 Albumin/Creatinine Ratio 05/10/2025 05/10/2024, 03/18 CKD PHOS USE SMARTSET 71613 05/10/202504/17, 04/14/2023, 11/03/2020, Additional history exists Depression Screening 07/13/2025 07/13/2024 CKD HGB USE SMARTSET 28800 08/27/202508/27, 05/10/2024, 04/14/2023, Additional history exists TSH 08/27/2025 08/27/2024, 04/17, 04/14/2023, Additional history exists DXA Scan 06/08/2026 06/08/2024, 05/18, 05/21/2019, Additional history exists DTap/Tdap Vaccines Discontinued 03/14/2013, 1 12/05/2001, 09/16/1992 Pneumococcal Vaccine: 65+ Years Completed 05/10/2016, 11/10/2006, 11/09/1999 Zoster Vaccines Completed 11/21/2018, 04/16, 04/16/2018, Additional history exists VITAMIN D LEVEL ONCE IN A LIFETIME-USE SMARTSET# 65629 Completed 04/14/2023, 08/04/2021, 11/03/2020, Additional history exists [...] as of this encounter Visit Diagnoses Diagnosis Fecal occult blood test positive- Primary Nonspecific abnormal finding in stool contents documented in this encounter Advance Directives Documents on File Type Date Recorded Patient Named Account Executive Expl anation Advance Directives and Living Will 09/26/2015 LIVING WILL LIVING W ILL Power of Oceanology Teacher 09/26/2015 POWER OF A TTORNEY POWER OF ELEMENTARY READING SPECIALIST Care Teams Field Support Rep Relationship Specialty Start Date End Date Rafat Josue MD [address] [place] [address] PCP - General 12/31/02 documented as of this encounter
--- OUTSIDE RECORDS SUMMARY | 2025-01-17 07:34 | External Medical Summary ---
Author Name Unknown Address Unknown Organization K01:LABORATORY [place] [address] [place] [address] Laboratory Report Ordering Provider Test Date Status TEAGAN CAMARILLO 09/11/2024 13:48:23 Final Observation Date Value Abnormality Reference (Units ) Status Tissue transglutaminase IgA Ab [Presence] in Serum by Immunoassay 09/11/2024 13:48:23 Negative Negative Final Tissue transglutaminase IgA Ab [Units/volume] in Serum by Immunoassay 09/11/2024 13:48:23 0.5 <7 (U/mL) Final Performing Location LAB[facility]ATORY [facility] [place] - [facility] [address] [place] [address]
--- OUTSIDE RECORDS SUMMARY | 2025-01-17 07:34 | External Medical Summary | Summary of Care ---
Author Name Unknown Organization [facility] Address [address] [place] [address] Phone [phone] Care Team Providers Care Regional Clinical Research Associate Name Role Phone Rafat Josue MD Primary Care Provider +1- [phone] Encounter Details Date Type Department Care Team (Late st Contact Info) Description 08/31/2024 11:00 AM EST Scheduled Telephone Care Coordination and Integration [address] [place], [place] [phone] Jesica Alonso, [facility] Health Seaming Inspector [address] [place] [address] Allergies No known active allergiesdocumented as of [...] Problem Noted Date Diagnosed Date History of [place] (myocardial infarction) 08/06/2024 Former smoker 01/17/2024 Atherosclerosis of aorta 04/26/2023 Hypertensive kidney disease with stage 3b chronic kidney disease 04/26/2023 Atherosclerosis of coronary artery of [place] heart without angina pectoris 04/26/2023 Thyroid nodule [...] mRNA, LNP-s, No Pre serve, 2-Dose Series ([employer]) 07/25/2021,12/27/2020,11/29/2020 COVID-19, LNP-s, No Preserve , [...] as of this encounter Progress Notes * Мария Haro RN - 08/31/2024 1:45 PM EST Noted and thank you very much! * Jesica Alonso Community Health Seaming Inspector - 08/31/2024 11:26 AM EST Telemedicine visit: No Community Health Seaming Inspector (MING) documentation: CHW bren call per CM [...] 09/27/2024 10:30 AM EST Imaging Vascular Lab, [facility] 2nd [facility] 132 [facility] [place] [address] 10/01/2024 1:30 PM EST Office Visit Dermatology [facility] [address] [place] [address] Richard Saucedo MD [address] [place] [address] 11/30/2024 9:00 AM EST Office Visit [facility] [address] [place] [address] Rafat Josue MD [address] [place] [address] 12/06/2024 8:00 AM EST Imaging [facility] 132 [facility] [place] [address] 12/18/2024 10:30 AM EST Office Visit Cardiology, [facility] [address] [facility] [place] [address] Thomas Burleson, PA-C [facility] [place] [address] Health Maintenance Due Date Last Done Comments Adult Wellness Visit 09/05/2021 09/05/2020 *NEPHROLOGY REFERRAL DUE TO RESISTANT HTN 08/11/2024 Albumin/Creatinine Ratio 05/10/2025 05/10/2024, 03/18 CKD PHOS USE SMARTSET 47537 05/10/202504/17, 04/14/2023, 11/03/2020, Additional history exists Depression Screening 07/13/2025 07/13/2024 CKD HGB USE SMARTSET 22942 08/27/202508/27, 05/10/2024, 04/14/2023, Additional history exists TSH 08/27/2025 08/27/2024, 04/17, 04/14/2023, Additional history exists DXA Scan 06/08/2026 06/08/2024, 05/18, 05/21/2019, Additional history exists DTap/Tdap Vaccines Discontinued 03/14/2013, 1 12/05/2001, 09/16/1992 Pneumococcal Vaccine: 65+ Years Completed 05/10/2016, 11/10/2006, 11/09/1999 Zoster Vaccines Completed 11/21/2018, 04/16, 04/16/2018, Additional history exists VITAMIN D LEVEL ONCE IN A LIFETIME-USE SMARTSET# 56806 Completed 04/14/2023, 08/04/2021, 11/03/2020, Additional history exists [...] Documents on File Type Date Recorded Patient Director Of Public Health Expl anation Advance Directives and Living Will 09/26/2015 LIVING WILL LIVING W ILL Power of Medical Review Coordinator 09/26/2015 POWER OF A TTORNEY POWER OF ASSISTANT STORE MANAGER OPERATIONS Care Teams Regional Clinical Research Associate Relationship Specialty Start Date End Date Rafat Josue MD [address] [place] [address] PCP - General 12/31/02 documented as of this encounter
--- OUTSIDE RECORDS SUMMARY | 2025-01-17 07:34 | External Medical Summary | Summary of Care ---
Author Name Unknown Organization [facility] Address [address] [place] [facility] [place] [place] [address] Phone [phone] Care Team Providers Care Hall Porter Name Role Phone Rafat Josue MD Primary Care Provider +1- [phone] Reason for Visit * Reason Comments Hospital Follow-Up [facility] d/c 07/12/24 & [facility] ED 08/15 due to HTN @ Cardiac Rehab. Reports fluctuating BP readings. Occasionally feels "flushed." Denies other cardiac concerns or issues at this time. Encounter Details Date Type Department Care Team (Late st Contact Info) Description 08/28/2024 1:00 PM EST Office Visit Cardiology, [facility] [address] [place] [address] Ean Roberson, [address] [place] [address] NSTEMI (non-ST elevation myocardial infarction) ([facility])*; HTN, goal below 140/90; Unequal blood pressure in upper extremities; Anemia, unspecified type; Dyslipidemia, goal LDL below 70 Allergies No known active allergiesdocumented as of [...] Problem Noted Date Diagnosed Date History of ME (myocardial infarction) 08/06/2024 Former smoker 01/17/2024 Atherosclerosis of aorta 04/26/2023 Hypertensive kidney disease with stage 3b chronic kidney disease 04/26/2023 Atherosclerosis of coronary artery of [place] heart without angina pectoris 04/26/2023 Thyroid nodule [...] mRNA, LNP-s, No Pre serve, 2-Dose Series (Estify) 07/25/2021,12/27/2020,11/29/2020 COVID-19, LNP-s, No Preserve , Binh-sucrose, [...] Smoke Exposure: Past Smokeless Tobacco: Never Comments:QUIT 1970 Alcohol Use Standard Drinks/Week Comments Yes 0 [...] Sign Reading Time Taken Comments Blood Pressure 166/64 08/28/2024 12:55 PM EST Pulse 78 08/28/2024 12:52 PM EST Temperature - - Respiratory Rate 12 08/28/2024 12:52 PM EST Oxygen Saturation - - Inhaled Oxygen Concentration - - Weight 63.3 kg (139 lb 8 oz) 08/28/2024 12:52 PM EST Height - - Body Mass Index 26.36 05/15/2024 6:06 PM EDT documented in this encounter Patient Instructions * Patient Instructions* Ean Roberson DO - 08/28/2024 1:45 PM EST Repeat cholesterol test in November documented in this encounter Progress Notes * Ean Roberson DO - 08/28/2024 1:16 PM EST 08/28/2024 Cardiology Follow Up SUBJECTIVE: History of Present Illness Shiloh Ryan, an 88-year-old female with a recent history of non-ST segment elevation myocardialinfarction (NSTEMI), presents for outpatient cardiology follow-up. She was hospitalized in June 2024, initially presenting with a two-week history of intermittent substernal heaviness. At the time of admission, her systolic blood pressure was in the 220s. Diagnostic tests revealed T-wave inversions in the anterior and lateral precordial leads on EKG and an elevated high sensitivity troponin level of 1687 pg/mL. An echocardiogram showed a moderate-sized apical wall motion abnormality and mildly reduced left ventricular ejection fraction (40-45%). Invasive coronary angiography revealed a 98% stenosis of the proximal left anterior descending coronary artery (LAD), a 50% mid-LAD stenosis, and nonobstructive disease elsewhere. The patient underwent successful PCI of the proximal LAD with a single drug-eluting stent. She notes no symptoms suggestive of recurrent angina. However, she has experienced episodes of high blood pressure, most notably during a cardiac rehab session in late July. She was referred for evaluation in the emergency department, with negative workup. Her medications had since been adjusted. The patient also has a longstanding history of mild anemia, with recent hemoglobin levels at 9.9. Iron levels are within normal limits. Extensive ROS: All systems reviewed & are unremarkable except as noted in HPI & below Cardiovascular (chest pain/palpitations/fluttering/diaphoresis/dyspnea on exertion/paroxysmally nocturnal dyspnea):Negative Review of patient's allergies indicates: No Known [...] Tablet by mouth daily. 30 Tablet 1 Isosorbide Mononitrate ER 30 MG Oral Tablet Extended Release 24 Hour (Imdur) Take 1 Tablet by mouthin the morning. 30 Tablet 1 Vitamin C 1000 MG Oral Tablet Take 1 Tablet by mouth in the morning. amLODIPine Besylate 5 MG Oral Tablet (Norvasc) Take 1 Tablet by mouth 2 times a day. 200 Tablet 3 hydroCHLOROthiazide 12.5 MG Oral Capsule Take 1 Capsule by mouth in the morning. 31 Capsule 5 No current facility-administered medications for this visit. OBJECTIVE/PHYSICAL EXAMINATION: BP 166/64 (BP Site: Right Arm, BP Position: Sitting, BP Cuff Size: Regular) | Pulse 78 | Resp 12 | Wt 63.3 kg (139 lb 8 oz) | BMI 26.36 kg/m² | BSA 1.65 m² General: no acute distress and stated age Eyes: conjunctiva are pink and non-injected, sclera clear Neck: normal jugular venous pulse, no hepatojugular reflux Chest: normal shape and normal respiratory effort Lungs: clear to auscultation , no rales rhonchi or wheezing Cardiac Exam: - regular heart sounds, no murmurs, rubs, or gallops Abdomen: abdomen soft, non-tender, no abnormal masses and no hepatosplenomegaly Musculoskeletal: no gait disturbance, no weakness Extremities: no edema and no cyanosis Neuro: grossly normal exam Psych: appropriate affect and insight. Data: Results LABS Troponin: 1687 pg/mL (06/2024) Hb: 9.9 g/dL (08/26/2024) DIAGNOSTIC EKG: Normal sinus rhythm, first degree AV block, T wave changes in V1 to V2, stable compared to 07/12/2024 (08/15/2024) Echocardiogram: Moderate sized apical wall motion abnormality, mildly reduced left ventricular ejection fraction (40-45%) (06/2024) Coronary angiography: 98% stenosis of proximal LAD, 50% mid LAD stenosis, nonobstructive disease elsewhere (06/2024) Summary of cardiac catheterization performed 07/11/24 at [facility] by Dr Castillo: Procedure performed via [...] EBU 3.5 guide Pre-procedure flow PETE 2-3 Pediatric Urologist 50 wire passed across lesion into distal [...] single drug-eluting stent (2.75 x 15 mm [place]; postdilated with 3.0 NC). Loaded with clopidogrel 600 mg in Medical Editor Continue dual-antiplatelet therapy for at least 1 year Assessment & Plan Non-ST Segment Elevation Myocardial Infarction (NSTEMI) Recent NSTEMI with anterolateral ST-T wave changes on EKG and elevated high sensitivity troponin (1687 pg/mL). Echocardiogram showed moderate-sized apical wall motion abnormality and mildly reduced left ventricular ejection fraction (40-45%). Underwent PCI with drug-eluting stent placement in the proximal left anterior descending coronary artery (98% stenosis). Residual 50% mid-LAD stenosis and nonobstructive disease elsewhere. Currently asymptomatic post-stent placement. Explained that aspirinand clopidogrel are essential to prevent stent thrombosis, with clopidogrel ideally continued for one year. Discussed the importance of cardiac rehab for recovery and secondary prevention. - Continue aspirin daily - Continue clopidogrel for one year - Continue metoprolol succinate 50 mg daily - Continue atorvastatin - Continue cardiac rehab Hypertension Significantly elevated blood pressure (initially 220s systolic). Current readings: left arm 192/70 mmHg, right arm 166/64 mmHg, indicating potential discrepancy. No symptoms of lightheadedness or dizziness. 2+ bilateral radial artery pulses noted - Continue amlodipine 5 mg twice daily - Continue hydrochlorothiazide 12.5 mg daily - Continue isosorbide mononitrate 30 mg daily - Continue losartan 100 mg daily - Continue metoprolol succinate 50 mg daily - Order carotid duplex to assess for subclavian stenosis with regards to accounting for the uneven blood pressure readings Anemia Mild anemia with recent hemoglobin of 9.9 g/dL. Iron levels within normal range. Additional blood tests pending. Fecal occult blood test recommended to rule out gastrointestinal bleeding. Discussed importance of identifying cause of anemia and potential need for further investigations based on testresults. - Complete fecal occult blood test - Review pending blood test results [facility] Routine follow-up for cholesterol management. LDL goal is less than 70 mg/dL. Next cholesterol check scheduled for November. - Recheck cholesterol in November Follow up : Follow Up: Return in about 3 months (around 11/28/2024) for Clinic Visit. | For: Clinic Visit Patient is seen in longitudinal follow-up of the above complex cardiac issues with the assessment and plan as outlined. Ean Roberson DO Cardiology, [address] [place] [address] Text in this note was generated using an [employer] documentation service. I discussed the use of a device to record and summarize our discussion today. All persons present during the encounter consented to its use. documented in this encounter Nursing Notes * Jenelle Franklin CMA - 08/28/2024 12:53 PM EST Chief Complaint Patient presents with Hospital Follow-Up [facility] d/c 07/12/24 & [facility] ED 08/15 due to HTN @ Cardiac Rehab. Reports fluctuating BP readings. Occasionally feels "flushed." Denies other cardiac concerns or issues at this time. Examination Room: 12 Name: Shiloh Ryan Date of : (1935). Reason for Visit: Hospital f/u Interim Hospitalization(s): [facility] Problems/Concerns: see chief complaint Chest Pain/SOB: denies [facility] [...] 09/27/2024 10:30 AM EST Imaging Vascular Lab, [facility]nd [facility] [address] [facility] [place] [address] 10/01/2024 1:30 PM EST Office Visit Dermatology [facility] [address] [place] [address] Richard Saucedo MD [address] [place] [address] 11/30/2024 9:00 AM EST Office Visit [facility] [address] [place] [address] Rafat Josue MD [address] [place] [address] 12/06/2024 8:00 AM EST Imaging Radiology [facility] 1st [facility] [address] [facility] [place] [address] 12/18/2024 10:30 AM EST Office Visit Cardiology, [facility] [address] [facility] [place] [address] Thomas Burleson PA-C [address] [place] [address] Scheduled Orders Name Type Priority Associated Diagnoses Orde r Schedule LIPID PANEL WITH DIRECT LDL IF TG IS HIGH Lab Routine Dyslipidemia, goal LDL below 70 Expected: 11/17/2024, Expires: 08/28/2025 [facility] CAROT[facility] Medical Imaging Routine Unequal blood pressure in upper extremities Expected: 08/29/2024, Expires: 09/27/2025 Health Maintenance Due Date Last Done Comments Adult Wellness Visit 09/05/2021 09/05/2020 *NEPHROLOGY REFERRAL DUE TO RESISTANT HTN 08/11/2024 Albumin/Creatinine Ratio 05/10/2025 05/10/2024, 03/18 CKD PHOS USE SMARTSET 99601 05/10/202504/17, 04/14/2023, 11/03/2020, Additional history exists Depression Screening 07/13/2025 07/13/2024 CKD HGB USE SMARTSET 65447 08/27/202508/27, 05/10/2024, 04/14/2023, Additional history exists TSH 08/27/2025 08/27/2024, 04/17, 04/14/2023, Additional history exists DXA Scan 06/08/2026 06/08/2024, 05/18, 05/21/2019, Additional history exists DTap/Tdap Vaccines Discontinued 03/14/2013, 1 12/05/2001, 09/16/1992 Pneumococcal Vaccine: 65+ Years Completed 05/10/2016, 11/10/2006, 11/09/1999 Zoster Vaccines Completed 11/21/2018, 04/16, 04/16/2018, Additional history exists VITAMIN D LEVEL ONCE IN A LIFETIME-USE SMARTSET# [id number] Completed 04/14/2023, 08/04/2021, 11/03/2020, Additional history exists [...] as of this encounter Visit Diagnoses Diagnosis NSTEMI (non-ST elevation myocardial infarction) (HCC)- Primary Acute myocardial infarction, subendocardial infarction, episode of care unspecified HTN, goal below 140/90 Unspecified essential hypertension Unequal blood pressure in upper extremities Anemia, unspecified type Dyslipidemia, goal LDL below 70 Other and unspecified hyperlipidemia documented in this encounter Advance Directives Documents on File Type Date Recorded Patient Expl anation Advance Directives and Living Will 09/26/2015 LIVING WILL LIVING W ILL Power of Machine Woodworking Sander 09/26/2015 POWER OF A TTORNEY POWER OF BUSINESS ADVISOR Care Teams Hall Porter Relationship Specialty Start Date End Date Rafat Josue MD [address] [place] [address] PCP - General 12/31/02 documented as of this encounter
--- OUTSIDE RECORDS SUMMARY | 2025-01-17 07:34 | External Medical Summary | Summary of Care ---
Author Name Unknown Organization [facility] Address [address] [place] [address] Phone [phone] Care Team Providers Care Teamsite Developer Name Role Phone Rafat Josue MD Primary Care Provider [phone]- [phone] Reason for Visit * Reason Onset Date Comments Blood Pressure Readings 08/23/2024 Encounter Details Date Type Department Care Team (Late st Contact Info) Description 08/23/2024 Telephone Cardiology, [facility] [address] [facility] [address] E[facility] Roberson [facility] [address] [place] [address] Blood Pressure Readings Allergies No known active allergiesdocumented as of [...] mouth daily. 30 Tablet 1 4 Active Isosorbide Mononitrate ER 30 MG Oral Tablet Extended Release 24 Hour (Imdur)Indicati ons:HTN, goal below 140/90 Take 1 Tablet by mouth in the morning. 30 Tablet 1 4 Active Vitamin C [...] the morning. 31 Capsule 5 4 Active amLODIPine Besylate 5 MG Oral Tablet (Norvasc)Indica tions:HTN, goal below 140/90 Take 1.5 Tablets by mouth in the morning. 4 024 Discontinued documented as of this encounter (statuses as of 08/31/2024) Active Problems Problem Noted Date Diagnosed Date History of CA (myocardial infarction) 08/06/2024 Former smoker 01/17/2024 Atherosclerosis of aorta 04/26/2023 Hypertensive kidney disease with stage 3b chronic kidney disease 04/26/2023 Atherosclerosis of coronary artery of [place] heart without angina pectoris 04/26/2023 Thyroid nodule [...] LNP-s, No Pre serve, 2-Dose Series ([employer]) 07/25/2021,12/27/2020,11/29/2020 COVID-19, LNP-s, No Preserve , [...] encounter Miscellaneous Notes * Telephone Encounter - Thomas Burleson PA-C - 08/23/2024 4:30 PM EST Patient called personally. Feeling okay. Blood pressures remain uncontrolled. Options discussed. Increase amlodipine to 5 mg twice per day Add HCTZ 12.5 mg/day Continue all other medications as listed Laboratory work Tuesday Cardiology follow-up as scheduled on Tuesday Thomas Burleson PA-C Department of Cardiology * Telephone Encounter - Fanta Reed LPN - 08/23/2024 11:[address] Roberson and STAFF, Follow up with patient for case mgmt She is reporting " on and off" flushed feeling; usually occurring 2-3 times per day She reports recent medication changes from Cardiology Has been compliant with taking all medications as prescribed. 08/23- 194/64; @ 0700 -prior to morning meds Took morning meds 0800 11:15 am 204/69 R arm, 201/65 L arm 08/22- After returned home from rehab-162/62 179/66- 7 pm 08/21- 200/69 prior to morning meds 172/54- 9:45 am after morning medications 08/20- 184/68 before morning medications 188/57- 7:30 pm Denies chest pain, headache, lightheadedness/dizziness or vision concerns Denies dyspnea She reports that her L arm between wrist and elbow has "spot" that she is having discomfort and hand is a little red. Possibly nerve or muscle related Temperature of hand is same as other extremity- denies hot or cold She denies any slurred speech, confusion, facial droop Please contact patient with any further recommendations I will be out of my office until 08/28 Thank you documented in this encounter Plan of Treatment Upcoming Encounters Date Type Department Care Team (Late st Contact Info) Description 09/27/2024 10:30 AM EST Imaging Vascular Lab, [facility] 2nd [facility] [address] [place] [address] 10/01/2024 1:30 PM EST Office Visit Dermatology [facility] [address] [facility] [place] [address] Richard Saucedo MD [address] [facility] [place] [address] 11/30/2024 9:00 AM EST [facility] [address] [place] [address] Rafat Josue MD [address] [place] [address] 12/06/2024 8:00 AM EST Imaging Radiology [facility] 1st [facility] [address] [facility] [place] [address] 12/18/2024 10:30 AM EST Office Visit [facility]iology, [facility] [place] [address] Thomas Burleson PA-C [address] [place] [address] Health Maintenance Due Date Last Done Comments Adult Wellness Visit 09/05/2021 09/05/2020 *NEPHROLOGY REFERRAL DUE TO RESISTANT HTN 08/11/2024 Albumin/Creatinine Ratio 05/10/2025 05/10/2024, 03/18 CKD PHOS USE SMARTSET 84388 05/10/202504/17, 04/14/2023, 11/03/2020, Additional history exists Depression Screening 07/13/2025 07/13/2024 CKD HGB USE SMARTSET 83953 08/27/202508/27, 05/10/2024, 04/14/2023, Additional history exists TSH 08/27/2025 08/27/2024, 04/17, 04/14/2023, Additional history exists DXA Scan 06/08/2026 06/08/2024, 05/18, 05/21/2019, Additional history exists DTap/Tdap Vaccines Discontinued 03/14/2013, 1 12/05/2001, 09/16/1992 Pneumococcal Vaccine: 65+ Years Completed 05/10/2016, 11/10/2006, 11/09/1999 Zoster Vaccines Completed 11/21/2018, 04/16, 04/16/2018, Additional history exists VITAMIN D LEVEL ONCE IN A LIFETIME-USE SMARTSET# [id number] Completed 04/14/2023, 08/04/2021, 11/03/2020, Additional history exists [...] Documents on File Type Date Recorded Patient Straightening Machine Operator Expl anation Advance Directives and Living Will 09/26/2015 LIVING WILL LIVING W ILL Power of High School Coach 09/26/2015 POWER OF A TTORNEY POWER OF ANIMAL RIDE MANAGER Care Teams Teamsite Developer Relationship Specialty Start Date End Date Rafat Josue MD [address] [place] [facility] [place] [address] PCP - General 12/31/02 documented as of this encounter
--- OUTSIDE RECORDS SUMMARY | 2025-01-17 07:35 | External Medical Summary | Summary of Care ---
Author Name Unknown Organization [facility] Address [address] [place] [address] Phone [phone] Care Team Providers Care Ship Rigger Apprentice Name Role Phone Rafat Josue MD Primary Care Provider +1- [phone] Encounter Details Date Type Department Care Team (Late st Contact Info) Description 08/27/2024 Orders Only Cardiology, [facility] [address] [place] [address] Thomas Burleson PA-C [address] [facility] [place] [address] Abnormal CBC*; Anemia, unspecified type Allergies No known active allergiesdocumented as of this encounter (statuses as of 08/27/2024) Medications CALCIUM 500 +D 500-400 MG-UNIT PO TABS Take 2 Tablets by mouth daily. 60 Tab 5 08/24/2011 Active ASPIRIN EC 81 MG PO TBEC Take 1 Tablet by mouth in the morning. 100 Tab 5 08/24/2011 Active Cholecalciferol (VITAMIN D) 1000 UNITS Tablet Take 1 Tablet by mouth in the morning. Active Vitamin [...] as of this encounter (statuses as of 08/27/2024) Active Problems Problem Noted Date Diagnosed Date History of MS (myocardial infarction) 08/06/2024 Former smoker 01/17/2024 Atherosclerosis of aorta 04/26/2023 Hypertensive kidney disease with stage 3b chronic kidney disease 04/26/2023 Atherosclerosis of coronary artery of [place] heart without angina pectoris 04/26/2023 Thyroid nodule [...] as of this encounter (statuses as of 08/27/2024) Resolved Problems Problem Noted Date Diagnosed Date [...] as of this encounter (statuses as of 08/27/2024) Immunizations Name Administration Dates Next Due COVID-19 mRNA, LNP-s, No Pre serve, 2-Dose Series (Simbi[employer]) 07/25/2021,12/27/2020,11/29/2020 COVID-19, LNP-s, No Preserve , Binh-sucrose, [...] as of this encounter Progress Notes * Thomas Burleson PA-C - 08/27/2024 8:26 PM EST Abnormal CBC. Chronic anemia. Basic anemia workup ordered (added to existing specimen). Refer to Hematology unless addressed by PCP (see May 15, 2024 office visit note) Thomas Burleson PA-C Department of Cardiology documented in this encounter Plan of Treatment Upcoming Encounters Date Type Department Care Team (Late st Contact Info) Description 08/28/2024 1:00 PM EST Office Visit Cardiology, [facility] [address] [facility] [place] [address] Ean Roberson DO [address] [place] [address] 10/01/2024 1:30 PM EST Office Visit Dermatology [facility] [address] [facility] [place] [address] Richard Saucedo MD [address] [facility] [place] [address] 11/30/2024 9:00 AM EST [facility] [address] [place] [address] Rafat Josue MD [address] [place] [address] 12/06/2024 8:00 AM EST Imaging Radiology [facility] 1st [facility] [address] [facility] [place] [address] Pending Results Name Type Priority Associated Diagnoses Date /Time FERRITIN Lab Routine Abnormal CBC Anemia, unspecified type 08/27/2024 9:11 AM EST FOLIC ACID Lab Routine Abnormal CBC Anemia, unspecified type 08/27/2024 9:11 AM EST IRON SCREEN, INCLUDING TIBC Lab Routine Abnormal CBC Anemia, unspecified type 08/27/2024 9:11 AM EST RETICULOCYTE PANEL Lab Routine Abnormal CBC Anemia, unspecified type 08/27/2024 9:11 AM EST SERUM PROTEIN ELECTROPHORESIS REFLEX PROFILE Lab Routine Abnormal CBC Anemia, unspecified type 08/27/2024 9:11 AM EST TSH WITH FREE T4 IF INDICATED Lab Routine Abnormal CBC Anemia, unspecified type 08/27/2024 9:11 AM EST VITAMIN B12 Lab Routine Abnormal CBC Anemia, unspecified type 08/27/2024 9:11 AM EST Scheduled Orders Name Type Priority Associated Diagnoses Orde r Schedule ERYTHROPOIETIN (EPO) Lab Routine Abnormal CBC Anemia, unspecified type Expected: 08/27/2024, Expires: 08/27/2025 FECAL OCCULT BLOOD, EIA Lab Routine Abnormal CBC Anemia, unspecified type Expected: 08/27/2024, Expires: 08/27/2025 FERRITIN Lab Routine Abnormal CBC Anemia, unspecified type Expected: 08/27/2024, Expires: 08/27/2025 FOLIC ACID Lab Routine Abnormal CBC Anemia, unspecified type Expected: 08/27/2024, Expires: 08/27/2025 IRON SCREEN, INCLUDING TIBC Lab Routine Abnormal CBC Anemia, unspecified type Expected: 08/27/2024, Expires: 08/27/2025 RETICULOCYTE PANEL Lab Routine Abnormal CBC Anemia, unspecified type Expected: 08/27/2024, Expires: 08/27/2025 SERUM PROTEIN ELECTROPHORESIS REFLEX PROFILE Lab Routine Abnormal CBC Anemia, unspecified type Expected: 08/27/2024, Expires: 08/27/2025 TSH WITH FREE T4 IF INDICATED Lab Routine Abnormal CBC Anemia, unspecified type Expected: 08/27/2024, Expires: 08/27/2025 VITAMIN B12 Lab Routine Abnormal CBC Anemia, unspecified type Expected: 08/27/2024, Expires: 08/27/2025 Health Maintenance Due Date Last Done Comments Adult Wellness Visit 09/05/2021 09/05/2020 *NEPHROLOGY REFERRAL DUE TO RESISTANT HTN 08/11/2024 Albumin/Creatinine Ratio 05/10/2025 05/10/2024, 03/18 CKD PHOS USE SMARTSET 21498 05/10/202504/17, 04/14/2023, 11/03/2020, Additional history exists TSH 05/10/2025 05/10/2024, 03/18, 08/04/2021, Additional history exists Depression Screening 07/13/2025 07/13/2024 CKD HGB USE SMARTSET 98706 08/27/202508/27, 05/10/2024, 04/14/2023, Additional history exists DXA Scan 06/08/2026 06/08/2024, 05/18, 05/21/2019, Additional history exists DTap/Tdap Vaccines Discontinued 03/14/2013, 1 12/05/2001, 09/16/1992 Pneumococcal Vaccine: 65+ Years Completed 05/10/2016, 11/10/2006, 11/09/1999 Zoster Vaccines Completed 11/21/2018, 04/16, 04/16/2018, Additional history exists VITAMIN D LEVEL ONCE IN A LIFETIME-USE SMARTSET# [id number] Completed 04/14/2023, 08/04/2021, 11/03/2020, Additional history exists [...] of this encounter Visit Diagnoses Diagnosis Abnormal CBC- Primary Other abnormal blood chemistry Anemia, unspecified type documented in this encounter Advance Directives Documents on File Type Date Recorded 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
--- OUTSIDE RECORDS SUMMARY | 2025-01-17 07:35 | External Medical Summary ---
Author Name Unknown Address Unknown Organization K01:[place] [facility] [place] [address] [facility] [address] Laboratory Report Ordering Provider Test Date Status VINCENT TEMPLE 08/27/2024 09:11:08 Final Observation Date Value Abnormality Reference (Units ) Status Ferritin 08/27/2024 09:11:08 82 13-150 (ng /mL) Final Postmenopausal women have hi gher ferritin levels than pre-menopausal women. The above reference interval is based on pre-menopausal women. Performing Location LABORATORY [facility] - [address] [place] [address]
--- OUTSIDE RECORDS SUMMARY | 2025-01-17 07:35 | External Medical Summary ---
Author Name Unknown Address Unknown Organization K01:LABORATORY [place] [address] [place] [address] Laboratory Report Ordering Provider Test Date Status VINCENT TEMPLE 08/27/2024 09:11:08 Final Observation Date Value Abnormality Reference (Units ) Status Retic, % (auto) 08/27/2024 09:11:08 2.70 Above high normal 0.80-1.90 (%) Final Reticulocytes, Absolute 08/27/2024 09:11:08 91.8 31.3-100.1 (K/uL) Final Reticulocyte fraction, immature 08/27/2024 09:11:08 23.1 Above high normal 2.5-20.6 (%) Final Reticulocyte HGB 08/27/2024 09:11:08 30.6 29.7-37.4 (pg) Final Performing [place] [facility] [place] [facility] [place] [address]
--- OUTSIDE RECORDS SUMMARY | 2025-01-17 07:35 | External Medical Summary ---
Author Name Unknown Address Unknown Organization K01:[facility] [place] [address] [place] [address] Laboratory Report Ordering Provider Test Date Status VINCENT TEMPLE 08/27/2024 09:11:08 Final Observation Date Value Abnormality Reference (Units ) Status Iron 08/27/2024 09:11:08 95 33-151 (ug /dL) Final Iron-binding capacity 08/27/2024 09:11:08 362 250-425 (ug/dL) Final Transferrin Sat % 08/27/2024 09:11:08 26 15 -55 (%) Final Performing Location LABORATORY [facility] - [address] [place] [address]
--- OUTSIDE RECORDS SUMMARY | 2025-01-17 07:35 | External Medical Summary | Summary of Care ---
Author Name Unknown Organization [facility] Address [address] [place] [address] Phone [phone] Care Team Providers Care Leisure Travel Agent Name Role Phone Rafat Josue MD Primary Care Provider +1- [phone] Reason for Visit * Reason Comments Follow Up Pt here for follow u p of on her feet and the medication she was given when discharged from the hospital sent to mail order. Encounter Details Date Type Department Care Team (Late st Contact Info) Description 08/08/2024 7:40 AM EDT Office Visit [facility] [address] [place] [phone] Rafat Josue MD [address] [place] [address] HTN, goal below 140/90* Allergies No known active allergiesdocumented as of this encounter (statuses as of 08/27/2024) Medications CALCIUM 500 +D 500-400 MG-UNIT PO TABS Take 2 Tablets by mouth daily. 60 Tab 5 08/24/20 11 Active ASPIRIN EC 81 MG PO TBEC Take 1 Tablet by mouth in the morning. 100 Tab 5 08/24/20 11 Active Cholecalcifero l (VITAMIN D) 1000 UNITS Tablet Take 1 Tablet by mouth in the morning. Active Vitamin B-12 1000 MCG Oral Tablet (Cyanocobalami n) Take 1 Tablet by mouth in the morning. Active Atorvastatin Calcium 40 MG Oral Tablet (Lipitor) Take 1 Tablet by mouth in the morning. 90 Tablet 3 08/08/20 Active Clopidogrel Bisulfate 75 MG Oral Tablet (pLAVix) Take 1 Tablet by mouth in the morning. 90 Tablet 3 08/08/20 24 Active Levothyroxine Sodium 50 MCG Oral Tablet (Levoxyl) Take 1 Tablet by mouth daily first thing in the morning. 90 Tablet 3 08/08/2024 3:16 PM EDT 08/08/20 Active Metoprolol Succinate ER 50 MG Oral Tablet Extended Release 24 Hour (toPROL XL) Take 1 Tablet by mouth in the morning. 90 Tablet 3 08/08/20 24 Active Pantoprazole Sodium 40 MG Oral Tablet Delayed Release (Protonix) Take 1 Tablet by mouth in the morning. 90 Tablet 3 08/08/20 Active Lisinopril 40 MG Oral Tablet TAKE ONE TABLET BY MOUTH EVERY DAY IN THE MORNING 90 Tablet 1 05/16/2024 12:06 PM EDT 02/14/20 24 Discontinued amLODIPine Besylate 5 MG Oral Tablet (Norvasc)Indic ations:HTN, goal below 140/90 TAKE ONE TABLET BY MOUTH EVERY DAY IN THE MORNING 90 Tablet 1 05/16/2024 12:06 PM EDT 02/14/20 24 Discontinued Atorvastatin Calcium 40 MG Oral Tablet (Lipitor) Take 1 Tablet by mouth in the morning. Discontinued(Pa tient preference/disc ontinuation) Metoprolol Succinate ER 25 MG Oral Tablet Extended Release 24 Hour (toPROL XL) Take 1 Tablet by mouth in the morning. Discontinued(Pa tient preference/disc ontinuation) Clopidogrel Bisulfate 75 MG Oral Tablet (pLAVix) Take 1 Tablet by mouth in the morning. Discontinued(Pa tient preference/disc ontinuation) Pantoprazole Sodium 40 MG Oral Tablet Delayed Release (Protonix) Take 1 Tablet by mouth in the morning. Discontinued(Pa tient preference/disc ontinuation) Levothyroxine Sodium 50 MCG Oral Tablet (Levoxyl) Take 1 Tablet by mouth daily first thing in the morning. Discontinued(Pa tient preference/disc ontinuation) Pantoprazole Sodium 40 MG Oral Tablet Delayed Release (Protonix) Take 1 Tablet by mouth in the morning. 30 Tablet 08/03/20 24 024 Discontinued Atorvastatin Calcium 40 MG Oral Tablet (Lipitor) Take 1 Tablet by mouth in the morning. 30 Tablet 08/03/20 24 024 Discontinued Clopidogrel Bisulfate 75 MG Oral Tablet (pLAVix) Take 1 Tablet by mouth in the morning. 30 Tablet 08/03/20 24 024 Discontinued Metoprolol Succinate ER 50 MG Oral Tablet Extended Release 24 Hour (toPROL XL) Take 1 Tablet by mouth in the morning. 30 Tablet 08/03/20 24 024 Discontinued amLODIPine Besylate 5 MG Oral Tablet (Norvasc)Indic ations:HTN, goal below 140/90 Take 1 Tablet by mouth in the morning. 90 Tablet 3 08/08/20 Discontinued(Re fill) Lisinopril 40 MG Oral Tablet Take 1 Tablet by mouth in the morning. 90 Tablet 3 08/08/2024 3:16 PM EDT 08/08/20 Discontinued amLODIPine Besylate 5 MG Oral Tablet (Norvasc)Indic ations:HTN, goal below 140/90 Take 1.5 Tablets by mouth in the morning. 08/08/20 024 Discontinued documented as of this encounter (statuses as of 08/27/2024) Active Problems Problem Noted Date Diagnosed Date History of [place] (myocardial infarction) 08/06/2024 Former smoker 01/17/2024 Atherosclerosis of aorta 04/26/2023 Hypertensive kidney disease with stage 3b chronic kidney disease 04/26/2023 Atherosclerosis of coronary artery of [place] heart without angina pectoris 04/26/2023 Thyroid nodule [...] mRNA, LNP-s, No Pre serve, 2-Dose Series (dianboom) 07/25/2021,12/27/2020,11/29/2020 COVID-19, LNP-s, No Preserve , Binh-sucrose, [...] No 07/13/2024 Does the household have a [facility] source of income? (Household - for ages [...] Sign Reading Time Taken Comments Blood Pressure 152/70 08/08/2024 7:47 AM EDT Pulse 77 08/08/2024 7:47 AM EDT Temperature 36.3 °C (97.3 °F) 08/08/2024 7:47 AM ED T Respiratory Rate 18 08/08/2024 7:47 AM EDT Oxygen Saturation 97% 08/08/2024 7:47 AM EDT Inhaled Oxygen Concentration - - Weight 62 kg (136 lb 9.6 oz) 08/08/2024 7:47 AM EDT Height - - Body Mass Index 25.81 05/15/2024 6:06 PM EDT documented in this encounter Progress Notes * Ban Estrada MED ASSIST - 08/08/2024 8:49 AM EDT right ear lavage done with small amount of cerumen removed. patient tolerated well. * Rafat Josue MD - 08/08/2024 7:52 AM EDT Subjective: Shiloh Ryan is a 88 year old female here today for Chief Complaint Patient presents with Follow Up Pt here for follow up of on her feet and the medication she was given when discharged from the hospital sent to mail order. Pain in right ear - deep. 1 week. Better today. Feet - bottoms of feet both sides. End of May - not improving. Shoes vs bare feet does not seem to matter. Cushions did not matter. Can hit at random times. Nosebleeds - even before the asa/plavix left more than right 178/64. Past Medical History: Diagnosis Date Allergic conjunctivitis, Other Esophageal reflux HTN, goal below 140/90 Past Surgical History: Procedure Laterality Date BIOPSY OF BREAST, OPEN 1970 Breast Biopsy, Benign Disease CARPAL TUNNEL SURGERY Left 01/11/2017 left NEUROPLASTY MEDIAN NERVE AT CARPAL TUNNEL performed by Yaw Campbell MD at [facility] COLONOSCOPY 02/17 incomplete, needed barium enema REMOVAL OF RUPTURED APPENDIX 12/18/00 Appendectomy, Rupt Appendx REMOVE LUMBAR SPINE LAMINA, 3+ SEGS [facility] Lumbar Disk Excision TOTAL HYSTERECTOMY 1977 VICK (Total Abdominal Hysterectomy) Review of patient's allergies indicates: No Known Allergies Current Outpatient Medications Medication Sig Dispense Refill CALCIUM 500 +D 500-400 MG-UNIT PO TABS Take 2 Tablets by mouth daily. 60 Tab 5 ASPIRIN EC 81 MG PO TBEC Take 1 Tablet by mouth in the morning. 100 Tab 5 Cholecalciferol (VITAMIN D) 1000 UNITS Tablet Take 1 Tablet by mouth in the morning. Vitamin B-12 [...] facility-administered medications for this visit. Objective: BP 152/70 | Pulse 77 | Temp 36.3 °C (97.3 °F) (Tympanic) | Resp 18 | Wt 62 kg (136 lb 9.6 oz) | SpO2 97% | BMI 25.81 kg/m² | BSA 1.63 m² GEN: NAD HEENT: Benign NECK: Supple with no LAD, TM, JVD CHEST: CTA B CV: RRR ABD: Soft, NT/ND, No HSM, NABS EXT: No c,c,e Assessment and Plan: HTN, goal below 140/90 Other orders - Atorvastatin Calcium 40 MG Oral Tablet (Lipitor); Take 1 Tablet by mouth in the morning. - Clopidogrel Bisulfate 75 MG Oral Tablet (pLAVix); Take 1 Tablet by mouth in the morning. - Levothyroxine Sodium 50 MCG Oral Tablet (Levoxyl); Take 1 Tablet by mouth daily first thing in the morning. - Metoprolol Succinate ER 50 MG Oral Tablet Extended Release 24 Hour (toPROL XL); Take 1 Tablet by mouth in the morning. - Pantoprazole Sodium 40 MG Oral Tablet Delayed Release (Protonix); Take 1 Tablet by mouth in the morning. 26 min with pt and chart review Rafat Josue MD documented in this encounter Nursing Notes * Deborah Cm LPN - 08/08/2024 7:43 AM EDT Chief Complaint Patient presents with Follow Up Pt here for follow up of on her feet and the medication she was given when discharged from the hospital sent to mail order. documented in this encounter Plan of Treatment Upcoming Encounters Date Type Department Care Team (Late st Contact Info) Description 08/28/2024 1:00 PM EST Office Visit Cardiology, [facility] [address] [place] [address] Ean Roberson DO [address] [place] [address] 10/01/2024 1:30 PM EST Office Visit Dermatology [facility] [address] [place] [address] Richard Saucedo MD [address] [place] [address] 11/30/2024 9:00 AM EST Office Visit [facility] [address] [place] [address] Rafat Josue MD [address] [place] [address] 12/06/2024 8:00 AM EST Imaging Radiology [address] [place] [address] Health Maintenance Due Date Last Done Comments Adult Wellness Visit 09/05/2021 09/05/2020 *NEPHROLOGY REFERRAL DUE TO RESISTANT HTN 08/11/2024 Albumin/Creatinine Ratio 05/10/2025 05/10/2024, 03/18 CKD PHOS USE SMARTSET 38297 05/10/202504/17, 04/14/2023, 11/03/2020, Additional history exists Depression Screening 07/13/2025 07/13/2024 CKD HGB USE SMARTSET 19220 08/27/202508/27, 05/10/2024, 04/14/2023, Additional history exists TSH 08/27/2025 08/27/2024, 04/17, 04/14/2023, Additional history exists DXA Scan 06/08/2026 06/08/2024, 05/18, 05/21/2019, Additional history exists DTap/Tdap Vaccines Discontinued 03/14/2013, 1 12/05/2001, 09/16/1992 Pneumococcal Vaccine: 65+ Years Completed 05/10/2016, 11/10/2006, 11/09/1999 Zoster Vaccines Completed 11/21/2018, 04/16, 04/16/2018, Additional history exists VITAMIN D LEVEL ONCE IN A LIFETIME-USE SMARTSET# 99246 Completed 04/14/2023, 08/04/2021, 11/03/2020, Additional history exists [...] encounter Visit Diagnoses Diagnosis HTN, goal below 140/90- Primary Unspecified essential hypertension documented in this encounter Advance Directives Documents on File Type Date Recorded Patient Dairy Technologist Expl anation Advance Directives and Living Will 09/26/2015 LIVING WILL LIVING W ILL Power of Food Preservation Scientist 09/26/2015 POWER OF A TTORNEY POWER OF RECEPTION CENTRE MANAGER Care Teams Leisure Travel Agent Relationship Specialty Start Date End Date Rafat Josue MD [address] [place] [address] PCP - General 12/31/02 documented as of this encounter"
--- OUTSIDE RECORDS SUMMARY | 2025-01-17 07:35 | External Medical Summary ---
Author Name Unknown Address Unknown Organization : Laboratory Report Ordering Provider Test Date Status HEENA TEMPLEO 08/27/2024 09:11:08 Final Observation Date Value Abnormality Reference (Units ) Status ERYTHROPOIETIN (EPO) 08/27/2024 09:11:08 14.2 2.6-18.5 (mIU/mL) Final Test Performed at:
[facility]
[address]
[place] [address]
Vinay Gómez M.D., Ph.D.,Director of Laboratories Performing Location
--- OUTSIDE RECORDS SUMMARY | 2025-01-17 07:35 | External Medical Summary | Summary of Care ---
Author Name Unknown Organization [facility] Address [address] [place] [address] Phone [phone] Care Team Providers Care Accountant Certified Public Name Role Phone Rafat Josue MD Primary Care Provider [phone]- [phone] Reason for Visit * Reason Comments Outpatient Testing Encounter Details Date Type Department Care Team (Late st Contact Info) Description 08/27/2024 9:30 AM EST Laboratory Laboratory, [place] [address] [place] [address] [place], [facility] [address] [place], [place] [id number] HTN, goal below 140/90 Allergies No known [...] Problem Noted Date Diagnosed Date History of [place] (myocardial infarction) 08/06/2024 Former smoker 01/17/2024 Atherosclerosis of aorta 04/26/2023 Hypertensive kidney disease with stage 3b chronic kidney disease 04/26/2023 Atherosclerosis of coronary artery of tribal heart without angina pectoris 04/26/2023 Thyroid nodule [...] mRNA, LNP-s, No Pre serve, 2-Dose Series ([employer]) 07/25/2021,12/27/2020,11/29/2020 COVID-19, LNP-s, No Preserve , Binh-sucrose, [...] 08/28/2024 1:00 PM EST Office Visit Cardiology, [facility] [address] [facility] [place] [address] Ean Roberson, [address] [place] [address] 10/01/2024 1:30 PM EST Office Visit Dermatology [facility] 200 [facility] [place] [address] Richard Saucedo MD [address] [facility] [place] [address] 11/30/2024 9:00 AM EST Office Visit [facility] [address] [place] [address] Rafat Josue MD [address] [place] [address] 12/06/2024 8:00 AM EST Imaging Radiology [address] [place] [address] Pending Results Name Type Priority Associated Diagnoses Date /Time BASIC METABOLIC PANEL Lab Routine HTN, goal below 140/90 08/27/2024 9:11 AM EST CBC Lab Routine HTN, goal below 140/90 08/27/2024 9:11 AM EST Health Maintenance Due Date Last Done Comments Adult Wellness Visit 09/05/2021 09/05/2020 *NEPHROLOGY REFERRAL DUE TO RESISTANT HTN 08/11/2024 Albumin/Creatinine Ratio 05/10/2025 05/10/2024, 03/18 CKD HGB USE SMARTSET 75295 05/10/202505/10, 04/14/2023, 11/03/2020, Additional history exists CKD PHOS USE SMARTSET 36085 05/10/202504/17, 04/14/2023, 11/03/2020, Additional history exists TSH 05/10/2025 05/10/2024, 03/18, 08/04/2021, Additional history exists Depression Screening 07/13/2025 07/13/2024 DXA Scan 06/08/2026 06/08/2024, 05/18, 05/21/2019, Additional history exists DTap/Tdap Vaccines Discontinued 03/14/2013, 1 12/05/2001, 09/16/1992 Pneumococcal Vaccine: 65+ Years Completed 05/10/2016, 11/10/2006, 11/09/1999 Zoster Vaccines Completed 11/21/2018, 04/16, 04/16/2018, Additional history exists VITAMIN D LEVEL ONCE IN A LIFETIME-USE SMARTSET# 57899 Completed 04/14/2023, 08/04/2021, 11/03/2020, Additional history exists [...] Documents on File Type Date Recorded Patient Esl Instructor Expl anation Advance Directives and Living Will 09/26/2015 LIVING WILL LIVING W ILL Power of Sitecore Developer 09/26/2015 POWER OF A TTORNEY POWER OF GUIDE DOG MOBILITY INSTRUCTOR Care Teams Accountant Certified Public Relationship Specialty Start Date End Date Rafat Josue MD [address] [place] [address] PCP - General 12/31/02 documented as of this encounter
--- OUTSIDE RECORDS SUMMARY | 2025-01-17 07:35 | External Medical Summary ---
Author Name Unknown Address Unknown Organization K01:[place] [facility] [place] [address] [place] [address] Laboratory Report Ordering Provider Test Date Status HEENA TEMPLEO 08/27/2024 09:11:08 Final Observation Date Value Abnormality Reference (Units ) Status Vitamin B12 08/27/2024 09:11:08 1280 Above high normal 232-1245 (pg/mL) Final Performing Location [place] [place] [address] [place] [address]
--- OUTSIDE RECORDS SUMMARY | 2025-01-17 07:35 | External Medical Summary | Summary of Care ---
Author Name Unknown Organization [facility] Address [address] [place] [address] Phone [phone] Care Team Providers Care Clip And Hanger Attacher Name Role Phone Rafat Josue MD Primary Care Provider +1- [phone] Reason for Visit * Reason Onset Date Comments Test Results 08/28/2024 Encounter Details Date Type Department Care Team (Late st Contact Info) Description 08/28/2024 Telephone Cardiology, [facility] [address] [facility] [place] [address] Thomas Burleson PA-C [address] [facility] [place] [address] Test Results Allergies No known active allergiesdocumented [...] Problem Noted Date Diagnosed Date History of [place] (myocardial infarction) 08/06/2024 Former smoker 01/17/2024 Atherosclerosis of aorta 04/26/2023 Hypertensive kidney disease with stage 3b chronic kidney disease 04/26/2023 Atherosclerosis of coronary artery of [place] heart without angina pectoris 04/26/2023 Thyroid nodule [...] mRNA, LNP-s, No Pre serve, 2-Dose Series ([employer] Access) 07/25/2021,12/27/2020,11/29/2020 COVID-19, LNP-s, No Preserve , Binh-sucrose, [...] Telephone Encounter - Randy Levine LPN - 08/28/2024 9:53 AM EST Sent patient a Optony message to make aware. ----- Message from Thomas Sally Benjy sent at 08/27/2024 8:34 PM EST ----- Abnormal CBC. Chronic anemia. Basic anemia workup ordered (added to existing specimen). Refer to Hematology unless addressed by PCP (see May 15, 2024 office visit note) * Telephone Encounter - Randy Levine LPN - 08/28/2024 9:53 AM EST ----- Message from Thomas Sally Benjy sent at 08/27/2024 6:10 PM EST ----- OK/stable. documented in this encounter Plan of Treatment Upcoming Encounters Date Type Department Care Team (Late st Contact Info) Description 08/28/2024 1:00 PM EST Office Visit Cardiology, [facility] [address] [facility] [place] [address] Ean Roberson DO [address] [facility] [place] [address] 10/01/2024 1:30 PM EST Office Visit Dermatology [facility] [address] [place] [address] Richard Saucedo MD [address] [place] [address] 11/30/2024 9:00 AM EST Office Visit [facility] [address] [place] [address] Rafat Josue MD [address] [place] [address] 12/06/2024 8:00 AM EST Imaging Radiology [address], [address] [place] [address] Health Maintenance Due Date Last Done Comments Adult Wellness Visit 09/05/2021 09/05/2020 *NEPHROLOGY REFERRAL DUE TO RESISTANT HTN 08/11/2024 Albumin/Creatinine Ratio 05/10/2025 05/10/2024, 03/18 CKD PHOS USE SMARTSET 15978 05/10/202504/17, 04/14/2023, 11/03/2020, Additional history exists Depression Screening 07/13/2025 07/13/2024 CKD HGB USE SMARTSET 40249 08/27/202508/27, 05/10/2024, 04/14/2023, Additional history exists TSH 08/27/2025 08/27/2024, 04/17, 04/14/2023, Additional history exists DXA Scan 06/08/2026 06/08/2024, 05/18, 05/21/2019, Additional history exists DTap/Tdap Vaccines Discontinued 03/14/2013, 1 12/05/2001, 09/16/1992 Pneumococcal Vaccine: 65+ Years Completed 05/10/2016, 11/10/2006, 11/09/1999 Zoster Vaccines Completed 11/21/2018, 04/16, 04/16/2018, Additional history exists VITAMIN D LEVEL ONCE IN A LIFETIME-USE SMARTSET# 13195 Completed 04/14/2023, 08/04/2021, 11/03/2020, Additional history exists [...] on File Type Date Recorded Patient Night Monitor Expl anation Advance Directives and Living Will 09/26/2015 LIVING WILL LIVING W ILL Power of Federal Aid Coordinator 09/26/2015 POWER OF A TTORNEY POWER OF PAINTER FOREMAN Care Teams Clip And Hanger Attacher Relationship Specialty Start Date End Date Rafat Josue MD [address] [place] [address] PCP - General 12/31/02 documented as of this encounter
--- OUTSIDE RECORDS SUMMARY | 2025-01-17 07:35 | External Medical Summary ---
Author Name Unknown Address Unknown Organization K01:[place] [facility] [place] [facility] [address] [place] [address] Laboratory Report Ordering Provider Test Date Status VINCENT TEMPLE 08/27/2024 09:11:08 Final Observation Date Value Abnormality Reference (Units) Status PARAPROTEIN NORMAL/ABNORMAL 08/27/2024 09:11:08 Normal Normal Final Protein 08/27/2024 09:11:08 7.0 6.0-8.3 (g/dL) Final Albumin/Protein.total [Pure mass fraction] in Serum or Plasma by Electrophoresis 08/27/2024 09:11:08 3.69 3.30-4.40 (g/dL) Final Alpha 1 globulin/Protein.tota l [Pure mass fraction] in Serum or Plasma by Electrophoresis 08/27/2024 09:11:08 0.25 0.10-0.30 (g/dL) Final Alpha 2 globulin/Protein.tota l [Pure mass fraction] in Serum or Plasma by Electrophoresis 08/27/2024 09:11:08 0.58 Below low normal 0.60-1.00 (g/dL) Final Beta globulin/Protein.tota l [Pure mass fraction] in Serum or Plasma by Electrophoresis 08/27/2024 09:11:08 0.93 0.80-1.30 (g/dL) Final Gamma globulin/Protein.tota l [Pure mass fraction] in Serum or Plasma by Electrophoresis 08/27/2024 09:11:08 1.55 0.70-1.70 (g/dL) Final Protein Fractions [Interpretation] in Serum or Plasma by Electrophoresis Narrative 08/27/2024 09:11:08 No paraprotein detected. Final Performing Location [facility] [facility] [place] [address] [place] [address]
--- OUTSIDE RECORDS SUMMARY | 2025-01-17 07:35 | External Medical Summary ---
Author Name Unknown Address Unknown Organization K01:[place] [facility] [place] [address] [place] [address] Laboratory Report Ordering Provider Test Date Status VINCENT TEMPLE 08/27/2024 09:11:08 Final Observation Date Value Abnormality Reference (Units ) Status TSH 08/27/2024 09:11:08 1.79 0.27-4.20 (uIU/mL) Final Performing Location LABORATORY C - [address] [place] [address]
--- OUTSIDE RECORDS SUMMARY | 2025-01-17 07:35 | External Medical Summary ---
Author Name Unknown Address Unknown Organization K01:[place] [place] [facility] [address] [facility] [address] [facility] [address] [place] [address] Laboratory Report Ordering Provider Test Date Status VINCENT TEMPLE 08/27/2024 09:11:08 Final Observation Date Value Abnormality Reference (Units ) Status WBC, Total 08/27/2024 09:11:08 3.21 Below low normal 4. 00-10.80 (K/uL) Final RBC 08/27/2024 09:11:08 3.37 3.85-5.15 (M/uL) Final Hemoglobin 08/27/2024 09:11:08 9.9 Below low normal 12 .0-15.3 (g/dL) Final HCT 08/27/2024 09:11:08 31.5 Below low normal 36. 0-45.2 (%) Final MCV 08/27/2024 09:11:08 93.5 81.5-97.5 (fL) Final MCH 08/27/2024 09:11:08 29.4 27.0-34.0 (pg) Final MCHC 08/27/2024 09:11:08 31.4 32.0-36.0 (g/dL) Final RDW 08/27/2024 09:11:08 18.4 11.5-15.5 (%) Final Platelets 08/27/2024 09:11:08 143 140-400 (K /uL) Final MPV 08/27/2024 09:11:08 Final No result - abnormal platele t distribution. Nucleated erythrocytes/100 leukocytes [Ratio] in Blood by Automated count 08/27/2024 09:11:08 1 Above high normal <=0 (/100 WBCs) Final Performing Location [facility] [place] - [address] [place] [address]
--- OUTSIDE RECORDS SUMMARY | 2025-01-17 07:35 | External Medical Summary ---
Author Name Unknown Address Unknown Organization K01:LABORATORY [facility] [place] - [address] [place] [address] Laboratory Report Ordering Provider Test Date Status VINCENT TEMPLE 08/27/2024 09:11:08 Final Observation Date Value Abnormality Reference (Units ) Status Folic Acid 08/27/2024 09:11:08 10.6 >4.5 (ng/ mL) Final Performing Location LABORATORY C - [address] [place] [address]
--- OUTSIDE RECORDS SUMMARY | 2025-01-17 07:36 | External Medical Summary ---
Author Name Unknown Address Unknown Organization K01:[facility] [place] [facility] [address] [place] [address] Laboratory Report Ordering Provider Test Date Status VINCENT TEMPLE 08/27/2024 09:11:08 Final Observation Date Value Abnormality Reference (Units ) Status BUN 08/27/2024 09:11:08 27 Above high normal 6-20 (mg/dL) Final Creatinine 08/27/2024 09:11:08 1.3 Above high normal 0.5-1.0 (mg/dL) Final Glomerular filtration rate/1.73 sq M.predicted [Volume Rate/Area] in Serum, Plasma or Blood by Creatinine-based formula (CKD-EPI) 08/27/2024 09:11:08 41 Below low normal >=60 (mL/min) Final eGFR is calculated based on the CKD-EPI 2020 equation. Sodium 08/27/2024 09:11:08 141 135-146 (m mol/L) Final Potassium 08/27/2024 09:11:08 4.6 3.5-5.1 (m mol/L) Final Cl 08/27/2024 09:11:08 104 98-107 (mm ol/L) Final CO2 08/27/2024 09:11:08 24 22-32 (mmo l/L) Final Anion gap 08/27/2024 09:11:08 13 7-15 (mmol /L) Final Glucose 08/27/2024 09:11:08 114 70-120 (mg /dL) Final Calcium 08/27/2024 09:11:08 9.9 8.4-10.2 ( mg/dL) Final Performing Location [facility] [place] [address] [place] [address]
--- OUTSIDE RECORDS SUMMARY | 2025-01-17 07:36 | External Medical Summary | Summary of Care ---
Author Name Unknown Organization [facility] Address [address] [place] [address] Phone [phone] Care Team Providers Care Monogram Maker Name Role Phone Rafat Josue MD Primary Care Provider +1- [phone] Encounter Details Date Type Department Care Team (Late st Contact Info) Description 08/18/2024 Orders Only PATIENT PORTAL DO NOT DELETE THIS DEPT USED BY [place] [id number] Allergies No known active allergiesdocumented as of this encounter (statuses as of 08/18/2024) Medications Medication Sig Dispensed Refills Start Date [...] the morning. 90 Tablet 3 08/08/2024 Active Metoprolol Succinate ER 50 MG Oral Tablet Extended Release 24 Hour (toPROL XL) Take 1 Tablet by mouth in the morning. 90 Tablet 3 08/08/2024 Active Pantoprazole Sodium 40 MG Oral Tablet Delayed Release (Protonix) Take 1 Tablet by mouth in the morning. 90 Tablet 3 08/08/2024 Active amLODIPine Besylate 5 MG Oral Tablet (Norvasc)Indications: HTN, goal below 140/90 Take 1.5 Tablets by mouth in the morning. 08/08/2024 Active Losartan Potassium 100 MG Oral Tablet (Cozaar)Indications:H [place], goal below 140/90 Take 1 Tablet by mouth daily. 30 Tablet 1 08/15/2024 Active Isosorbide Mononitrate ER 30 MG Oral Tablet Extended Release 24 Hour (Imdur)Indications:HT N, goal below 140/90 Take 1 Tablet by mouth in the morning. 30 Tablet 1 08/15/2024 Active Vitamin C 1000 MG Oral Tablet Take 1 Tablet by mouth in the morning. Active documented as of this encounter (statuses as of 08/18/2024) Active Problems Problem Noted Date Diagnosed Date History of [place] (myocardial infarction) 08/06/2024 Former smoker 01/17/2024 Atherosclerosis of aorta 04/26/2023 Hypertensive kidney disease with stage 3b chronic kidney disease 04/26/2023 Atherosclerosis of coronary artery of [place] heart without angina pectoris 04/26/2023 Thyroid nodule [...] as of this encounter (statuses as of 08/18/2024) Resolved Problems Problem Noted Date Diagnosed Date [...] as of this encounter (statuses as of 08/18/2024) Immunizations Name Administration Dates Next Due COVID-19 mRNA, LNP-s, No Pre serve, 2-Dose Series ([employer]) 07/25/2021,12/27/2020,11/29/2020 COVID-19, LNP-s, No Preserve , Binh-sucrose, Ages 12+ ([employer]) 03/05/2022 COVID-19, MRNA-LNP, PF, 30 M CG/0.3 [...] mixed drink monthly. PHQ-2 Answer Date Recorded PHQ-2 Score 0 07/03/2020 Hunger Vital Sign Answer Date Recorded Within [...] ages 0-17 years) Not on file 07/13/2024 Sex and Gender Information Value Date Recorded [...] 08/28/2024 1:00 PM EST Office Visit Cardiology, [facility] [address] [facility] [place] [address] Ean Roberson, [address] [place] [address] 10/01/2024 1:30 PM EST Office Visit [place] [facility] [place] [address] [place] [address] Richard Saucedo MD [address] [place] [address] 11/30/2024 9:00 AM EST [facility] [place] [address] Rafat Josue MD [address] [place] [address] 12/06/2024 8:00 AM EST Imaging Radiology [address], [place] [address] [place] [address] Health Maintenance Due Date Last Done Comments Adult Wellness Visit 09/05/2021 09/05/2020 *NEPHROLOGY REFERRAL DUE TO RESISTANT HTN 08/11/2024 Albumin/Creatinine Ratio 05/10/2025 05/10/2024, 03/18 CKD HGB USE SMARTSET 70390 05/10/202505/10, 04/14/2023, 11/03/2020, Additional history exists CKD PHOS USE SMARTSET 70541 05/10/202504/17, 04/14/2023, 11/03/2020, Additional history exists TSH 05/10/2025 05/10/2024, 03/18, 08/04/2021, Additional history exists Depression Screening 07/13/2025 07/13/2024 DXA Scan 06/08/2026 06/08/2024, 05/18, 05/21/2019, Additional history exists DTap/Tdap Vaccines Discontinued 03/14/2013, 1 12/05/2001, 09/16/1992 Pneumococcal Vaccine: 65+ Years Completed 05/10/2016, 11/10/2006, 11/09/1999 Zoster Vaccines Completed 11/21/2018, 04/16, 04/16/2018, Additional history exists VITAMIN D LEVEL ONCE IN A LIFETIME-USE SMARTSET# 18223 Completed 04/14/2023, 08/04/2021, 11/03/2020, Additional history exists [...] Documents on File Type Date Recorded Patient Lpn Care Manager Expl anation Advance Directives and Living Will 09/26/2015 LIVING WILL LIVING W ILL Power of Slitter Creaser Slotter Helper 09/26/2015 POWER OF A TTORNEY POWER OF PER DIEM REGISTERED NURSE Care Teams Monogram Maker Relationship Specialty Start Date End Date Rafat Josue MD [address] [place] [address] PCP - General 12/31/02 documented as of this encounter
--- OUTSIDE RECORDS SUMMARY | 2025-01-17 07:36 | External Medical Summary | Summary of Care ---
Author Name Unknown Organization [facility] Address [address] [place] [address] Phone [phone] Care Team Providers Care Correction Officer Penitentiary Name Role Phone Rafat Josue MD Primary Care Provider +1- [phone] Encounter Details Date Type Department Care Team (Late st Contact Info) Description 08/23/2024 10:30 AM EST Scheduled Telephone Care Coordination and Integration [address] [place] [address] Jacqueline [facility] [address] [place] [address] Allergies No known active allergiesdocumented as of this encounter (statuses as of 08/23/2024) Medications Medication Sig Dispensed Refills Start Date [...] as of this encounter (statuses as of 08/23/2024) Active Problems Problem Noted Date Diagnosed Date History of [place] (myocardial infarction) 08/06/2024 Former smoker 01/17/2024 Atherosclerosis of aorta 04/26/2023 Hypertensive kidney disease with stage 3b chronic kidney disease 04/26/2023 Atherosclerosis of coronary artery of [place] heart without angina pectoris 04/26/2023 Thyroid nodule [...] as of this encounter (statuses as of 08/23/2024) Resolved Problems Problem Noted Date Diagnosed Date [...] as of this encounter (statuses as of 08/23/2024) Immunizations Name Administration Dates Next Due COVID-19 mRNA, LNP-s, No Pre serve, 2-Dose Series ([employer]) 07/25/2021,12/27/2020,11/29/2020 COVID-19, LNP-s, No Preserve , [...] No 07/13/2024 Does the household have a [facility] source of income? (Household - for [...] of this encounter Progress Notes * Jacqueline [facility] - 08/23/2024 11:00 AM EST Telemedicine visit: No [facility] ([facility]) documentation: CHW bren call per NEFTALI Moreira CM Spoke with patient Denies chest pain since discharge Denies lightheadedness/dizziness, double/blurred vision Head feels "funny", not a headache, but feels flushed Denies SOB Denies weakness, fatigue Cath site is fully healed Monitoring BP daily---194/64, was 162/62, 179/66 yesterday, was 200/68 on 08/21 Had recent med changes from Call transferred to Ricky Reed CM documented in this encounter Plan of Treatment Upcoming Encounters Date Type Department Care Team (Late st Contact Info) Description 08/28/2024 1:00 PM EST Office Visit Cardiology, [facility] [address] [place] [address] Ean Roberson, [address] [place] [address] 10/01/2024 1:30 PM EST Office Visit Dermatology [facility] [address] [facility] [place] [address] Richard Saucedo MD [address] [facility] [place] [address] 11/30/2024 9:00 AM EST Office Visit Family Practice, [facility] [address] [place] [address] Rafat Josue MD [address] [place] [address] 12/06/2024 8:00 AM EST Imaging Radiology [facility] [address] [place] [address] Health Maintenance Due Date Last Done Comments Adult Wellness Visit 09/05/2021 09/05/2020 *NEPHROLOGY REFERRAL DUE TO RESISTANT HTN 08/11/2024 Albumin/Creatinine Ratio 05/10/2025 05/10/2024, 03/18 CKD HGB USE SMARTSET 96857 05/10/202505/10, 04/14/2023, 11/03/2020, Additional history exists CKD PHOS USE SMARTSET 11345 05/10/202504/17, 04/14/2023, 11/03/2020, Additional history exists TSH 05/10/2025 05/10/2024, 03/18, 08/04/2021, Additional history exists Depression Screening 07/13/2025 07/13/2024 DXA Scan 06/08/2026 06/08/2024, 05/18, 05/21/2019, Additional history exists DTap/Tdap Vaccines Discontinued 03/14/2013, 1 12/05/2001, 09/16/1992 Pneumococcal Vaccine: 65+ Years Completed 05/10/2016, 11/10/2006, 11/09/1999 Zoster Vaccines Completed 11/21/2018, 04/16, 04/16/2018, Additional history exists VITAMIN D LEVEL ONCE IN A LIFETIME-USE SMARTSET# 36177 Completed 04/14/2023, 08/04/2021, 11/03/2020, Additional history exists [...] Documents on File Type Date Recorded Patient Supply And Distribution Manager Expl anation Advance Directives and Living Will 09/26/2015 LIVING WILL LIVING W ILL Power of It Analyst 09/26/2015 POWER OF A TTORNEY POWER OF GUARDIAN FAMILY MEMBER Care Teams Correction Officer Penitentiary Relationship Specialty Start Date End Date Rafat Josue MD [address] [place] [facility] [place] [address] PCP - General 12/31/02 documented as of this encounter
--- OUTSIDE RECORDS SUMMARY | 2025-01-17 07:36 | External Medical Summary ---
Author Name Unknown Address Unknown Organization K01:[place] [facility] [place] [address] [place] [address] Laboratory Report Ordering Provider Test Date Status VINCENT TEMPLE 08/27/2024 09:11:08 Final Observation Date Value Abnormality Reference (Units) Status PARAPROTEIN NORMAL/ABNORMAL 08/27/2024 09:11:08 Normal Normal Final Immunofixation for Serum or Plasma 08/27/2024 09:11:08 No monoclonal gammopathy detected. Final Performing Location [facility] [facility] [place] [address] [place] [address]
--- OUTSIDE RECORDS SUMMARY | 2025-01-17 07:36 | External Medical Summary | Summary of Care ---
Author Name Unknown Organization [facility] Address [address] [place] [address] Phone [phone] Care Team Providers Care Coal Cager Name Role Phone Rafat Josue MD Primary Care Provider +1- [phone] Reason for Visit * Reason Onset Date Comments Appointment 08/16/2024 CT Scan Encounter Details Date Type Department Care Team (Latest Contact Info) Description 08/16/2024 Executive Chairman Telephone Care Coordination and Integration [address] [place] [address] Arina Mcclelland, NEFTALI [address] [place], [place] [id number] Appointment (CT Scan) Allergies No known active allergiesdocumented as of this encounter (statuses as of 08/20/2024) Medications Medication Sig Dispensed Refills Start Date [...] the morning. 30 Tablet 1 08/15/2024 Active documented as of this encounter (statuses as of 08/20/2024) Active Problems Problem Noted Date Diagnosed Date History of [place] (myocardial infarction) 08/06/2024 Former smoker 01/17/2024 Atherosclerosis of aorta 04/26/2023 Hypertensive kidney disease with stage 3b chronic kidney disease 04/26/2023 Atherosclerosis of coronary artery of [place] heart without angina pectoris 04/26/2023 Thyroid nodule [...] as of this encounter (statuses as of 08/20/2024) Resolved Problems Problem Noted Date Diagnosed Date [...] as of this encounter (statuses as of 08/20/2024) Immunizations Name Administration Dates Next Due COVID-19 mRNA, LNP-s, No Pre serve, 2-Dose Series ([employer]) 07/25/2021,12/27/2020,11/29/2020 COVID-19, LNP-s, No Preserve , Binh-sucrose, [...] 07/13/2024 Does the household have a [facility] source of income? (Household - for [...] encounter Miscellaneous Notes * Telephone Encounter - Arina Mcclelland RN - 08/20/2024 8:30 AM EST Per review of [facility], patient has been scheduled for a CT scan on 12/06/2024. Arina Mcclelland RN, BSN [facility] Executive Chairman [phone] * Telephone Encounter - Arina Mcclelland RN - 08/16/2024 3:41 PM EDT Patient notes she is to have a follow up CT scan of her chest, but has not yet been scheduled for such. Please contact patient to schedule an appointment. Thanks, Arina Mcclelland RN, BSN [facility] Executive Chairman [phone] documented in this encounter Plan of Treatment Upcoming Encounters Date Type Department Care Team (Late st Contact Info) Description 08/28/2024 1:00 PM EST Office Visit Cardiology, [facility] [address] [employer] [place] [address] Ean Roberson, [address] [facility] [place] [address] 10/01/2024 1:30 PM EST Office Visit Dermatology [facility] [address] [facility] [place] [address] Richard Saucedo MD [address] [facility] [place] [address] 11/30/2024 9:00 AM EST [facility] [address] [place] [address] Rafat Josue MD [address] [place] [address] 12/06/2024 8:00 AM EST Imaging Radiology [address] 132 [facility] [place] [address] Health Maintenance Due Date Last Done Comments Adult Wellness Visit 09/05/2021 09/05/2020 *NEPHROLOGY REFERRAL DUE TO RESISTANT HTN 08/11/2024 Albumin/Creatinine Ratio 05/10/2025 05/10/2024, 03/18 CKD HGB USE SMARTSET 97730 05/10/202505/10, 04/14/2023, 11/03/2020, Additional history exists CKD PHOS USE SMARTSET 04283 05/10/202504/17, 04/14/2023, 11/03/2020, Additional history exists TSH 05/10/2025 05/10/2024, 03/18, 08/04/2021, Additional history exists Depression Screening 07/13/2025 07/13/2024 DXA Scan 06/08/2026 06/08/2024, 05/18, 05/21/2019, Additional history exists DTap/Tdap Vaccines Discontinued 03/14/2013, 1 12/05/2001, 09/16/1992 Pneumococcal Vaccine: 65+ Years Completed 05/10/2016, 11/10/2006, 11/09/1999 Zoster Vaccines Completed 11/21/2018, 04/16, 04/16/2018, Additional history exists VITAMIN D LEVEL ONCE IN A LIFETIME-USE SMARTSET# 86089 Completed 04/14/2023, 08/04/2021, 11/03/2020, Additional history exists [...] Documents on File Type Date Recorded Patient Refinery Operator Helper Expl anation Advance Directives and Living Will 09/26/2015 LIVING WILL LIVING W ILL Power of Lock Installer 09/26/2015 POWER OF A TTORNEY POWER OF UNDERWRITER MORTGAGE LOAN Care Teams Coal Cager Relationship Specialty Start Date End Date Rafat Josue MD [address] [place] [address] PCP - General 12/31/02 documented as of this encounter
--- OUTSIDE RECORDS SUMMARY | 2025-01-17 07:36 | External Medical Summary | Summary of Care ---
Author Name Unknown Organization [facility] Address [address] [place] [address] Phone [phone] Care Team Providers Care Redrawer Name Role Phone Rafat Josue MD Primary Care Provider +1- [phone] Reason for Visit * Reason Onset Date Comments FYI 08/15/2024 Encounter Details Date Type Department Care Team (Late st Contact Info) Description 08/15/2024 Telephone Cardiology, [facility] [address] [place] [address] Ean Roberson, [address] [place] [address] FYI Allergies No known active allergiesdocumented as of this encounter (statuses as of 08/15/2024) Medications Medication Sig Dispensed Refills Start Date [...] Active amLODIPine Besylate 5 MG Oral Tablet (Norvasc)Indicatio ns:HTN, goal below 140/90 Take 1 Tablet by mouth in the morning. Take 1 and 1/2 tabs by mouth daily.. 08/08/2024 Active Losartan Potassium 100 MG Oral Tablet (Cozaar)Indication s:HTN, goal below 140/90 Take 1 Tablet by mouth daily. 30 Tablet 1 08/15/2024 Active Isosorbide Mononitrate ER 30 MG Oral Tablet Extended Release 24 Hour (Imdur)Indications :HTN, goal below 140/90 Take 1 Tablet by mouth in the morning. 30 Tablet 1 08/15/2024 Active Lisinopril 40 MG Oral Tablet Take 1 Tablet by mouth in the morning. 90 Tablet 3 08/08/2024 08/15/2024 Discontinued documented as of this encounter (statuses as of 08/15/2024) Active Problems Problem Noted Date Diagnosed Date [...] as of this encounter (statuses as of 08/15/2024) Resolved Problems Problem Noted Date Diagnosed Date [...] as of this encounter (statuses as of 08/15/2024) Immunizations Name Administration Dates Next Due COVID-19 mRNA, LNP-s, No Pre serve, 2-Dose Series ([employer]) 07/25/2021,12/27/2020,11/29/2020 COVID-19, LNP-s, No Preserve , Binh-sucrose, [...] as of this encounter Miscellaneous Notes * Addendum Note - Maverick Kaur PA-C - 08/15/2024 3:32 PM EDTAddended by: MAVERICK KAUR on: 08/15/2024 03:32 PM Modules accepted: Orders * Addendum Note - Yusuf Levine LPN - 08/15/2024 3:07 PM EDTAddended by: YUSUF LEVINE on: 08/15/2024 03:07 PM Modules accepted: Orders * Telephone Encounter - Yusuf Levine LPN - 08/15/2024 3:06 PM EDT Please see patient's MyChart reply. Short term supply pended for local pharmacy. If patient tolerates can be sent to mail in pharmacy after. * Addendum Note - Yusuf Levine LPN - 08/15/2024 2:02 PM EDTAddended by: YUSUF LEVINE on: 08/15/2024 02:02 PM Modules accepted: Orders * Telephone Encounter - Yusuf Levine LPN - 08/15/2024 2:01 PM EDT Called patient and left a message as well as sent a Giferent message to make aware. Pended orders. Awaiting call back or reply to have orders signed. * Telephone Encounter - Maverick Kaur PA-C - 08/15/2024 1:47 PM EDT Replace lisinopril 40 mg/day with losartan 100 mg/day. Add isosorbide 30 mg daily in the morning Check a basic metabolic panel in 2 weeks, along with a CBC given recent addition of clopidogrel May need to add HCTZ next...replacing metoprolol with Carvedilol and losartan with Entresto may be future options. Maverick Kaur PA-C Department of Cardiology * Telephone Encounter - Ean Roberson DO - 08/15/2024 11:37 AM EDT [facility] SBP was over 200 mm Hg on arrival to ED. Already discharged. Will include Dr Rudd and Mr Benjy in encounter who cared for patient at time of admission inSeptember with LAD stent with regards to medication changes. Might be prudent to change from lisinopril to losartan pending evaluation of cost of Entresto to avoid 36 hour hold needed for change from ACEI to Entresto. Perhaps Coreg as an alternative to Toprol. Ean Roberson DO * Telephone Encounter - Rain Cisneros CMA - 08/15/2024 8:03 AM EDT Marzena from cardiac rehab called -- states pt was at rehab and they have been dealing with elevated BP regularly at rehab, but today her systolic was "well over 200" and they could not get it to come down so they sent patient to the ER -- just wanted to make our clinic aware. documented in this encounter Plan of Treatment Upcoming Encounters Date Type Department Care Team (Late st Contact Info) Description 08/28/2024 1:00 PM EST Office Visit Cardiology, [facility] [address] [place] [address] Ean Roberson DO [address] [place] [address] 10/01/2024 1:30 PM EST Office Visit Dermatology [facility] [address] [place] [address] Richard Saucedo MD 200 [facility] [place] [address] 11/30/2024 9:00 AM EST Office Visit [facility] [address] [place] [address] Rafat Josue MD [address] [place] [address] Scheduled Orders Name Type Priority Associated Diagnoses Orde r Schedule BASIC METABOLIC PANEL Lab Routine HTN, goal below 140/90 Expected: 08/29/2024 (Approximate), Expires: 08/15/2025 CBC Lab Routine HTN, goal below 140/90 Expected: 08/15/2024, Expires: 08/15/2025 Health Maintenance Due Date Last Done Comments Adult Wellness Visit 09/05/2021 09/05/2020 *NEPHROLOGY REFERRAL DUE TO RESISTANT HTN 08/11/2024 Albumin/Creatinine Ratio 05/10/2025 05/10/2024, 03/18 CKD HGB USE SMARTSET 07294 05/10/202505/10, 04/14/2023, 11/03/2020, Additional history exists CKD PHOS USE SMARTSET 68478 05/10/202504/17, 04/14/2023, 11/03/2020, Additional history exists TSH 05/10/2025 05/10/2024, 03/18, 08/04/2021, Additional history exists Depression Screening 07/13/2025 07/13/2024 DXA Scan 06/08/2026 06/08/2024, 05/18, 05/21/2019, Additional history exists DTap/Tdap Vaccines Discontinued 03/14/2013, 1 12/05/2001, 09/16/1992 Pneumococcal Vaccine: 65+ Years Completed 05/10/2016, 11/10/2006, 11/09/1999 Zoster Vaccines Completed 11/21/2018, 04/16, 04/16/2018, Additional history exists VITAMIN D LEVEL ONCE IN A LIFETIME-USE SMARTSET# 60698 Completed 04/14/2023, 08/04/2021, 11/03/2020, Additional history exists [...] Documents on File Type Date Recorded Patient Small Wind Energy Installer Expl anation Advance Directives and Living Will 09/26/2015 LIVING WILL LIVING W ILL Power of Package Liner 09/26/2015 POWER OF A TTORNEY POWER OF JEWEL SAWYER Care Teams Redrawer Relationship Specialty Start Date End Date Rafat Josue MD [address] [place] [address] PCP - General 12/31/02 documented as of this encounter
--- OUTSIDE RECORDS SUMMARY | 2025-01-17 07:36 | External Medical Summary | Summary of Care ---
Author Name Unknown Organization [facility] Address [address] [place] [address] Phone [phone] Care Team Providers Care Diamond Driller Name Role Phone Rafat Josue MD Primary Care Provider +1- [phone] Reason for Visit * Reason Onset Date Comments FYI 08/15/2024 Encounter Details Date Type Department Care Team (Late st Contact Info) Description 08/15/2024 Telephone Cardiology, [facility] [address] [place] [address] Ean Roberson, [address] [place] [address] FYI Allergies No known active allergiesdocumented as [...] the morning. 90 Tablet 3 08/08/2024 Active Lisinopril 40 MG Oral Tablet Take [...] Tablet (Norvasc)Indications: HTN, goal below 140/90 Take 1 Tablet by mouth in the morning. Take 1 and 1/2 tabs by mouth daily.. 08/08/2024 Active documented as of this encounter (statuses as of 08/15/2024) Active Problems Problem Noted Date Diagnosed Date History of [place] (myocardial infarction) 08/06/2024 Former smoker 01/17/2024 Atherosclerosis of aorta 04/26/2023 Hypertensive kidney disease with stage 3b chronic kidney disease 04/26/2023 Atherosclerosis of coronary artery of [place] heart without angina pectoris 04/26/2023 Thyroid nodule [...] mRNA, LNP-s, No Pre serve, 2-Dose Series ([employer]) 07/25/2021,12/27/2020,11/29/2020 COVID-19, LNP-s, No Preserve , Binh-sucrose, [...] No 07/13/2024 Does the household have a [facility] source of income? (Household - for ages [...] encounter Miscellaneous Notes * Addendum Note - Yusuf Levine LPN [...] a message as well as sent a [employer]ive message to make aware. Pended orders. Awaiting call back or reply to have orders signed. * Telephone Encounter - Thomas Burleson PA-C - 08/15/2024 1:47 PM EDT Replace lisinopril 40 mg/day with losartan 100 mg/day. Add isosorbide 30 mg daily in the morning Check a basic metabolic panel in 2 weeks, along with a CBC given recent addition of clopidogrel May need to add HCTZ next...replacing metoprolol with Carvedilol and losartan with Entresto may be future options. Thomas Burleson PA-C Department of Cardiology * Telephone Encounter - Ean Roberson DO - 08/15/2024 11:37 AM EDT Per review of [employer] is appears SBP was over 200 mm Hg on arrival to ED. Already discharged. Will include Dr Rudd and Mr Burleson in encounter who cared for patient at [...] Cisneros CMA - 08/15/2024 8:03 AM EDT Mazrena from cardiac rehab called -- states pt [...] 08/28/2024 1:00 PM EST Office Visit Cardiology, [facility] [address] [place] [address] Ean Roberson DO [address] [place] [address] 10/01/2024 1:30 PM EST Office Visit Dermatology [facility] [address] [facility] [place] [place] [address] Richard Saucedo MD [address] [place] [address] 11/30/2024 9:00 AM EST Office Visit [facility] [address] [place] [facility] [place] [phone] Rafat Josue MD [address] [place], [place] [phone] Health Maintenance Due Date Last Done Comments Adult Wellness Visit 09/05/2021 09/05/2020 *NEPHROLOGY REFERRAL DUE TO RESISTANT HTN 08/11/2024 Albumin/Creatinine Ratio 05/10/2025 05/10/2024, 03/18 CKD HGB USE SMARTSET 97589 05/10/202505/10, 04/14/2023, 11/03/2020, Additional history exists CKD PHOS USE SMARTSET 68643 05/10/202504/17, 04/14/2023, 11/03/2020, Additional history exists TSH 05/10/2025 05/10/2024, 03/18, 08/04/2021, Additional history exists Depression Screening 07/13/2025 07/13/2024 DXA Scan 06/08/2026 06/08/2024, 05/18, 05/21/2019, Additional history exists DTap/Tdap Vaccines Discontinued 03/14/2013, 1 12/05/2001, 09/16/1992 Pneumococcal Vaccine: 65+ Years Completed 05/10/2016, 11/10/2006, 11/09/1999 Zoster Vaccines Completed 11/21/2018, 04/16, 04/16/2018, Additional history exists VITAMIN D LEVEL ONCE IN A LIFETIME-USE SMARTSET# [id number] Completed 04/14/2023, 08/04/2021, 11/03/2020, Additional history exists [...] Documents on File Type Date Recorded Patient Air Sampling And Monitoring Expl anation Advance Directives and Living Will 09/26/2015 LIVING WILL LIVING W ILL Power of Overhead Crane Truck Loader 09/26/2015 POWER OF A TTORNEY POWER OF DIABETES CLINICAL MANAGER Care Teams Diamond Driller Relationship Specialty Start Date End Date Rafat Josue MD [address] [place] [address] PCP - General 12/31/02 documented as of this encounter
--- OUTSIDE RECORDS SUMMARY | 2025-01-17 07:37 | External Medical Summary | Summary of Care ---
Author Name Unknown Organization [facility] Address [address] [place] [address] Phone [phone] Care Team Providers Care Attendant Arcade Name Role Phone Rafat Josue MD Primary Care Provider +1- [phone] Reason for Visit * Reason Onset Date Comments FYI 08/15/2024 Encounter Details Date Type Department Care Team (Late st Contact Info) Description 08/15/2024 Telephone Cardiology, [facility] [address] [place] [address] Ean Roberson, [address] [place] [address] FYI Allergies No known active allergiesdocumented as [...] Problem Noted Date Diagnosed Date History of [place] (myocardial infarction) 08/06/2024 Former smoker 01/17/2024 Atherosclerosis of aorta 04/26/2023 Hypertensive kidney disease with stage 3b chronic kidney disease 04/26/2023 Atherosclerosis of coronary artery of [place] heart without angina pectoris 04/26/2023 Thyroid nodule [...] mRNA, LNP-s, No Pre serve, 2-Dose Series ([employer]) 07/25/2021,12/27/2020,11/29/2020 COVID-19, LNP-s, No Preserve , Binh-sucrose, [...] No 07/13/2024 Does the household have a [facility] source of income? (Household - for ages [...] 08/15/2024 11:37 AM EDT Per review of [employer] is appears SBP was over 200 mm [...] Coreg as an alternative to Toprol. Ean Roebrson DO * Telephone Encounter - Rain Cisneros [...] 08/28/2024 1:00 PM EST Office Visit Cardiology, [facility] [address] [place] [address] Ean Roberson DO [address] [place] [address] 10/01/2024 1:30 PM EST Office [facility] [address] [place] [address] Richard Saucedo MD [address] [place] [address] 11/30/2024 9:00 AM EST Office Visit [facility] [address] [place] [facility] [place] [address] Rafat Josue MD [address] [place] [facility] [place] [address] Health Maintenance Due Date Last Done Comments Adult Wellness Visit 09/05/2021 09/05/2020 *NEPHROLOGY REFERRAL DUE TO RESISTANT HTN 08/11/2024 Albumin/Creatinine Ratio 05/10/2025 05/10/2024, 03/18 CKD HGB USE SMARTSET 48163 05/10/202505/10, 04/14/2023, 11/03/2020, Additional history exists CKD PHOS USE SMARTSET 05119 05/10/202504/17, 04/14/2023, 11/03/2020, Additional history exists TSH 05/10/2025 05/10/2024, 03/18, 08/04/2021, Additional history exists Depression Screening 07/13/2025 07/13/2024 DXA Scan 06/08/2026 06/08/2024, 05/18, 05/21/2019, Additional history exists DTap/Tdap Vaccines Discontinued 03/14/2013, 1 12/05/2001, 09/16/1992 Pneumococcal Vaccine: 65+ Years Completed 05/10/2016, 11/10/2006, 11/09/1999 Zoster Vaccines Completed 11/21/2018, 04/16, 04/16/2018, Additional history exists VITAMIN D LEVEL ONCE IN A LIFETIME-USE SMARTSET# [id number] Completed 04/14/2023, 08/04/2021, 11/03/2020, Additional history exists [...] Documents on File Type Date Recorded Patient Fluorescent Solution Mixer Expl anation Advance Directives and Living Will 09/26/2015 LIVING WILL LIVING W ILL Power of Senior Piping Designer 09/26/2015 POWER OF A TTORNEY POWER OF HOBBIES AND CRAFTS SALES REPRESENTATIVE Care Teams Attendant Arcade Relationship Specialty Start Date End Date Rafat Josue MD [address] [place] [facility] [place] [address] PCP - General 12/31/02 documented as of this encounter
--- OUTSIDE RECORDS SUMMARY | 2025-01-17 07:37 | External Medical Summary | Summary of Care ---
Author Name Unknown Organization [facility] Address [address] [place] [address] Phone [phone] Care Team Providers Care Chiller Hand Name Role Phone Rafat Josue MD Primary Care Provider +1- [phone] Reason for Visit * Reason Onset Date Comments FYI 08/15/2024 Encounter Details Date Type Department Care Team (Late st Contact Info) Description 08/15/2024 Telephone Cardiology, [facility] [address] [place] [address] Ean Roberson, [address] [place] [address] FYI Allergies No known active allergiesdocumented as [...] Problem Noted Date Diagnosed Date History of [place] (myocardial infarction) 08/06/2024 Former smoker 01/17/2024 Atherosclerosis of aorta 04/26/2023 Hypertensive kidney disease with stage 3b chronic kidney disease 04/26/2023 Atherosclerosis of coronary artery of [place] heart without angina pectoris 04/26/2023 Thyroid nodule [...] mRNA, LNP-s, No Pre serve, 2-Dose Series ([employer]) 07/25/2021,12/27/2020,11/29/2020 COVID-19, LNP-s, No Preserve , Binh-sucrose, [...] No 07/13/2024 [facility]? (Household - for ages [...] encounter Miscellaneous Notes * Telephone Encounter - Rain Cisneros CMA [...] 08/28/2024 1:00 PM EST Office Visit Cardiology, [facility] [address] [place] [address] Ean Roberson, [address] [place] [address] 10/01/2024 1:30 PM EST Office Visit Dermatology [facility] [place] [address] [facility] [place], [place] [address] Richard Saucedo MD [address] [facility] [place], [place] [address] 11/30/2024 9:00 AM EST Office Visit [facility] [address] [place] [phone] Rafat Josue MD [address] [place] [address] Health Maintenance Due Date Last Done Comments Adult Wellness Visit 09/05/2021 09/05/2020 *NEPHROLOGY REFERRAL DUE TO RESISTANT HTN 08/11/2024 Albumin/Creatinine Ratio 05/10/2025 05/10/2024, 03/18 CKD HGB USE SMARTSET 44504 05/10/202505/10, 04/14/2023, 11/03/2020, Additional history exists CKD PHOS USE SMARTSET 53333 05/10/202504/17, 04/14/2023, 11/03/2020, Additional history exists TSH 05/10/2025 05/10/2024, 03/18, 08/04/2021, Additional history exists Depression Screening 07/13/2025 07/13/2024 DXA Scan 06/08/2026 06/08/2024, 05/18, 05/21/2019, Additional history exists DTap/Tdap Vaccines Discontinued 03/14/2013, 1 12/05/2001, 09/16/1992 Pneumococcal Vaccine: 65+ Years Completed 05/10/2016, 11/10/2006, 11/09/1999 Zoster Vaccines Completed 11/21/2018, 04/16, 04/16/2018, Additional history exists VITAMIN D LEVEL ONCE IN A LIFETIME-USE SMARTSET# [id number] Completed 04/14/2023, 08/04/2021, 11/03/2020, Additional history exists [...] Documents on File Type Date Recorded Patient Transformer Mechanic Expl anation Advance Directives and Living Will 09/26/2015 LIVING WILL LIVING W ILL Power of Time Clock Repairer 09/26/2015 POWER OF A TTORNEY POWER OF SENIOR CIVIL ENGINEER Care Teams Chiller Hand Relationship Specialty Start Date End Date Rafat Josue MD [address] [place] [address] PCP - General 12/31/02 documented as of this encounter
--- OUTSIDE RECORDS SUMMARY | 2025-01-17 07:37 | External Medical Summary | Summary of Care ---
Author Name Unknown Organization [facility] Address [address] [place] [address] Phone [phone] Care Team Providers Care Boat Oar Maker Name Role Phone Rafat Josue MD Primary Care Provider +1- [phone] Reason for Visit * Reason Onset Date Comments FYI 08/15/2024 Encounter Details Date Type Department Care Team (Late st Contact Info) Description 08/15/2024 Telephone Cardiology, [facility] [address] [place] [address] Ean Roberson, [address] [place] [address] FYI Allergies No known active allergiesdocumented as [...] mRNA, LNP-s, No Pre serve, 2-Dose Series ([employer]) 07/25/2021,12/27/2020,11/29/2020 COVID-19, LNP-s, No Preserve , Binh-sucrose, [...] No 07/13/2024 Does the household have a [facility] source of income? (Household - for [...] a message as well as sent a MyChart message to make aware. Pended orders. Awaiting [...] 08/15/2024 11:37 AM EDT Per review of [employer] is appears SBP was over 200 mm [...] 08/28/2024 1:00 PM EST Office Visit Cardiology, [facility] [address] [place] [address] Ean Roberson DO [address] [place] [address] 10/01/2024 1:30 PM EST [facility] [address] Richard Saucedo MD [address] [facility] [address] 11/30/2024 9:00 AM EST Office Visit [facility] [address] [place] [phone] Rafat Josue MD [address] [place] [address] Health Maintenance Due Date Last Done Comments Adult Wellness Visit 09/05/2021 09/05/2020 *NEPHROLOGY REFERRAL DUE TO RESISTANT HTN 08/11/2024 Albumin/Creatinine Ratio 05/10/2025 05/10/2024, 03/18 CKD HGB USE SMARTSET 40382 05/10/202505/10, 04/14/2023, 11/03/2020, Additional history exists CKD PHOS USE SMARTSET 63232 05/10/202504/17, 04/14/2023, 11/03/2020, Additional history exists TSH 05/10/2025 05/10/2024, 03/18, 08/04/2021, Additional history exists Depression Screening 07/13/2025 07/13/2024 DXA Scan 06/08/2026 06/08/2024, 05/18, 05/21/2019, Additional history exists DTap/Tdap Vaccines Discontinued 03/14/2013, 1 12/05/2001, 09/16/1992 Pneumococcal Vaccine: 65+ Years Completed 05/10/2016, 11/10/2006, 11/09/1999 Zoster Vaccines Completed 11/21/2018, 04/16, 04/16/2018, Additional history exists VITAMIN D LEVEL ONCE IN A LIFETIME-USE SMARTSET# [id number] Completed 04/14/2023, 08/04/2021, 11/03/2020, Additional history exists [...] Documents on File Type Date Recorded Patient Pediatric Immunologist Expl anation Advance Directives and Living Will 09/26/2015 LIVING WILL LIVING W ILL Power of Net Trainer 09/26/2015 POWER OF A TTORNEY POWER OF WINDSHIELD REPAIR TECHNICIAN Care Teams Boat Oar Maker Relationship Specialty Start Date End Date Rafat Josue MD [address] [place] [address] PCP - General 12/31/02 documented as of this encounter
--- OUTSIDE RECORDS SUMMARY | 2025-01-17 07:37 | External Medical Summary | Summary of Care ---
Author Name Unknown Organization [facility] Address [address] [place] [address] Phone [phone] Care Team Providers Care Interchange Agent Name Role Phone Rafat Josue MD Primary Care Provider +1- [phone] Reason for Visit * Reason Onset Date Comments FYI 08/15/2024 Encounter Details Date Type Department Care Team (Late st Contact Info) Description 08/15/2024 Telephone Cardiology, [facility] [address] [place] [address] Ean Roberson, [address] [place] [address] FYI Allergies No known active allergiesdocumented as [...] disease 04/26/2023 Atherosclerosis of coronary artery of [place] heart without angina pectoris 04/26/2023 Thyroid nodule [...] mRNA, LNP-s, No Pre serve, 2-Dose Series ([employer]) 07/25/2021,12/27/2020,11/29/2020 COVID-19, LNP-s, No Preserve , [...] No 07/13/2024 Does the household have a [facility] source of income? (Household - for ages [...] Miscellaneous Notes * Telephone Encounter - Ean Roberson, - 08/15/2024 11:37 AM EDT Per review of [email or web address] is appears SBP was over 200 mm [...] 08/28/2024 1:00 PM EST Office Visit Cardiology, [facility] [address] [place] [address] Ean Roberson DO [address] [place] [address] 10/01/2024 1:30 PM EST Office Visit Dermatology [facility] [address] [facility] [place] [address] Richard Saucedo MD [address] [facility] [place] [address] 11/30/2024 9:00 AM EST Office Visit [facility] [address] [place] [phone] Rafat Josue MD [address] [place] [address] Health Maintenance Due Date Last Done Comments Adult Wellness Visit 09/05/2021 09/05/2020 *NEPHROLOGY REFERRAL DUE TO RESISTANT HTN 08/11/2024 Albumin/Creatinine Ratio 05/10/2025 05/10/2024, 03/18 CKD HGB USE SMARTSET 75254 05/10/202505/10, 04/14/2023, 11/03/2020, Additional history exists CKD PHOS USE SMARTSET 79049 05/10/202504/17, 04/14/2023, 11/03/2020, Additional history exists TSH 05/10/2025 05/10/2024, 03/18, 08/04/2021, Additional history exists Depression Screening 07/13/2025 07/13/2024 DXA Scan 06/08/2026 06/08/2024, 05/18, 05/21/2019, Additional history exists DTap/Tdap Vaccines Discontinued 03/14/2013, 1 12/05/2001, 09/16/1992 Pneumococcal Vaccine: 65+ Years Completed 05/10/2016, 11/10/2006, 11/09/1999 Zoster Vaccines Completed 11/21/2018, 04/16, 04/16/2018, Additional history exists VITAMIN D LEVEL ONCE IN A LIFETIME-USE SMARTSET# 81010 Completed 04/14/2023, 08/04/2021, 11/03/2020, Additional history exists [...] Documents on File Type Date Recorded Patient Gold Letterer Expl anation Advance Directives and Living Will 09/26/2015 LIVING WILL LIVING W ILL Power of Systems Specialist 09/26/2015 POWER OF A TTORNEY POWER OF LIGHTING TECHNICIAN Care Teams Interchange Agent Relationship Specialty Start Date End Date Rafat Josue MD [address] [place] [address] PCP - General 12/31/02 documented as of this encounter
[2025-01-17] MEDS: CLOPIDOGREL BISULFATE 75 MG TAB PO SCH (07:54)
[2025-01-17] MEDS: ATORVASTATIN 40 MG TAB PO SCH (07:54)
[2025-01-17] MEDS: PANTOprazole 40 MG TAB PO SCH (07:54)
[2025-01-17] MEDS: cefTRIAXone SODIUM 1,000 MG/50 ML BAG IV SCH (09:05)
[2025-01-17] MEDS: ISOSORBIDE MONO EXTENDED REL 30 MG TABCR PO SCH (09:06)
[2025-01-17] MEDS: SODIUM CHLORIDE 0.9% 1,000 ML IV ONE (12:13)
--- NOTE | 2025-01-17 15:15 | Hospitalist Progress Note ---
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 Cr 2.7 today Losartan, HCTZ on hold due to hypotension Avoid nephrotoxic agents as able Continue IV fluids Monitor renal function Bladder scan as needed to monitor for any retention Rotavirus infection Stool studies positive for rotavirus, C. difficile gene positive, toxin negative Diarrhea improving Conservative management Continue IV fluids Imodium as needed monitor volume status Home HCTZ on hold for now Hypotension Secondary to above Hold amlodipine, losartan, HCTZ Continue isosorbide, metoprolol with holding parameters Monitor blood pressure closely Suspected UTI Urine culture not contributory Empirically on Rocephin Will de-escalate antibiotics quickly given C. difficile gene positive Chronic diastolic heart failure No signs of volume overload currently Monitor volume status Resume home medications as able CAD S/P stent CVA as per records PVD, vascular procedure [place] [facility] [place] end of the month Valvular heart disease (mild MR/TR, trace AR) Continue aspirin, Plavix, Lipitor Hyperlipidemia Continue statin Lung nodule Possible bronchogenic carcinoma ongoing radiation therapy Hypothyroidism euthyroid as of recent outpatient TSH Continue levothyroxine Chronic pancytopenia No acute bleeding issues Monitor CBC closely Will check iron, B12, folate levels tomorrow Prediabetes Last HbA1c 6.0 Past tobacco abuse As per record DVT Px: SCDs for now Re: Anemia, thrombocytopenia CODE STATUS Full code Disposition PT OT prior to discharge Admission and Anticipated Discharge Date Admission Date: January 16, 2025 Subjective Patient is seen and examined at bedside States feeling a lot better today Diarrhea improving Denies any nausea, vomiting, abdominal pain, chest pain, dyspnea Offers no other complaints today Review of Systems Review of Systems: All systems reviewed & are unremarkable except as noted in Subjective Physical Exam Physical Exam: Physical Exam: Vitals signs as noted above General Appearance:Moderately built and nourished, no apparent distress, elderly Head: normocephalic, Atraumatic Eyes: normal inspection, EOMI Neck: supple, Trachea midline Respiratory/Chest: Normal breath sounds, CTA, No accessory muscle use Cardiovascular: S1, S2, faint murmur Abdomen/GI:Soft, Non tender, Bowel sounds present Extremities/Musculoskeletal:normal inspection, no edema Neurologic/Psych:AAOX3, grossly no focal neurological deficits Skin: normal color, warm Results & Data Results & Data Vital Signs (Past 12 Hours) Vital Signs Temp Pulse Pulse Resp BP Pulse Ox O2 Del Method 01/17/25 14:47 77 01/17/25 11:54 36.7 C 77 20 94/54 L 95 Room Air 01/17/25 07:45 68 01/17/25 07:43 36.8 C 70 20 108/48 L 94 Room Air 01/17/25 04:20 36.8 C 70 18 103/47 L 92 Room Air Laboratory Results Short CBC 01/16/25 01/17/25 Range/Units 19:06 05:42 WBC 4.03 L 2.35 L (4.8-10.8) K/ul Hgb 9.3 L 7.4 L (12.0-16.0) g/dl Hct 29.7 L 23.4 L (37.0-47.0) % Plt Count 114 L 89 L (130-400) K/uL BMP 01/16/25 01/17/25 19:06 05:42 Sodium 135 L 139 Potassium 4.3 4.3 Chloride 105 112 H Carbon Dioxide 21 20 L BUN 42 H 50 H Creatinine 2.45 H 2.73 H Glucose 154 H 91 Calcium 9.3 8.2 L Liver Function 01/16/25 Range/Units 19:06 Total Bilirubin 1.4 H (0.2-1.0) mg/dl AST 18 (13-39) U/L ALT 13 (7-52) U/L Alkaline Phosphatase 69 (34-104) U/L Albumin 4.4 (3.4-5.0) gm/dl Urine 01/16/25 Range/Units 19:39 Urine Color Dark Yellow Urine Appearance Clear (Clear) Urine pH 5.0 (4.5-7.5) Ur Specific [place] 1.016 (1.000-1.030) Urine Protein Trace H (Negative) Urine Glucose (UA) Negative (Negative)
[2025-01-17] MEDS: ADVANCED PROBIOTIC 625 MG CAPSULE PO SCH (16:38)
[2025-01-17] MEDS: CYANOCOBALAMIN (B-12) 500 MCG TABLET PO SCH (20:20)
[2025-01-17] MEDS: ASPIRIN 81 MG ECTAB PO SCH (20:20)
[2025-01-18 07:55] LABS: BUN Creatinine Ratio 22.4 (10-20); Calcium 8.4 mg/dl (8.6-10.3); Creatinine Clr Calc Pharmacy 18.6 ml/min; Magnesium 2.1 mg/dl (1.7-2.4); Potassium 4.4 mmol/L (3.5-5.1)
[2025-01-18] MEDS: METOPROLOL SUCC 50MG EXT REL TAB PO SCH (07:58)
[2025-01-18 08:00] VITALS: RESP 20
[2025-01-18 08:15] LABS: Ferritin 79.2 ng/ml (8-388)
[2025-01-18 08:25] LABS: Folate (Folic Acid),Ser orPlas 12.7 ng/ml (>5.38)
[2025-01-18 08:30] LABS: Hemoglobin 7.6 g/dl (12.0-16.0); Mean Corpuscular Hgb Conc 31.7 g/dL (32.0-36.0); Mean Corpuscular Volume 91.6 fL (80.0-100.0); RDW Coefficient of Variation 19.4 % (11.5-14.5); RDW Standard Deviation 63.6 fL (36.4-46.3); Red Blood Count 2.62 M/uL (4.20-5.40)
[2025-01-18 08:46] LABS: Platelet Count 83 K/uL (130-400); White Blood Count 2.61 K/ul (4.8-10.8)
[2025-01-18 08:51] LABS: Acanthocytes 1+; Ovalocytes 1+; Platelet Estimate Decreased (Normal); Poikilocytosis Present
[2025-01-18 08:52] LABS: Immature Granulocytes # (auto) 0.02 K/uL (0.01-0.20); Immature Granulocytes % (auto) 0.8 %; Lymphocytes % (auto) 49.8 %; Monocytes # (auto) 0.54 K/uL (0.11-0.59); Monocytes % (auto) 20.7 %; Neutrophils # (auto) 0.75 K/uL (1.40-6.50); Neutrophils % (auto) 28.7 %
[2025-01-18 11:13] VITALS: TEMP 98.2; O2SAT 94
--- NOTE | 2025-01-18 12:37 | Hospitalist Progress Note ---
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 Cr 2.7>1.7 Losartan, HCTZ on hold due to hypotension Avoid nephrotoxic agents as able Received IV fluids Monitor renal function Bladder scan as needed to monitor for any retention Plan to discharge home today Rotavirus infection Stool studies positive for rotavirus, C. difficile gene positive, toxin negative Diarrhea resolved Conservative management Received IV fluids Encourage increased oral fluid intake Imodium as needed monitor volume status Home HCTZ on hold for now Hypotension Secondary to above Hold amlodipine, losartan, HCTZ as blood pressure still low relatively Continue isosorbide, metoprolol with holding parameters Monitor blood pressure closely Suspected UTI--ruled out Asymptomatic Urine culture not contributory Empirically received Rocephin Will discontinue antibiotics Chronic diastolic heart failure No signs of volume overload currently Monitor volume status Resume home medications as able CAD S/P stent CVA as per records PVD, vascular procedure contemplated by [facility] vascular service end of the month Valvular heart disease (mild MR/TR, trace AR) Continue aspirin, Plavix, Lipitor Hyperlipidemia Continue statin Lung nodule Possible bronchogenic carcinoma ongoing radiation therapy Hypothyroidism euthyroid as of recent outpatient TSH Continue levothyroxine Chronic pancytopenia Neutropenia likely due to illness No acute bleeding issues Monitor CBC closely Low iron, started on iron supplements Advised to get repeat blood work next week on discharge Prediabetes Last HbA1c 6.0 Past tobacco abuse As per record DVT Px: SCDs for now Re: Anemia, thrombocytopenia CODE STATUS Full code Disposition Home Admission and Anticipated Discharge Date Admission Date: January 17, 2025 Subjective Patient is seen and examined at bedside No new complaints No recurrence of diarrhea Wants to be discharged home today Denies any nausea, vomiting, abdominal pain, chest pain, dyspnea Review of Systems Review of Systems: All systems reviewed & are unremarkable except as noted in Subjective Physical Exam Physical Exam: Physical Exam: Vitals signs as noted above General Appearance:Moderately built and nourished, no apparent distress, elderly Head: normocephalic, Atraumatic Eyes: normal inspection, EOMI Neck: supple, Trachea midline Respiratory/Chest: Normal breath sounds, CTA, No accessory muscle use Cardiovascular: S1, S2, faint murmur Abdomen/GI:Soft, Non tender, Bowel sounds present Extremities/Musculoskeletal:normal inspection, no edema Neurologic/Psych:AAOX3, grossly no focal neurological deficits Skin: normal color, warm Results & Data Results & Data Vital Signs (Past 12 Hours) Vital Signs Temp Pulse Pulse Resp BP BP Pulse Ox 01/18/25 11:12 36.8 C 65 20 112/53 L 94 01/18/25 07:59 36.9 C 81 20 150/60 H 95 01/18/25 07:19 80 01/18/25 02:40 37.3 C 77 12 132/62 92 O2 Del Method 01/18/25 11:12 Room Air 01/18/25 07:59 Room Air 01/18/25 07:19 01/18/25 02:40 Room Air Laboratory Results Short CBC 01/18/25 Range/Units 06:31 WBC 2.61 L (4.8-10.8) K/ul Hgb 7.6 L (12.0-16.0) g/dl Hct 24.0 L (37.0-47.0) % Plt Count 83 L (130-400) K/uL BMP 01/18/25 06:31 Sodium 137 Potassium 4.4 Chloride 111 H Carbon Dioxide 21 BUN 39 H Creatinine 1.74 H D Glucose 95 Calcium 8.4 L
--- NOTE | 2025-01-18 12:47 | Discharge Summary ---
Date of Service January 18, 2025 Admission HPI Per Admitting Provider History obtained from patient, family, and records. Medical history significant for chronic diastolic heart failure (EF 55%, TTE 2024), CAD status post stent/CVA as per records, PVD, valvular heart disease (mild MR/TR, trace AR), hypertension, hyperlipidemia, lung nodule possible bronchogenic carcinoma ongoing radiation therapy, GERD, hypothyroidism, CRI (baseline creatinine 1.4), chronic pancytopenia (baseline hemoglobin 10-11), past tobacco abuse. Last confinement June 2024 for NSTEMI status post PCI/LAD stent placement. 2 days history of nausea, vomiting, watery diarrhea symptoms. No abdominal pain. Poor appetite. Patient feeling weak. Denies headache. Some lightheadedness. Denies chest pain, SOB. Not sure about sick contacts as patient had [place] family visit over the weekend. No recent antibiotics or out-of-town travel. SBP 90s upon arrival at the ER. 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 Admission Exam Per Admitting Provider GENERAL: Comfortable, pleasant, slightly anxious, no respiratory distress SKIN: Pallor, warm HEENT: Bespectacled, pale palpebral conjunctivae, no ptosis, moist buccal mucosa NECK : Supple, no tenderness CHEST : CTA, no tenderness HEART : RRR, no obvious murmurs ABDOMEN: Some distention, nontender EXTREMITIES : No LE swelling/tenderness, no other conspicuous deformities noted NEUROLOGIC : Coherent, no facial asymmetry, no other gross focality Principal Diagnosis 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 Rotavirus infection Pancytopenia Hypotension Iron deficiency anemia Discharge Data Allergies Allergy/AdvReac Type Severity Reaction Status Date / Time Nitrate Analogues AdvReac Mild Headache Verified 01/17/25 05:00 Consultations 01/16/25 21:17 ED Decision to Admit Stat Procedures Performed Laboratory Results WBC 2.61 K/ul (4.8-10.8) L 01/18/25 06:31 RBC 2.62 M/uL (4.20-5.40) L 01/18/25 06:31 Hgb 7.6 g/dl (12.0-16.0) L 01/18/25 06:31 Hct 24.0 % (37.0-47.0) L 01/18/25 06:31 MCV 91.6 fL (80.0-100.0) 01/18/25 06:31 MCH 29.0 pg (25.0-34.0) 01/18/25 06:31 MCHC 31.7 g/dL (32.0-36.0) L 01/18/25 06:31 RDW Std Deviation 63.6 fL (36.4-46.3) H 01/18/25 06:31 RDW Coeff of Cesar 19.4 % (11.5-14.5) H 01/18/25 06:31 Plt Count 83 K/uL (130-400) L 01/18/25 06:31 Immature Gran % (Auto) 0.8 % 01/18/25 06:31 Neut % (Auto) 28.7 % 01/18/25 06:31 Lymph % (Auto) 49.8 % 01/18/25 06:31 [place] % (Auto) 20.7 % 01/18/25 06:31 Eos % (Auto) 0.0 % 01/18/25 06:31 Baso % (Auto) 0.0 % 01/18/25 06:31 Neut # (Auto) 0.75 K/uL (1.40-6.50) L* 01/18/25 06:31 Lymph # (Auto) 1.30 K/uL (1.20-3.40) 01/18/25 06:31 [place] # (Auto) 0.54 K/uL (0.11-0.59) 01/18/25 06:31 Eos # (Auto) 0.00 K/uL (0.00-0.50) 01/18/25 06:31 Baso # (Auto) 0.00 K/uL (0.00-0.20) 01/18/25 06:31 Immature Gran # (Auto) 0.02 K/uL (0.01-0.20) 01/18/25 06:31 Absolute Nucleated RBC 0.02 K/uL (0.00-0.12) 01/17/25 05:42 Nucleated RBC % (auto) 0.9 % 01/17/25 05:42 Neutrophils % (Manual) 46 % 01/17/25 05:42 Lymphocytes % (Manual) 46 % 01/17/25 05:42 Monocytes % (Manual) 5 % 01/17/25 05:42 Eosinophils % (Manual) 1 % 01/17/25 05:42 Basophils % (Manual) 1 % 01/17/25 05:42 Myelocytes % (Man) 1 % 01/17/25 05:42 Neutrophils # (Manual) 1.08 K/uL (1.40-6.50) L 01/17/25 05:42 Total Absolute Neuts 1.08 K/uL (1.4-6.5) L 01/17/25 05:42 Lymphocytes # (Manual) 1.08 K/uL (1.2-3.4) L 01/17/25 05:42 Total Abs Lymphocytes 1.08 K/uL (1.2-3.4) L 01/17/25 05:42 Monocytes # (Manual) 0.12 K/uL (0.11-0.59) 01/17/25 05:42 Eosinophils # (Manual) 0.02 K/uL (0-0.50) 01/17/25 05:42 Basophils # (Manual) 0.02 K/uL (0-0.2) 01/17/25 05:42 Myelocytes # (Manual) 0.02 K/uL (0-0) H 01/17/25 05:42 Platelet Estimate Decreased (Normal) L 01/18/25 06:31 Polychromasia 1+ 01/16/25 19:06 Poikilocytosis Present 01/18/25 06:31 Anisocytosis Present 01/16/25 19:06 Ovalocytes 1+ 01/18/25 06:31 Acanthocytes (Spur) 1+ 01/18/25 06:31 Schistocytes 1+ 01/16/25 19:06 PT 11.3 Seconds (9.0-12.0) 01/16/25 19:06 INR 1.0 (0.9-1.1) 01/16/25 19:06 APTT 23 Seconds (21-31) 01/16/25 19:06 PTT Ratio 0.9 01/16/25 19:06 Sodium 137 mmol/L (136-145) 01/18/25 06:31 Potassium 4.4 mmol/L (3.5-5.1) 01/18/25 06:31 Chloride 111 mmol/L (98-107) H 01/18/25 06:31 Carbon Dioxide 21 mmol/L (21-32) 01/18/25 06:31 Anion Gap 5 (3-11) 01/18/25 06:31 BUN 39 mg/dl (6-23) H 01/18/25 06:31 Creatinine 1.74 mg/dl (0.6-1.2) H D 01/18/25 06:31 Est Cr Clr Drug Dosing 18.6 ml/min 01/18/25 06:31 eGFR 27.70 01/18/25 06:31 BUN/Creatinine Ratio 22.4 (10-20) H 01/18/25 06:31 Glucose 95 mg/dl (70-99(Fasting)) 01/18/25 06:31 Lactate 0.7 mmol/L (0.4-2.0) 01/17/25 00:05 Calcium 8.4 mg/dl (8.6-10.3) L 01/18/25 06:31 Magnesium 2.1 mg/dl (1.7-2.4) 01/18/25 06:31 Iron 32 mcg/dl (35-150) L 01/18/25 06:31 Transferrin 216 mg/dl (200-360) 01/18/25 06:31 Ferritin 79.2 ng/ml (8-388) 01/18/25 06:31 Total Bilirubin 1.4 mg/dl (0.2-1.0) H 01/16/25 19:06 AST 18 U/L (13-39) 01/16/25 19:06 ALT 13 U/L (7-52) 01/16/25 19:06 Alkaline Phosphatase 69 U/L (34-104) 01/16/25 19:06 Troponin I High Sens 8.5 pg/ml (0-14) 01/16/25 19:06 Total Protein 7.4 gm/dl (6.0-8.3) 01/16/25 19:06 Albumin 4.4 gm/dl (3.4-5.0) 01/16/25 19:06 Globulin 3.0 gm/dl (2.5-4.0) 01/16/25 19:06 Albumin/Globulin Ratio 1.5 (0.9-2) 01/16/25 19:06 Lipase 18 U/L (11-82) 01/16/25 19:06 Vitamin B12 984 pg/ml (180-914) H 01/18/25 06:31 Folate 12.70 ng/ml (>5.38) 01/18/25 06:31 Urine Color Dark Yellow 01/16/25 19:39 Urine Appearance Clear (Clear) 01/16/25 19:39 Urine pH 5.0 (4.5-7.5) 01/16/25 19:39 Ur Specific Mary D 1.016 (1.000-1.030) 01/16/25 19:39 Urine Protein Trace (Negative) H 01/16/25 19:39 Urine Glucose (UA) Negative (Negative) 01/16/25 19:39 Urine Ketones Trace (Negative) H 01/16/25 19:39 Urine Blood Negative (Negative) 01/16/25 19:39 Urine Nitrite Negative (Negative) 01/16/25 19:39 Urine Bilirubin Negative (Negative) 01/16/25 19:39 Urine Urobilinogen Negative (Negative) 01/16/25 19:39 Ur Leukocyte Esterase Trace (Negative) H 01/16/25 19:39 Urine WBC (Auto) 0-5 /hpf (0-5) 01/16/25 19:39 Urine RBC (Auto) 3-5 /hpf (0-2) H 01/16/25 19:39 U Hyaline Cast (Auto) 11-20 /lpf (0-2) H 01/16/25 19:39 U Epithel Cells (Auto) >20 /hpf (0-2) H 01/16/25 19:39 Urine Bacteria (Auto) 2+ (None Seen) H 01/16/25 19:39 Stl C. cayetanensis PCR Not Detected (NotDetected) 01/16/25 19:39 Stool Rotavirus A PCR DETECTED (NotDetected) A* 01/16/25 19:39 Stl Adenov F 40/41 PCR Not Detected (NotDetected) 01/16/25 19:39 Stool Astrovirus (PCR) Not Detected (NotDetected) 01/16/25 19:39 Stool Campylobacter PCR Not Detected (NotDetected) 01/16/25 19:39 Stl C. diff Tox B Gene Positive Cdiff Gene (Neg) H 01/16/25 19:39 Stl C.difficile Tox A&B Negative Cdiff Toxin (Negative) 01/16/25 19:39 Stool Cryptosporidium PCR Not Detected (NotDetected) 01/16/25 19:39 Stl E.coli Shiga Tox PCR Not Detected (NotDetected) 01/16/25 19:39 Stl Enterotoxigenic E PCR Not Detected (NotDetected) 01/16/25 19:39 Stool EPEC (PCR) Not Detected (NotDetected) 01/16/25 19:39 Stool EAEC (PCR) Not Detected (NotDetected) 01/16/25 19:39 Stl E. histolytica PCR Not Detected (NotDetected) 01/16/25 19:39 Stool Giardia Lamblia PCR Not Detected (NotDetected) 01/16/25 19:39 Stool Salmonella PCR Not Detected (NotDetected) 01/16/25 19:39 Stool Sapovirus (PCR) Not Detected (NotDetected) 01/16/25 19:39 Stl P. shigelloides PCR Not Detected (NotDetected) 01/16/25 19:39 Stl Shigella/EIEC PCR Not Detected (NotDetected) 01/16/25 19:39 St Y.enterocolitica PCR Not Detected (NotDetected) 01/16/25 19:39 Stool Vibrio (PCR) Not Detected (NotDetected) 01/16/25 19:39 Stl Vibrio cholerae PCR Not Detected (NotDetected) 01/16/25 19:39 Stl Norovirus GI/GII PCR Not Detected (NotDetected) 01/16/25 19:39 Impressions Abdomen/Pelvis CT 01/16/25 19:19 Exam(s): CT ABDOMEN + PELVIS Without Contrast EXAM: CT Abdomen and Pelvis Without Intravenous Contrast CLINICAL HISTORY: Reason for exam: abd pain nvd. TECHNIQUE: Axial computed tomography images of the abdomen and pelvis without intravenous contrast. CTDI is 12.78 mGy and DLP is 554.33 mGy-cm. Automated exposure control was utilized for the study. A dose lowering technique was utilized adhering to the principles of ALARA. COMPARISON: CT abdomen/pelvis: 07/09/2022 FINDINGS: Lung bases: Perihilar very mild interstitial thickening/subtle patchy groundglass opacities. No mass. No consolidation. Calcified atherosclerosis of the coronary arteries and aorta. ABDOMEN: Lack of IV contrast limits evaluation of Liver: Unremarkable. Gallbladder and bile ducts: A distended gallbladder with multiple small rounded intraluminal calcified gallstones.. No ductal dilation. Pancreas: Diffusely atrophic pancreas. No ductal dilation. Spleen: Unremarkable. No splenomegaly. Adrenals: Thickening of the left adrenal gland.. No mass. Kidneys and ureters: Unremarkable. No obstructing stones. No hydronephrosis. Stomach and bowel: Unremarkable stomach. Fluid-filled borderline distended segments of small bowel. Liquid stool/gas in the colon. Sigmoid diverticulosis. Perisigmoid fat stranding, likely chronic reactive although cannot exclude a diverticulitis (series 2 image 66). No mucosal thickening. PELVIS: Appendix: No findings to suggest acute appendicitis. Bladder: An empty bladder. Reproductive: Prior hysterectomy. ABDOMEN and PELVIS: Intraperitoneal space: Unremarkable. No free air. No significant fluid collection. Bones/joints: No acute fracture. No dislocation. Soft tissues: Unremarkable. Vasculature: Diffuse densely calcified atherosclerosis of the aortoiliac vasculature and branch vessels. No abdominal aortic aneurysm. Lymph nodes: Several up to 1.5 cm size lymph nodes are seen predominantly in the root of the small bowel mesentery. . IMPRESSION: A distended gallbladder with multiple small calcified gallstones/cholelithiasis. Fluid/gas-filled borderline distended small bowel segments/segmental adynamic ileus. Liquid stool in the colon, suggestive of diarrheal process. Sigmoid diverticulosis. Perisigmoid fat stranding, likely chronic reactive although cannot exclude a diverticulitis. Several up to 1.5 cm mesenteric lymph nodes/lymphadenopathy, uncertain etiology. . 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 Cr 2.7>1.7 Losartan, HCTZ on hold due to hypotension Avoid nephrotoxic agents as able Received IV fluids Monitor renal function Bladder scan as needed to monitor for any retention Plan to discharge home today Rotavirus infection Stool studies positive for rotavirus, C. difficile gene positive, toxin negative Diarrhea resolved Conservative management Received IV fluids Encourage increased oral fluid intake Imodium as needed monitor volume status Home HCTZ on hold for now Hypotension Secondary to above Hold amlodipine, losartan, HCTZ as blood pressure still low relatively Continue isosorbide, metoprolol with holding parameters Monitor blood pressure closely Suspected UTI--ruled out Asymptomatic Urine culture not contributory Empirically received Rocephin Will discontinue antibiotics Chronic diastolic heart failure No signs of volume overload currently Monitor volume status Resume home medications as able CAD S/P stent CVA as per records PVD, vascular procedure contemplated by [facility] vascular service end of the month Valvular heart disease (mild MR/TR, trace AR) Continue aspirin, Plavix, Lipitor Hyperlipidemia Continue statin Lung nodule Possible bronchogenic carcinoma ongoing radiation therapy Hypothyroidism euthyroid as of recent outpatient TSH Continue levothyroxine Chronic pancytopenia Neutropenia likely due to illness No acute bleeding issues Monitor CBC closely Low iron, started on iron supplements Advised to get repeat blood work next week on discharge Prediabetes Last HbA1c 6.0 Past tobacco abuse As per record DVT Px: SCDs for now Re: Anemia, thrombocytopenia CODE STATUS Full code Disposition Home Total Time Total Time Spent Total Time Spent (In Minutes): 54 minutes Discharge Plan Discharge Items Patient Disposition: Home - Self-Care Reason For Visit: ARF, HYPOTENSTION Discharge Diagnosis: 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 Rotavirus infection Pancytopenia Hypotension Iron deficiency anemia Activity: Per Instructions section Exercise/Sports: Wait until after follow-up appointment Non-emergency contact: Primary Care Provider Call non-emergency contact if: you have any medication questions, your symptoms worsen, your pain is concerning for you and you have a fever Follow-up/Referrals: Rafat Josue MD [Primary Care Provider] - (Date & Time 01/23/2025 11:20 AM Provider: Rafat Josue MD [facility]) Diet: Heart Healthy Addtl Attending Provider Instructions: Follow-up with your primary care physician in 1 week as scheduled Consider following with your automotive hardware engineer for an evaluation of low blood counts --Get blood work(complete blood count, basic metabolic panel) in 1 week to monitor your blood counts and renal function. Discuss with your primary care physician for further recommendations. -- Increase oral fluid intake to help with hydration --Hold taking your amlodipine, losartan and hydrochlorothiazide for now as your blood pressure has been low. Monitor your blood pressure regularly and discuss with your primary care physician for further adjustment of medications as needed. Seek immediate medical attention if your symptoms reoccur or worsen Please review medication list provided on discharge for any medication changes as instructed. Please call if you have any questions or problems. You can reach a [facility] hospitalist on duty at [facility] 24 hours a day by calling [phone] Pending Studies at Discharge: No Stand-Alone Forms: My [facility], Smoking Cessation Medications and DC Order Prescriptions: New loperamide 2 mg Capsule 2 mg PO Q8H PRN (Reason: loose stool) Qty: 14 0RF ferrous sulfate 325 mg (65 mg iron) Tablet,Delayed Release (Dr/Ec) 325 mg PO QAM Qty: 30 0RF Advanced Probiotic 625 mg (10 billion cell) Capsule 1 cap PO DAILY Qty: 7 0RF Continued Calcium 600 with Vitamin D3 600 mg-10 mcg (400 unit) tablet,chewable 2 tab PO DAILY isosorbide mononitrate 60 mg tablet extended release 24 hr 30 mg PO DAILY aspirin 81 mg Tablet,Delayed Release (Dr/Ec) 81 mg PO QPM levothyroxine 50 mcg Tablet 50 mcg PO QAM cholecalciferol (vitamin D3) [Vitamin D3] 25 mcg (1,000 unit) Capsule 50 mcg PO QPM cyanocobalamin (vitamin B-12) [Vitamin B-12] 1,000 mcg Tablet 1,000 mcg PO QPM atorvastatin 40 mg Tablet 40 mg PO QAM Qty: 30 0RF metoprolol succinate 50 mg Tablet Extended Release 24 Hr 50 mg PO QAM Qty: 30 0RF clopidogrel 75 mg Tablet 75 mg PO QAM Qty: 30 0RF pantoprazole 40 mg Tablet,Delayed Release (Dr/Ec) 40 mg PO QAM Qty: 30 0RF ascorbic acid (vitamin C) [Vitamin C] 500 mg tablet 1 g PO QPM Held hydrochlorothiazide 12.5 mg capsule 12.5 mg PO DAILY Hold Instructions: Hold taking until follow-up with your primary care physician for further instructions losartan 100 mg tablet 100 mg PO DAILY Hold Instructions: Hold taking until follow-up with your primary care physician for further instructions amlodipine 5 mg Tablet 5 mg PO QPM Hold Instructions: Hold taking until follow-up with your primary care physician for further instructions Discharge Orders: Discharge Order (Routine); Ordered 01/18/25 Ordered By: Keanu Sosa Admission Data Admit Date/Time: 01/17/25 14:05 Attending Provider: Keanu Sosa Admit Provider: Skyler Aguilera Primary Care Provider: Rafat Josue Other Providers: Skyler Aguilera
[2025-01-18 13:40] VITALS: BP 132/62
[2025-01-18 13:57] VITALS: PULSE 75
--- OUTSIDE RECORDS SUMMARY | 2025-01-18 14:52 | External Medical Summary | Summary of Care ---
Author Name Unknown Organization [facility] Address [address] [place] [address] Phone [phone] Care Team Providers Care Migration Agent Name Role Phone Rafat Josue MD Primary Care Provider [phone]- [phone] Reason for Visit * Reason Onset Date Comments Forms Request 01/14/2025 Encounter Details Date Type Department Care Team (Late st Contact Info) Description 01/14/2025 Telephone [facility] [address] [place] [address] Rafat Josue MD [address] [place] [address] Forms Request Allergies No known active allergiesdocumented as of this encounter (statuses as of 01/17/2025) Medications CALCIUM 500 +D 500-400 MG-UNIT PO [...] as of this encounter (statuses as of 01/17/2025) Active Problems Problem Noted Date Diagnosed Date PVD (peripheral vascular disease) with claudicat ion 12/26/2024 Varicose veins of bilateral lower extremities with other complications 10/24/2024 Other pancytopenia 10/04/2024 History of [place] (myocardial infarction) 08/06/2024 Former smoker 01/17/2024 Atherosclerosis of aorta 04/26/2023 Hypertensive kidney disease with stage 3b chronic kidney disease 04/26/2023 Atherosclerosis of coronary artery of [place] heart without angina pectoris 04/26/2023 Thyroid nodule [...] as of this encounter (statuses as of 01/17/2025) Resolved Problems Problem Noted Date Diagnosed Date [...] as of this encounter (statuses as of 01/17/2025) Immunizations Name Administration Dates Next Due COVID-19 mRNA, LNP-s, No Pre serve, 2-Dose Series (Pfizer) 07/25/2021,12/27/2020,11/29/2020 COVID-19, LNP-s, No Preserve , Binh-sucrose, Ages 12+ (Pfizer) 03/05/2022 COVID-19, MRNA-LNP, PF, 30 M CG/0.3 mL, 12 YRS AND ABOVE, IM (PFIZER-Comirnat) 06/15/2024,09/26/2023 Diptheria/Tetanus (Adult) 09/16/1992 Pneumococcal Conjugate Vacc, [...] 10 and older)(Boostrix) 03/14/2013 Varicella Zoster Vaccine Jurgen lt (Zostavax) 02/28/2008 Zoster Vaccine Recombinant (Shingrix) 11/21/2018 ,04/16/2018 [...] encounter Miscellaneous Notes * Telephone Encounter - Sindy Villalobos OSA - 01/17/2025 2:36 PM EDT Received and is on Dr. Josue's desk. 01/17/2025 * Telephone Encounter - Sindy Villalobos OSA - 01/17/2025 1:49 PM EDT Have we received this form? * Telephone Encounter - Carolyn Aleman OSA - 01/14/2025 3:42 PM EDT Pt's daughter, Aisha, is calling requesting a form to be completed. Pt will be moving closer [place] to be closer to her kids. They [...] theform, please reach out to Aisha at [phone] documented in this encounter Plan of Treatment Upcoming Encounters Date Type Department Care Team (Latest Contact Info) Description 5 11:20 AM EDT Office Visit [facility] [address] [place] [phone] Rafat Josue MD [address] [facility] [place] [address] 5 1:00 PM EDT Appointment Radiology, [place] [address] [place] [address] 5 7:15 AM EDT Hospital Encounter [place] [facility], OPERATING ROOM [facility] [address] [facility] [facility] [phone] Scott Lee MD [address], [place] [phone] 5 7:15 AM EDT - 5 10:51 AM EDT Surgery [place] [facility], OPERATING ROOM [facility] [address] [facility] [place] [phone] Scott Lee MD [address], [place] [phone] COMMON FEMORAL ENDARTERECTOMY 5 10:10 AM EDT Office Visit Vascular Surgery, [facility] [address] [place] [address] Scott Lee MD [address] [facility] [place] [address] 5 1:00 PM EDT Imaging Vascular Lab, [address] [place] [address] 5 2:00 PM EDT Imaging Vascular Lab, [address] [place] [address] 5 3:00 PM EDT Imaging Vascular Lab, [address] [place] [address] 5 11:30 AM EDT Office Visit Vascular Surgery, [facility] [address] [place] [address] Scott Lee MD [address] [place] [facility] [place] [address] 5 8:00 AM EDT Hospital Encounter ENDO [facility], Endoscopy Suite, HFAM 1, [address] [place] [address] Noa Vail MD [address] [place] [address] 5 8:00 AM EDT - 5 8:30 AM EDT Surgery ENDO [facility], Endoscopy Suite, HFAM 1, [address] [place] [address] Noa Vail MD [address] [place] [address] ESOPHAGOGASTRODUODENOSCOPY (EGD), FLEXIBLE, TRANSORAL, DIAGNOSTIC 5 8:00 AM EDT Office [address] [place] [phone] Rafat Josue MD [address] [place] [address] 10:30 AM EDT Office Visit Cardiology, [facility] [address] [place] [phone] Thomas Burleson PA-C [address] [place] [address] Scheduled Procedures Name Priority Associated Diagnoses Date/Ti [...] 05/10/2025 05/10/2024, 03/18 CKD PHOS USE SMARTSET 51962 05/10/202504/17, 04/14/2023, 11/03/2020, Additional history exists Depression Screening 07/13/2025 07/13/2024 TSH 08/27/2025 08/27/2024, 04/17, 04/14/2023, Additional history exists CKD HGB USE SMARTSET 38898 11/20/202511/20, 08/27/2024, 05/10/2024, Additional history exists DXA Scan 06/08/2026 06/08/2024, 05/18, 05/21/2019, Additional history exists DTap/Tdap Vaccines Discontinued 03/14/2013, 1 12/05/2001, 09/16/1992 Pneumococcal Vaccine: 50+ Years Completed 05/10/2016, 11/10/2006, 11/09/1999 Zoster Vaccines Completed 11/21/2018, 04/16, 04/16/2018, Additional history exists VITAMIN D LEVEL ONCE IN A LIFETIME-USE SMARTSET# [id number] Completed 04/14/2023, 08/04/2021, 11/03/2020, Additional history exists [...] Documents on File Type Date Recorded Patient Yarn Hauler Expl anation Advance Directives and Living Will 09/26/2015 LIVING WILL LIVING W ILL Power of Mushroom Press Operator 09/26/2015 POWER OF A TTORNEY POWER OF MULCHER OPERATOR Care Teams Migration Agent Relationship Specialty Start Date End Date Rafat Josue MD [address] [place] [address] PCP - General 12/31/02 documented as of this encounter
--- OUTSIDE RECORDS SUMMARY | 2025-01-18 14:53 | External Medical Summary | Summary of Care ---
Author Name Unknown Organization [facility] Address [address] [place] [address] Phone [phone] Care Team Providers Care Uniform Cap Operator Name Role Phone Rafat Josue MD Primary Care Provider [phone]- [phone] Reason for Visit * Reason Onset Date Comments Forms Request 01/14/2025 Encounter Details Date Type Department Care Team (Late st Contact Info) Description 01/14/2025 Telephone [facility] [address] [place] [address] Rafat Josue MD [address] [place] [address] Forms Request Allergies No known active [...] complications 10/24/2024 Other pancytopenia 10/04/2024 History of [place] (myocardial infarction) 08/06/2024 Former smoker 01/17/2024 Atherosclerosis of aorta 04/26/2023 Hypertensive kidney disease with stage 3b chronic kidney disease 04/26/2023 Atherosclerosis of coronary artery of [place] heart without angina pectoris 04/26/2023 Thyroid nodule [...] received this form? * Telephone Encounter - Carloyn Aleman OSA - 01/14/2025 3:42 PM EDT Pt's daughter, Aisha, is calling requesting a form to be completed. Pt will be moving closer [place] to be closer to her kids. They [...] theform, please reach out to Aisha at [phone] documented in this encounter Plan of Treatment Upcoming Encounters Date Type Department Care Team (Latest Contact Info) Description 5 11:20 AM EDT [facility] [address] [facility] [phone] Rafat Josue MD 226 [facility] [place] [address] 5 1:00 PM EDT Appointment Radiology, [place] [address] [place] [address] 5 7:15 AM EDT Hospital Encounter [place] [facility] OPERATING ROOM [facility] [address] [facility] [phone] Scott Lee MD [address], [place] [phone] 5 7:15 AM EDT - 5 10:51 AM EDT Surgery OR [facility], OPERATING ROOM [facility] [address] [place] [phone] Scott Lee MD [address], [place] [phone] COMMON FEMORAL ENDARTERECTOMY 5 10:10 AM EDT Office Visit Vascular Surgery, [facility] [address] [place] [address] Scott Lee MD [address] [facility] [place] [address] 5 1:00 PM EDT Imaging Vascular Lab, [address] [place] [address] 5 2:00 PM EDT Imaging Vascular Lab, [address] [place] [address] 5 3:00 PM EDT Imaging Vascular Lab, [address] [place] [address] 5 11:30 AM EDT Office Visit Vascular Surgery, [facility] [address] [place] [phone] Scott Lee MD [address] [facility] [place] [address] 5 8:00 AM EDT Hospital Encounter ENDO [facility], Endoscopy Suite, HFAM 1, [address] [facility] [place] [address] Noa Vail MD [address] [facility] [place] [address] 5 8:00 AM EDT - 5 8:30 AM EDT Surgery ENDO [facility], Endoscopy Suite, HFAM 1, [address] [facility] [place] [address] Noa Vail MD [address] [facility] [place] [address] ESOPHAGOGASTRODUODENOSCOPY (EGD), FLEXIBLE, TRANSORAL, DIAGNOSTIC 5 8:00 AM EDT Office [address] [place] [phone] Rafat Josue MD [address] [place] [address] 10:30 AM EDT Office Visit Cardiology, [facility] [address] [place] [phone] Thomas Burleson PA-C [address] [place] [address] Scheduled Procedures Name Priority Associated Diagnoses Date/Ti [...] 05/10/2025 05/10/2024, 03/18 CKD PHOS USE SMARTSET 79066 05/10/202504/17, 04/14/2023, 11/03/2020, Additional history exists Depression Screening 07/13/2025 07/13/2024 TSH 08/27/2025 08/27/2024, 04/17, 04/14/2023, Additional history exists CKD HGB USE SMARTSET 63945 11/20/202511/20, 08/27/2024, 05/10/2024, Additional history exists DXA Scan 06/08/2026 06/08/2024, 05/18, 05/21/2019, Additional history exists DTap/Tdap Vaccines Discontinued 03/14/2013, 1 12/05/2001, 09/16/1992 Pneumococcal Vaccine: 50+ Years Completed 05/10/2016, 11/10/2006, 11/09/1999 Zoster Vaccines Completed 11/21/2018, 04/16, 04/16/2018, Additional history exists VITAMIN D LEVEL ONCE IN A LIFETIME-USE SMARTSET# [id number] Completed 04/14/2023, 08/04/2021, 11/03/2020, Additional history exists [...] Documents on File Type Date Recorded Patient On Line Csr Expl anation Advance Directives and Living Will 09/26/2015 LIVING WILL LIVING W ILL Power of Rn On Site 09/26/2015 POWER OF A TTORNEY POWER OF SURGERY CENTER ADMINISTRATOR Care Teams Uniform Cap Operator Relationship Specialty Start Date End Date Rafat Josue MD [address] [place] [address] PCP - General 12/31/02 documented as of this encounter
[2025-01-19] MEDS ORDERED: FERROUS SULFATE 325 MG TAB PO SCH (09:00)
== END 2025-01-18 15:30 | disposition home or self-care (01) | DRG 683 ==
LOC: ED 18:38 → 2N 18:38